=== PATIENT | male | born 1985 | race Caucasian/White ===

== ENCOUNTER 2016-03-01 04:16 | Emergency (ER) | payer SELFPAY ==
[2016-03-01] MEDS ORDERED: LORAZEPAM INJ 2 MG/1 ML VIAL IV ONE (04:44)
--- NOTE | 2016-03-01 04:47 | ER Document Report ---
[id number] DAYS: No <MECCA RICH - Last Filed: 03/02/16 03:08> - General Chief Complaint: Shortness Of Breath Stated Complaint: CHEST PAIN-CRUSHING Notes: Patient's a 30-year-old male presents with complaints of severe anxiety and panic attack. Patient has a history of bipolar and schizophrenia and panic attacks. Patient says he feels himself panicking and chest pain. He went walk around outside. He continues so panic therefore, he moves. He does admits using cocaine on . He denies any cocaine since then. 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 He's had no recent fevers or infections. No other complaints at this time. Patient is currently very anxious and panicky on exam. (MECCA RICH) - Related Data Allergies/Adverse Reactions: No Known Allergies Allergy (Verified 05/20/14 17:14) Past Medical History - Social History Smoking Status: Current Some Day Smoker Frequency of alcohol use: Occasional Drug Abuse: Cocaine, Methamphetamine Family History: Reviewed & Not Pertinent, Other - Father had congestive heart failure Patient has suicidal ideation: No Patient has homicidal ideation: No - Past Medical History Cardiac Medical History: Reports: Hx Hypertension, Hx Heart Murmur Pulmonary Medical History: Denies: Hx Tuberculosis Renal/ Medical History: Denies: Hx Peritoneal Dialysis Past Surgical History: Reports: Hx Cardiac Surgery, Hx Tonsillectomy - Immunizations Immunizations up to date: Yes Hx Diphtheria, Pertussis, Tetanus Vaccination: No <MECCA RICH - Last Filed: 03/02/16 03:08> Review of Systems <LENA MAYER - Last Filed: 03/01/16 10:26> <MECCA RICH - Last Filed: 03/02/16 03:08> - Review of Systems Notes: My Normal Review Basic REVIEW OF SYSTEMS: CONSTITUTIONAL : Denies fever, chills, or sweats. Denies recent illness. EENT: Denies eye, ear, throat, or mouth pain or symptoms. Denies nasal or sinus congestion. CARDIOVASCULAR: Some chest pain. RESPIRATORY: Denies cough, cold, or chest congestion. Denies shortness of breath, difficulty breathing, or wheezing. GASTROINTESTINAL: Denies abdominal pain. Denies nausea, vomiting, or diarrhea. Denies constipation. Last BM: MUSCULOSKELETAL: Denies neck or back pain or joint pain or swelling. SKIN: Denies rash or skin lesions. NEUROLOGICAL: Denies altered mental status or loss of consciousness. Denies headache. Denies weakness or paralysis or loss of use of either side. Denies problems with gait or speech. Denies sensory or motor loss. PSYCHIATRIC: Severe anxiety ALL OTHER SYSTEMS REVIEWED AND NEGATIVE. (MECCA RICH) Physical Exam <LENA MAYER - Last Filed: 03/01/16 10:26> <MECCA RICH - Last Filed: 03/02/16 03:08> - Vital signs Vitals: Resp BP Pulse Ox 34 H 122/40 L 95 03/01/16 06:09 03/01/16 06:09 03/01/16 06:09 (LENA MAYER) - Notes Notes: General Appearance: Well nourished, alert, patient is extremely anxious on exam. He is moving around in the bed and is having a hard time staying still. Vitals: reviewed, See vital signs table. Head: no swelling or tenderness to the head Eyes: PERRL, EOMI, Conjuctiva clear Mouth: No decreasd moisture Neck: Supple, no neck tenderness, No thyromegaly Lungs: No wheezing, No rales, No rhonci, No accessory muscle use, good air exchange bilaterally. Heart: Normal rate, Regular rythm, No murmur, no rub Abdomen: Normal BS, soft, No rigidity, No abdominal tenderness, No guarding, no rebound, no abdominal masses, no organomegaly Extremities: strength 5/5 in all extremities, good pulses in all extremities, no swelling or tenderness in the extremities, no edema. Skin: warm, dry, appropriate color, no rash Neuro: speech clear, oriented x 3, normal affect, responds appropriately to questions. (MECCA RICH) Course - Laboratory Result Diagrams: 03/01/16 04:45 03/01/16 04:45 <LENA MAYER - Last Filed: 03/01/16 10:26> - Laboratory Result Diagrams: 03/01/16 04:45 03/01/16 04:45 <MECCA RICH - Last Filed: 03/02/16 03:08> - Vital Signs Vital signs: Temp Pulse Resp BP Pulse Ox 98.0 F 80 16 140/58 H 98 03/01/16 10:45 03/01/16 10:45 03/01/16 10:45 03/01/16 10:45 03/01/16 10:45 (LENA MAYER) - Laboratory Laboratory results interpreted by me: 03/01/16 03/01/16 03/01/16 04:45 04:45 08:05 Hgb 11.7 L Hct 35.0 L MCV 79 L MCH 26.4 L RDW 14.4 H Lymphocytes % 11.7 L Creatinine 1.34 H ALT 17 L Urine Protein 100 H Urine Ketones TRACE H Urine Urobilinogen 4.0 H Salicylates < 1.0 L Acetaminophen < 10 L (LENA MAYER) - EKG Interpretation by Me Additional EKG results interpreted by me: 03/01/16 04:47 EKG is reviewed and interpreted by me. EKG shows sinus tachycardia with rate of [address] segment elevation or depression. No ischemic T wave inversions. UT interval, QRS duration, QTC intervals are within normal range. ( MECCA RICH) - Transfer of Care Notes: 03/01/16 06:47 Patient's anxiety and panic tachycardia was having as much proved after the tube Ativan. He is now resting comfortably. I did go and wake him up and talk to him. Patient says he is feeling improved. He never demonstrated any hallucinations. He denies any suicidal thoughts. I do not feel that he meets criteria for involuntary commitment. I did talk to the patient at length and he does request speak to psychiatry since he has been off medications and was having panic attack earlier. I do think that street drugs by does play a role in his symptoms he presented with today. He is medical stable to see psychiatry. The patient does decide to leave her did not feel we can hold against his will as he does not currently meet criteria for IVC. Dictation of this chart was performed using voice recognition software; therefore, there may be some unintended grammatical errors. (MECCA RICH) Discharge <LENA MAYER - Last Filed: 03/01/16 10:26> <MECCA RICH - Last Filed: 03/02/16 03:08> - Discharge Clinical Impression: Anxiety, Panic attack, Cocaine abuse Condition: Good Disposition: HOME, SELF-CARE Instructions: Anxiety ([facility]) Additional Instructions: Please avoid all street drugs. Please follow up with your doctor. Please take your medications as prescribed. Please return to the ER if you have fevers, depression, suicidal thoughts, hallucinations, or feel unwell.
[2016-03-01 05:03] LABS: ABSOLUTE BASOPHILS # (AUTO) 0.1 10^3/uL (0.0-0.2); ABSOLUTE LYMPHOCYTES (AUTO) 1.2 10^3/uL (0.5-4.7); ABSOLUTE NEUT (AUTO) 7.6 10^3/uL (1.7-8.2); BASOPHILS % (AUTO) 1.4 % (0-2); EOSINOPHILS % (AUTO) 0.2 % (0-6); HEMOGLOBIN 11.7 g/dL (13.5-17.0); HGB HCT DIFFERENCE 0.1; LYMPHOCYTES % (AUTO) 11.7 % (13-45); MEAN CORPUSCULAR HEMOGLOBIN 26.4 pg (27.0-33.4); MEAN CORPUSCULAR HGB CONC 33.4 g/dL (32.0-36.0); MEAN CORPUSCULAR VOLUME 79 fl (80-97); MONOCYTES % (AUTO) 9.8 % (3-13); RED BLOOD COUNT 4.44 10^6/uL (4.35-5.55); RED CELL DISTRIBUTION WIDTH 14.4 % (11.5-14.0); SEGMENTED NEUTROPHILS % (AUTO) 76.9 % (42-78); WHITE BLOOD COUNT 9.9 10^3/uL (4.0-10.5)
[2016-03-01 05:36] LABS: ALBUMIN 3.6 g/dL (3.5-5.0); ALKALINE PHOSPHATASE 94 U/L (38-126); ANION GAP 12 (5-19); ASPARTATE AMINO TRANSFERASE 38 U/L (17-59); BILIRUBIN,TOTAL 1.1 mg/dL (0.2-1.3); BLOOD UREA NITROGEN 19 mg/dL (7-20); CARBON DIOXIDE 25 mmol/L (22-30); CHLORIDE 101 mmol/L (98-107); CREATININE RESULT 1.34 mg/dL (0.52-1.25); GLUCOSE 105 mg/dL (75-110); POTASSIUM 3.7 mmol/L (3.6-5.0); SODIUM 137.7 mmol/L (137-145); TOTAL PROTEIN 7.1 g/dL (6.3-8.2)
[2016-03-01 05:38] LABS: ALCOHOL < 10 mg/dL (NONE DETECTED)
[2016-03-01 05:46] LABS: ALANINE AMINOTRANSFERASE 17 U/L (21-72)
[2016-03-01 09:32] LABS: APPEARANCE,URINE CLEAR; BILIRUBIN,URINE NEGATIVE (NEGATIVE); GLUCOSE, URINE NEGATIVE (NEGATIVE); KETONES,URINE TRACE mg/dL (NEGATIVE); LEUKOCYTE ESTERASE,URINE NEGATIVE (NEGATIVE); NITRITE,URINE NEGATIVE (NEGATIVE); PROTEIN,URINE 100 mg/dL (NEGATIVE); URINE SPECIFIC GRAVITY 1.023
[2016-03-01 09:50] LABS: URINE BARBITURATES SCREEN NEGATIVE; URINE METHADONE SCREEN NEGATIVE; URINE PHENCYCLIDINE SCREEN NEGATIVE
--- NOTE | 2016-03-01 10:39 | PSYCHOLOGICAL NOTE ---
Psych Note - Psych Note Psych Note: Patient is a 30 year old male who presented voluntarily seeking assistance for c /o anxiety/panic attacks. Upon arrival, patient reported a history of Schizophrenia, with no current psychotropic medications. Patient did endorse drug abuse, and toxicology was positive for Amphetamines, Cocaine, and THC. Patient this morning states he didn't need to speak with anyone. Patient states he has lost his health insurance and would like the name of a provider who is lower cost/free of charge. Provided patient with list of providers, and illuminated the ones which can access state funding should he meet that criteria. Patient reports he lives in a home with other roommates and this is a safe environment. Patient provided psychoeducation regarding drug use and its effects on his mental illnesses. Patient denies suicidal/homicidal ideaitons, intent, plan, or means. Patient is A&O. Mood is euthymic with normal affect. Patient denies suicidal.homicidal ideations, intent, plan, or means. Patient denies A/V h; delusions not noted. Thought processes were organized. Conversational speech was WNL for rate, tone, and prosody. Intellectual abilities were estimated within average range. Attention and focus were fair. Insight, judgment, and impulse control were poor. 298.9 (F29) Unspecified Schizophrenia or Other Psychotic Disorder Polysubstance Disorder Patient is psychiatrically cleared for discharge. Patient was held overnight voluntarily for consultation; however, this morning stated he no longer wished to engage in consultation. Patient did request resources, which were provided. Patient denied any other safety concerns. Patient denied suicidal/homicidal ideations, intent, plan, or means. I consulted with Dr. Boyd in regards to the care and management of this patient. ED MD is in agreement with disposition and recommendations.
[2016-03-01 11:07] VITALS: BP 140/58
--- NOTE | 2016-03-01 11:13 | ER Document Report ---
Doctor's Note Notes: 03/01/16 11:11 Medical rounds: Patient verbalizes no somatic complaints. There has been no further chest pain. Vital signs have normalized. Laboratory values are satisfactory. Psychosocial evaluation has been performed and he is deemed stable for discharge. He is given a list of resources for follow-up and is encouraged to do so. He is medically stable at this time.
--- NOTE | 2016-03-04 14:55 | EKG REPORT ---
SEVERITY:- ABNORMAL ECG - SINUS TACHYCARDIA ST DEPRESSION, CONSIDER ISCHEMIA, ANT-LAT LDS BORDERLINE PROLONGED QT INTERVAL : Confirmed by: Rose Arreguin MD 04-Mar-2016 14:54:02
== END 2016-03-01 10:48 | disposition home or self-care (01) ==
LOC: ER 04:16
DX: F41.0 Panic disorder [episodic paroxysmal anxiety] (principal); F41.9 Anxiety disorder, unspecified; F14.10 Cocaine abuse, uncomplicated; R07.9 Chest pain, unspecified; Z95.4 Presence of other heart-valve replacement; R00.0 Tachycardia, unspecified
CPT/HCPCS: 36415; 80053; 80307; 81001; 85025; 93005; 93010; 99285

== ENCOUNTER 2016-03-04 04:23 | Emergency (ER) | payer SELFPAY ==
[2016-03-04] MEDS ORDERED: LORAZEPAM INJ 2 MG/1 ML VIAL IV ONE (04:48)
[2016-03-04] MEDS ORDERED: NITROGLYCERIN 2% OINTMENT 1 GM PACKET TP ONE (04:49)
--- NOTE | 2016-03-04 04:51 | ER Document Report ---
Doctor's Note Notes: 03/04/16 04:49 03/04/16 05:57
[2016-03-04 05:21] LABS: ABSOLUTE LYMPHOCYTES (AUTO) 1.6 10^3/uL (0.5-4.7); ABSOLUTE MONOCYTES (AUTO) 1.1 10^3/uL (0.1-1.4); BASOPHILS % (AUTO) 0.3 % (0-2); EOSINOPHILS % (AUTO) 0.2 % (0-6); HEMATOCRIT 34.6 % (37.9-51.0); HEMOGLOBIN 11.4 g/dL (13.5-17.0); HGB HCT DIFFERENCE -0.4; LYMPHOCYTES % (AUTO) 14.8 % (13-45); MEAN CORPUSCULAR HEMOGLOBIN 25.9 pg (27.0-33.4); MEAN CORPUSCULAR HGB CONC 32.8 g/dL (32.0-36.0); MEAN CORPUSCULAR VOLUME 79 fl (80-97); MONOCYTES % (AUTO) 10.3 % (3-13); RED BLOOD COUNT 4.39 10^6/uL (4.35-5.55); RED CELL DISTRIBUTION WIDTH 14.6 % (11.5-14.0); SEGMENTED NEUTROPHILS % (AUTO) 74.4 % (42-78); WHITE BLOOD COUNT 10.7 10^3/uL (4.0-10.5)
[2016-03-04 05:33] LABS: ALANINE AMINOTRANSFERASE 31 U/L (21-72); ALBUMIN 3.8 g/dL (3.5-5.0); ALKALINE PHOSPHATASE 82 U/L (38-126); ANION GAP 16 (5-19); ASPARTATE AMINO TRANSFERASE 29 U/L (17-59); BILIRUBIN,TOTAL 1.1 mg/dL (0.2-1.3); BLOOD UREA NITROGEN 18 mg/dL (7-20); CALCIUM 9.1 mg/dL (8.4-10.2); CARBON DIOXIDE 21 mmol/L (22-30); CHLORIDE 102 mmol/L (98-107); CREATINE KINASE 181 U/L (55-170); CREATININE RESULT 1.06 mg/dL (0.52-1.25); GLUCOSE 106 mg/dL (75-110); POTASSIUM 3.6 mmol/L (3.6-5.0); SODIUM 138.7 mmol/L (137-145); TOTAL PROTEIN 6.6 g/dL (6.3-8.2)
[2016-03-04 05:45] LABS: CREATINE KINASE MB 5.33 ng/mL (<4.55)
[2016-03-04 05:47] LABS: TROPONIN I 0.156 ng/mL
--- NOTE | 2016-03-04 05:58 | ER Document Report ---
ED General - General TRAVEL OUTSIDE OF THE [place] IN LAST 30 DAYS: No <MECCA RICH - Last Filed: 03/04/16 07:49> <ESTELA BUSTILLO - Last Filed: 03/04/16 12:59> - General Chief Complaint: Chest Pain Stated Complaint: CHEST PAIN Notes: I performed a quick triage evaluation of the patient. Patient is a 30-year-old male who presents with chest pain shortness of breath after he did methamphetamine. Patient is a long history of methamphetamine and cocaine use. He does have a history of a replaced heart valve. He has cadaver valve. 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 Patient denies any recent fevers or infections. Symptoms not started after he took the methamphetamine. Patient said he did try to take 1 Xanax to calm down his symptoms but did not help. Patient is tachycardic. EKG does show some T-wave inversion and mild ST segment depression. Patient states on a electronic device monitor. (MECCA RICH) - Related Data Allergies/Adverse Reactions: No Known Allergies Allergy (Verified 05/20/14 17:14) Past Medical History - Social History Smoking Status: Unknown if Ever Smoked Frequency of alcohol use: Occasional Drug Abuse: Cocaine, Marijuana, Methamphetamine Family History: Reviewed & Not Pertinent, Other - Father had congestive heart failure Patient has suicidal ideation: No Patient has homicidal ideation: No - Past Medical History Cardiac Medical History: Reports: Hx Hypertension, Hx Heart Murmur Pulmonary Medical History: Denies: Hx Tuberculosis Renal/ Medical History: Denies: Hx Peritoneal Dialysis Psychiatric Medical History: Reports: Hx Bipolar Disorder, Hx Schizophrenia Past Surgical History: Reports: Hx Cardiac Surgery, Hx Tonsillectomy - Immunizations Immunizations up to date: Yes Hx Diphtheria, Pertussis, Tetanus Vaccination: No <MECCA RICH - Last Filed: 03/04/16 07:49> Review of Systems <MECCA RICH - Last Filed: 03/04/16 07:49> <ESTELA BUSTILLO - Last Filed: 03/04/16 12:59> - Review of Systems Notes: My Normal Review Basic REVIEW OF SYSTEMS: CONSTITUTIONAL : Denies fever, chills, or sweats. Denies recent illness. EENT: Denies eye, ear, throat, or mouth pain or symptoms. Denies nasal or sinus congestion. CARDIOVASCULAR: Chest pain RESPIRATORY: Shortness of breath GASTROINTESTINAL: Denies abdominal pain. Denies nausea, vomiting, or diarrhea. Denies constipation. Last BM: MUSCULOSKELETAL: Denies neck or back pain or joint pain or swelling. SKIN: Denies rash or skin lesions. NEUROLOGICAL: Denies altered mental status or loss of consciousness. Denies headache. Denies weakness or paralysis or loss of use of either side. Denies problems with gait or speech. Denies sensory or motor loss. ALL OTHER SYSTEMS REVIEWED AND NEGATIVE. (MECCA RICH) Physical Exam <MECCA RICH - Last Filed: 03/04/16 07:49> <ESTELA BUSTILLO - Last Filed: 03/04/16 12:59> - Vital signs Vitals: Pulse Resp BP Pulse Ox 108 H 28 H 141/106 H 100 03/04/16 04:34 03/04/16 04:34 03/04/16 04:34 03/04/16 04:34 (MECCA RICH) (ESTELA BUSTILLO) - Notes Notes: General Appearance: Well nourished, alert, cooperative, no acute distress, no obvious discomfort. Vitals: reviewed, See vital signs table. Head: no swelling or tenderness to the head Eyes: PERRL, EOMI, Conjuctiva clear Mouth: No decreasd moisture Neck: Supple, no neck tenderness, No thyromegaly Lungs: No wheezing, No rales, No rhonci, No accessory muscle use, good air exchange bilaterally. Heart: Rapid rate, Regular rythm, No murmur, no rub Abdomen: Normal BS, soft, No rigidity, No abdominal tenderness, No guarding, no rebound, no abdominal masses, no organomegaly Extremities: strength 5/5 in all extremities, good pulses in all extremities, no swelling or tenderness in the extremities, no edema. Skin: warm, dry, appropriate color, no rash Neuro: speech clear, oriented x 3, normal affect, responds appropriately to questions. (MECCA RICH) Course - Laboratory Result Diagrams: 03/04/16 04:55 03/04/16 04:55 <MECCA RICH - Last Filed: 03/04/16 07:49> - Laboratory Result Diagrams: 03/04/16 04:55 03/04/16 04:55 <ESTELA BUSTILLO - Last Filed: 03/04/16 12:59> - Re-evaluation Re-evalutation: 03/04/16 06:37 Patient is currently well sedated from the Ativan. He is no longer tachycardic. He denies any pain at this time. At the tetanus CT angiogram to rule out dissection being that he does have a history of the aortic valve replacement does have elevated cardiac enzymes. I'm awaiting the results for that. (MECCA RICH) 03/04/16 10:46 Patient's cardiac enzymes have elevated, I did contact the vidant transfer who seemed quite nonchalant regarding the patient's care Requests sandblast or shotblast equipment tender be contacted 03/04/16 12:58 [facility] cardiology paged again. Patient accepted by dr Suggs awaiting bed. (ESTELA BUSTILLO) - Vital Signs Vital signs: Temp Pulse Resp BP Pulse Ox 97.5 F 108 H 25 H 93/73 L 94 03/04/16 04:36 03/04/16 04:34 03/04/16 12:01 03/04/16 12:01 03/04/16 12:01 (MECCA RICH) (ESTELA BUSTILLO) - Laboratory Laboratory results interpreted by me: 03/04/16 03/04/16 03/04/16 04:55 04:55 04:55 WBC 10.7 H Hgb 11.4 L Hct 34.6 L MCV 79 L MCH 25.9 L RDW 14.6 H Carbon Dioxide 21 L Creatine Kinase 181 H CK-MB (CK-2) 5.33 H (MECCA RICH) (ESTELA BUSTILLO) - EKG Interpretation by Me Additional EKG results interpreted by me: 03/04/16 06:03 EKG is reviewed and interpreted by me. EKG shows sinus tachycardia with rate of 103 bpm. He does have some ST segment depression and T-wave inversions in leads V2 through V5. No ST segment elevation. Old EKG for comparison is from 05/20/2014. UT level, QRS duration, QTC intervals are within normal range. EKG #2 is reviewed and interpreted by me. EKG shows normal sinus rhythm with rate of [address] segment elevation or depression. No ischemic T wave inversions. UT level, QRS duration, QTC intervals are within normal range. 03/04/16 06:36 (MECCA RICH) - Transfer of Care Notes: 03/04/16 07:[address] Suggs, cardiology at [facility], he says is unlikely that they would do a heart catheterization on this patient. Is unlikely as an actual occlusion. He requested a repeat the troponin. The troponin continues to increase then requests recalled him back. If it does not continue to increase and he feels that the patient be safely admitted here for observation. I did check the patient to Dr. Bustillo who will follow up on the repeat troponin. (MECCA RICH) Discharge <MECCA RICH - Last Filed: 03/04/16 07:49> <ESTELA BUSTILLO - Last Filed: 03/04/16 12:59> - Discharge Clinical Impression: Cocaine abuse, Cardiac enzymes elevated, Methamphetamine abuse Chest pain Qualifiers: Chest pain type: unspecified Qualified Code(s): R07.9 - Chest pain, unspecified Condition: Stable Disposition: [facility]
[2016-03-04] MEDS ORDERED: NORMAL SALINE 1000 ML 1,000 ML IV ONE (06:01)
[2016-03-04 14:25] VITALS: BP 116/50
--- NOTE | 2016-03-04 14:55 | EKG REPORT ---
SEVERITY:- ABNORMAL ECG - SINUS RHYTHM LVH : Confirmed by: Rose Arreguin MD 04-Mar-2016 14:53:59
== END 2016-03-04 14:40 | disposition short-term general hospital (02) ==
LOC: ER 04:23
DX: R07.9 Chest pain, unspecified (principal); F15.10 Other stimulant abuse, uncomplicated; F14.10 Cocaine abuse, uncomplicated; R74.8 Abnormal levels of other serum enzymes; R00.0 Tachycardia, unspecified; R06.02 Shortness of breath; I10 Essential (primary) hypertension; Z95.4 Presence of other heart-valve replacement; Z82.49 Family history of ischemic heart disease and other diseases of the circulatory system
CPT/HCPCS: 93005; 99281; 36415; 82553; 82550; 85025; 80053; 84484; 71010; 71275; 93010; J2060; J7030

== ENCOUNTER 2016-03-08 01:18 | Emergency (ER) | payer SELFPAY ==
[2016-03-08 04:05] LABS: ABSOLUTE BASOPHILS # (AUTO) 0.1 10^3/uL (0.0-0.2); ABSOLUTE MONOCYTES (AUTO) 0.7 10^3/uL (0.1-1.4); ABSOLUTE NEUT (AUTO) 8.2 10^3/uL (1.7-8.2); BASOPHILS % (AUTO) 0.7 % (0-2); EOSINOPHILS % (AUTO) 0.4 % (0-6); HEMATOCRIT 31.1 % (37.9-51.0); HEMOGLOBIN 10.3 g/dL (13.5-17.0); HGB HCT DIFFERENCE -0.2; MEAN CORPUSCULAR HGB CONC 33.1 g/dL (32.0-36.0); MEAN CORPUSCULAR VOLUME 79 fl (80-97); MONOCYTES % (AUTO) 7.2 % (3-13); RED BLOOD COUNT 3.95 10^6/uL (4.35-5.55); RED CELL DISTRIBUTION WIDTH 14.7 % (11.5-14.0); SEGMENTED NEUTROPHILS % (AUTO) 81.7 % (42-78); WHITE BLOOD COUNT 10.1 10^3/uL (4.0-10.5)
[2016-03-08] MEDS ORDERED: LORAZEPAM INJ 2 MG/1 ML VIAL IV ONE ×2 (04:13→15:06)
[2016-03-08] MEDS ORDERED: NORMAL SALINE 1000 ML 1,000 ML IV PRN (04:13)
--- NOTE | 2016-03-08 04:17 | ER Document Report ---
ED Cardiac - General Chief Complaint: Chest Pain Stated Complaint: CHEST PAIN Time seen by provider: 04:14 Mode of Arrival: Ambulatory Information source: Patient TRAVEL OUTSIDE OF THE [place] IN LAST 30 DAYS: No - HPI Patient complains to provider of: Chest pain, Shortness of breath Was the onset of pain: Sudden When did pain begin: 10 days ago Chest pain location: Substernal Quality of pain: Constant, Heaviness Severity now: Moderate Severity at worst: Moderate Pain level currently: 4 Chest pain precipitating factors: At Rest Positive cardiac history: Yes Associated symptoms: Dizziness, Lightheaded, Palpitations, Shortness of breath Exacerbated by: Denies Relieved by: Nothing Similar symptoms previously: Yes Recently seen / treated by doctor: Yes Notes: Patient is a 30-year-old male with a history of aortic valve replacement approximately 3 years ago, who presents to the emergency room complaining of chest pain, lower extremity swelling, dizziness, feeling disoriented, symptoms began approximately 10 days ago and he came to the emergency room to be seen at that time, it was recommended that he be transferred to tertiary care center for further evaluation and treatment but patients does he was too scared and therefore left AGAINST MEDICAL ADVICE, he has been having constant pain since, he does report that he has "slipped up", 2 and used cocaine and methamphetamines and opiate medications that were not prescribed to him, the first time was on the and the second time was on the , but he denies using anything since, no trauma, he does report a mild cough that is occasionally productive of dark grayish colored phlegm sometimes specked with blood, he reports some shortness of breath, no fever, no vomiting, does have occasional nausea - Related Data Allergies/Adverse Reactions: No Known Allergies Allergy (Verified 03/08/16 01:26) Past Medical History - General Information source: Patient - Social History Smoking Status: Current Every Day Smoker Drug Abuse: Cocaine, Methamphetamine, Prescription drugs Family History: Reviewed & Not Pertinent, Other - Father had congestive heart failure Patient has suicidal ideation: No Patient has homicidal ideation: No - Past Medical History Cardiac Medical History: Reports: Hx Hypertension, Hx Heart Murmur Pulmonary Medical History: Denies: Hx Tuberculosis Renal/ Medical History: Denies: Hx Peritoneal Dialysis Psychiatric Medical History: Reports: Hx Bipolar Disorder, Hx Schizophrenia Past Surgical History: Reports: Hx Cardiac Surgery, Hx Tonsillectomy - Immunizations Immunizations up to date: Yes Hx Diphtheria, Pertussis, Tetanus Vaccination: No Review of Systems - Review of Systems Constitutional: No symptoms reported EENT: No symptoms reported Cardiovascular: See HPI Respiratory: See HPI Gastrointestinal: No symptoms reported Genitourinary: No symptoms reported Male Genitourinary: No symptoms reported Musculoskeletal: No symptoms reported Skin: No symptoms reported Hematologic/Lymphatic: No symptoms reported Neurological/Psychological: No symptoms reported -: Yes All other systems reviewed and negative Physical Exam - Vital signs Vitals: Temp Pulse Resp BP Pulse Ox 98.4 F 113 H 18 122/50 L 99 03/08/16 01:32 03/08/16 01:32 03/08/16 01:32 03/08/16 01:32 03/08/16 01:32 Interpretation: Tachycardic - General General appearance: Appears well, Alert - HEENT Head: Normocephalic, Atraumatic Eyes: Normal Pupils: PERRL - Respiratory Respiratory status: No respiratory distress Chest status: Tender - Tender to palpate over left anterior chest wall Breath sounds: Normal Chest palpation: Normal - Cardiovascular Rhythm: Regular, Tachycardia Heart sounds: Normal auscultation Murmur: No - Abdominal Inspection: Normal Distension: No distension Bowel sounds: Normal Tenderness: Nontender Organomegaly: No organomegaly - Back Back: Normal, Nontender - Extremities General upper extremity: Normal inspection, Nontender, Normal color, Normal ROM , Normal temperature General lower extremity: Normal inspection, Nontender, Normal color, Normal ROM , Normal temperature, Normal weight bearing. No: Karie's sign - Neurological Neuro grossly intact: Yes Cognition: Normal Orientation: AAOx4 Сергей Coma Scale Eye Opening: Spontaneous [place] Coma Scale Verbal: Oriented [place] Coma Scale Motor: Obeys Commands [place] Coma Scale Total: 15 Speech: Normal Motor strength normal: LUE, RUE, LLE, RLE Sensory: Normal - Psychological Associated symptoms: Anxious, Tearful - Skin Skin Temperature: Warm Skin Moisture: Dry Skin Color: Normal Course - Re-evaluation Re-evalutation: 03/08/16 04:46 Call was placed to [facility], spoke with [facility] [employer] , will call back with cardiology 03/08/16 04:51 Callback from [facility], patient is accepted by Dr. Dallas, however there are no beds available at the present time, he will likely be transferred sometime around noon 03/08/16 06:48 Patient continues to rest comfortably, stable vital signs except for mild tachycardia, [facility], patient was discussed with Dr. Gonzales who will continue to monitor patient in the emergency room and ensure that patient is stable for transfer - Vital Signs Vital signs: Temp Pulse Resp BP Pulse Ox 98.4 F 113 H 28 H 100/37 L 96 03/08/16 01:32 03/08/16 01:32 03/08/16 06:01 03/08/16 06:01 03/08/16 06:01 - Laboratory Result Diagrams: 03/08/16 03:50 03/08/16 03:50 Laboratory results interpreted by me: 03/08/16 03/08/16 03:50 03:50 RBC 3.95 L Hgb 10.3 L Hct 31.1 L MCV 79 L MCH 26.0 L RDW 14.7 H Plt Count 146 L Seg Neutrophils % 81.7 H Lymphocytes % 10.0 L Sodium 135.2 L Calcium 8.3 L AST 16 L Creatine Kinase 26 L Total Protein 5.9 L Albumin 2.8 L - Diagnostic Test Radiology reviewed: Image reviewed, Reports reviewed - EKG Interpretation by Me EKG shows normal: Sinus rhythm Rate: Tachycardia When compared to previous EKG there are: No significant change Discharge - Discharge Clinical Impression: Cardiac enzymes elevated Chest pain Qualifiers: Chest pain type: unspecified Qualified Code(s): R07.9 - Chest pain, unspecified Condition: Fair Disposition: [facility]
[2016-03-08 04:18] LABS: ALANINE AMINOTRANSFERASE 26 U/L (21-72); ALBUMIN 2.8 g/dL (3.5-5.0); ALKALINE PHOSPHATASE 64 U/L (38-126); ANION GAP 9 (5-19); ASPARTATE AMINO TRANSFERASE 16 U/L (17-59); BILIRUBIN,TOTAL 0.8 mg/dL (0.2-1.3); BLOOD UREA NITROGEN 14 mg/dL (7-20); CALCIUM 8.3 mg/dL (8.4-10.2); CARBON DIOXIDE 28 mmol/L (22-30); CHLORIDE 98 mmol/L (98-107); CREATINE KINASE 26 U/L (55-170); CREATININE RESULT 1.11 mg/dL (0.52-1.25); GLUCOSE 98 mg/dL (75-110); POTASSIUM 3.7 mmol/L (3.6-5.0); SODIUM 135.2 mmol/L (137-145); TOTAL PROTEIN 5.9 g/dL (6.3-8.2)
[2016-03-08 04:30] LABS: CREATINE KINASE MB 1.5 ng/mL (<4.55)
[2016-03-08 04:33] LABS: TROPONIN I 0.998 ng/mL
[2016-03-08] MEDS ORDERED: ASPIRIN 81 MG TABLET, CHEWABLE PO ONE (04:47)
[2016-03-08] MEDS: NORMAL SALINE 1000 ML 1,000 ML IV PRN ×2 (06:15→08:05)
--- NOTE | 2016-03-08 09:36 | EKG REPORT ---
SEVERITY:- ABNORMAL ECG - SINUS TACHYCARDIA NONSPECIFIC REPOL ABNORMALITY, DIFFUSE LEADS : Confirmed by: Rose Arreguin MD 08-Mar-2016 09:35:26
[2016-03-08] MEDS ORDERED: DEXTROSE 5%-LACTATED RINGERS 1,000 ML IV ONE ×2 (10:27→12:26)
--- NOTE | 2016-03-08 10:29 | ER Document Report ---
Doctor's Note Notes: 03/08/16 10:28 The nurse reports the girlfriend states he wakes up stating he is in pain, but nurse reports she always falls back asleep. She further reported that he has not urinated that she knows of since he's been here. He has received 2 L of IV NS. We'll give him a third liter of fluid, giving him D5 LR this time. 03/08/16 15:59 Patient care is turned over to Dr. Bustillo at this time He knows this patient well from recent previous ER visits. He was brought up-to-date on the patient's positive troponins and chest pain and anxiety. He is pending transfer to [facility].
[2016-03-08 12:00] LABS: APPEARANCE,URINE CLEAR; BILIRUBIN,URINE NEGATIVE (NEGATIVE); GLUCOSE, URINE NEGATIVE (NEGATIVE); KETONES,URINE NEGATIVE (NEGATIVE); LEUKOCYTE ESTERASE,URINE NEGATIVE (NEGATIVE); NITRITE,URINE NEGATIVE (NEGATIVE); PROTEIN,URINE NEGATIVE (NEGATIVE); URINE SPECIFIC GRAVITY 1.013
[2016-03-08 12:16] LABS: URINE BARBITURATES SCREEN NEGATIVE; URINE METHADONE SCREEN NEGATIVE; URINE OPIATES LOW UNCONFIRMED POSITIVE; URINE PHENCYCLIDINE SCREEN NEGATIVE
--- NOTE | 2016-03-08 20:03 | ER Document Report ---
Doctor's Note Notes: 03/08/16 20:00 Pt noted to be hypoxic, flight crew requested, pt palced on nonrebreather
[2016-03-08 22:43] VITALS: BP 119/45
== END 2016-03-08 20:10 | disposition short-term general hospital (02) ==
LOC: ER 01:18
DX: R74.8 Abnormal levels of other serum enzymes (principal); R07.9 Chest pain, unspecified; R09.02 Hypoxemia; R06.02 Shortness of breath; R42 Dizziness and giddiness; R00.2 Palpitations; R00.0 Tachycardia, unspecified; F17.200 Nicotine dependence, unspecified, uncomplicated; I10 Essential (primary) hypertension; Z95.2 Presence of prosthetic heart valve
CPT/HCPCS: 93005; 96376; 99285; 96361; 96375; 96365; 96366; 36415; 82553; 82550; 85025; 80053; 81001; 84484; 80307; 71020; 93010; J2060; J7030

== ENCOUNTER 2016-03-22 16:17 | Inpatient (IN) | payer SELFPAY ==
[2016-03-22] MEDS ORDERED: ACETAMINOPHEN 325 MG TABLET PO PRN (16:53)
[2016-03-22] MEDS ORDERED: GENTAMICIN SULFATE 0 MG in DEXTROSE 5%-WATER 100 ML IV NR (17:15)
--- NOTE | 2016-03-22 17:22 | PDOC H&P ---
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 Patient is to continue IV Rocephin and IV gentamicin until 04/24/2016. He is to have follow- up echocardiogram at that point. It is noted that patient was in our facility in 2013 to complete course of IV antibiotics immediately following his aortic valve replacement. During that admission he was found to have drug paraphernalia in his room and thought to be using his PICC line for IV drug abuse while in the hospital. He states that the paraphernalia belonged to his friend. Medications listed below have not been reconciled at the time of this dictation. According to records from [facility] patient is on: Bumex 1 mg by mouth twice daily Hydralazine 10 mg by mouth every 8 hours Potassium chloride 20 mEq by mouth daily Rocephin 2 g IV every 24 hours Gentamicin 60 mg IV every 12 hours Thiamine 100 mg by mouth daily Folic acid 1 mg by mouth daily Multivitamin 1 by mouth daily Past Medical History Cardiac Medical History: Reports: Hypertension, Heart Murmur Pulmonary Medical History: Denies: Tuberculosis Psychiatric Medical History: Reports: Bipolar Disorder, Substance Abuse - IV drug abuse Past Surgical History Past Surgical History: Reports: Tonsillectomy Social History Information Source: Patient Smoking Status: Current Every Day Smoker Frequency of Alcohol Use: Heavy Hx Recreational Drug Use: Yes Drugs: Cocaine, Heroin, Marijuana Hx Prescription Drug Abuse: No - Advance Directive Resuscitation Status: Full Code Family History Family History: Other - Father had congestive heart failure Parental Family History Reviewed: Yes Children Family History Reviewed: Yes Sibling(s) Family History Reviewed.: Yes Medication/Allergy Home Medications: Aspirin [Aspirin 325 mg Tablet] 325 mg PO DAILY 01/27/13 Famotidine [Pepcid 20 mg Tablet] 20 mg PO BID 01/27/13 Folic Acid 1 mg PO DAILY 01/27/13 Furosemide [Lasix 20 mg Tablet] 20 mg PO DAILY 01/27/13 Oxycodone HCl [Oxycodone HCl 10 MG Tablet] 10 mg PO Q4HP PRN 01/27/13 Acetaminophen [Tylenol 325 mg Tablet] 650 mg PO Q4HP PRN #0 tablet 02/16/13 Docusate Sodium [Colace 100 mg Capsule] 100 mg PO BID #60 capsule 02/16/13 Ferrous Sulfate [Feosol 325 mg Tablet] 325 mg PO DAILY #30 tablet 02/16/13 Furosemide [Lasix 20 mg Tablet] 20 mg PO DAILY #30 tablet 02/16/13 Metoprolol Tartrate [Lopressor 25 mg Tablet] 12.5 mg PO Q12 #60 tablet 02/16/13 [place]-3 Fatty Acids/Fish Oil [Theragran-M 1,200 mg Softgel] 1 cap PO DAILY #30 capsule 02/16/13 Potassium Chloride 10 meq PO DAILY #30 tablet.sa 02/16/13 Docusate Sodium [Colace 100 mg Capsule] 100 mg PO DAILY #30 capsule 10/21/13 Tramadol HCl [Ultram 50 mg Tablet] 50 mg PO ASDIR PRN #10 tablet 10/21/13 Erythromycin Base [Erythromycin Oph 1 gm Oint Ud] 1 applic OD QID #1 tube Metoclopramide HCl [Reglan 10 mg Tablet] 1 - 2 tab PO ASDIR PRN #25 tablet 05/29 Metoprolol Tartrate 25 mg PO BID #60 tablet 05/30/15 Allergies/Adverse Reactions: No Known Allergies Allergy (Verified 03/08/16 01:26) Review of Systems Constitutional: ABSENT: chills, fever(s), headache(s), weight gain, weight loss Eyes: ABSENT: visual disturbances Ears: ABSENT: hearing changes Cardiovascular: ABSENT: chest pain, dyspnea on exertion, edema, orthropnea, palpitations Respiratory: ABSENT: cough, hemoptysis Gastrointestinal: ABSENT: abdominal pain, constipation, diarrhea, hematemesis, hematochezia, nausea, vomiting Genitourinary: ABSENT: dysuria, hematuria Musculoskeletal: ABSENT: joint swelling Integumentary: ABSENT: rash, wounds Neurological: ABSENT: abnormal gait, abnormal speech, confusion, dizziness, focal weakness, syncope Psychiatric: ABSENT: anxiety, depression, homidical ideation, suicidal ideation Endocrine: ABSENT: cold intolerance, heat intolerance, polydipsia, polyuria Hematologic/Lymphatic: ABSENT: easy bleeding, easy bruising Physical Exam Vital Signs: Temp Pulse Resp BP Pulse Ox 98.5 F 104 H 18 112/44 L 97 03/22/16 16:41 03/22/16 16:41 03/22/16 16:41 03/22/16 16:41 03/22/16 16:41 Intake & Output 03/21/16 03/22/16 03/23/16 06:59 06:59 06:59 Weight 81.8 kg PHYSICAL EXAM: GENERAL: Appears well, no acute distress HEENT: Normocephalic, no scleral icterus, conjunctiva clear, EOEM intact, PERRLA , moist mucous membranes NECK: trachea midline, no thyromegally RESPIRATORY: Clear to auscultation, no wheezes/rhonchi CARDIAC: Regular rate and rhythm, harsh holosystolic murmur ABDOMEN: Soft, no distension, no tenderness, no guarding, normal bowel sounds, negative Abdalla sign RECTAL: deferred : deferred EXTREMITIES: No edema, cyanosis, clubbing MUSCULOSKELETAL: No joint swelling or deformity VASCULAR: normal peripheral pulses NEUROLOGIC: Alert, oriented to person/place/time, normal speech, cranial nerves grossly intact, 5/5 strength in all extremities, tactile sensation intact in all extremities SKIN: Multiple tattoos, facial piercing PSYCHIATRIC: Normal mood, normal affect Assessment & Plan - Diagnosis (1) Endocarditis Qualifiers: Endocarditis type: infective Infective endocarditis organism: bacterial Chronicity: acute Qualified Code(s): I33.0 - Acute and subacute infective endocarditis Is this a current diagnosis for this admission?: YesPlan: Patient has acute endocarditis with Streptococcus viridans of the aortic valve. He is to continue IV Rocephin and IV gentamicin until 04/24/2016. He will need follow-up echocardiogram after that. He has PICC line in place. (2) IV drug abuse Is this a current diagnosis for this admission?: Yes (3) Systolic CHF, chronic Is this a current diagnosis for this admission?: YesPlan: Patient is chronic, compensated at this time. Echocardiogram done at [facility] showed EF 45-50% vegetation of the aortic valve with moderate to severe aortic regurgitation. Continue Bumex. Discontinue hydralazine. Start Toprol-XL 12.5 mg twice a day. Consider addition of NICOLE inhibitor as well if blood pressure will tolerate. (4) Aortic insufficiency Is this a current diagnosis for this admission?: YesPlan: Secondary to valvular vegetation. Repeat echocardiogram after treatment of endocarditis. (5) History of aortic valve replacement with bioprosthetic valve Is this a current diagnosis for this admission?: Yes - Time Time Spent: Greater than 70 Minutes
[2016-03-22] MEDS ORDERED: INFLUENZA ADLT QUAD (36MOS+) 2016-17 VAC 0.5 ML SYR IM PRN (18:08)
[2016-03-22] MEDS ORDERED: GENTAMICIN SULFATE INJ 80 MG/2 ML VIAL IV PRN (19:26)
[2016-03-22] MEDS ORDERED: CEFTRIAXONE 2 GM/D5W RTU 2 GM/50 ML RTUPB IV ONE (21:07)
[2016-03-22] MEDS ORDERED: GENTAMICIN SULFATE INJ 80 MG/2 ML VIAL ONE (21:09)
[2016-03-22] MEDS ORDERED: GENTAMICIN SULFATE/PF INJ 20 MG/2 ML VIAL ONE (21:09)
[2016-03-22] MEDS: CEFTRIAXONE 2 GM/D5W RTU 2 GM/50 ML RTUPB IV SCH (21:47)
[2016-03-22] MEDS: METOPROLOL SUCCINATE 25 MG TAB.SR.24H PO SCH (21:48)
[2016-03-22] MEDS ORDERED: HYDRALAZINE HCL 10 MG TABLET PO SCH (22:00)
[2016-03-22] MEDS: GENTAMICIN SULFATE 180 MG in DEXTROSE 5%-WATER 100 ML IV SCH (23:05)
[2016-03-23] MEDS: GENTAMICIN SULFATE 180 MG in DEXTROSE 5%-WATER 100 ML IV SCH (06:00)
[2016-03-23 06:40] LABS: ABSOLUTE EOSINOPHILS # (AUTO) 0.1 10^3/uL (0.0-0.6); ABSOLUTE LYMPHOCYTES (AUTO) 1.3 10^3/uL (0.5-4.7); ABSOLUTE MONOCYTES (AUTO) 0.6 10^3/uL (0.1-1.4); ABSOLUTE NEUT (AUTO) 6.7 10^3/uL (1.7-8.2); BASOPHILS % (AUTO) 0.4 % (0-2); EOSINOPHILS % (AUTO) 0.9 % (0-6); HEMOGLOBIN 10.2 g/dL (13.5-17.0); HGB HCT DIFFERENCE -0.4; LYMPHOCYTES % (AUTO) 14.5 % (13-45); MEAN CORPUSCULAR HEMOGLOBIN 26.5 pg (27.0-33.4); MEAN CORPUSCULAR HGB CONC 32.9 g/dL (32.0-36.0); MEAN CORPUSCULAR VOLUME 81 fl (80-97); MONOCYTES % (AUTO) 7.2 % (3-13); RED BLOOD COUNT 3.85 10^6/uL (4.35-5.55); RED CELL DISTRIBUTION WIDTH 18.3 % (11.5-14.0); WHITE BLOOD COUNT 8.8 10^3/uL (4.0-10.5)
[2016-03-23 07:03] LABS: ALANINE AMINOTRANSFERASE 34 U/L (21-72); ALBUMIN 2.9 g/dL (3.5-5.0); ALKALINE PHOSPHATASE 61 U/L (38-126); ANION GAP 10 (5-19); ASPARTATE AMINO TRANSFERASE 18 U/L (17-59); BILIRUBIN,TOTAL 0.4 mg/dL (0.2-1.3); BLOOD UREA NITROGEN 21 mg/dL (7-20); CALCIUM 8.9 mg/dL (8.4-10.2); CARBON DIOXIDE 25 mmol/L (22-30); CHLORIDE 103 mmol/L (98-107); CREATININE RESULT 0.78 mg/dL (0.52-1.25); GLUCOSE 88 mg/dL (75-110); POTASSIUM 4.5 mmol/L (3.6-5.0); SODIUM 137.5 mmol/L (137-145)
[2016-03-23] MEDS: ENOXAPARIN SODIUM INJ 40 MG/0.4 ML DISP.SYRIN SUBCUT SCH (07:48)
[2016-03-23] MEDS: METOPROLOL SUCCINATE 25 MG TAB.SR.24H PO SCH ×2 (10:32→21:22)
[2016-03-23] MEDS: BUMETANIDE 1 MG TABLET PO SCH (10:35)
[2016-03-23] MEDS: POTASSIUM CHLORIDE 10 MEQ TABLET.SA PO SCH (10:37)
--- NOTE | 2016-03-23 14:40 | PDOC PROGRESS REPORT ---
Subjective Progress Note for:: 03/23/16 Subjective:: Patient continues to request pain medication, however I'm not really clear what his particular pain is. I have declined his request for narcotic pain medication. I ordered acetaminophen for patient instead for pain, however he states he is allergic to acetaminophen. He has been in our facility on multiple prior occasions and never claimed and acetaminophen allergy. Previous documents indicate no known drug allergies. Physical Exam Vital Signs: Temp Pulse Resp BP Pulse Ox 97.4 F 106 H 20 110/38 L 100 03/23/16 11:19 03/23/16 11:19 03/23/16 11:19 03/23/16 11:19 03/23/16 11:19 Intake & Output 03/22/16 03/23/16 03/24/16 06:59 06:59 06:59 Intake Total 785 Output Total 2 Balance 783 Weight 81.1 kg GENERAL: No acute distress HEENT: Conjunctiva clear, nonicteric, moist mucous membranes, no JVD, midline trachea RESPIRATORY: Clear to auscultation bilaterally, no wheezes, no rhonchi CARDIAC: Regular rate and rhythm, holosystolic murmur noted ABDOMEN: Soft, nondistended, nontender, positive bowel sounds, no rebound, no guarding EXTREMETIES: No edema, cyanosis, clubbing NEUROLOGIC: Alert, oriented to person/place/time, CN's grossly intact, no focal deficits SKIN: No rash, wounds PSYCH: Normal mood, normal affect Results Laboratory Results: 03/23/16 05:55 03/23/16 05:55 03/23/16 03/23/16 05:55 05:55 WBC 8.8 RBC 3.85 L Hgb 10.2 L Hct 31.0 L MCV 81 MCH 26.5 L MCHC 32.9 RDW 18.3 H Plt Count 195 Seg Neutrophils % 77.0 Lymphocytes % 14.5 Monocytes % 7.2 Eosinophils % 0.9 Basophils % 0.4 Absolute Neutrophils 6.7 Absolute Lymphocytes 1.3 Absolute Monocytes 0.6 Absolute Eosinophils 0.1 Absolute Basophils 0.0 Sodium 137.5 Potassium 4.5 Chloride 103 Carbon Dioxide 25 Anion Gap 10 BUN 21 H Creatinine 0.78 Est GFR ( Amer) > 60 Est GFR (Non-Af Amer) > 60 Glucose 88 Calcium 8.9 Magnesium 2.0 Total Bilirubin 0.4 AST 18 ALT 34 Alkaline Phosphatase 61 Total Protein 6.0 L Albumin 2.9 L Assessment & Plan - Diagnosis (1) Endocarditis Qualifiers: Endocarditis type: infective Infective endocarditis organism: bacterial Chronicity: acute Qualified Code(s): I33.0 - Acute and subacute infective endocarditis Is this a current diagnosis for this admission?: YesPlan: Patient has acute endocarditis with Streptococcus viridans of the aortic valve. He is to continue IV Rocephin and IV gentamicin until 04/24/2016. He will need follow-up echocardiogram after that. He has PICC line in place. It is noted that patient was in our hospital in 2013 for endocarditis status post aortic valve replacement at the end of 2012. He was found with drug paraphernalia in his room during that hospitalization and thought to be using his PICC line for IV drug abuse. I have advised him that we will not administer narcotic medications during this admission as we may consider randomly drug testing him and we do not want this to confound results. (2) IV drug abuse Is this a current diagnosis for this admission?: Yes (3) Systolic CHF, chronic Is this a current diagnosis for this admission?: YesPlan: Patient is chronic, compensated at this time. Echocardiogram done at [facility] showed EF 45-50% vegetation of the aortic valve with moderate to severe aortic regurgitation. Continue Bumex, Toprol-XL 12.5 mg twice a day. Blood pressure is too low to tolerate NICOLE inhibitor at this time. (4) Aortic insufficiency Is this a current diagnosis for this admission?: YesPlan: Secondary to valvular vegetation. Repeat echocardiogram after treatment of endocarditis. (5) History of aortic valve replacement with bioprosthetic valve Is this a current diagnosis for this admission?: YesPlan: This was performed at the end of 2012. Patient has continued to use IV drugs despite having aortic valve replacement. 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 - Time Time Spent with patient: 25-34 minutes
[2016-03-23] MEDS: CEFTRIAXONE 2 GM/D5W RTU 2 GM/50 ML RTUPB IV SCH (18:06)
[2016-03-23] MEDS: GENTAMICIN SULFATE 60 MG in DEXTROSE 5%-WATER 100 ML IV SCH (18:56)
[2016-03-24] MEDS: GENTAMICIN SULFATE 60 MG in DEXTROSE 5%-WATER 100 ML IV SCH ×2 (05:17→18:10)
[2016-03-24] MEDS: ENOXAPARIN SODIUM INJ 40 MG/0.4 ML DISP.SYRIN SUBCUT SCH (08:30)
[2016-03-24] MEDS: METOPROLOL SUCCINATE 25 MG TAB.SR.24H PO SCH ×2 (09:42→21:14)
[2016-03-24] MEDS: POTASSIUM CHLORIDE 10 MEQ TABLET.SA PO SCH (09:42)
--- NOTE | 2016-03-24 10:57 | PDOC PROGRESS REPORT ---
Subjective Progress Note for:: 03/24/16 Subjective:: Denies any complaints. Physical Exam Vital Signs: Temp Pulse Resp BP Pulse Ox 98.8 F 111 H 20 105/34 L 98 03/24/16 07:17 03/24/16 07:17 03/24/16 07:17 03/24/16 07:17 03/24/16 07:17 Intake & Output 03/23/16 03/24/16 03/25/16 06:59 06:59 06:59 Intake Total 785 1820 Balance 785 1820 Weight 81.1 kg 82 kg General appearance: PRESENT: no acute distress Eye exam: PRESENT: conjunctiva pink. ABSENT: scleral icterus Mouth exam: PRESENT: moist, tongue midline Neck exam: ABSENT: JVD Respiratory exam: PRESENT: clear to auscultation sera. ABSENT: rales, rhonchi, wheezes Cardiovascular exam: PRESENT: systolic murmur - 4/6, tachycardia GI/Abdominal exam: PRESENT: normal bowel sounds, soft. ABSENT: distended, guarding, mass, organolmegaly, rebound, tenderness Extremities exam: PRESENT: full ROM. ABSENT: calf tenderness, clubbing, pedal edema Neurological exam: PRESENT: alert, awake, oriented to person, oriented to place , oriented to time, oriented to situation, other Psychiatric exam: PRESENT: appropriate affect, other Skin exam: PRESENT: dry, intact, warm. ABSENT: cyanosis, rash Results Laboratory Results: 03/23/16 05:55 03/23/16 05:55 Assessment & Plan - Diagnosis (1) Endocarditis Qualifiers: Endocarditis type: infective Infective endocarditis organism: bacterial Chronicity: acute Qualified Code(s): I33.0 - Acute and subacute infective endocarditis Is this a current diagnosis for this admission?: YesPlan: Patient is to remain hospitalized until he completes 6 week course of IV antibiotics. He has a history of IV drug abuse and is not trusted with a PICC line outside of a controlled setting. (2) Aortic insufficiency Is this a current diagnosis for this admission?: YesPlan: Secondary to endocarditis. (3) History of aortic valve replacement with bioprosthetic valve Is this a current diagnosis for this admission?: YesPlan: Patient is currently getting IV antibiotics for endocarditis. (4) IV drug abuse Is this a current diagnosis for this admission?: YesPlan: The patient is not getting any pain medications. There was concern earlier during this hospitalization that he may have some drug paraphernalia present. (5) Systolic CHF, chronic Is this a current diagnosis for this admission?: YesPlan: Patient currently appears euvolemic. - Time Time Spent with patient: 25-34 minutes - Inpatient Certification Medical Necessity: Need for IV Antibiotics
[2016-03-24] MEDS: BUMETANIDE 1 MG TABLET PO SCH (12:25)
[2016-03-24] MEDS: CEFTRIAXONE 2 GM/D5W RTU 2 GM/50 ML RTUPB IV SCH (17:16)
[2016-03-25] MEDS: GENTAMICIN SULFATE 60 MG in DEXTROSE 5%-WATER 100 ML IV SCH ×2 (06:14→18:35)
[2016-03-25 06:52] LABS: CREATININE RESULT 0.86 mg/dL (0.52-1.25)
[2016-03-25 06:57] LABS: GENTAMICIN-TROUGH 0.6 ug/mL (<2.0)
[2016-03-25] MEDS: ENOXAPARIN SODIUM INJ 40 MG/0.4 ML DISP.SYRIN SUBCUT SCH (08:31)
[2016-03-25 08:58] LABS: GENTAMICIN-PEAK 3.4 ug/mL (5.0-10.0)
[2016-03-25] MEDS: POTASSIUM CHLORIDE 10 MEQ TABLET.SA PO SCH (11:07)
[2016-03-25] MEDS: METOPROLOL SUCCINATE 25 MG TAB.SR.24H PO SCH ×2 (11:08→21:17)
[2016-03-25] MEDS: BUMETANIDE 1 MG TABLET PO SCH (11:09)
--- NOTE | 2016-03-25 14:03 | PDOC PROGRESS REPORT ---
Subjective Progress Note for:: 03/25/16 Subjective:: Denies any complaints. Physical Exam Vital Signs: Temp Pulse Resp BP Pulse Ox 97.8 F 101 H 20 106/39 L 94 03/25/16 10:59 03/25/16 10:59 03/25/16 10:59 03/25/16 10:59 03/25/16 10:59 Intake & Output 03/24/16 03/25/16 03/26/16 06:59 06:59 06:59 Intake Total 1820 2707 900 Balance 1820 2707 900 Weight 82 kg 82 kg General appearance: PRESENT: no acute distress Eye exam: PRESENT: conjunctiva pink. ABSENT: scleral icterus Mouth exam: PRESENT: moist, tongue midline Neck exam: ABSENT: JVD Respiratory exam: PRESENT: clear to auscultation sera. ABSENT: rales, rhonchi, wheezes Cardiovascular exam: PRESENT: systolic murmur - 3/6 systolic murmur., tachycardia. ABSENT: diastolic murmur, rubs GI/Abdominal exam: PRESENT: normal bowel sounds, soft. ABSENT: distended, guarding, mass, organolmegaly, rebound, tenderness Extremities exam: PRESENT: full ROM. ABSENT: calf tenderness, clubbing, pedal edema Psychiatric exam: PRESENT: appropriate affect Results Laboratory Results: 03/23/16 05:55 03/25/16 06:10 03/25/16 06:10 Creatinine 0.86 Est GFR ( Amer) > 60 Est GFR (Non-Af Amer) > 60 Impressions: Chest X-Ray 03/24/16 00:00 IMPRESSION: Bilateral pneumonia. Assessment & Plan - Diagnosis (1) Endocarditis Qualifiers: Endocarditis type: infective Infective endocarditis organism: bacterial Chronicity: acute Qualified Code(s): I33.0 - Acute and subacute infective endocarditis Is this a current diagnosis for this admission?: YesPlan: Patient is to remain hospitalized until he completes 6 week course of IV antibiotics. He has a history of IV drug abuse and is not trusted with a PICC line outside of a controlled setting. (2) Aortic insufficiency Is this a current diagnosis for this admission?: YesPlan: Secondary to endocarditis. (3) History of aortic valve replacement with bioprosthetic valve Is this a current diagnosis for this admission?: YesPlan: Patient is currently getting IV antibiotics for endocarditis. (4) IV drug abuse Is this a current diagnosis for this admission?: YesPlan: The patient is not getting any pain medications. There was concern earlier during this hospitalization that he may have some drug paraphernalia present. (5) Systolic CHF, chronic Is this a current diagnosis for this admission?: YesPlan: Patient currently appears euvolemic. (6) Pneumonia Is this a current diagnosis for this admission?: YesPlan: Patient has pneumonia on chest x-ray although clinically he does not have any obvious around. He should have adequate coverage with the Rocephin he is getting for his endocarditis. - Time Time Spent with patient: 15-24 minutes - Inpatient Certification Medical Necessity: Need for IV Antibiotics
[2016-03-25] MEDS: CEFTRIAXONE 2 GM/D5W RTU 2 GM/50 ML RTUPB IV SCH (17:26)
[2016-03-25] MEDS ORDERED: ALBUTEROL SULFATE 0.083% NEB 2.5 MG/3 ML AMPUL NEB PRN (18:44)
[2016-03-26] MEDS: GENTAMICIN SULFATE 60 MG in DEXTROSE 5%-WATER 100 ML IV SCH (05:38)
[2016-03-26 06:00] LABS: ABSOLUTE BASOPHILS # (AUTO) 0.1 10^3/uL (0.0-0.2); ABSOLUTE EOSINOPHILS # (AUTO) 0.1 10^3/uL (0.0-0.6); ABSOLUTE LYMPHOCYTES (AUTO) 1.4 10^3/uL (0.5-4.7); ABSOLUTE MONOCYTES (AUTO) 0.8 10^3/uL (0.1-1.4); ABSOLUTE NEUT (AUTO) 7.7 10^3/uL (1.7-8.2); BASOPHILS % (AUTO) 0.6 % (0-2); EOSINOPHILS % (AUTO) 1.1 % (0-6); HEMATOCRIT 28.7 % (37.9-51.0); HEMOGLOBIN 9.2 g/dL (13.5-17.0); HGB HCT DIFFERENCE -1.1; LYMPHOCYTES % (AUTO) 13.5 % (13-45); MEAN CORPUSCULAR HEMOGLOBIN 25.9 pg (27.0-33.4); MEAN CORPUSCULAR HGB CONC 31.9 g/dL (32.0-36.0); MEAN CORPUSCULAR VOLUME 81 fl (80-97); MONOCYTES % (AUTO) 7.8 % (3-13); RED BLOOD COUNT 3.55 10^6/uL (4.35-5.55); RED CELL DISTRIBUTION WIDTH 18.7 % (11.5-14.0)
[2016-03-26 06:38] LABS: ANION GAP 8 (5-19); BLOOD UREA NITROGEN 22 mg/dL (7-20); CALCIUM 8.2 mg/dL (8.4-10.2); CARBON DIOXIDE 23 mmol/L (22-30); CHLORIDE 105 mmol/L (98-107); CREATININE RESULT 0.83 mg/dL (0.52-1.25); GLUCOSE 93 mg/dL (75-110); SODIUM 136.1 mmol/L (137-145)
[2016-03-26] MEDS: ENOXAPARIN SODIUM INJ 40 MG/0.4 ML DISP.SYRIN SUBCUT SCH (09:14)
[2016-03-26] MEDS: BUMETANIDE 1 MG TABLET PO SCH (09:15)
[2016-03-26] MEDS: METOPROLOL SUCCINATE 25 MG TAB.SR.24H PO SCH ×2 (09:16→22:13)
[2016-03-26] MEDS: POTASSIUM CHLORIDE 10 MEQ TABLET.SA PO SCH (09:16)
--- NOTE | 2016-03-26 10:52 | PDOC PROGRESS REPORT ---
Subjective Progress Note for:: 03/26/16 Subjective:: Denies any complaints. Physical Exam Vital Signs: Temp Pulse Resp BP Pulse Ox 97.5 F 105 H 15 107/45 L 99 03/26/16 08:34 03/26/16 08:34 03/26/16 08:34 03/26/16 08:34 03/26/16 08:34 Intake & Output 03/25/16 03/26/16 03/27/16 06:59 06:59 06:59 Intake Total 2707 2442 Balance 2707 2442 Weight 82 kg 82 kg General appearance: PRESENT: no acute distress Eye exam: PRESENT: conjunctiva pink. ABSENT: scleral icterus Mouth exam: PRESENT: moist, tongue midline Neck exam: ABSENT: JVD Respiratory exam: PRESENT: clear to auscultation sera. ABSENT: rales, rhonchi, wheezes Cardiovascular exam: PRESENT: systolic murmur - 3/6 systolic murmur., tachycardia. ABSENT: diastolic murmur, rubs Neurological exam: PRESENT: alert, awake, oriented to person, oriented to place , oriented to time, oriented to situation, CN II-XII grossly intact. ABSENT: motor sensory deficit Psychiatric exam: PRESENT: appropriate affect Skin exam: PRESENT: dry, intact, warm. ABSENT: cyanosis, rash Results Laboratory Results: 03/26/16 05:45 03/26/16 05:45 03/26/16 03/26/16 05:45 05:45 WBC 10.0 RBC 3.55 L Hgb 9.2 L Hct 28.7 L MCV 81 MCH 25.9 L MCHC 31.9 L RDW 18.7 H Plt Count 178 Seg Neutrophils % 77.0 Lymphocytes % 13.5 Monocytes % 7.8 Eosinophils % 1.1 Basophils % 0.6 Absolute Neutrophils 7.7 Absolute Lymphocytes 1.4 Absolute Monocytes 0.8 Absolute Eosinophils 0.1 Absolute Basophils 0.1 Sodium 136.1 L Potassium 4.0 Chloride 105 Carbon Dioxide 23 Anion Gap 8 BUN 22 H Creatinine 0.83 Est GFR ( Amer) > 60 Est GFR (Non-Af Amer) > 60 Glucose 93 Calcium 8.2 L Impressions: Chest X-Ray 03/24/16 00:00 IMPRESSION: Bilateral pneumonia. Assessment & Plan - Diagnosis (1) Endocarditis Qualifiers: Endocarditis type: infective Infective endocarditis organism: bacterial Chronicity: acute Qualified Code(s): I33.0 - Acute and subacute infective endocarditis Is this a current diagnosis for this admission?: YesPlan: Patient is to remain hospitalized until he completes 6 week course of IV antibiotics. He has a history of IV drug abuse and is not trusted with a PICC line outside of a controlled setting. (2) Aortic insufficiency Is this a current diagnosis for this admission?: YesPlan: Secondary to endocarditis. (3) History of aortic valve replacement with bioprosthetic valve Is this a current diagnosis for this admission?: YesPlan: Patient is currently getting IV antibiotics for endocarditis. (4) IV drug abuse Is this a current diagnosis for this admission?: YesPlan: The patient is not getting any pain medications. There was concern earlier during this hospitalization that he may have some drug paraphernalia present. (5) Systolic CHF, chronic Is this a current diagnosis for this admission?: YesPlan: Patient currently appears euvolemic. (6) Pneumonia Is this a current diagnosis for this admission?: YesPlan: Patient has pneumonia on chest x-ray although clinically he does not have any obvious abnormalities. He should have adequate coverage with the Rocephin he is getting for his endocarditis. - Time Time Spent with patient: 15-24 minutes - Inpatient Certification Medical Necessity: Need for IV Antibiotics
[2016-03-26] MEDS: CEFTRIAXONE 2 GM/D5W RTU 2 GM/50 ML RTUPB IV SCH (17:37)
[2016-03-26] MEDS: GENTAMICIN SULFATE 140 MG in DEXTROSE 5%-WATER 100 ML IV SCH (18:48)
[2016-03-26] MEDS: ONDANSETRON HCL INJ/PF 4 MG/2 ML SDV IV PRN (22:13)
[2016-03-27] MEDS ORDERED: TRAZODONE HCL 50 MG TABLET PO ONE ×2 (06:53→22:46)
[2016-03-27] MEDS: ENOXAPARIN SODIUM INJ 40 MG/0.4 ML DISP.SYRIN SUBCUT SCH (09:22)
[2016-03-27] MEDS: POTASSIUM CHLORIDE 10 MEQ TABLET.SA PO SCH (09:23)
[2016-03-27] MEDS: METOPROLOL SUCCINATE 25 MG TAB.SR.24H PO SCH ×2 (09:23→23:33)
[2016-03-27] MEDS: BUMETANIDE 1 MG TABLET PO SCH (09:23)
--- NOTE | 2016-03-27 10:08 | PDOC PROGRESS REPORT ---
Subjective Progress Note for:: 03/27/16 Subjective:: Complaints of left upper quadrant abdominal pain along with diarrhea. Physical Exam Vital Signs: Temp Pulse Resp BP Pulse Ox 98.2 F 111 H 18 110/41 L 96 03/27/16 08:21 03/27/16 08:21 03/27/16 08:21 03/27/16 08:21 03/27/16 08:21 Intake & Output 03/26/16 03/27/16 03/28/16 06:59 06:59 06:59 Intake Total 2442 2300 Balance 2442 2300 Weight 82 kg 85.2 kg General appearance: PRESENT: no acute distress Eye exam: PRESENT: conjunctiva pink. ABSENT: scleral icterus Mouth exam: PRESENT: moist, tongue midline Neck exam: ABSENT: JVD Respiratory exam: PRESENT: clear to auscultation sera. ABSENT: rales, rhonchi, wheezes Cardiovascular exam: PRESENT: systolic murmur - 3/6 systolic murmur, tachycardia. ABSENT: diastolic murmur, rubs GI/Abdominal exam: PRESENT: normal bowel sounds, soft, tenderness - Mild left upper quadrant tenderness but no guarding or rebound.. ABSENT: distended, guarding, mass, organolmegaly, rebound Extremities exam: ABSENT: calf tenderness, clubbing, pedal edema Neurological exam: PRESENT: alert, awake, oriented to person, oriented to place , oriented to time, oriented to situation, CN II-XII grossly intact. ABSENT: motor sensory deficit Psychiatric exam: PRESENT: appropriate affect Results Laboratory Results: 03/26/16 05:45 03/26/16 05:45 03/25/16 22:40 Sputum Gram Stain - Final 03/25/16 22:40 Sputum Sputum Culture - Final Impressions: Chest X-Ray 03/24/16 00:00 IMPRESSION: Bilateral pneumonia. Assessment & Plan - Diagnosis (1) Endocarditis Qualifiers: Endocarditis type: infective Infective endocarditis organism: bacterial Chronicity: acute Qualified Code(s): I33.0 - Acute and subacute infective endocarditis Is this a current diagnosis for this admission?: YesPlan: Patient is to remain hospitalized until he completes 6 week course of IV antibiotics. He has a history of IV drug abuse and is not trusted with a PICC line outside of a controlled setting. (2) Aortic insufficiency Is this a current diagnosis for this admission?: YesPlan: Secondary to endocarditis. (3) History of aortic valve replacement with bioprosthetic valve Is this a current diagnosis for this admission?: YesPlan: Patient is currently getting IV antibiotics for endocarditis. (4) IV drug abuse Is this a current diagnosis for this admission?: YesPlan: The patient is not getting any pain medications. There was concern earlier during this hospitalization that he may have some drug paraphernalia present. (5) Systolic CHF, chronic Is this a current diagnosis for this admission?: YesPlan: Patient currently appears euvolemic. (6) Pneumonia Is this a current diagnosis for this admission?: YesPlan: Patient has pneumonia on chest x-ray although clinically he does not have any obvious abnormalities. He should have adequate coverage with the Rocephin he is getting for his endocarditis. (7) Abdominal pain Is this a current diagnosis for this admission?: YesPlan: Patient has left lower quadrant abdominal pain along with diarrhea. Will check a lipase to make certain he does not have pancreatitis. Also check C. difficile given that he has been receiving antibiotics. - Time Time Spent with patient: 25-34 minutes - Inpatient Certification Medical Necessity: Need for IV Antibiotics
[2016-03-27 12:28] LABS: URINE BARBITURATES SCREEN NEGATIVE; URINE METHADONE SCREEN NEGATIVE; URINE PHENCYCLIDINE SCREEN NEGATIVE
[2016-03-27 12:34] LABS: URINE OPIATES LOW UNCONFIRMED POSITIVE
[2016-03-27 13:19] LABS: ALBUMIN 3.1 g/dL (3.5-5.0); BILIRUBIN,TOTAL 1.2 mg/dL (0.2-1.3); LIPASE 234.2 U/L (23-300)
[2016-03-27] MEDS: CEFTRIAXONE 2 GM/D5W RTU 2 GM/50 ML RTUPB IV SCH (17:16)
[2016-03-27] MEDS: GENTAMICIN SULFATE 140 MG in DEXTROSE 5%-WATER 100 ML IV SCH (17:52)
[2016-03-27] MEDS: KETOROLAC TROMETHAMINE INJ/PF 30 MG/1 ML SDV IV PRN (23:35)
[2016-03-28 05:17] LABS: CREATINE KINASE MB 2.05 ng/mL (<4.55)
[2016-03-28 05:19] LABS: TROPONIN I 0.601 ng/mL
--- NOTE | 2016-03-28 10:34 | EKG REPORT ---
SEVERITY:- ABNORMAL ECG - SINUS RHYTHM PROBABLE LEFT ATRIAL ABNORMALITY LOW VOLTAGE IN FRONTAL LEADS ABNORMAL Q SUGGESTS ANTERIOR INFARCT REPOL ABNRM SUGGESTS ISCHEMIA, DIFFUSE LEADS BORDERLINE PROLONGED QT INTERVAL : Confirmed by: Xander Allen 28-Mar-2016 10:33:42
[2016-03-28] MEDS: POTASSIUM CHLORIDE 10 MEQ TABLET.SA PO SCH (11:03)
[2016-03-28] MEDS: METOPROLOL SUCCINATE 25 MG TAB.SR.24H PO SCH (11:04)
[2016-03-28] MEDS: BUMETANIDE 1 MG TABLET PO SCH (11:18)
[2016-03-28] MEDS: ENOXAPARIN SODIUM INJ 40 MG/0.4 ML DISP.SYRIN SUBCUT SCH (11:18)
[2016-03-28 11:28] LABS: CREATINE KINASE MB 2.57 ng/mL (<4.55)
[2016-03-28 11:33] LABS: TROPONIN I 0.416 ng/mL
[2016-03-28] MEDS: KETOROLAC TROMETHAMINE INJ/PF 30 MG/1 ML SDV IV PRN (13:18)
[2016-03-28] MEDS: ONDANSETRON HCL INJ/PF 4 MG/2 ML SDV IV PRN (13:19)
--- NOTE | 2016-03-28 15:38 | PDOC PROGRESS REPORT ---
Subjective Progress Note for:: 03/28/16 Subjective:: Patient complains of pain in his upper abdomen. He had an abdominal ultrasound done today which does show him to have a small amount of gallbladder sludge. Physical Exam Vital Signs: Temp Pulse Resp BP Pulse Ox 97.3 F 82 19 92/34 L 100 03/28/16 04:48 03/28/16 14:00 03/28/16 07:53 03/28/16 11:08 03/28/16 11:08 Intake & Output 03/27/16 03/28/16 03/29/16 06:59 06:59 06:59 Intake Total 2300 934 200 Output Total 200 Balance 2300 734 200 Weight 85.2 kg 85.1 kg General appearance: PRESENT: no acute distress Eye exam: PRESENT: conjunctiva pink. ABSENT: scleral icterus Neck exam: ABSENT: JVD Respiratory exam: PRESENT: clear to auscultation sera. ABSENT: rales, rhonchi, wheezes Cardiovascular exam: PRESENT: systolic murmur, tachycardia GI/Abdominal exam: PRESENT: normal bowel sounds, soft, tenderness - Moderate epigastric and right upper quadrant tenderness but no guarding or rebound.. ABSENT: guarding, rigid Extremities exam: ABSENT: calf tenderness, clubbing, pedal edema Neurological exam: PRESENT: alert, awake, oriented to person, oriented to place , oriented to time, oriented to situation Skin exam: PRESENT: dry, intact, warm. ABSENT: cyanosis, rash Results Laboratory Results: 03/26/16 05:45 03/26/16 05:45 03/28/16 03/28/16 03/28/16 04:30 04:30 10:39 Creatine Kinase 67 58 CK-MB (CK-2) 2.05 Troponin I 0.601 03/28/16 10:39 Creatine Kinase CK-MB (CK-2) 2.57 Troponin I 0.416 Impressions: KUB X-Ray 03/27/16 00:00 IMPRESSION: NO RADIOGRAPHIC EVIDENCE FOR ACUTE ABDOMINAL DISEASE. Abdomen Ultrasound 03/28/16 00:00 IMPRESSION: Trace bilateral pleural effusions Trace pericholecystic fluid without gallbladder wall thickening or sonographic Abdalla's sign. Few tiny stones/minimal sludge in the gallbladder fundus Chest X-Ray 03/28/16 00:00 IMPRESSION: Trace bilateral pleural effusions are now present. Alveolar perihilar infiltrates seen 03/24/2016 have resolved. Minimal bibasilar atelectasis PICC line tip superior vena cava Assessment & Plan - Diagnosis (1) Endocarditis Qualifiers: Endocarditis type: infective Infective endocarditis organism: bacterial Chronicity: acute Qualified Code(s): I33.0 - Acute and subacute infective endocarditis Is this a current diagnosis for this admission?: YesPlan: Patient is to remain hospitalized until he completes 6 week course of IV antibiotics for strep viridans endocarditis. He has a history of IV drug abuse and is not trusted with a PICC line outside of a controlled setting. (2) Aortic insufficiency Is this a current diagnosis for this admission?: YesPlan: Secondary to endocarditis. She had an episode of hypotension last night an echocardiogram has been ordered to evaluate. (3) History of aortic valve replacement with bioprosthetic valve Is this a current diagnosis for this admission?: YesPlan: Patient is currently getting IV antibiotics for endocarditis. (4) IV drug abuse Is this a current diagnosis for this admission?: YesPlan: The patient is not getting any pain medications. There was concern earlier during this hospitalization that he may have some drug paraphernalia present. He did test positive for opioids yesterday however he has not had any here while hospitalized. He is adamant that he is not taking anything other than what he's been given here by the nursing staff. (5) Systolic CHF, chronic Is this a current diagnosis for this admission?: YesPlan: Patient has had some hypotension. Patient has echocardiogram ordered for today. (6) Pneumonia Is this a current diagnosis for this admission?: YesPlan: Patient has pneumonia on chest x-ray although clinically he does not have any obvious abnormalities. Repeat chest x-ray has shown improvement in the infiltrates. He should have adequate coverage with the Rocephin he is getting for his endocarditis. (7) Abdominal pain Is this a current diagnosis for this admission?: YesPlan: The patient's gallbladder ultrasound shows a small amount of sludge and stones. Dr. Castro of general surgery has evaluated the patient. He is concerned given the overall complexity of this patient that he should be perhaps sent elsewhere for further evaluation. Gastroenterology is not available this weekend at our facility. We'll await the results of the echocardiogram and discuss it with [facility] as he was initially seen there. - Time Time Spent with patient: 25-34 minutes - Inpatient Certification Medical Necessity: Need for IV Antibiotics - Plan Summary Plan Summary: Will await the results of echocardiogram and then discuss the case with the medical service at [facility] as to whether or not he should be transferred to their facility given our lack of gastroenterology services here at our facility now.
[2016-03-28 15:40] VITALS: BP 94/21
[2016-03-28 16:28] LABS: CREATINE KINASE MB 3.34 ng/mL (<4.55); TROPONIN I 0.409 ng/mL
[2016-03-28 16:55] LABS: HEMATOCRIT 38.4 % (37.9-51.0); HGB HCT DIFFERENCE -0.9; MEAN CORPUSCULAR HEMOGLOBIN 25.8 pg (27.0-33.4); MEAN CORPUSCULAR HGB CONC 32.5 g/dL (32.0-36.0); MEAN CORPUSCULAR VOLUME 79 fl (80-97); RED BLOOD COUNT 4.85 10^6/uL (4.35-5.55); RED CELL DISTRIBUTION WIDTH 18.1 % (11.5-14.0)
[2016-03-28 16:56] LABS: ALBUMIN 3.3 g/dL (3.5-5.0); ALKALINE PHOSPHATASE 90 U/L (38-126); ANION GAP 18 (5-19); BLOOD UREA NITROGEN 71 mg/dL (7-20); CALCIUM 8.5 mg/dL (8.4-10.2); CARBON DIOXIDE 16 mmol/L (22-30); CHLORIDE 93 mmol/L (98-107); CREATININE RESULT 3.89 mg/dL (0.52-1.25); GLUCOSE 121 mg/dL (75-110); TOTAL PROTEIN 5.6 g/dL (6.3-8.2)
[2016-03-28 17:14] LABS: HEMOGLOBIN 12.5 g/dL (13.5-17.0); WHITE BLOOD COUNT 20.7 10^3/uL (4.0-10.5)
[2016-03-28] MEDS ORDERED: OXYCODONE HCL IR 5 MG TABLET PO PRN (17:18)
[2016-03-28 17:19] LABS: BASOPHILS % (MANUAL) 0 % (0-2); EOSINOPHILS % (MANUAL) 0 % (0-6); LYMPHOCYTES % (MANUAL) 10 % (13-45); TOTAL CELLS COUNTED 100
[2016-03-28 17:20] LABS: TOXIC GRANULATION SLIGHT
[2016-03-28 17:21] LABS: ALANINE AMINOTRANSFERASE 4705 U/L (21-72); ASPARTATE AMINO TRANSFERASE 2729 U/L (17-59)
[2016-03-28 17:21] LABS: ANISOCYTOSIS 1+; HYPOCHROMASIA SLIGHT; MICROCYTOSIS SLIGHT; POLYCHROMASIA SLIGHT
[2016-03-28 17:23] LABS: POTASSIUM 6.2 mmol/L (3.6-5.0)
[2016-03-28] MEDS ORDERED: NORMAL SALINE 1000 ML 1,000 ML IV PRN (17:37)
[2016-03-28] MEDS: CEFTRIAXONE 2 GM/D5W RTU 2 GM/50 ML RTUPB IV SCH (17:49)
--- NOTE | 2016-03-28 17:58 | XCELERA REPORT ---
[address] [address] Transthoracic Echocardiogram Report Name: VINICIO BLEDSOE Age: 30 yrs Gender: Male : 1985 Patient Status: Inpatient Patient Location: 5\S\529\S\A Study Date: 03/28/2016 02:40 PM Height: 72 in Weight: 187 lb BSA: 2.1 m2 Procedure: A two-dimensional transthoracic echocardiogram with color flow and Doppler was performed. The study was technically adequate with some images being suboptimal in quality. Reason For Study: ENDOCARDITIS / AR / CHF History: ENDOCARDITIS / AR / CHF. Ordering Physician: JEROD SHIN Performed By: Larry Bear Interpretation Summary The left ventricle is severely dilated. There is normal left ventricular wall thickness. LV EF is 25% Left ventricular systolic function is severely reduced. There is no thrombus. The right ventricular systolic function is moderate to severely reduced. The left atrium is moderately dilated. The interatrial septum is intact with no evidence for an atrial septal defect. There is no evidence of mitral valve prolapse. There is no mitral valve stenosis. There is a moderate to severe amount of mitral regurgitation There is a small vegetation or mass on the aortic valve. There is a peak gradient of 20 mm of Hg. There is no LVOT obstruction. There is a severe amount of aortic regurgitation P1/2 T = 130ms There is a bioprosthetic aortic valve. The bioprosthetic valve appears to be calcified. There is no tricuspid stenosis. There is a moderate amount of tricuspid regurgitation There is moderate pulmonary hypertension by echo RVSP is 49 to 54 mm of Hg , with RA mean f10 to15. There is no pericardial effusion. Recommend antibiotiscs prior to GI,,Dental surgeries /procedures. There is premature closure of MV leaflets. MMode/2D Measurements \T\ Calculations RVDd: 2.0 cm LVIDd: 7.5 cm FS: 19.9 % Ao root diam: 3.0 cm IVSd: 0.88 cm LVIDs: 6.0 cm EDV(Teich): 296.8 ml LVPWd: 0.91 cmESV(Teich): 179.5 mlAo root area: 7.0 cm2 EF(Teich): 39.5 % LA dimension: 5.2 cm LVOT diam: 2.2 cm LVOT area: 3.8 cm2 Doppler Measurements \T\ Calculations MV E max dulce: MV P1/2t max dulce: Ao V2 max: AI max dulce: 137.6 cm/sec 144.2 cm/sec 223.8 cm/sec 354.7 cm/sec MV A max dulce: MV P1/2t: 33.5 msec Ao max PG: AI max P.7 cm/sec MVA(P1/2t): 6.6 cm2 20.0 mmHg 51.0 mmHg MV E/A: 2.6 MV dec slope: Ao V2 mean: AI dec slope: 1261 cm/sec2 159.5 cm/sec 829.9 cm/sec2 MV dec time: Ao mean PG: AI P1/2t: 0.11 sec 11.5 mmHg 125.2 msec Ao V2 VTI: 50.5 cm HEDY(I,D): 1.2 cm2 HEDY(V,D): 1.2 cm2 LV V1 max PG: SV(LVOT): 60.3 ml PA V2 max: PI end-d dulce: 2.0 mmHg 38.9 cm/sec 96.4 cm/sec LV V1 mean PG: PA max P.1 mmHg 0.61 mmHg LV V1 max: 70.8 cm/sec LV V1 mean: 48.6 cm/sec LV V1 VTI: 15.7 cm TR max dulce: RAP systole: 270.1 cm/sec 10.0 mmHg TR max P.2 mmHg RVSP(TR): 39.2 mmHg Left Ventricle The left ventricle is severely dilated. There is normal left ventricular wall thickness. LV EF is 25%. Left ventricular systolic function is severely reduced. There is severe global hypokinesis of the left ventricle. There is no thrombus. There is no ventricular septal defect visualized. Right Ventricle The right ventricle is mildly dilated. There is mild right ventricular hypertrophy. The right ventricular systolic function is moderate to severely reduced. Atria The right atrium is mildly dilated. The left atrium is moderately dilated. The interatrial septum is intact with no evidence for an atrial septal defect. Mitral Valve There is no evidence of mitral valve prolapse. There is no vegetation seen on the mitral valve. There is no mitral valve stenosis. There is premature closure of MV leaflets. There is a moderate to severe amount of mitral regurgitation. Aortic Valve There is a small vegetation or mass on the aortic valve. There is mild aortic stenosis. There is a peak gradient of 20 mm of Hg. There is no LVOT obstruction. There is a severe amount of aortic regurgitation. P1/2 T = 130ms. There is a bioprosthetic aortic valve. The bioprosthetic valve appears to be calcified. Tricuspid Valve There is no tricuspid stenosis. There is a moderate amount of tricuspid regurgitation. There is moderate pulmonary hypertension by echo. RVSP is 49 to 54 mm of Hg , with RA mean f10 to15. Pulmonic Valve There is no pulmonic valvular stenosis. There is a mild amount of pulmonic regurgitation. Great Vessels The aortic root is not well visualized. Effusions There is no pericardial effusion. Recommend antibiotiscs prior to GI,,Dental surgeries /procedures. : JEROD SHIN > Rose Arreguin
[2016-03-28] MEDS ORDERED: SODIUM POLYSTYRENE SULFONATE 15 GM/60 ML PO ONE (18:00)
--- NOTE | 2016-03-28 18:33 | PDOC TRANSFER SUMMARY ---
General Admission Date/PCP: 03/22/16 16:53 Admission Date: 03/22/16 Transfer Date: 03/28/16 Accepting Facility: [facility] Accepting Physician: Dr. Velez Resuscitation Status: Full Code - Transfer Diagnosis (1) Endocarditis Is this a current diagnosis for this admission?: Yes (2) Aortic insufficiency Is this a current diagnosis for this admission?: Yes (3) History of aortic valve replacement with bioprosthetic valve Is this a current diagnosis for this admission?: Yes (4) IV drug abuse Is this a current diagnosis for this admission?: Yes (5) Systolic CHF, chronic Is this a current diagnosis for this admission?: Yes (6) Pneumonia Is this a current diagnosis for this admission?: Yes (7) Abdominal pain Is this a current diagnosis for this admission?: Yes (8) Acute renal failure Is this a current diagnosis for this admission?: YesDiagnosis Summary: Patient's creatinine has increased from 0.8-3.8 in 2 days. The patient's Bumex has been stopped as well as the gentamicin. Patient is IV fluids. (9) Hyperkalemia Is this a current diagnosis for this admission?: YesDiagnosis Summary: Secondary to acute renal failure. Will give Kayexalate. (10) Cholangitis Is this a current diagnosis for this admission?: YesDiagnosis Summary: Patient has abnormal transaminases but has normal alkaline phosphatase. Has been evaluated by general surgery and is not clear clinically whether he truly has acute cholangitis are not. Blood cultures have been obtained today and he is continued on Rocephin but gentamicin has been stopped because of the acute renal failure. - Transfer Medications Home Medications: Folic Acid 1 mg PO DAILY 01/27/13 Oxycodone HCl [Oxycodone HCl 10 MG Tablet] 10 mg PO Q4HP PRN 01/27/13 Gabapentin 100 mg PO Q8H 03/22/16 Transfer Medications: Current Medications Acetaminophen (Tylenol 325 Mg Tablet) 650 mg PO Q4HP PRN PRN Reason: FOR PAIN OR TEMP Stop: 04/21/16 16:52 Albuterol (Ventolin 0.083% Neb 2.5 Mg/3 Ml Ampul) 2.5 mg NEB RTQ6HP PRN PRN Reason: FOR WHEEZING Stop: 04/24/16 18:43 Enoxaparin Sodium (Lovenox Inj 40 Mg/0.4 Ml Disp.Syrin) 40 mg SUBCUT QAM [facility] Stop: 04/22/16 07:59 Last Admin: 03/28/16 11:18 Dose: Not Given Ceftriaxone Sodium/Dextrose (Rocephin Rtu 2 Gm/D5w 50 Ml Premix Bag) 2 gm in 50 mls @ 100 mls/hr IV QPM [facility] Stop: 03/29/16 17:59 Last Admin: 03/28/16 17:49 Dose: 50 ml Sodium Chloride (Nacl 0.9% 1000 Ml Iv Soln) 1,000 mls @ 125 mls/hr IV CONTINUOUS PRN PRN Reason: THIS MED IS NOT "PRN" Stop: 04/27/16 17:36 Influenza Virus Vaccine Quadrival (Fluzone Adlt Quad [id number] Vac 0.5 Ml Syr) 0.5 ml IM .AT DISCHARGE PRN PRN Reason: THIS MED IS NOT "PRN" Stop: 04/21/16 18:07 Ketorolac Tromethamine (Toradol Inj/Pf 30 Mg/1 Ml Sdv) 15 mg IV Q6HP PRN Stop: 04/01/16 22:45 Last Admin: 03/28/16 13:18 Dose: 15 mg Metoprolol Succinate (Toprol Xl 25 Mg Tab.Sr) 12.5 mg PO Q12 [facility] Stop: 04/21/16 21:59 Last Admin: 03/28/16 11:04 Dose: 12.5 mg Ondansetron HCl (Zofran Inj/Pf 4 Mg/2 Ml Sdv) 4 mg IV Q8HP PRN PRN Reason: FOR NAUSEA/VOMITING Stop: 04/21/16 16:57 Last Admin: 03/28/16 13:19 Dose: 4 mg Oxycodone HCl (Oxy-Ir 5 Mg Tablet) 5 mg PO Q6HP PRN PRN Reason: FOR PAIN Stop: 04/04/16 17:17 Last Admin: 03/28/16 18:18 Dose: 5 mg Sodium Chloride (Saline Flush 2.5 Ml Monoject Prefil Syrin) 2.5 ml IV Q8 [facility] Stop: 04/21/16 21:59 Last Admin: 03/28/16 13:21 Dose: 2.5 ml Sodium Polystyrene Sulfonate (Kayexalate 15 Gm/60 Ml Susp 60 Ml) 30 gm PO Q12 [facility] Stop: 03/29/16 21:59 - Allergies Allergies/Adverse Reactions: acetaminophen [From Tylenol] Allergy (Intermediate, Verified 03/23/16 12:58) Hives - Diet/Activity Discharge Diet: Regular Hospital Course Hospital Course: 30-year-old gentleman with IV drug abuse and endocarditis. He presented to our facility on March 08 and then was transferred to [facility] with acute bacterial endocarditis. The patient while at [facility] grew out strep viridans. He was then transferred back to [facility] on March 22 because the patient requested to be closer to home. He was being treated with IV Rocephin and IV gentamicin for a total of 6 weeks at the hospital because he could not be trusted at home with a PICC line given his history of IV drug abuse. The patient 2 days ago complained of some abdominal pain and the lipase was obtained and was normal however he had some elevation in his transaminases. The patient continued to have pain and an ultrasound was ordered today and he was found to have some pericolic fluid. He had no gallbladder wall thickening however. Patient was evaluated by general surgery who was uncertain as to whether this was truly cholangitis or liver enzymes were elevated from his history of drug abuse. Blood work was repeated and he was found to have an acute elevation in his potassium and his creatinine. The patient's creatinine 2 days ago was 0.8 and today is 3.8. His potassium is over 6 and he is currently getting Kayexalate. The patient has been on both gentamicin as well as Bumex since he has been here. His Bumex has been held the last 2 days and his gentamicin was stopped today. Because of his blood pressure being slightly lower today a repeat echocardiogram was done and his ejection fraction at [facility] was 45% and it is down to 25%. Patient does have severe aortic regurgitation but did have that prior to coming here from [facility]. The case was discussed with the hospitalist Dr. Velez at [facility] who graciously agrees to accept the patient in transfer for further evaluation. Physical Exam Vital Signs: Temp Pulse Resp BP Pulse Ox 97.3 F 83 19 94/21 L 100 03/28/16 04:48 03/28/16 15:25 03/28/16 15:25 03/28/16 15:25 03/28/16 15:25 Intake & Output 03/27/16 03/28/16 03/29/16 06:59 06:59 06:59 Intake Total 2300 934 200 Output Total 200 Balance 2300 734 200 Weight 85.2 kg 85.1 kg General appearance: PRESENT: no acute distress Eye exam: PRESENT: conjunctiva pink. ABSENT: scleral icterus Mouth exam: PRESENT: moist, tongue midline Neck exam: ABSENT: JVD Respiratory exam: PRESENT: clear to auscultation sera. ABSENT: rales, rhonchi, wheezes Cardiovascular exam: PRESENT: systolic murmur - 3/6 systolic murmur, tachycardia GI/Abdominal exam: PRESENT: normal bowel sounds, soft, tenderness - Epigastric tenderness but no guarding or rebound.. ABSENT: distended, guarding, mass, organolmegaly, rebound Extremities exam: ABSENT: calf tenderness, clubbing, pedal edema Neurological exam: PRESENT: alert, awake, oriented to person, oriented to place , oriented to time, oriented to situation Psychiatric exam: PRESENT: appropriate affect Results Laboratory Results: 03/28/16 16:36 03/28/16 15:43 03/28/16 03/28/16 03/28/16 15:43 15:43 16:36 WBC Cancelled 20.7 H D RBC Cancelled 4.85 Hgb Cancelled 12.5 L D Hct Cancelled 38.4 MCV Cancelled 79 L MCH Cancelled 25.8 L MCHC Cancelled 32.5 RDW Cancelled 18.1 H Plt Count Cancelled 228 Seg Neutrophils % Cancelled Not Reportable Lymphocytes % Cancelled Not Reportable Monocytes % Cancelled Not Reportable Eosinophils % Cancelled Not Reportable Basophils % Cancelled Not Reportable Absolute Neutrophils Cancelled Not Reportable Absolute Lymphocytes Cancelled Not Reportable Absolute Monocytes Cancelled Not Reportable Absolute Eosinophils Cancelled Not Reportable Absolute Basophils Cancelled Not Reportable Sodium 127.0 L Potassium 6.2 H* Chloride 93 L Carbon Dioxide 16 L Anion Gap 18 BUN 71 H Creatinine 3.89 H Est GFR ( Amer) 22 L Est GFR (Non-Af Amer) 18 L Glucose 121 H Calcium 8.5 Total Bilirubin 1.0 AST 2729 H ALT 4705 H Alkaline Phosphatase 90 Total Protein 5.6 L Albumin 3.3 L 03/28/16 03/28/16 03/28/16 04:30 04:30 10:39 Creatine Kinase 67 58 CK-MB (CK-2) 2.05 Troponin I 0.601 03/28/16 03/28/16 03/28/16 10:39 15:43 15:43 Creatine Kinase 53 L CK-MB (CK-2) 2.57 3.34 Troponin I 0.416 0.409 Impressions: KUB X-Ray 03/27/16 00:00 IMPRESSION: NO RADIOGRAPHIC EVIDENCE FOR ACUTE ABDOMINAL DISEASE. Abdomen Ultrasound 03/28/16 00:00 IMPRESSION: Trace bilateral pleural effusions Trace pericholecystic fluid without gallbladder wall thickening or sonographic Abdalla's sign. Few tiny stones/minimal sludge in the gallbladder fundus Chest X-Ray 03/28/16 00:00 IMPRESSION: Trace bilateral pleural effusions are now present. Alveolar perihilar infiltrates seen 03/24/2016 have resolved. Minimal bibasilar atelectasis PICC line tip superior vena cava Plan Discharge Plan: We'll transfer to [facility] Dr. Velez of the hospitalist service accepting Time Spent: Greater than 30 Minutes
[2016-03-28] MEDS ORDERED: SODIUM POLYSTYRENE SULFONATE 15 GM/60 ML PO SCH (22:00)
--- NOTE | 2016-03-29 11:53 | PDOC CONSULTATION ---
Consultation Consult Date: 03/28/16 Consult reason:: Abnormal right upper quadrant ultrasound, abdominal pain, elevated LFTs. History of Present Illness Admission Date/PCP: 03/22/16 16:53 History of Present Illness: Late entry. Consult was done earlier in the day on 03/28/2016. 30-year-old white male with history of IV drug abuse and tattoos. Had aortic valve endocarditis in 2012 and had his aortic valve replaced at [facility]. He was admitted divided [facility] again last month for endocarditis. PICC line was placed. The felt he was not fit for redo aortic valve replacement. Attempt was long-term IV antibiotics via his PICC line is the current treatment course. He was transferred to [facility] for continued IV antibiotics, as it was felt he should not go home with a PICC line due to his history of IV drug abuse. His girlfriend and the patient stated he has not used in the last 4 or 5 years. He denies any history of hepatitis. He complains of general worsening of his condition over the last 3 days. He reports abdominal pain, nausea, vomiting. The pain is in the right upper quadrant, it is constant, it is severe. It is made worse with eating. He also reports Coca-Cola colored urine. He has not had a stool for the last 3 days, but denies acholic stools prior to that. Review of systems: He also reports subjective fevers, hot flashes, fatigue, burning sensation on his tongue, cough, sore throat, sinus drainage, syncope, double vision, dizziness, lightheadedness, headache, chest pain, shortness breath, jaundice, leg swelling and low back pain. Low back pain is chronic but worse recently due to lack of pain medication. He denies diarrhea, constipation or itching. Right upper quadrant ultrasound was performed and shows gallstones/sludge. It shows pericholecystic fluid versus ascites. No gallbladder wall thickening. AST, ALT and total bilirubin are increased. Past Medical History Cardiac Medical History: Reports: Hypertension, Heart Murmur, Other - History of endocarditis leading to aortic valve replacement, and now again with endocarditis of his replacement valve. Pulmonary Medical History: Denies: Tuberculosis GI Medical History: Denies: Hepatitis Psychiatric Medical History: Reports: Bipolar Disorder, Substance Abuse - IV drug abuse Past Surgical History Past Surgical History: Reports: Valve Replacement - Aortic valve replacement in 2012 at [facility] Social History Information Source: Patient Lives with: Spouse/Significant other Smoking Status: Current Every Day Smoker Cigarettes Packs Per Day: 0.5 Number of Years Smokin Frequency of Alcohol Use: Rare Hx Recreational Drug Use: Yes Drugs: Cocaine, Heroin, Marijuana Hx Prescription Drug Abuse: No - Advance Directive Resuscitation Status: Full Code Family History Family History: Other - Father: congestive heart failure, when the patient was 16. He's been estranged from his family since then. Parental Family History Reviewed: Yes Children Family History Reviewed: NA Sibling(s) Family History Reviewed.: Yes Medication/Allergy Home Medications: Folic Acid 1 mg PO DAILY 01/27/13 Oxycodone HCl [Oxycodone HCl 10 MG Tablet] 10 mg PO Q4HP PRN 01/27/13 Ferrous Sulfate [Feosol 325 mg Tablet] 325 mg PO DAILY #30 tablet 02/16/13 Furosemide [Lasix 20 mg Tablet] 20 mg PO DAILY #30 tablet 02/16/13 Metoprolol Tartrate [Lopressor 25 mg Tablet] 12.5 mg PO Q12 #60 tablet 02/16/13 [place]-3 Fatty Acids/Fish Oil [Theragran-M 1,200 mg Softgel] 1 cap PO DAILY #30 capsule 02/16/13 Potassium Chloride 10 meq PO DAILY #30 tablet.sa 02/16/13 Gabapentin 100 mg PO Q8H 03/22/16 Allergies/Adverse Reactions: acetaminophen [From Tylenol] Allergy (Intermediate, Verified 03/23/16 12:58) Hives Review of Systems All systems: reviewed and no additional remarkable complaints except as stated Physical Exam Vital Signs: Temp Pulse Resp BP Pulse Ox 97.3 F 83 19 94/21 L 100 03/28/16 18:37 03/28/16 18:37 03/28/16 18:37 03/28/16 18:37 03/28/16 18:37 Intake & Output 03/28/16 03/29/16 03/30/16 06:59 06:59 06:59 Intake Total 934 300 Output Total 200 Balance 734 300 Weight 85.1 kg 85.1 kg General appearance: PRESENT: mild distress Head exam: PRESENT: atraumatic Eye exam: PRESENT: EOMI, scleral icterus Mouth exam: PRESENT: moist, tongue midline Neck exam: PRESENT: tenderness. ABSENT: JVD, lymphadenopathy, thyromegaly Respiratory exam: PRESENT: clear to auscultation sera Cardiovascular exam: PRESENT: systolic murmur GI/Abdominal exam: PRESENT: soft, tenderness - Diffuse moderate abdominal pain. He has right upper quadrant abdominal pain, but not a true Abdalla sign., other - Bilateral lower back tenderness. Severe on the lower left.. ABSENT: distended, guarding, rebound Extremities exam: PRESENT: pedal edema Neurological exam: PRESENT: oriented to situation, other - Fatigued, Skin exam: PRESENT: jaundice Results Laboratory Results: 03/28/16 16:36 03/28/16 15:43 03/28/16 03/28/16 03/28/16 15:43 15:43 16:36 WBC Cancelled 20.7 H D RBC Cancelled 4.85 Hgb Cancelled 12.5 L D Hct Cancelled 38.4 MCV Cancelled 79 L MCH Cancelled 25.8 L MCHC Cancelled 32.5 RDW Cancelled 18.1 H Plt Count Cancelled 228 Seg Neutrophils % Cancelled Not Reportable Lymphocytes % Cancelled Not Reportable Monocytes % Cancelled Not Reportable Eosinophils % Cancelled Not Reportable Basophils % Cancelled Not Reportable Absolute Neutrophils Cancelled Not Reportable Absolute Lymphocytes Cancelled Not Reportable Absolute Monocytes Cancelled Not Reportable Absolute Eosinophils Cancelled Not Reportable Absolute Basophils Cancelled Not Reportable Sodium 127.0 L Potassium 6.2 H* Chloride 93 L Carbon Dioxide 16 L Anion Gap 18 BUN 71 H Creatinine 3.89 H Est GFR ( Amer) 22 L Est GFR (Non-Af Amer) 18 L Glucose 121 H Calcium 8.5 Total Bilirubin 1.0 AST 2729 H ALT 4705 H Alkaline Phosphatase 90 Total Protein 5.6 L Albumin 3.3 L 03/28/16 03/28/16 03/28/16 04:30 04:30 10:39 Creatine Kinase 67 58 CK-MB (CK-2) 2.05 Troponin I 0.601 03/28/16 03/28/16 03/28/16 10:39 15:43 15:43 Creatine Kinase 53 L CK-MB (CK-2) 2.57 3.34 Troponin I 0.416 0.409 Impressions: KUB X-Ray 03/27/16 00:00 IMPRESSION: NO RADIOGRAPHIC EVIDENCE FOR ACUTE ABDOMINAL DISEASE. Abdomen Ultrasound 03/28/16 00:00 IMPRESSION: Trace bilateral pleural effusions Trace pericholecystic fluid without gallbladder wall thickening or sonographic Abdalla's sign. Few tiny stones/minimal sludge in the gallbladder fundus Status: Image reviewed by me Assessment & Plan - Diagnosis (1) Elevated LFTs Is this a current diagnosis for this admission?: YesPlan: Late entry. Consult was done earlier in the day on 03/28/2016. His abdominal pain is not straightforward. LFTs are elevated. Bilirubin is up to 1 from 0.4 earlier this week. He denies any history of hepatitis, but certainly has risk factors including history of IV drug use and tattoos, although neither recently. Hepatitis panel was ordered and is pending. Could be related to right heart failure with consequent portal hypertension, although LFT should not be as elevated as they are. Gallstones are present, but the gallbladder wall does not look especially thickened. The pericholecystic fluid is probably related to ascites fluid more than true gallbladder inflammation. He is ill-appearing and choledocholithiasis should be considered. Gastroenterology consult was not available here. He is ill-appearing, and this appears to be progressive over the last 2-3 days. I recommend transfer back to [facility] due to his decline over the last 2-3 days, his complex medical issues and lack of gastroenterology at our institution. I spoke with the hospitalist and made my recommendation. He is pursuing transfer. (2) Abnormal gallbladder ultrasound Is this a current diagnosis for this admission?: Yes (3) Abdominal pain Is this a current diagnosis for this admission?: Yes (4) History of aortic valve replacement with bioprosthetic valve Is this a current diagnosis for this admission?: Yes
== END 2016-03-28 19:44 | disposition short-term general hospital (02) | DRG 288 ==
LOC: UNDOADMIN 16:17 → 5 16:17
PROC: 3E0F73Z Introduction of Anti-inflammatory into Respiratory Tract, Via Natural or Artificial Opening (ICD-10-PCS; 2016-03-25)
PROC: 02HV33Z Insertion of Infusion Device into Superior Vena Cava, Percutaneous Approach (ICD-10-PCS; principal; 2016-03-28)
DX: I33.0 Acute and subacute infective endocarditis (principal); J18.9 Pneumonia, unspecified organism; I50.22 Chronic systolic (congestive) heart failure; N17.9 Acute kidney failure, unspecified; K83.0 Cholangitis; E87.5 Hyperkalemia; G89.29 Other chronic pain; M54.5 Low back pain; R01.1 Cardiac murmur, unspecified; F31.9 Bipolar disorder, unspecified; I10 Essential (primary) hypertension; I35.1 Nonrheumatic aortic (valve) insufficiency; F17.210 Nicotine dependence, cigarettes, uncomplicated; Z88.6 Allergy status to analgesic agent; Z95.828 Presence of other vascular implants and grafts; Z79.899 Other long term (current) drug therapy; Z79.82 Long term (current) use of aspirin
CPT/HCPCS: 36415; 71020; 74000; 76700; 80048; 80053; 80074; 80076; 80170; 80307; 82550; 82553; 82565; 83690; 83735; 84484; 85025; 87070; 87205; 93005; 93010; 93306; J0696; J1580; J1650; J1885; J2405; J3490

== ENCOUNTER 2016-09-25 22:34 | Emergency (ER) | payer MEDICAID ==
--- NOTE | 2016-09-25 22:49 | ER Document Report ---
ED General - General Stated Complaint: CHEST PAIN Time Seen by Provider: 09/25/16 22:40 Notes: Patient is a 31-year-old male who presents with complaint of having some chest pain syncopal episode. [facility]. 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 Patient has long history of IV amphetamine use. He says he has been in [facility] since September 11 and has not had any drugs since then. All his surgery and cardiology treatment is done at [facility]. He said the last time he saw them was in July of this year and he was clear at that time. He does not have any history of coronary stents. He says his coronaries have always been cleaned. He has no other complaints at this time. Patient says he is reading a book and he started to have some chest pain. He said he stood up and then passed out. A month's gave him aspirin and nitro which relieved his chest pain. He has no other complaints at this time. Chest pain was substernal nonradiating. TRAVEL OUTSIDE OF THE [place] IN LAST 30 DAYS: No - Related Data Allergies/Adverse Reactions: acetaminophen [From Tylenol] Allergy (Intermediate, Verified 03/23/16 12:58) Hives Past Medical History - Social History Smoking Status: Current Some Day Smoker Frequency of alcohol use: None Drug Abuse: Methamphetamine, Other - Has not used since September 11 Family History: Reviewed & Not Pertinent, Other - Father: congestive heart failure, when the patient was 16. He's been estranged from his family since then. - Past Medical History Cardiac Medical History: Reports: Hx Hypertension, Hx Heart Murmur Pulmonary Medical History: Denies: Hx Tuberculosis Renal/ Medical History: Denies: Hx Peritoneal Dialysis GI Medical History: Denies: Hx Hepatitis Psychiatric Medical History: Reports: Hx Bipolar Disorder, Hx Schizophrenia Infectious Medical History: Denies: Hx Hepatitis Past Surgical History: Reports: Hx Cardiac Surgery, Hx Tonsillectomy, Hx Valve Replacement - Aortic valve replacement in 2013 at [facility] - Immunizations Immunizations up to date: Yes Hx Diphtheria, Pertussis, Tetanus Vaccination: No Review of Systems - Review of Systems Notes: My Normal Review Basic REVIEW OF SYSTEMS: CONSTITUTIONAL : Denies fever, chills, or sweats. Denies recent illness. EENT: Denies eye, ear, throat, or mouth pain or symptoms. Denies nasal or sinus congestion. CARDIOVASCULAR: Chest pain RESPIRATORY: Denies cough, cold, or chest congestion. Denies shortness of breath, difficulty breathing, or wheezing. GASTROINTESTINAL: Denies abdominal pain. Denies nausea, vomiting, or diarrhea. Denies constipation. Last BM: MUSCULOSKELETAL: Denies neck or back pain or joint pain or swelling. SKIN: Denies rash or skin lesions. NEUROLOGICAL: Syncope. Denies headache. Denies weakness or paralysis or loss of use of either side. Denies problems with gait or speech. Denies sensory or motor loss. ALL OTHER SYSTEMS REVIEWED AND NEGATIVE. Physical Exam - Vital signs Vitals: Resp BP Pulse Ox 20 105/81 97 09/25/16 22:50 09/25/16 22:50 09/25/16 22:50 - Notes Notes: General Appearance: Well nourished, alert, cooperative, no acute distress, no obvious discomfort. Well-appearing. Vitals: reviewed, See vital signs table. Head: no swelling or tenderness to the head Eyes: PERRL, EOMI, Conjuctiva clear Mouth: No decreasd moisture Lungs: No wheezing, No rales, No rhonci, No accessory muscle use, good air exchange bilaterally. Heart: Normal rate, Regular rythm, No murmur, no rub Abdomen: Normal BS, soft, No rigidity, No abdominal tenderness, No guarding, no rebound, no abdominal masses, no organomegaly Extremities: strength 5/5 in all extremities, good pulses in all extremities, no swelling or tenderness in the extremities, no edema. Skin: warm, dry, appropriate color, no rash Neuro: speech clear, oriented x 3, normal affect, responds appropriately to questions. Cranial nerves II through XII are intact. Distal sensation intact. Patient moves all extremities without difficulty. Course - Re-evaluation Re-evalutation: 09/26/16 03:03 Patient's troponin delta troponin have come back negative. I suspect that he most likely had a episode of ventricular arrhythmia and was either paced out or possibly defibrillated by his AICD based on his history of low ejection fraction and the prodrome of chest pain followed by syncope. He currently is a symptomatic looks well. His troponin and delta troponin are negative. His chest x-ray is negative. Clinically looks very well. I did discuss the case with Dr. Chowdhury, equities analyst covering for providing cardiology, who agrees that the patient can be discharged back to [facility] at this time and she does not request any further workup. Patient will be discharged back to [facility] but is encouraged to return to ER if he has recurrent syncopal episodes, recurrent chest pain, or feels unwell. Dictation of this chart was performed using voice recognition software; therefore, there may be some unintended grammatical errors. - Vital Signs Vital signs: Temp Pulse Resp BP Pulse Ox 98.0 F 17 106/76 99 09/26/16 03:30 09/26/16 03:30 09/26/16 03:30 09/26/16 03:30 - Laboratory Result Diagrams: 09/25/16 23:20 09/25/16 23:20 Laboratory results interpreted by me: 09/25/16 09/25/16 09/25/16 23:20 23:20 23:20 RBC 5.64 H MCV 77 L MCH 25.5 L RDW 17.8 H Plt Count 105 L Creatine Kinase < 20 L NT-Pro-B Natriuret Pep 513 H - EKG Interpretation by Me Additional EKG results interpreted by me: 09/25/16 22:47 EKG is reviewed and interpreted by me. EKG shows normal sinus rhythm with a rate of [address] segment elevation or depression. Mild T-wave inversions in the lateral precordial leads. CO interval, QRS duration, QTc intervals are within normal range. These EKG changes are unchanged in comparison to his EKG from March 28, 2016. 09/25/16 22:49 09/25/16 22:51 Discharge - Discharge Clinical Impression: Chest pain Qualifiers: Chest pain type: unspecified Qualified Code(s): R07.9 - Chest pain, unspecified Syncope Qualifiers: Syncope type: unspecified Qualified Code(s): R55 - Syncope and collapse Condition: Good Disposition: HOME, SELF-CARE Additional Instructions: Your workup today shows no evidence of damage to your heart. I did speak with the equities analyst at [facility] who does not request any further workup at this time. You will be discharged. Please return to the ER immediately if you have recurrent chest pain, recurrent episode of passing out, difficulty breathing, or feel unwell.
--- NOTE | 2016-09-25 23:08 | RADIOLOGY REPORT (SQ) ---
EXAM DESCRIPTION: CHEST SINGLE VIEW COMPLETED DATE/TIME: 09/25/2016 10:57 pm REASON FOR STUDY: chest pain, syncope COMPARISON: 03/28/2016 EXAM PARAMETERS: NUMBER OF VIEWS: One view. TECHNIQUE: Single frontal radiographic view of the chest acquired. RADIATION DOSE: NA LIMITATIONS: None. FINDINGS: LUNGS AND PLEURA: No acute opacities, masses or pneumothorax. No pleural effusion. MEDIASTINUM AND HILAR STRUCTURES: Stable. HEART AND VASCULAR STRUCTURES: Heart normal in size. Normal vasculature. BONES: No acute findings. HARDWARE: Cardiac defibrillator. Prior sternotomy. OTHER: No other significant finding. IMPRESSION: NO ACUTE RADIOGRAPHIC FINDING IN THE CHEST. TECHNICAL DOCUMENTATION: JOB ID: [id number]
[2016-09-25 23:46] LABS: ABSOLUTE BASOPHILS # (AUTO) 0.1 10^3/uL (0.0-0.2); ABSOLUTE LYMPHOCYTES (AUTO) 1.5 10^3/uL (0.5-4.7); ABSOLUTE MONOCYTES (AUTO) 0.5 10^3/uL (0.1-1.4); ABSOLUTE NEUT (AUTO) 4.1 10^3/uL (1.7-8.2); BASOPHILS % (AUTO) 1.1 % (0-2); EOSINOPHILS % (AUTO) 0.8 % (0-6); HEMATOCRIT 43.3 % (37.9-51.0); HEMOGLOBIN 14.4 g/dL (13.5-17.0); HGB HCT DIFFERENCE -0.1; LYMPHOCYTES % (AUTO) 23.6 % (13-45); MEAN CORPUSCULAR HEMOGLOBIN 25.5 pg (27.0-33.4); MEAN CORPUSCULAR HGB CONC 33.1 g/dL (32.0-36.0); MEAN CORPUSCULAR VOLUME 77 fl (80-97); MONOCYTES % (AUTO) 8.4 % (3-13); RED BLOOD COUNT 5.64 10^6/uL (4.35-5.55); RED CELL DISTRIBUTION WIDTH 17.8 % (11.5-14.0); SEGMENTED NEUTROPHILS % (AUTO) 66.1 % (42-78); WHITE BLOOD COUNT 6.2 10^3/uL (4.0-10.5)
[2016-09-25 23:54] LABS: ALANINE AMINOTRANSFERASE 36 U/L (21-72); ALBUMIN 4.5 g/dL (3.5-5.0); ALKALINE PHOSPHATASE 52 U/L (38-126); ANION GAP 12 (5-19); ASPARTATE AMINO TRANSFERASE 23 U/L (17-59); BILIRUBIN,DIRECT 0.3 mg/dL (0.0-0.4); BILIRUBIN,TOTAL 0.7 mg/dL (0.2-1.3); BLOOD UREA NITROGEN 14 mg/dL (7-20); CALCIUM 9.9 mg/dL (8.4-10.2); CARBON DIOXIDE 27 mmol/L (22-30); CHLORIDE 103 mmol/L (98-107); CREATININE RESULT 0.79 mg/dL (0.52-1.25); GLUCOSE 103 mg/dL (75-110); POTASSIUM 4.1 mmol/L (3.6-5.0); SODIUM 142.2 mmol/L (137-145)
[2016-09-25 23:55] LABS: CREATINE KINASE < 20 U/L (55-170)
[2016-09-26 00:06] LABS: CREATINE KINASE MB 0.42 ng/mL (<4.55)
[2016-09-26 00:08] LABS: TROPONIN I < 0.012 ng/mL
[2016-09-26 03:35] VITALS: BP 106/76
== END 2016-09-26 03:41 | disposition home or self-care (01) ==
LOC: ER 22:34
DX: R07.9 Chest pain, unspecified (principal); R55 Syncope and collapse; F17.200 Nicotine dependence, unspecified, uncomplicated
CPT/HCPCS: 36415; 71010; 80053; 82550; 82553; 83880; 84484; 85025; 99285

== ENCOUNTER 2016-11-28 02:28 | Emergency (ER) | payer MEDICAID ==
[2016-11-28] MEDS ORDERED: VANCOMYCIN HCL INJ 1000 MG VIAL IV ONE (02:52)
--- NOTE | 2016-11-28 02:55 | ER Document Report ---
ED General - General Stated Complaint: CHEST PAIN Time Seen by Provider: 11/28/16 02:39 Notes: Patient is a 31-year-old male well-known to our ER who presents with complaint of chest pain. He initially says that he is cocaine 3 days ago and has been having pain ever since then. He did inject. Later on he was show me the sites of injection and said that 20 this injection sites were from today. He admits that he has a headache which started after the nitro was given. He also says that he does feel somewhat confused. He has a history of aortic valve replacement. As a cadaver heart valve. This replacement was performed at [facility]. He has a heart valve replacement because he had an abscess infection of these previous heart valve due to IV drug abuse. Patient also has a AICD defibrillator. He denies being shocked by defibrillator in the last few days. He has no history of coronary disease. He has had a heart catheterization performed within the last 2 years which was negative. He is unsure if he has had fevers. He does have some red bumps over his extremities. He is unsure how long they have been there. TRAVEL OUTSIDE OF THE [place] IN LAST 30 DAYS: No - Related Data Allergies/Adverse Reactions: acetaminophen [From Tylenol] Allergy (Intermediate, Verified 03/23/16 12:58) Hives Past Medical History - Social History Smoking Status: Current Every Day Smoker Frequency of alcohol use: None Drug Abuse: Cocaine Family History: Reviewed & Not Pertinent, Other - Father: congestive heart failure, when the patient was 16. He's been estranged from his family since then. - Past Medical History Cardiac Medical History: Reports: Hx Hypertension, Hx Heart Murmur Pulmonary Medical History: Denies: Hx Tuberculosis Endocrine Medical History: Reports: Hx Diabetes Mellitus Type 2 Renal/ Medical History: Denies: Hx Peritoneal Dialysis GI Medical History: Denies: Hx Hepatitis Psychiatric Medical History: Reports: Hx Bipolar Disorder, Hx Schizophrenia Infectious Medical History: Denies: Hx Hepatitis Past Surgical History: Reports: Hx Cardiac Surgery, Hx Tonsillectomy, Hx Valve Replacement - Aortic valve replacement in 2013 at [facility] - Immunizations Immunizations up to date: Yes Hx Diphtheria, Pertussis, Tetanus Vaccination: No Review of Systems - Review of Systems Notes: My Normal Review Basic REVIEW OF SYSTEMS: CONSTITUTIONAL : Denies fever, chills, or sweats. Denies recent illness. EENT: Denies eye, ear, throat, or mouth pain or symptoms. Denies nasal or sinus congestion. CARDIOVASCULAR: Has chest pain RESPIRATORY: Denies cough, cold, or chest congestion. Denies shortness of breath, difficulty breathing, or wheezing. GASTROINTESTINAL: Denies abdominal pain. Denies nausea, vomiting, or diarrhea. Denies constipation. Last BM: l bleeding, abnormal or irregular periods. LMP: MUSCULOSKELETAL: Denies neck or back pain or joint pain or swelling. SKIN: Small red macules lower extremities. HEMATOLOGIC : Denies easy bruising or bleeding. NEUROLOGICAL: Complains of feeling confused. Some headache. Denies weakness or paralysis or loss of use of either side. Denies problems with gait or speech. Denies sensory or motor loss. ALL OTHER SYSTEMS REVIEWED AND NEGATIVE. Physical Exam - Vital signs Vitals: Resp BP Pulse Ox 25 H 105/72 100 11/28/16 02:34 11/28/16 02:34 11/28/16 02:34 - Notes Notes: General Appearance: Well nourished, alert, cooperative, no acute distress, no obvious discomfort. Vitals: reviewed, See vital signs table. Head: no swelling or tenderness to the head Eyes: PERRL, EOMI, Conjuctiva clear Mouth: No decreasd moisture Neck: Supple, no neck tenderness Lungs: No wheezing, No rales, No rhonci, No accessory muscle use, good air exchange bilaterally. Heart: Tachycardic rate, Regular rythm, systolic murmur consistent with his previous heart valve replacement. Abdomen: Normal BS, soft, No rigidity, No abdominal tenderness, No guarding, no rebound, no abdominal masses, no organomegaly Extremities: strength 5/5 in all extremities, good pulses in all extremities, no swelling or tenderness in the extremities, no edema. Skin: warm, dry, appropriate color, small red macules over extremities that are easily blanchable. Nontender to palpation. 2 pinedo on left forearm consistent with recent cuff injection of drugs. Neuro: speech clear, oriented x 2, normal affect, responds appropriately to questions. Cranial nerves II through XII are intact. Distal sensation intact. Patient moves all extremities without difficulty. Course - Re-evaluation Re-evalutation: 11/28/16 05:09 Patient's chest pain is resolved and his mental status is improving. He now remembers and says that he did have a previous stroke when he had his heart surgery in [place] last year. Informed the patient I would like to speak with his inspector water pollution control applied and being that he has this rash with the chest pain is continued IV drug abuse which makes me concerned. He is agreeable to allow me to speak with [facility] about his current condition. 11/28/16 05:23 I have spoken with inspector water pollution control, Dr. Valencia, and explained the patient's presentation. He does agree that the patient has a concerning history however being that the patient has no fever no leukocytosis at this time he suggests that I call the hospitalist in [place] and see if they will admit with a consult. He does not feel that the patient needs to come directly to the cardiology service at this time. The transfer center says they will page the hospitalist for me. 11/28/16 06:[address] with [address]. Wheeler, [facility], who agrees to accept the patient for transfer. We continue to keep the close eye on the patient. I will order scheduled vancomycin and Rocephin. My concern is that the patient could have endocarditis based on the fact that he has a rash with the chest pain and continued IV drug abuse. Had a similar presentation in March and had a normal leukocytosis and fever at that time however a day later his white count went up to 20,000. Due to his history of having vague presentations of his endocarditis in the past I feel that it is appropriate to transfer him. Patient is agreeable to plan. We are waiting bed assignment in transfer at this time. Patient will be closely monitored until transferred. Dictation of this chart was performed using voice recognition software; therefore, there may be some unintended grammatical errors. - Vital Signs Vital signs: Temp Pulse Resp BP Pulse Ox 97.7 F 109 H 16 100/70 99 11/28/16 04:57 11/28/16 02:48 11/28/16 06:01 11/28/16 06:01 11/28/16 06:01 - Laboratory Result Diagrams: 11/28/16 02:50 11/28/16 02:50 Laboratory results interpreted by me: 11/28/16 11/28/16 11/28/16 02:50 02:50 05:45 Hgb 12.3 L Hct 34.8 L MCV 77 L RDW 15.3 H Lymphocytes % 12.9 L ESR 18 H Potassium 3.5 L Direct Bilirubin 0.6 H - EKG Interpretation by Me Additional EKG results interpreted by me: 11/28/16 02:55 EKG is reviewed and interpreted by me. EKG shows sinus tachycardia with rate of [address] segment a lot of vision. Patient does have some ST segment depression in lateral precordial leads which is chronic in comparison to his previous EKG from March 28, 2016. IN interval, QRS duration, QTc intervals are within normal range.
[2016-11-28 03:18] LABS: ABSOLUTE BASOPHILS # (AUTO) 0.1 10^3/uL (0.0-0.2); ABSOLUTE LYMPHOCYTES (AUTO) 1.3 10^3/uL (0.5-4.7); ABSOLUTE MONOCYTES (AUTO) 1.3 10^3/uL (0.1-1.4); ABSOLUTE NEUT (AUTO) 7.5 10^3/uL (1.7-8.2); BASOPHILS % (AUTO) 0.7 % (0-2); EOSINOPHILS % (AUTO) 0.1 % (0-6); HEMATOCRIT 34.8 % (37.9-51.0); HEMOGLOBIN 12.3 g/dL (13.5-17.0); HGB HCT DIFFERENCE 2.1; LYMPHOCYTES % (AUTO) 12.9 % (13-45); MEAN CORPUSCULAR HEMOGLOBIN 27.4 pg (27.0-33.4); MEAN CORPUSCULAR HGB CONC 35.4 g/dL (32.0-36.0); MEAN CORPUSCULAR VOLUME 77 fl (80-97); MONOCYTES % (AUTO) 12.7 % (3-13); RED BLOOD COUNT 4.49 10^6/uL (4.35-5.55); RED CELL DISTRIBUTION WIDTH 15.3 % (11.5-14.0); SEGMENTED NEUTROPHILS % (AUTO) 73.6 % (42-78); WHITE BLOOD COUNT 10.3 10^3/uL (4.0-10.5)
[2016-11-28 03:24] LABS: ALANINE AMINOTRANSFERASE 23 U/L (21-72); ALBUMIN 3.9 g/dL (3.5-5.0); ALKALINE PHOSPHATASE 75 U/L (38-126); ANION GAP 14 (5-19); ASPARTATE AMINO TRANSFERASE 18 U/L (17-59); BILIRUBIN,DIRECT 0.6 mg/dL (0.0-0.4); BILIRUBIN,TOTAL 1.3 mg/dL (0.2-1.3); BLOOD UREA NITROGEN 15 mg/dL (7-20); CALCIUM 9.1 mg/dL (8.4-10.2); CARBON DIOXIDE 24 mmol/L (22-30); CHLORIDE 102 mmol/L (98-107); CREATINE KINASE 63 U/L (55-170); CREATININE RESULT 0.79 mg/dL (0.52-1.25); GLUCOSE 94 mg/dL (75-110); POTASSIUM 3.5 mmol/L (3.6-5.0); SODIUM 140.4 mmol/L (137-145); TOTAL PROTEIN 6.5 g/dL (6.3-8.2)
[2016-11-28 03:35] LABS: CREATINE KINASE MB 0.67 ng/mL (<4.55)
[2016-11-28 03:39] LABS: TROPONIN I < 0.012 ng/mL
[2016-11-28] MEDS ORDERED: CEFTRIAXONE INJ 1000 MG VIAL IV ONE (05:00)
--- NOTE | 2016-11-28 05:03 | RADIOLOGY REPORT (SQ) ---
EXAM DESCRIPTION: CT HEAD WITHOUT COMPLETED DATE/TIME: 11/28/2016 4:35 am REASON FOR STUDY: headache, confusion, cocaine use COMPARISON: None. TECHNIQUE: Axial images acquired through the brain without intravenous contrast. Images reviewed wi th bone, brain and subdural windows. Images stored on PACS. All CT scanners at this facility use dose modulation, iterative reconstruction, and/or weight based d osing when appropriate to reduce radiation dose to as low as reasonably achievable (ALARA). [facility]: Dose Right [facility]: CareDose [facility]: Dose Right [facility]: Teradose 4D [facility]: [employer] RADIATION DOSE: Up-to-date CT equipment and radiation dose reduction techniques were employed. CTDIv ol: 64.6 mGy. DLP: 1397 mGy-cm. mGy. LIMITATIONS: None. FINDINGS: VENTRICLES: There is a cleft at the right occipital lobe extending from the right lateral ventricle to the subarachnoid space, suggestive of closed lip schizencephaly. No hydrocephalus. CEREBRUM: Hypodensity within the left periventricular white matter. Otherwise, the kelsey-white matter differentiation is preserved in the remainder of the brain. No hemorrhage. No midline shift. CEREBELLUM: No hemorrhage. No alteration of density. No evidence for acute infarction. EXTRAAXIAL SPACES: No fluid collections. ORBITS AND GLOBE: Symmetrical contour of the globes. CALVARIUM: No depressed skull fracture. PARANASAL SINUSES: No air-fluid level. SOFT TISSUES: No hematoma. Metallic piercing at the soft tissues lateral to the left orbit. IMPRESSION: No acute intracranial hemorrhage. Hypodensity within the left periventricular white mat ter, may represent an infarct of indeterminate age. No prior studies are available for comparison. Evaluation with MRI as clinically warranted. 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 EVIDENCE OF ACUTE STROKE: Question infarct of indeterminate age in the left periventricular white mat ter. COMMENT: Pertinent positive or negative findings of the imaging study reported as a CRITICAL EXAM aleena RICH DO at04:51 on 11/28/2016. Category of Critical Exam: Question infarct of indeterminate age in the left periventricular white ma tter. Quality ID # [id number]: Final reports with documentation of one or more dose reduction techniques (e.g., Au tomated exposure control, adjustment of the mA and/or kV according to patient size, use of iterative reconstruction technique) TECHNICAL DOCUMENTATION: JOB ID: [id number] 2010 [facility] [employer]- All Rights Reserved
--- NOTE | 2016-11-28 05:30 | RADIOLOGY REPORT (SQ) ---
EXAM DESCRIPTION: CHEST SINGLE VIEW COMPLETED DATE/TIME: 11/28/2016 4:39 am REASON FOR STUDY: chest pain COMPARISON: Chest x-ray 09/25/2016. EXAM PARAMETERS: NUMBER OF VIEWS: One view. TECHNIQUE: Single frontal radiographic view of the chest acquired. RADIATION DOSE: NA LIMITATIONS: None. FINDINGS: LUNGS AND PLEURA: No consolidation, pneumothorax or pleural effusion. MEDIASTINUM AND HILAR STRUCTURES: No masses. Contour normal. HEART AND VASCULAR STRUCTURES: Heart normal in size. Normal vasculature. BONES: No acute findings. HARDWARE: Defibrillator with the battery pack at the left lower hemithorax. Sternotomy wires are pre sent. IMPRESSION: No acute radiographic finding in the chest. TECHNICAL DOCUMENTATION: JOB ID: [id number]
[2016-11-28 09:39] VITALS: BP 110/68
--- NOTE | 2016-11-28 10:03 | ER Document Report ---
Doctor's Note Notes: 11/28/16 10:02 I was notified by nurse the patient wishes to leave AGAINST MEDICAL ADVICE, I did speak with him in length regarding possibility of endocarditis which she has already had multiple times in the past. Patient states he has ago not wish to stay. Does not wish to be transferred. After performing a Medical Screening Examination, I spoke with the patient at length in regards to leaving the hospital against medical advice. I do not believe the patient should leave but the patient is alert oriented x4, understands the risks and benefits of staying and leaving including disability and . Pt understands that he can return at any time for further care and is more than welcome to do so. Pt verbalizes this understanding.
--- NOTE | 2016-11-28 10:32 | EKG REPORT ---
SEVERITY:- ABNORMAL ECG - SINUS TACHYCARDIA CONSIDER LEFT VENTRICULAR HYPERTROPHY BORDERLINE PROLONGED QT INTERVAL : Confirmed by: Rose Arreguin MD 28-Nov-2016 10:31:43
== END 2016-11-28 10:00 | disposition left against medical advice (07) ==
LOC: ER 02:28
DX: R07.9 Chest pain, unspecified (principal); Z95.1 Presence of aortocoronary bypass graft; F17.200 Nicotine dependence, unspecified, uncomplicated
CPT/HCPCS: 93005; 99285; 96365; 96366; 96367; 36415; 87040; 82553; 82550; 85025; 85652; 87077; 80053; 84484; 87186; 83605; 71010; 70450; 93010; J0696; J3370

== ENCOUNTER 2016-12-13 23:19 | Inpatient (IN) | payer MEDICAID ==
[2016-12-13] MEDS ORDERED: CEFTRIAXONE INJ 1000 MG VIAL IV ONE (23:39)
[2016-12-13] MEDS ORDERED: VANCOMYCIN HCL INJ 1000 MG VIAL IV ONE (23:39)
--- NOTE | 2016-12-13 23:43 | ER Document Report ---
ED General - General Chief Complaint: Shortness Of Breath Stated Complaint: SHORTNESS OF BREATH NAUSEA DIARRHEA Time Seen by Provider: 12/13/16 23:26 Notes: Patient is a 31-year-old male presents with complaint of fever and feeling unwell. He says he has had slight diarrhea. Some nausea. No runny nose. No congestion. No cough. No abdominal pain. No dysuria. Patient has a history of and a cadaver valve. He has his valve because he is not IV drug abuser and infected his previous heart valve. He is also infected and his cadaver valve in the past as well. I saw him approximately 2 weeks ago. At that time he had low-grade fever at home. He came in feeling unwell. He had a rash at that time. Will concern for recurrence of endocarditis. We did arrange for transfer to [facility]; however, patient left AMA. His blood cultures did come back positive. We did try to contact him but he never returned. When asked patient why he did return he says that he was feeling better and therefore did not come back. He started having fevers again tonight and feels unwell and therefore is come back. He says he has not used any further IV drug abuse since I last saw him 2 weeks ago. TRAVEL OUTSIDE OF THE [place] IN LAST 30 DAYS: No - Related Data Allergies/Adverse Reactions: acetaminophen [From Tylenol] Allergy (Intermediate, Verified 03/23/16 12:58) Hives Past Medical History - Social History Smoking Status: Current Some Day Smoker Frequency of alcohol use: None Drug Abuse: Other - IV drug abuse, typically amphetamine medications Family History: Reviewed & Not Pertinent, Other - Father: congestive heart failure, when the patient was 16. He's been estranged from his family since then. - Past Medical History Cardiac Medical History: Reports: Hx Hypertension, Hx Heart Murmur Pulmonary Medical History: Denies: Hx Tuberculosis Endocrine Medical History: Reports: Hx Diabetes Mellitus Type 2 Renal/ Medical History: Denies: Hx Peritoneal Dialysis GI Medical History: Denies: Hx Hepatitis Psychiatric Medical History: Reports: Hx Bipolar Disorder, Hx Schizophrenia Infectious Medical History: Denies: Hx Hepatitis Past Surgical History: Reports: Hx Cardiac Surgery, Hx Tonsillectomy, Hx Valve Replacement - Aortic valve replacement in 2013 at [facility] - Immunizations Immunizations up to date: Yes Hx Diphtheria, Pertussis, Tetanus Vaccination: No Review of Systems - Review of Systems Notes: My Normal Review Basic REVIEW OF SYSTEMS: CONSTITUTIONAL : Denies fever, chills, or sweats. Denies recent illness. EENT: Denies eye, ear, throat, or mouth pain or symptoms. Denies nasal or sinus congestion. CARDIOVASCULAR: Denies chest pain. RESPIRATORY: Denies cough, cold, or chest congestion. Denies shortness of breath, difficulty breathing, or wheezing. GASTROINTESTINAL: Denies abdominal pain. Denies nausea, vomiting, or diarrhea. GENITOURINARY: Denies difficulty urinating, painful urination, burning, frequency, or blood in urine. MUSCULOSKELETAL: Denies neck or back pain or joint pain or swelling. SKIN: Denies rash or skin lesions. NEUROLOGICAL: Denies altered mental status or loss of consciousness. Denies headache. Denies weakness or paralysis or loss of use of either side. Denies problems with gait or speech. Denies sensory or motor loss. ALL OTHER SYSTEMS REVIEWED AND NEGATIVE. Physical Exam - Vital signs Vitals: Temp 99.7 F 12/13/16 23:33 - Notes Notes: General Appearance: Well nourished, alert, cooperative, no acute distress, no obvious discomfort. Vitals: reviewed, See vital signs table. Head: no swelling or tenderness to the head Eyes: PERRL, EOMI, Conjuctiva clear Mouth: No decreasd moisture Throat: No tonsillar inflammation, Ears: Normal-appearing tympanic membranes bilaterally. Neck: Supple, no neck tenderness, No thyromegaly Lungs: No wheezing, No rales, No rhonci, No accessory muscle use, good air exchange bilaterally. Heart: Normal rate, Regular rythm, systolic murmur. Abdomen: Normal BS, soft, No rigidity, No abdominal tenderness, No guarding, no rebound, no abdominal masses, no organomegaly Extremities: strength 5/5 in all extremities, good pulses in all extremities, no swelling or tenderness in the extremities, no edema. Skin: warm, dry, appropriate color, faint papular rash over lower extremities. Neuro: speech clear, oriented x 3, normal affect, responds appropriately to questions. Course - Re-evaluation Re-evalutation: 12/14/16 01:49 Patient is feeling a little bit improved now that his fever started resolved. He has no leukocytosis at this time he does have previous positive blood cultures from 2 weeks ago. I not have another source for his fever at this time. The concern is his history of recurrent endocarditis. I did speak with Dr. Banda, hospitalist, who agrees to admit the patient. - Vital Signs Vital signs: Temp Pulse Resp BP Pulse Ox 99.7 F 20 107/53 L 98 12/13/16 23:33 12/14/16 00:01 12/14/16 01:00 12/14/16 01:01 - Laboratory Result Diagrams: 12/13/16 23:55 12/13/16 23:55 Laboratory results interpreted by me: 12/13/16 12/13/16 12/13/16 23:55 23:55 23:55 RBC 3.72 L Hgb 9.8 L Hct 28.8 L MCV 77 L MCH 26.4 L RDW 14.6 H Plt Count 100 L Seg Neutrophils % 81.6 H Lymphocytes % 6.4 L PT 16.9 H VBG pH Sodium 135.4 L Potassium 3.3 L Glucose 116 H POC Glucose Calcium 7.1 L Total Protein 4.9 L Albumin 2.6 L Urine Blood 12/13/16 12/13/16 12/14/16 23:55 23:55 01:15 RBC Hgb Hct MCV MCH RDW Plt Count Seg Neutrophils % Lymphocytes % PT VBG pH 7.46 H Sodium Potassium Glucose POC Glucose 121 H Calcium Total Protein Albumin Urine Blood MODERATE H - EKG Interpretation by Me Additional EKG results interpreted by me: 12/13/16 23:45 EKG is reviewed and interpreted by me. EKG shows normal sinus rhythm with a rate of [address] segment elevation. Patient does have slight ST segment depression in leads V5 and V6 which are unchanged in comparison to his old EKG from November 28, 2016. ND interval, QRS duration, QTc intervals are within normal range. Discharge - Discharge Clinical Impression: IV drug abuse Fever Qualifiers: Fever type: unspecified Qualified Code(s): R50.9 - Fever, unspecified Condition: Stable Disposition: ADMITTED OBSERVATION Admitting Provider: Hospitalist Unit Admitted: Medical Floor
--- NOTE | 2016-12-13 23:58 | EKG REPORT ---
SEVERITY:- ABNORMAL ECG - SINUS RHYTHM PROBABLE LVH WITH SECONDARY REPOL ABNRM : Confirmed by: Xander Allen 13-Dec-2016 23:57:39
[2016-12-14 00:24] LABS: ABSOLUTE LYMPHOCYTES (AUTO) 0.5 10^3/uL (0.5-4.7); ABSOLUTE MONOCYTES (AUTO) 0.9 10^3/uL (0.1-1.4); ABSOLUTE NEUT (AUTO) 6.3 10^3/uL (1.7-8.2); BASOPHILS % (AUTO) 0.3 % (0-2); HEMATOCRIT 28.8 % (37.9-51.0); HEMOGLOBIN 9.8 g/dL (13.5-17.0); HGB HCT DIFFERENCE 0.6; LYMPHOCYTES % (AUTO) 6.4 % (13-45); MEAN CORPUSCULAR HEMOGLOBIN 26.4 pg (27.0-33.4); MEAN CORPUSCULAR HGB CONC 34.1 g/dL (32.0-36.0); MEAN CORPUSCULAR VOLUME 77 fl (80-97); MONOCYTES % (AUTO) 11.7 % (3-13); RED BLOOD COUNT 3.72 10^6/uL (4.35-5.55); RED CELL DISTRIBUTION WIDTH 14.6 % (11.5-14.0); SEGMENTED NEUTROPHILS % (AUTO) 81.6 % (42-78); WHITE BLOOD COUNT 7.7 10^3/uL (4.0-10.5)
[2016-12-14 00:30] LABS: PROTHROMBIN TIME 16.9 SEC (11.4-15.4)
[2016-12-14 00:38] LABS: ALANINE AMINOTRANSFERASE 32 U/L (21-72); ALBUMIN 2.6 g/dL (3.5-5.0); ALKALINE PHOSPHATASE 58 U/L (38-126); ANION GAP 8 (5-19); ASPARTATE AMINO TRANSFERASE 18 U/L (17-59); BILIRUBIN,DIRECT 0.4 mg/dL (0.0-0.4); BILIRUBIN,TOTAL 0.7 mg/dL (0.2-1.3); BLOOD UREA NITROGEN 19 mg/dL (7-20); CALCIUM 7.1 mg/dL (8.4-10.2); CARBON DIOXIDE 24 mmol/L (22-30); CHLORIDE 103 mmol/L (98-107); CREATININE RESULT 0.89 mg/dL (0.52-1.25); GLUCOSE 116 mg/dL (75-110); POTASSIUM 3.3 mmol/L (3.6-5.0); SODIUM 135.4 mmol/L (137-145); TOTAL PROTEIN 4.9 g/dL (6.3-8.2)
[2016-12-14 00:41] LABS: VENOUS BLOOD BASE EXCESS 2.1 mmol/L; VENOUS BLOOD HCO3 25.9 mmol/L (20-32); VENOUS BLOOD PCO2 36.9 mmHg (35-63); VENOUS BLOOD PH 7.46 (7.30-7.42)
--- NOTE | 2016-12-14 01:03 | RADIOLOGY REPORT (SQ) ---
EXAM DESCRIPTION: CHEST SINGLE VIEW COMPLETED DATE/TIME: 12/14/2016 12:55 am REASON FOR STUDY: fever COMPARISON: 11/28/2016 EXAM PARAMETERS: NUMBER OF VIEWS: One view. TECHNIQUE: Single frontal radiographic view of the chest acquired. RADIATION DOSE: NA LIMITATIONS: None. FINDINGS: LUNGS AND PLEURA: No opacities, masses or pneumothorax. No pleural effusion. MEDIASTINUM AND HILAR STRUCTURES: No masses. Contour normal. HEART AND VASCULAR STRUCTURES: Heart stable in size. Normal vasculature. BONES: No acute findings. HARDWARE: Stable. OTHER: No other significant finding. IMPRESSION: NO ACUTE RADIOGRAPHIC FINDING IN THE CHEST. NO SIGNIFICANT CHANGE FROM PRIOR STUDY. TECHNICAL DOCUMENTATION: JOB ID: [id number] [employer]- All Rights Reserved
[2016-12-14 01:28] LABS: APPEARANCE,URINE CLEAR; BILIRUBIN,URINE NEGATIVE (NEGATIVE); GLUCOSE, URINE NEGATIVE (NEGATIVE); KETONES,URINE NEGATIVE (NEGATIVE); LEUKOCYTE ESTERASE,URINE NEGATIVE (NEGATIVE); NITRITE,URINE NEGATIVE (NEGATIVE); PROTEIN,URINE NEGATIVE (NEGATIVE); URINE SPECIFIC GRAVITY 1.004; UROBILINOGEN,URINE NEGATIVE mg/dL (<2.0)
[2016-12-14] MEDS ORDERED: POTASSIUM CHLORIDE 10 MEQ TABLET.SA PO ONE (02:34)
[2016-12-14] MEDS ORDERED: NORMAL SALINE 1000 ML 1,000 ML IV PRN (02:35)
[2016-12-14] MEDS ORDERED: VANCOMYCIN HCL 0 MG in DEXTROSE 5%-WATER 250 ML IV NR (02:45)
[2016-12-14] MEDS ORDERED: ONDANSETRON HCL INJ/PF 4 MG/2 ML SDV IV PRN ×2 (02:56→14:30)
[2016-12-14] MEDS ORDERED: MAG HYDROX/AL HYDROX/SIMETH SUSP 30 ML UDCUP PO PRN ×2 (02:56→14:30)
--- NOTE | 2016-12-14 02:56 | PDOC H&P ---
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 Patient was in the emergency department approximately 2 weeks ago with complaints of chest pain. At that time, blood cultures were obtained and patient was found to have Streptococcus mitis. He reported he was feeling fine since that time but today developed a fever. He did admit to some nausea without vomiting. He denies any antecedent illness, cough, congestion, sore throat, myalgias, arthralgias, dysuria, rash, penile discharge, or sick contact. Concern is currently had for recurrence of endocarditis. Patient admits to injecting cocaine and amphetamines approximately 2 weeks ago. Past Medical History Cardiac Medical History: Reports: Congestive Heart Failure, Hypertension, Heart Murmur, Other - endocarditis Pulmonary Medical History: Denies: Tuberculosis GI Medical History: Denies: Hepatitis Psychiatric Medical History: Reports: Bipolar Disorder, Substance Abuse Hematology: Reports: Anemia Past Surgical History Past Surgical History: Reports: Internal Defibrillator, Tonsillectomy, Valve Replacement - Aortic valve replacement in 2013 at [facility] Social History Smoking Status: Former Smoker Frequency of Alcohol Use: Rare Hx Recreational Drug Use: Yes Drugs: Cocaine, Heroin, Marijuana, Methadone, Other - amphetamines Hx Prescription Drug Abuse: Yes - Advance Directive Resuscitation Status: Full Code Surrogate healthcare decision maker:: Ex-girlfriend, Shante Family History Family History: CAD, Other - Father: congestive heart failure, when the patient was 16. He's been estranged from his family since then. Parental Family History Reviewed: Yes Children Family History Reviewed: NA Sibling(s) Family History Reviewed.: Yes Medication/Allergy Home Medications: Folic Acid 1 mg PO DAILY 01/27/13 Oxycodone HCl [Oxycodone HCl 10 MG Tablet] 10 mg PO Q4HP PRN 01/27/13 Ferrous Sulfate [Feosol 325 mg Tablet] 325 mg PO DAILY #30 tablet 02/16/13 Furosemide [Lasix 20 mg Tablet] 20 mg PO DAILY #30 tablet 02/16/13 Metoprolol Tartrate [Lopressor 25 mg Tablet] 12.5 mg PO Q12 #60 tablet 02/16/13 White-3 Fatty Acids/Fish Oil [Theragran-M 1,200 mg Softgel] 1 cap PO DAILY #30 capsule 02/16/13 Potassium Chloride 10 meq PO DAILY #30 tablet.sa 02/16/13 Gabapentin 100 mg PO Q8H 03/22/16 Allergies/Adverse Reactions: acetaminophen [From Tylenol] Allergy (Intermediate, Verified 03/23/16 12:58) Hives Review of Systems Constitutional: PRESENT: chills, fever(s), weight loss. ABSENT: headache(s), weight gain Eyes: ABSENT: visual disturbances Ears: ABSENT: hearing changes Cardiovascular: PRESENT: chest pain. ABSENT: dyspnea on exertion, edema, orthropnea, palpitations Respiratory: ABSENT: cough, hemoptysis Gastrointestinal: ABSENT: abdominal pain, constipation, diarrhea, hematemesis, hematochezia, nausea, vomiting Genitourinary: ABSENT: dysuria, hematuria Musculoskeletal: ABSENT: joint swelling Integumentary: ABSENT: rash, wounds Neurological: ABSENT: abnormal gait, abnormal speech, confusion, dizziness, focal weakness, syncope Psychiatric: ABSENT: anxiety, depression, homidical ideation, suicidal ideation Endocrine: ABSENT: cold intolerance, heat intolerance, polydipsia, polyuria Hematologic/Lymphatic: ABSENT: easy bleeding, easy bruising Physical Exam Vital Signs: Temp Pulse Resp BP Pulse Ox 99.7 F 20 107/53 L 98 12/13/16 23:33 12/14/16 00:01 12/14/16 01:00 12/14/16 01:01 General appearance: PRESENT: no acute distress, disheveled, thin, well- developed. ABSENT: well-nourished Head exam: PRESENT: atraumatic, normocephalic Eye exam: PRESENT: conjunctiva pink, EOMI, PERRLA. ABSENT: conjunctival injection, scleral icterus Ear exam: PRESENT: normal external ear exam Mouth exam: PRESENT: dry mucosa, neck supple, tongue midline Neck exam: ABSENT: JVD, lymphadenopathy, thyromegaly, tracheal deviation Respiratory exam: PRESENT: clear to auscultation sera, symmetrical, unlabored. ABSENT: accessory muscle use, crackles, rales, rhonchi, wheezes Cardiovascular exam: PRESENT: clicks, RRR, +S1, +S2, systolic murmur. ABSENT: diastolic murmur, gallop, rubs Pulses: PRESENT: normal dorsalis pedis pul Vascular exam: PRESENT: normal capillary refill GI/Abdominal exam: PRESENT: hypoactive bowel sounds, normal bowel sounds, soft. ABSENT: distended, guarding, mass, Abdalla's sign, organolmegaly, rebound, tenderness Rectal exam: PRESENT: deferred Extremities exam: PRESENT: full ROM. ABSENT: calf tenderness, clubbing, pedal edema Neurological exam: PRESENT: alert, awake, oriented to person, oriented to place , oriented to time, oriented to situation, CN II-XII grossly intact. ABSENT: motor sensory deficit Psychiatric exam: PRESENT: appropriate affect, normal mood. ABSENT: homicidal ideation, suicidal ideation Skin exam: PRESENT: dry, intact, warm. ABSENT: cyanosis, rash Results Laboratory Results: 12/13/16 12/13/16 12/14/16 23:55 23:55 00:11 WBC 7.7 MCV 77 L Plt Count 100 L Seg Neutrophils % 81.6 H Sodium 135.4 L Potassium 3.3 L Creatinine 0.89 Total Protein 4.9 L Albumin 2.6 L Urine Blood Urine RBC (Auto) Influenza A (Rapid) NEGATIVE Influenza B (Rapid) NEGATIVE 12/14/16 01:15 WBC MCV Plt Count Seg Neutrophils % Sodium Potassium Creatinine Total Protein Albumin Urine Blood MODERATE H Urine RBC (Auto) 0 Influenza A (Rapid) Influenza B (Rapid) Impressions: Chest X-Ray 12/13/16 23:37 IMPRESSION: NO ACUTE RADIOGRAPHIC FINDING IN THE CHEST. NO SIGNIFICANT CHANGE FROM PRIOR STUDY. Status: Imported from PACS Assessment & Plan - Diagnosis (1) Endocarditis Qualifiers: Endocarditis type: infective Infective endocarditis organism: bacterial Chronicity: unspecified Qualified Code(s): I33.0 - Acute and subacute infective endocarditis Is this a current diagnosis for this admission?: Yes Plan: Concern for recurrence of endocarditis given his history of injecting drugs and current positive cultures with Streptococcus mitis. He has no active oral infection. He does have no other Barfield criteria. He does have a noticeable murmur and click, but this is likely related to his prior valve surgery. Will obtain a TTE. Empirically start patient on vancomycin and Rocephin given the culture results. (2) Fever Qualifiers: Fever type: unspecified Qualified Code(s): R50.9 - Fever, unspecified Is this a current diagnosis for this admission?: Yes Plan: Concern for recurrence of endocarditis given his history of injecting drugs and current positive cultures with Streptococcus mitis. He has no active oral infection. He does have no other Barfield criteria. He does have a noticeable murmur and click, but this is likely related to his prior valve surgery. We will obtain a TTE. And empirically start patient on vancomycin and Rocephin given the culture results. Currently pending results for urine culture. (3) IV drug abuse Is this a current diagnosis for this admission?: Yes (4) Hyponatremia Is this a current diagnosis for this admission?: Yes Plan: Likely secondary to intravascular volume depletion. Replete and recheck (5) Hypokalemia Is this a current diagnosis for this admission?: Yes Plan: Check magnesium. Replete and recheck (6) Polysubstance (including opioids) dependence with physiol dependence Is this a current diagnosis for this admission?: Yes Plan: We will check urine drug screen. Patient is supposed to be on a beta-leticia, but chronically abuses cocaine. (7) Systolic CHF, chronic Is this a current diagnosis for this admission?: Yes Plan: Currently euvolemic. Patient's last EF done here in March of this year revealed an EF of 25%. He has an AICD. We will be judicious with fluid administration. Consider initiating patient on an mirtha when his blood pressure will tolerate it. Would avoid beta blockers in this patient due to his chronic use of cocaine (8) Abnormal urinalysis Is this a current diagnosis for this admission?: Yes Plan: Patient has moderate blood but no red cells in his urine. He does appear to be dehydrated and I will check a CK with concern for rhabdomyolysis. (9) History of aortic valve replacement with bioprosthetic valve Is this a current diagnosis for this admission?: Yes - Time Time Spent: 30 to 50 Minutes Medications reviewed and adjusted accordingly: Yes - Inpatient Certification Based on my medical assessment, after consideration of the patient's comorbidities, presenting symptoms, or acuity I expect that the services needed warrant INPATIENT care.: Yes I certify that my determination is in accordance with my understanding of Medicare's requirements for reasonable and necessary INPATIENT services [42 CFR 412.3e].: Yes Medical Necessity: Need For IV Fluids, Need for IV Antibiotics Post Hospital Care: D/C Vacuum Caster Documentation
[2016-12-14] MEDS ORDERED: TRAZODONE HCL 50 MG TABLET PO PRN (02:59)
[2016-12-14] MEDS ORDERED: IBUPROFEN 600 MG TABLET PO PRN ×2 (02:59→14:30)
[2016-12-14] MEDS: NORMAL SALINE 1000 ML 1,000 ML IV PRN ×2 (03:09→11:20)
[2016-12-14 03:19] LABS: URINE BARBITURATES SCREEN NEGATIVE; URINE METHADONE SCREEN NEGATIVE; URINE OPIATES LOW NEGATIVE; URINE PHENCYCLIDINE SCREEN NEGATIVE
[2016-12-14] MEDS ORDERED: INFLUENZA ADLT QUAD (36MOS+) 2017-18 VAC 0.5 ML SYR IM PRN ×2 (04:07→14:30)
[2016-12-14] MEDS ORDERED: VANCOMYCIN HCL 1,000 MG in DEXTROSE 5%-WATER 250 ML IV SCH (08:00)
[2016-12-14 08:08] LABS: MAGNESIUM 1.7 mg/dL (1.6-2.3)
[2016-12-14 08:13] LABS: CREATINE KINASE < 20 U/L (55-170)
[2016-12-14 08:49] LABS: ADD HIVPANEL? NO; HIV (1 AND 2) ANTIBODY NEGATIVE (NEGATIVE)
[2016-12-14] MEDS ORDERED: OMEGA PO SCH (10:00)
[2016-12-14] MEDS ORDERED: [UNRECOGNIZED DRUG - OTHER] PO SCH (10:00)
[2016-12-14] MEDS ORDERED: CEFTRIAXONE 2 GM/D5W RTU 2 GM/50 ML RTUPB IV SCH (10:00)
[2016-12-14] MEDS ORDERED: FATTY ACIDS PO SCH (10:00)
[2016-12-14] MEDS ORDERED: FISH OIL PO SCH (10:00)
[2016-12-14] MEDS: FERROUS SULFATE 325 MG TABLET PO SCH (10:26)
[2016-12-14] MEDS: OMEGA-3 ACID ETHYL ESTERS 1 GM CAPSULE PO SCH (10:27)
[2016-12-14] MEDS: CEFTRIAXONE 2 GM/D5W RTU 2 GM/50 ML RTUPB IV SCH (10:27)
[2016-12-14] MEDS: FOLIC ACID 1 MG TABLET PO SCH (10:27)
[2016-12-14] MEDS: VANCOMYCIN HCL 1,250 MG in DEXTROSE 5%-WATER 250 ML IV SCH ×2 (11:15→17:28)
--- NOTE | 2016-12-14 14:23 | Progress Note ---
Provider Note Provider Note: Patient admitted due to concern of endocarditis. At present time admits suffering from depression. Appears stable. Will add wellbutrin and follow up response. To continue current antibiotic regimen.
--- NOTE | 2016-12-14 18:14 | XCELERA REPORT ---
[address] [address] Transthoracic Echocardiogram Report Name: VINICIO BLEDSOE Age: 31 yrs Gender: Male : 1985 Patient Status: Inpatient Patient Location: [address] [place] [address] Study Date: 12/14/2016 03:19 PM Height: 72 in Weight: 176 lb BSA: 2.0 m2 Procedure: A two-dimensional transthoracic echocardiogram with color flow and Doppler was performed. The study was technically limited with all images being suboptimal in quality. Reason For Study: endocarditis History: endocarditis. Ordering Physician: CAROLYN REYES Performed By: Esme Jackson Interpretation Summary No grosss vegetation seen, strongly recommend CHRISTA.Recommend antibiotics for SBE prophylaxis prior to dental ,,and GI procedures /syegeries. The left ventricle is severely dilated. There is global thinning of the left ventricular olson. LV EF is 30% There is severe global hypokinesis of the left ventricle. The right ventricle is grossly normal size. The left atrium is moderately dilated. There is no evidence of mitral valve prolapse. There is no mitral valve stenosis. There is a moderate to severe amount of mitral regurgitation There is a bioprosthetic aortic valve. There is no aortic valvular vegetation. There is moderate aortic stenosis There is a peak gradient of 43 mm of Hg and Mean gradient of 30 mm of Hg. There is no LVOT obstruction. No aortic regurgitation is present. There is no tricuspid stenosis. There is a mild to moderate amount of tricuspid regurgitation There is mild pulmonary hypertension by echo RVSP is 38 mm of Hg. There is no pulmonic valvular stenosis. There is a mild amount of pulmonic regurgitation There is no pericardial effusion. No grosss vegetation seen, strongly recommend CHRISTA.Recommend antibiotics for SBE prophylaxis prior to dental ,,and GI procedures /syegeries. MMode/2D Measurements & Calculations RVDd: 2.9 cm LVIDd: 7.0 cmFS: 20.5 % Ao root diam: 3.3 cm IVSd: 1.1 cm LVIDs: 5.6 cmEDV(Teich): 257.7 ml LVPWd: 1.1 cmESV(Teich): 152.7 ml Ao root area: 8.4 cm2 EF(Teich): 40.7 % LA dimension: 5.0 cm LVOT diam: 2.3 cm LVOT area: 4.3 cm2 Doppler Measurements & Calculations MV E max dulce: MV P1/2t max dulce: Ao V2 max: LV V1 max P.9 cm/sec 122.9 cm/sec 326.5 cm/sec 5.1 mmHg MV A max dulce: MV P1/2t: 75.6 msec Ao max PG: LV V1 mean P.4 cm/sec MVA(P1/2t): 2.9 cm2 43.9 mmHg 3.5 mmHg MV E/A: 1.4 MV dec slope: Ao V2 mean: LV V1 max: 476.2 cm/sec2 269.5 cm/sec 111.3 cm/sec MV dec time: Ao mean PG: LV V1 mean: 0.23 sec 32.9 mmHg 85.5 cm/sec Ao V2 VTI: 91.3 cm LV V1 VTI: HEDY(I,D): 1.4 cm2 30.1 cm HEDY(V,D): 1.5 cm2 SV(LVOT): 130.3 mlPA V2 max: PI end-d dulce: TR max dulce: 80.9 cm/sec 127.6 cm/sec 263.3 cm/sec PA max P.6 mmHg TR max P.7 mmHg Left Ventricle The left ventricle is severely dilated. There is global thinning of the left ventricular olson. LV EF is 30%. Left ventricular systolic function is severely reduced. There is severe global hypokinesis of the left ventricle. There is no thrombus. Right Ventricle The right ventricle is grossly normal size. Atria The right atrium is normal in size. The left atrium is moderately dilated. Mitral Valve There is no evidence of mitral valve prolapse. Dyskinesis of the papillary muscle and systolic displacement of the mitral valve leaflets suggest papillary muscle dysfunction and mitral regurgitation. There is no mitral valve stenosis. There is a moderate to severe amount of mitral regurgitation. Aortic Valve There is no aortic valvular vegetation. There is moderate aortic stenosis. There is a peak gradient of 43 mm of Hg and Mean gradient of 30 mm of Hg. There is no LVOT obstruction. No aortic regurgitation is present. There is a bioprosthetic aortic valve. Tricuspid Valve There is no tricuspid stenosis. There is a mild to moderate amount of tricuspid regurgitation. There is mild pulmonary hypertension by echo. RVSP is 38 mm of Hg. Pulmonic Valve There is no pulmonic valvular stenosis. There is a mild amount of pulmonic regurgitation. Great Vessels The aortic root is not well visualized. Effusions There is no pericardial effusion. : CAROLYN REYES > Rose Arreguin
[2016-12-14] MEDS: BUPROPION HCL 100 MG TABLET PO SCH (23:11)
[2016-12-15] MEDS: VANCOMYCIN HCL 1,250 MG in DEXTROSE 5%-WATER 250 ML IV SCH ×2 (00:58→11:14)
[2016-12-15] MEDS: NORMAL SALINE 1000 ML 1,000 ML IV PRN ×2 (01:04→13:14)
[2016-12-15 05:26] LABS: ABSOLUTE MONOCYTES (AUTO) 0.9 10^3/uL (0.1-1.4); ABSOLUTE NEUT (AUTO) 5.6 10^3/uL (1.7-8.2); BASOPHILS % (AUTO) 0.4 % (0-2); EOSINOPHILS % (AUTO) 0.4 % (0-6); HEMATOCRIT 31.9 % (37.9-51.0); HEMOGLOBIN 11.2 g/dL (13.5-17.0); HGB HCT DIFFERENCE 1.7; MEAN CORPUSCULAR HEMOGLOBIN 27.1 pg (27.0-33.4); MEAN CORPUSCULAR VOLUME 77 fl (80-97); MONOCYTES % (AUTO) 11.3 % (3-13); RED BLOOD COUNT 4.13 10^6/uL (4.35-5.55); RED CELL DISTRIBUTION WIDTH 14.7 % (11.5-14.0); SEGMENTED NEUTROPHILS % (AUTO) 74.9 % (42-78); WHITE BLOOD COUNT 7.5 10^3/uL (4.0-10.5)
[2016-12-15 05:50] LABS: ANION GAP 9 (5-19); BLOOD UREA NITROGEN 11 mg/dL (7-20); CALCIUM 8.1 mg/dL (8.4-10.2); CARBON DIOXIDE 23 mmol/L (22-30); CHLORIDE 106 mmol/L (98-107); CREATININE RESULT 0.62 mg/dL (0.52-1.25); GLUCOSE 92 mg/dL (75-110); SODIUM 137.8 mmol/L (137-145)
[2016-12-15] MEDS: BUPROPION HCL 100 MG TABLET PO SCH ×3 (06:25→21:59)
[2016-12-15] MEDS: FERROUS SULFATE 325 MG TABLET PO SCH (09:21)
[2016-12-15] MEDS: OMEGA-3 ACID ETHYL ESTERS 1 GM CAPSULE PO SCH (09:21)
[2016-12-15] MEDS: FOLIC ACID 1 MG TABLET PO SCH (09:21)
[2016-12-15] MEDS: CEFTRIAXONE 2 GM/D5W RTU 2 GM/50 ML RTUPB IV SCH (09:22)
[2016-12-15 10:41] LABS: CREATININE RESULT 0.61 mg/dL (0.52-1.25)
[2016-12-15] MEDS ORDERED: VANCOMYCIN HCL 1,500 MG in DEXTROSE 5%-WATER 250 ML IV SCH ×2 (14:00→18:00)
--- NOTE | 2016-12-15 14:25 | PDOC PROGRESS REPORT ---
Subjective Progress Note for:: 12/15/16 Subjective:: No complaints. Physical Exam Vital Signs: Temp Pulse Resp BP Pulse Ox 98.6 F 96 18 112/55 L 98 12/14/16 15:00 12/15/16 02:00 12/14/16 15:00 12/14/16 15:00 12/14/16 15:00 Intake & Output 12/14/16 12/15/16 12/16/16 06:59 06:59 06:59 Intake Total 5176 Balance 5176 Weight 80 kg 82.5 kg General appearance: PRESENT: no acute distress, cooperative, thin Head exam: PRESENT: atraumatic, normocephalic Eye exam: PRESENT: EOMI, PERRLA Mouth exam: PRESENT: moist, neck supple Teeth exam: PRESENT: poor dentation Neck exam: PRESENT: full ROM. ABSENT: JVD, lymphadenopathy, tenderness Respiratory exam: PRESENT: clear to auscultation sera Cardiovascular exam: PRESENT: RRR. ABSENT: diastolic murmur, systolic murmur Vascular exam: PRESENT: normal capillary refill GI/Abdominal exam: PRESENT: normal bowel sounds, soft. ABSENT: tenderness Neurological exam: PRESENT: alert, oriented to person, oriented to place, oriented to time Results Laboratory Results: 12/15/16 04:26 12/15/16 04:26 12/15/16 12/15/16 04:26 04:26 WBC 7.5 RBC 4.13 L Hgb 11.2 L Hct 31.9 L MCV 77 L MCH 27.1 MCHC 35.0 RDW 14.7 H Plt Count 108 L Seg Neutrophils % 74.9 Lymphocytes % 13.0 Monocytes % 11.3 Eosinophils % 0.4 Basophils % 0.4 Absolute Neutrophils 5.6 Absolute Lymphocytes 1.0 Absolute Monocytes 0.9 Absolute Eosinophils 0.0 Absolute Basophils 0.0 Sodium 137.8 Potassium 4.0 Chloride 106 Carbon Dioxide 23 Anion Gap 9 BUN 11 Creatinine 0.62 Est GFR ( Amer) > 60 Est GFR (Non-Af Amer) > 60 Glucose 92 Calcium 8.1 L Impressions: Chest X-Ray 12/13/16 23:37 IMPRESSION: NO ACUTE RADIOGRAPHIC FINDING IN THE CHEST. NO SIGNIFICANT CHANGE FROM PRIOR STUDY. Assessment & Plan - Diagnosis (1) Streptococcal septicemia Is this a current diagnosis for this admission?: Yes Plan: Continue present treatment. ECHO noted. (2) Hypokalemia Is this a current diagnosis for this admission?: Yes Plan: Trend (3) Depression Qualifiers: Depression Type: unspecified Qualified Code(s): F32.9 - Major depressive disorder, single episode, unspecified Is this a current diagnosis for this admission?: Yes Plan: Started on wellbutrin and tolerating medication so far. - Time Time Spent with patient: 15-24 minutes Medications reviewed and adjusted accordingly: Yes Anticipated discharge: Other - LTAC - Inpatient Certification Based on my medical assessment, after consideration of the patient's comorbidities, presenting symptoms, or acuity I expect that the services needed warrant INPATIENT care.: Yes I certify that my determination is in accordance with my understanding of Medicare's requirements for reasonable and necessary INPATIENT services [42 CFR 412.3e].: Yes Medical Necessity: Need For IV Fluids, Need for IV Antibiotics
--- NOTE | 2016-12-15 16:09 | PDOC PROGRESS REPORT ---
Subjective Progress Note for:: 12/15/16 Subjective:: No complaints. Physical Exam Vital Signs: Temp Pulse Resp BP Pulse Ox 98.6 F 78 18 112/55 L 98 12/14/16 15:00 12/15/16 14:00 12/14/16 15:00 12/14/16 15:00 12/14/16 15:00 Intake & Output 12/14/16 12/15/16 12/16/16 06:59 06:59 06:59 Intake Total 5176 820 Balance 5176 820 Weight 80 kg 82.5 kg General appearance: PRESENT: no acute distress, cooperative, thin Head exam: PRESENT: atraumatic, normocephalic Eye exam: PRESENT: EOMI, PERRLA Ear exam: PRESENT: normal external ear exam Mouth exam: PRESENT: moist, neck supple Teeth exam: PRESENT: poor dentation Neck exam: PRESENT: full ROM. ABSENT: JVD, tenderness Respiratory exam: PRESENT: clear to auscultation sera Cardiovascular exam: PRESENT: RRR, systolic murmur. ABSENT: diastolic murmur Vascular exam: PRESENT: normal capillary refill GI/Abdominal exam: PRESENT: normal bowel sounds, soft. ABSENT: guarding, tenderness Extremities exam: PRESENT: full ROM. ABSENT: joint swelling, pedal edema Musculoskeletal exam: PRESENT: full ROM Neurological exam: PRESENT: alert, oriented to person, oriented to place, oriented to time Psychiatric exam: PRESENT: depressed Results Laboratory Results: 12/15/16 04:26 12/15/16 10:07 12/15/16 12/15/16 12/15/16 04:26 04:26 10:07 WBC 7.5 RBC 4.13 L Hgb 11.2 L Hct 31.9 L MCV 77 L MCH 27.1 MCHC 35.0 RDW 14.7 H Plt Count 108 L Seg Neutrophils % 74.9 Lymphocytes % 13.0 Monocytes % 11.3 Eosinophils % 0.4 Basophils % 0.4 Absolute Neutrophils 5.6 Absolute Lymphocytes 1.0 Absolute Monocytes 0.9 Absolute Eosinophils 0.0 Absolute Basophils 0.0 Sodium 137.8 Potassium 4.0 Chloride 106 Carbon Dioxide 23 Anion Gap 9 BUN 11 Creatinine 0.62 0.61 Est GFR ( Amer) > 60 > 60 Est GFR (Non-Af Amer) > 60 > 60 Glucose 92 Calcium 8.1 L Impressions: Chest X-Ray 12/13/16 23:37 IMPRESSION: NO ACUTE RADIOGRAPHIC FINDING IN THE CHEST. NO SIGNIFICANT CHANGE FROM PRIOR STUDY. Assessment & Plan - Diagnosis (1) Streptococcal septicemia Is this a current diagnosis for this admission?: Yes Plan: Continue present treatment. ECHO noted. (2) Hypokalemia Is this a current diagnosis for this admission?: Yes Plan: Replaced. (3) Depression Qualifiers: Depression Type: unspecified Qualified Code(s): F32.9 - Major depressive disorder, single episode, unspecified Is this a current diagnosis for this admission?: Yes Plan: Continue current tx - Time Time Spent with patient: 15-24 minutes Medications reviewed and adjusted accordingly: Yes Anticipated discharge: Home Within: Other - will require 14 day Iv antibiotic tx - Inpatient Certification Based on my medical assessment, after consideration of the patient's comorbidities, presenting symptoms, or acuity I expect that the services needed warrant INPATIENT care.: Yes I certify that my determination is in accordance with my understanding of Medicare's requirements for reasonable and necessary INPATIENT services [42 CFR 412.3e].: Yes Medical Necessity: Need for IV Antibiotics
[2016-12-15] MEDS: VANCOMYCIN HCL 1,500 MG in DEXTROSE 5%-WATER 250 ML IV SCH (18:45)
[2016-12-16] MEDS: VANCOMYCIN HCL 1,500 MG in DEXTROSE 5%-WATER 250 ML IV SCH ×2 (01:06→11:12)
[2016-12-16 05:31] LABS: ABSOLUTE EOSINOPHILS # (AUTO) 0.1 10^3/uL (0.0-0.6); ABSOLUTE LYMPHOCYTES (AUTO) 1.1 10^3/uL (0.5-4.7); ABSOLUTE MONOCYTES (AUTO) 0.7 10^3/uL (0.1-1.4); ABSOLUTE NEUT (AUTO) 4.6 10^3/uL (1.7-8.2); BASOPHILS % (AUTO) 0.4 % (0-2); EOSINOPHILS % (AUTO) 1.2 % (0-6); HEMATOCRIT 32.8 % (37.9-51.0); HGB HCT DIFFERENCE 0.2; LYMPHOCYTES % (AUTO) 17.4 % (13-45); MEAN CORPUSCULAR HGB CONC 33.4 g/dL (32.0-36.0); MEAN CORPUSCULAR VOLUME 78 fl (80-97); MONOCYTES % (AUTO) 10.4 % (3-13); RED BLOOD COUNT 4.21 10^6/uL (4.35-5.55); RED CELL DISTRIBUTION WIDTH 14.9 % (11.5-14.0); SEGMENTED NEUTROPHILS % (AUTO) 70.6 % (42-78); WHITE BLOOD COUNT 6.5 10^3/uL (4.0-10.5)
[2016-12-16] MEDS: BUPROPION HCL 100 MG TABLET PO SCH ×3 (05:39→22:10)
[2016-12-16 05:49] LABS: ANION GAP 10 (5-19); BLOOD UREA NITROGEN 9 mg/dL (7-20); CALCIUM 8.5 mg/dL (8.4-10.2); CARBON DIOXIDE 26 mmol/L (22-30); CHLORIDE 105 mmol/L (98-107); CREATININE RESULT 0.65 mg/dL (0.52-1.25); GLUCOSE 90 mg/dL (75-110); POTASSIUM 4.1 mmol/L (3.6-5.0); SODIUM 141.4 mmol/L (137-145)
[2016-12-16] MEDS: OMEGA-3 ACID ETHYL ESTERS 1 GM CAPSULE PO SCH (10:09)
[2016-12-16] MEDS: FERROUS SULFATE 325 MG TABLET PO SCH (10:10)
[2016-12-16] MEDS: FOLIC ACID 1 MG TABLET PO SCH (10:10)
[2016-12-16] MEDS: CEFTRIAXONE 2 GM/D5W RTU 2 GM/50 ML RTUPB IV SCH (10:10)
--- NOTE | 2016-12-16 13:09 | PDOC PROGRESS REPORT ---
Subjective Progress Note for:: 12/16/16 Subjective:: No complaints. Physical Exam Vital Signs: Temp Pulse Resp BP Pulse Ox 98.8 F 90 16 82/45 L 97 12/16/16 04:07 12/16/16 04:07 12/16/16 04:07 12/16/16 04:07 12/16/16 04:07 Intake & Output 12/15/16 12/16/16 12/17/16 06:59 06:59 06:59 Intake Total 5176 4347 Balance 5176 4347 Weight 82.5 kg 81.2 kg General appearance: PRESENT: no acute distress, cooperative, thin Head exam: PRESENT: atraumatic, normocephalic Eye exam: PRESENT: EOMI, PERRLA Ear exam: PRESENT: normal external ear exam Mouth exam: PRESENT: moist, neck supple Teeth exam: PRESENT: poor dentation Neck exam: PRESENT: full ROM. ABSENT: JVD, tenderness Respiratory exam: PRESENT: clear to auscultation sera Cardiovascular exam: PRESENT: RRR, systolic murmur. ABSENT: diastolic murmur Vascular exam: PRESENT: normal capillary refill GI/Abdominal exam: PRESENT: normal bowel sounds, soft. ABSENT: tenderness Neurological exam: PRESENT: alert, oriented to person, oriented to place, oriented to time Results Laboratory Results: 12/16/16 05:00 12/16/16 05:00 12/15/16 12/16/16 12/16/16 10:07 05:00 05:00 WBC 6.5 RBC 4.21 L Hgb 11.0 L Hct 32.8 L MCV 78 L MCH 26.0 L MCHC 33.4 RDW 14.9 H Plt Count 148 L Seg Neutrophils % 70.6 Lymphocytes % 17.4 Monocytes % 10.4 Eosinophils % 1.2 Basophils % 0.4 Absolute Neutrophils 4.6 Absolute Lymphocytes 1.1 Absolute Monocytes 0.7 Absolute Eosinophils 0.1 Absolute Basophils 0.0 Sodium 141.4 Potassium 4.1 Chloride 105 Carbon Dioxide 26 Anion Gap 10 BUN 9 Creatinine 0.61 0.65 Est GFR ( Amer) > 60 > 60 Est GFR (Non-Af Amer) > 60 > 60 Glucose 90 Calcium 8.5 Impressions: Chest X-Ray 12/13/16 23:37 IMPRESSION: NO ACUTE RADIOGRAPHIC FINDING IN THE CHEST. NO SIGNIFICANT CHANGE FROM PRIOR STUDY. Assessment & Plan - Diagnosis (1) Streptococcal septicemia Is this a current diagnosis for this admission?: Yes Plan: Discontinue vancomycin and keep on rocephin IV for total of 14 days. ECHO noted. No PICC since he has good iv access. Repeat blood culture. Likely source due poor dentation. (2) Hypokalemia Is this a current diagnosis for this admission?: Yes Plan: Replaced. (3) Depression Qualifiers: Depression Type: unspecified Qualified Code(s): F32.9 - Major depressive disorder, single episode, unspecified Is this a current diagnosis for this admission?: Yes Plan: Continue current tx - Time Time Spent with patient: Less than 15 minutes Medications reviewed and adjusted accordingly: Yes Anticipated discharge: Home - Inpatient Certification Based on my medical assessment, after consideration of the patient's comorbidities, presenting symptoms, or acuity I expect that the services needed warrant INPATIENT care.: Yes I certify that my determination is in accordance with my understanding of Medicare's requirements for reasonable and necessary INPATIENT services [42 CFR 412.3e].: Yes Medical Necessity: Need for IV Antibiotics
[2016-12-16] MEDS: NORMAL SALINE 1000 ML 1,000 ML IV PRN (18:16)
[2016-12-16 18:54] LABS: CREATININE RESULT 0.62 mg/dL (0.52-1.25)
[2016-12-17 05:18] LABS: ABSOLUTE EOSINOPHILS # (AUTO) 0.1 10^3/uL (0.0-0.6); ABSOLUTE LYMPHOCYTES (AUTO) 1.1 10^3/uL (0.5-4.7); ABSOLUTE MONOCYTES (AUTO) 0.5 10^3/uL (0.1-1.4); ABSOLUTE NEUT (AUTO) 4.5 10^3/uL (1.7-8.2); BASOPHILS % (AUTO) 0.8 % (0-2); EOSINOPHILS % (AUTO) 1.7 % (0-6); HEMATOCRIT 32.1 % (37.9-51.0); HEMOGLOBIN 10.7 g/dL (13.5-17.0); LYMPHOCYTES % (AUTO) 17.1 % (13-45); MEAN CORPUSCULAR HEMOGLOBIN 25.9 pg (27.0-33.4); MEAN CORPUSCULAR HGB CONC 33.3 g/dL (32.0-36.0); MEAN CORPUSCULAR VOLUME 78 fl (80-97); MONOCYTES % (AUTO) 8.7 % (3-13); RED BLOOD COUNT 4.13 10^6/uL (4.35-5.55); RED CELL DISTRIBUTION WIDTH 14.9 % (11.5-14.0); SEGMENTED NEUTROPHILS % (AUTO) 71.7 % (42-78); WHITE BLOOD COUNT 6.2 10^3/uL (4.0-10.5)
[2016-12-17 05:40] LABS: ANION GAP 11 (5-19); BLOOD UREA NITROGEN 10 mg/dL (7-20); CALCIUM 8.6 mg/dL (8.4-10.2); CARBON DIOXIDE 27 mmol/L (22-30); CHLORIDE 106 mmol/L (98-107); CREATININE RESULT 0.69 mg/dL (0.52-1.25); GLUCOSE 93 mg/dL (75-110); POTASSIUM 4.2 mmol/L (3.6-5.0); SODIUM 143.6 mmol/L (137-145)
[2016-12-17] MEDS: BUPROPION HCL 100 MG TABLET PO SCH ×3 (06:12→21:59)
--- NOTE | 2016-12-17 09:01 | PDOC PROGRESS REPORT ---
Subjective Progress Note for:: 12/17/16 Subjective:: No complaints. ROS All systems evaluated and negative All significant laboratories and diagnostics have been reviewed Physical Exam Vital Signs: Temp Pulse Resp BP Pulse Ox 97.9 F 84 17 91/52 L 100 12/17/16 00:12 12/17/16 00:12 12/17/16 00:12 12/17/16 00:12 12/17/16 00:12 Intake & Output 12/16/16 12/17/16 12/18/16 06:59 06:59 06:59 Intake Total 4347 3650 Balance 4347 3650 Weight 81.2 kg 81.2 kg General appearance: PRESENT: no acute distress, thin Head exam: PRESENT: atraumatic, normocephalic Eye exam: PRESENT: EOMI, PERRLA Ear exam: PRESENT: normal external ear exam Mouth exam: PRESENT: moist, neck supple Neck exam: PRESENT: full ROM. ABSENT: JVD, meningismus, tenderness Cardiovascular exam: PRESENT: diastolic murmur, RRR, systolic murmur Vascular exam: PRESENT: normal capillary refill GI/Abdominal exam: PRESENT: normal bowel sounds, soft. ABSENT: tenderness Musculoskeletal exam: PRESENT: full ROM Neurological exam: PRESENT: alert, oriented to person, oriented to place, oriented to time Psychiatric exam: PRESENT: appropriate affect, normal mood Results Laboratory Results: 12/17/16 04:00 12/17/16 04:00 12/16/16 12/17/16 12/17/16 18:15 04:00 04:00 WBC 6.2 RBC 4.13 L Hgb 10.7 L Hct 32.1 L MCV 78 L MCH 25.9 L MCHC 33.3 RDW 14.9 H Plt Count 150 Seg Neutrophils % 71.7 Lymphocytes % 17.1 Monocytes % 8.7 Eosinophils % 1.7 Basophils % 0.8 Absolute Neutrophils 4.5 Absolute Lymphocytes 1.1 Absolute Monocytes 0.5 Absolute Eosinophils 0.1 Absolute Basophils 0.0 Sodium 143.6 Potassium 4.2 Chloride 106 Carbon Dioxide 27 Anion Gap 11 BUN 10 Creatinine 0.62 0.69 Est GFR ( Amer) > 60 > 60 Est GFR (Non-Af Amer) > 60 > 60 Glucose 93 Calcium 8.6 Impressions: Chest X-Ray 12/13/16 23:37 IMPRESSION: NO ACUTE RADIOGRAPHIC FINDING IN THE CHEST. NO SIGNIFICANT CHANGE FROM PRIOR STUDY. Assessment & Plan - Diagnosis (1) Streptococcal septicemia Is this a current diagnosis for this admission?: Yes Plan: Blood culture still positive. Will increase Rocephin to 2 g IV every 12 hours. To request PICC line placement since will require extended antibiotic therapy for 6 weeks. Will consult discharge planning to look into LTAC. (2) Hypokalemia Is this a current diagnosis for this admission?: Yes Plan: Replaced. (3) Depression Qualifiers: Depression Type: unspecified Qualified Code(s): F32.9 - Major depressive disorder, single episode, unspecified Is this a current diagnosis for this admission?: Yes Plan: Continue current tx.. Patient reports more energy . - Time Time Spent with patient: Less than 15 minutes Medications reviewed and adjusted accordingly: Yes Anticipated discharge: Other - Inpatient Certification Based on my medical assessment, after consideration of the patient's comorbidities, presenting symptoms, or acuity I expect that the services needed warrant INPATIENT care.: Yes I certify that my determination is in accordance with my understanding of Medicare's requirements for reasonable and necessary INPATIENT services [42 CFR 412.3e].: Yes Medical Necessity: Need for IV Antibiotics
[2016-12-17] MEDS: NORMAL SALINE 1000 ML 1,000 ML IV PRN (10:22)
[2016-12-17] MEDS: CEFTRIAXONE 2 GM/D5W RTU 2 GM/50 ML RTUPB IV SCH ×2 (10:22→21:59)
[2016-12-17] MEDS: FERROUS SULFATE 325 MG TABLET PO SCH (10:24)
[2016-12-17] MEDS: FOLIC ACID 1 MG TABLET PO SCH (10:24)
[2016-12-17] MEDS: OMEGA-3 ACID ETHYL ESTERS 1 GM CAPSULE PO SCH (10:24)
--- NOTE | 2016-12-17 11:01 | RADIOLOGY REPORT (SQ) ---
EXAM DESCRIPTION: PICC INSERTION; FLUORO/CV PLACEMENT; U/S GUIDE FOR VASCULAR ACCESS COMPLETED DATE/TIME: 12/17/2016 10:12 am; 12/17/2016 10:13 am REASON FOR STUDY: iv antbiotic; IV ANTIBIOTICS; IV ABX COMPARISON: AP chest 12/14/2016 FLUOROSCOPY TIME: 3 minutes 32 seconds 4 series of digital chest images, 1 ultrasound image saved to PACS. TECHNIQUE: Fluoroscopic and ultrasound guided PICC placement. LIMITATIONS: None. PROCEDURE: After written consent and assessment were obtained, the patient was brought into the fluo roscopy room and place supine on the table. Ultrasound was used on the patient's right arm for PICC access. The right arm was prepped and draped in a sterile fashion along with the ultrasound probe. Th e entry site was anesthetized with 4 mL of 1% lidocaine. A 21 gauge 7 cm needle was advanced through the skin and into the basilic vein under live ultrasound guidance. An ultrasound image was saved to PACS confirming access site. A .018 guide wire was then inserted through the needle and into the veronica ous system. The needle was the removed and an 11 blade scalpel was used to make a 1cm skin incision. A 5 fr peel-away sheath was advanced over the wire and into the venous system. During the procedure, a tight stenosis along the proximal basilic vein was encountered. Gentle hand injection of 20 mL of Isovue 300 was injected, which confirms a greater than 75% stenosis at the mehta sition between the basilic vein and axillary vein on the right. We were able to cross this stenosis with a Glidewire and Kumpe catheter A measurement was then made using the existing wire and live fluoroscopic guidance. The wire was then removed and the trimmed. The PICC was advanced through the peel-away sheath and int o the venous system. The peel-away sheath was removed and the catheter was adhered to the patients ar m with a stat lock. The catheter was then aspirated and flushed and a sterile bandage was placed over the access site. A fluoroscopic spot image was saved to PACS confirming the catheter tip within the superior vena cava. IMPRESSION: SUCCESSFUL PLACEMENT OF A 5 FR DUAL LUMEN 35 CM PICC IN THE RIGHT BASILIC VEIN. THERE IS A FOCAL STENOSIS AT THE TRANSITION BETWEEN THE RIGHT BASILIC VEIN AND AXILLARY VEIN. PATIFROILAN Peter HAS HAD 3 PRIOR PICC CATHETERS IN THIS ARM. FOR FUTURE CATHETER PLACEMENT, CONSIDER THE LEFT ARM O R USING THE RIGHT CEPHALIC VEIN. COMMENT: Patient medication list reviewed: Yes- Quality ID# [id number]:Eligible professional attests to doc umenting in the medical record they obtained, updated, or reviewed the patient's current medications. . Quality ID 145: Final reports for procedures using fluoroscopy that document radiation exposure donald asiya, or exposure time and number of fluorographic images (if radiation exposure indices are not avail able) Quality ID #76: The patient was prepped and draped using maximum sterile barrier technique including cap, mask, sterile gown, sterile gloves, a large sterile sheet, hand hygiene, and 2% Chlorhexidine fo r cutaneous antisepsis. When ultrasound is used, sterile ultrasound techniques are followed requiring sterile gel and sterile probes. TECHNICAL DOCUMENTATION: JOB ID: [id number] [employer]- All Rights Reserved
[2016-12-17] MEDS: NORMAL SALINE 10 ML SDV (SCHEDULED) IV SCH (21:59)
[2016-12-17] MEDS ORDERED: DIPHENHYDRAMINE HCL 50 MG CAPSULE PO ONE (23:45)
[2016-12-18] MEDS: BUPROPION HCL 100 MG TABLET PO SCH ×3 (06:36→21:51)
[2016-12-18] MEDS: FOLIC ACID 1 MG TABLET PO SCH (09:17)
[2016-12-18] MEDS: FERROUS SULFATE 325 MG TABLET PO SCH (09:18)
[2016-12-18] MEDS: NORMAL SALINE 1000 ML 1,000 ML IV PRN (09:18)
[2016-12-18] MEDS: CEFTRIAXONE 2 GM/D5W RTU 2 GM/50 ML RTUPB IV SCH ×2 (09:18→21:51)
[2016-12-18] MEDS: NORMAL SALINE 10 ML SDV (SCHEDULED) IV SCH ×2 (09:26→21:51)
[2016-12-18] MEDS: OMEGA-3 ACID ETHYL ESTERS 1 GM CAPSULE PO SCH (09:26)
--- NOTE | 2016-12-18 15:43 | PDOC PROGRESS REPORT ---
Subjective Progress Note for:: 12/18/16 Subjective:: Nurse reported that patient had been going outside the room for an extended amount of time and unable to tell his whereabouts. Nurse was instructed as to let the patient know that he may be considered as eloping or AMA if unable to localize him within a reasonable amount of time. Upon my arrival to his room, patient has been already notified and was extremely upset. He was wanting to leave AGAINST MEDICAL ADVICE. He was concerned why he was not sent to [facility]. Patient was made aware that we needed to avoid possibility of contamination the PICC line. He had been made aware that we can provide the services that he is currently needing that is IV antibiotic therapy. Patient expressed that he did not know what ""the shit" were doing in this hospital and he did not know if he was getting anything through the IV. He was told by this author that it was his choice as he is a grownup and know what is best for him. ROS All systems evaluated and negative All significant laboratories and diagnostics have been reviewed Physical Exam Vital Signs: Temp Pulse Resp BP Pulse Ox 97.9 F 112 H 17 115/79 96 12/18/16 00:00 12/18/16 00:00 12/18/16 00:00 12/18/16 00:00 12/18/16 00:00 Intake & Output 12/17/16 12/18/16 12/19/16 06:59 06:59 06:59 Intake Total 3650 4280 Balance 3650 4280 Weight 81.2 kg General appearance: PRESENT: no acute distress Head exam: PRESENT: atraumatic, normocephalic Eye exam: PRESENT: EOMI, PERRLA Ear exam: PRESENT: normal external ear exam Neurological exam: PRESENT: alert, oriented to person, oriented to place, oriented to time Psychiatric exam: PRESENT: agitated Results Laboratory Results: 12/17/16 04:00 12/17/16 04:00 Impressions: Chest X-Ray 12/13/16 23:37 IMPRESSION: NO ACUTE RADIOGRAPHIC FINDING IN THE CHEST. NO SIGNIFICANT CHANGE FROM PRIOR STUDY. Guidance Fluoroscopy 12/17/16 00:00 IMPRESSION: SUCCESSFUL PLACEMENT OF A 5 FR DUAL LUMEN 35 CM PICC IN THE RIGHT BASILIC VEIN. THERE IS A FOCAL STENOSIS AT THE TRANSITION BETWEEN THE RIGHT BASILIC VEIN AND AXILLARY VEIN. PATIENT HAS HAD 3 PRIOR PICC CATHETERS IN THIS ARM. FOR FUTURE CATHETER PLACEMENT, CONSIDER THE LEFT ARM OR USING THE RIGHT CEPHALIC VEIN. Interventional Vascular Procedure 12/17/16 00:00 IMPRESSION: SUCCESSFUL PLACEMENT OF A 5 FR DUAL LUMEN 35 CM PICC IN THE RIGHT BASILIC VEIN. THERE IS A FOCAL STENOSIS AT THE TRANSITION BETWEEN THE RIGHT BASILIC VEIN AND AXILLARY VEIN. PATIENT HAS HAD 3 PRIOR PICC CATHETERS IN THIS ARM. FOR FUTURE CATHETER PLACEMENT, CONSIDER THE LEFT ARM OR USING THE RIGHT CEPHALIC VEIN. PICC Line Insertion 12/17/16 00:00 IMPRESSION: SUCCESSFUL PLACEMENT OF A 5 FR DUAL LUMEN 35 CM PICC IN THE RIGHT BASILIC VEIN. THERE IS A FOCAL STENOSIS AT THE TRANSITION BETWEEN THE RIGHT BASILIC VEIN AND AXILLARY VEIN. PATIENT HAS HAD 3 PRIOR PICC CATHETERS IN THIS ARM. FOR FUTURE CATHETER PLACEMENT, CONSIDER THE LEFT ARM OR USING THE RIGHT CEPHALIC VEIN. Assessment & Plan - Diagnosis (1) Streptococcal septicemia Is this a current diagnosis for this admission?: Yes Plan: .Patient reconsidered staying. We will continue with Rocephin 2 g IV every 12 hours. Since he is looking better recommend to repeat blood cultures within 2 days. Patient does not qualify to LTAC since Medicaid (2) Hypokalemia Is this a current diagnosis for this admission?: Yes Plan: Replaced. (3) Depression Qualifiers: Depression Type: unspecified Qualified Code(s): F32.9 - Major depressive disorder, single episode, unspecified Is this a current diagnosis for this admission?: Yes Plan: Continue current tx.. Patient acting with more energy and less depressed - Time Time Spent with patient: 25-34 minutes Medications reviewed and adjusted accordingly: Yes Anticipated discharge: Home - Inpatient Certification Based on my medical assessment, after consideration of the patient's comorbidities, presenting symptoms, or acuity I expect that the services needed warrant INPATIENT care.: Yes I certify that my determination is in accordance with my understanding of Medicare's requirements for reasonable and necessary INPATIENT services [42 CFR 412.3e].: Yes Medical Necessity: Need for IV Antibiotics
[2016-12-19] MEDS: BUPROPION HCL 100 MG TABLET PO SCH ×3 (08:04→22:20)
[2016-12-19] MEDS: OMEGA-3 ACID ETHYL ESTERS 1 GM CAPSULE PO SCH (08:04)
[2016-12-19] MEDS: CEFTRIAXONE 2 GM/D5W RTU 2 GM/50 ML RTUPB IV SCH ×2 (09:56→22:21)
[2016-12-19] MEDS: FERROUS SULFATE 325 MG TABLET PO SCH (09:56)
[2016-12-19] MEDS: FOLIC ACID 1 MG TABLET PO SCH (09:56)
[2016-12-19] MEDS: NORMAL SALINE 10 ML SDV (SCHEDULED) IV SCH ×2 (09:57→22:23)
--- NOTE | 2016-12-19 13:39 | PDOC PROGRESS REPORT ---
Subjective Progress Note for:: 12/19/16 Subjective:: The patient is a 31-year-old male. The patient has a history of IV drug abuse with cocaine. The patient told me that he was at [facility] from 2016 through July 17, [address] Hale performed bowel surgery. He told me that he grew strep mitis and vitamins. He has severe dental caries but has not had his teeth resected since that hospitalization. He has used injection drugs twice since he was discharged from [facility] but denies any use in 4 months. Physical Exam Vital Signs: Temp Pulse Resp BP Pulse Ox 97.9 F 90 16 100/63 99 12/19/16 08:03 12/19/16 08:03 12/19/16 08:03 12/19/16 08:03 12/19/16 08:03 Intake & Output 12/18/16 12/19/16 12/20/16 06:59 06:59 06:59 Intake Total 4280 3659 Balance 4280 3659 Weight 74.6 kg Additional comments: Patient is a pleasant, thin male. He does not appear to be in any distress. He is appropriate and conversant. His facial appearance is normal with the exception of very poor dentition. His back molars in the top need to be resected. Otherwise, the oropharynx is benign. His lungs are clear to auscultation bilaterally. His cardiac exam demonstrates a regular rate and rhythm. He has a crisp S1 and S2. He has a 2+ systolic ejection murmur. This is heard loudest at the left upper sternal border. The patient's abdomen is soft and flat. Bowel sounds are present in the lower quadrants. He does not have any guarding or rebound noted and there are no hernias or masses present. The lower extremities are warm to touch. No pitting edema is present. Patient does have small vail colored petechiae present on both lower extremities. Results Laboratory Results: 12/17/16 04:00 12/17/16 04:00 Impressions: Chest X-Ray 12/13/16 23:37 IMPRESSION: NO ACUTE RADIOGRAPHIC FINDING IN THE CHEST. NO SIGNIFICANT CHANGE FROM PRIOR STUDY. Guidance Fluoroscopy 12/17/16 00:00 IMPRESSION: SUCCESSFUL PLACEMENT OF A 5 FR DUAL LUMEN 35 CM PICC IN THE RIGHT BASILIC VEIN. THERE IS A FOCAL STENOSIS AT THE TRANSITION BETWEEN THE RIGHT BASILIC VEIN AND AXILLARY VEIN. PATIENT HAS HAD 3 PRIOR PICC CATHETERS IN THIS ARM. FOR FUTURE CATHETER PLACEMENT, CONSIDER THE LEFT ARM OR USING THE RIGHT CEPHALIC VEIN. Interventional Vascular Procedure 12/17/16 00:00 IMPRESSION: SUCCESSFUL PLACEMENT OF A 5 FR DUAL LUMEN 35 CM PICC IN THE RIGHT BASILIC VEIN. THERE IS A FOCAL STENOSIS AT THE TRANSITION BETWEEN THE RIGHT BASILIC VEIN AND AXILLARY VEIN. PATIENT HAS HAD 3 PRIOR PICC CATHETERS IN THIS ARM. FOR FUTURE CATHETER PLACEMENT, CONSIDER THE LEFT ARM OR USING THE RIGHT CEPHALIC VEIN. PICC Line Insertion 12/17/16 00:00 IMPRESSION: SUCCESSFUL PLACEMENT OF A 5 FR DUAL LUMEN 35 CM PICC IN THE RIGHT BASILIC VEIN. THERE IS A FOCAL STENOSIS AT THE TRANSITION BETWEEN THE RIGHT BASILIC VEIN AND AXILLARY VEIN. PATIENT HAS HAD 3 PRIOR PICC CATHETERS IN THIS ARM. FOR FUTURE CATHETER PLACEMENT, CONSIDER THE LEFT ARM OR USING THE RIGHT CEPHALIC VEIN. Assessment & Plan - Diagnosis (1) Depression Qualifiers: Depression Type: unspecified Qualified Code(s): F32.9 - Major depressive disorder, single episode, unspecified Is this a current diagnosis for this admission?: Yes Plan: Continue bupropion (2) Hypokalemia Is this a current diagnosis for this admission?: Yes Plan: Corrected (3) IV drug abuse Is this a current diagnosis for this admission?: Yes Plan: Patient is not currently in a drug rehab program. He was counseled to ensure abstinence. (4) Polysubstance (including opioids) dependence with physiol dependence Is this a current diagnosis for this admission?: Yes Plan: At this time the patient does not appear to have any behavior consistent with withdrawal. (5) Streptococcal septicemia Is this a current diagnosis for this admission?: Yes Plan: Continue IV Rocephin. Patient will need a CHRISTA. I am trying to arrange for this to be done at [facility]. - Time Time Spent with patient: 25-34 minutes - Inpatient Certification Medical Necessity: Need for IV Antibiotics
--- NOTE | 2016-12-19 13:43 | Progress Note ---
Provider Note Provider Note: Transthoracic echocardiogram was performed 12-13. This shows cardiomyopathy with LV ejection fraction 30% and moderate to severe mitral regurgitation.
[2016-12-20 04:42] LABS: ABSOLUTE EOSINOPHILS # (AUTO) 0.2 10^3/uL (0.0-0.6); ABSOLUTE LYMPHOCYTES (AUTO) 1.1 10^3/uL (0.5-4.7); ABSOLUTE MONOCYTES (AUTO) 0.6 10^3/uL (0.1-1.4); ABSOLUTE NEUT (AUTO) 4.2 10^3/uL (1.7-8.2); BASOPHILS % (AUTO) 0.7 % (0-2); EOSINOPHILS % (AUTO) 2.7 % (0-6); HEMATOCRIT 33.2 % (37.9-51.0); HEMOGLOBIN 11.1 g/dL (13.5-17.0); HGB HCT DIFFERENCE 0.1; LYMPHOCYTES % (AUTO) 18.5 % (13-45); MEAN CORPUSCULAR HEMOGLOBIN 26.1 pg (27.0-33.4); MEAN CORPUSCULAR HGB CONC 33.4 g/dL (32.0-36.0); MEAN CORPUSCULAR VOLUME 78 fl (80-97); MONOCYTES % (AUTO) 9.5 % (3-13); RED BLOOD COUNT 4.25 10^6/uL (4.35-5.55); RED CELL DISTRIBUTION WIDTH 14.8 % (11.5-14.0); SEGMENTED NEUTROPHILS % (AUTO) 68.6 % (42-78); WHITE BLOOD COUNT 6.2 10^3/uL (4.0-10.5)
[2016-12-20] MEDS: BUPROPION HCL 100 MG TABLET PO SCH ×3 (05:16→21:37)
[2016-12-20 05:22] LABS: ANION GAP 12 (5-19); BLOOD UREA NITROGEN 12 mg/dL (7-20); CALCIUM 8.7 mg/dL (8.4-10.2); CARBON DIOXIDE 31 mmol/L (22-30); CHLORIDE 101 mmol/L (98-107); CREATININE RESULT 0.72 mg/dL (0.52-1.25); GLUCOSE 92 mg/dL (75-110); POTASSIUM 4.2 mmol/L (3.6-5.0); SODIUM 143.5 mmol/L (137-145)
[2016-12-20] MEDS: OMEGA-3 ACID ETHYL ESTERS 1 GM CAPSULE PO SCH (07:40)
[2016-12-20] MEDS: CEFTRIAXONE 2 GM/D5W RTU 2 GM/50 ML RTUPB IV SCH ×2 (09:39→21:37)
[2016-12-20] MEDS: NORMAL SALINE 10 ML SDV (SCHEDULED) IV SCH ×2 (09:40→21:37)
[2016-12-20] MEDS: FERROUS SULFATE 325 MG TABLET PO SCH (09:40)
[2016-12-20] MEDS: FOLIC ACID 1 MG TABLET PO SCH (09:40)
--- NOTE | 2016-12-20 10:50 | PDOC PROGRESS REPORT ---
Subjective Progress Note for:: 12/20/16 Subjective:: The patient is a 31-year-old male. The patient has a history of IV drug abuse with cocaine. The patient told me that he was at [facility] from 2016 through July 17, [address] Torrez performed valve surgery. He told me that he grew strep mitis. He has severe dental caries but has not had his teeth resected since that hospitalization. He has used injection drugs twice since he was discharged from [facility] but denies any use in 4 months. Due to my concern for endocarditis I spoke to the truck and transport mechanic at [facility] yesterday. The patient will be sent to [facility] for a transesophageal echocardiogram. Our goal is to have the patient transferred up there tomorrow morning. The patient will remain at [facility] if there are any abnormalities that would require surgery. However, if no significant or new findings are reported the [facility] The accepting doctor is Dr. González Mabry. The patient denies any complaints today. Physical Exam Vital Signs: Temp Pulse Resp BP Pulse Ox 97.8 F 92 14 95/68 L 100 12/20/16 07:55 12/20/16 07:55 12/20/16 07:55 12/20/16 07:55 12/20/16 07:55 Intake & Output 12/19/16 12/20/16 12/21/16 06:59 06:59 06:59 Intake Total 3659 2760 Balance 3659 2760 Weight 74.6 kg 72 kg Additional comments: The patient was lying in bed. He is not in any distress. He does not appear to be septic or toxic. His cognition and mentation are appropriate. His facial appearance is normal. Yesterday, I did examine his teeth and he has 2 molars on the upper jaw that are severely infected. The patient's lungs are clear to auscultation bilaterally. His cardiac exam demonstrates a regular rate and rhythm. The patient today is noted to have an S3 gallop. He has a 2/ 6 systolic ejection murmur which is heard loudest at the left upper sternal border. The patient's abdomen is benign. The lower extremities are warm to touch. He again has small vail red spots on the lower extremities. He does not have any embolic phenomenon of the toes or fingers. Results Laboratory Results: 12/20/16 04:20 12/20/16 04:20 12/20/16 12/20/16 04:20 04:20 WBC 6.2 RBC 4.25 L Hgb 11.1 L Hct 33.2 L MCV 78 L MCH 26.1 L MCHC 33.4 RDW 14.8 H Plt Count 213 Seg Neutrophils % 68.6 Lymphocytes % 18.5 Monocytes % 9.5 Eosinophils % 2.7 Basophils % 0.7 Absolute Neutrophils 4.2 Absolute Lymphocytes 1.1 Absolute Monocytes 0.6 Absolute Eosinophils 0.2 Absolute Basophils 0.0 Sodium 143.5 Potassium 4.2 Chloride 101 Carbon Dioxide 31 H Anion Gap 12 BUN 12 Creatinine 0.72 Est GFR ( Amer) > 60 Est GFR (Non-Af Amer) > 60 Glucose 92 Calcium 8.7 Magnesium 2.0 Impressions: Chest X-Ray 12/13/16 23:37 IMPRESSION: NO ACUTE RADIOGRAPHIC FINDING IN THE CHEST. NO SIGNIFICANT CHANGE FROM PRIOR STUDY. Guidance Fluoroscopy 12/17/16 00:00 IMPRESSION: SUCCESSFUL PLACEMENT OF A 5 FR DUAL LUMEN 35 CM PICC IN THE RIGHT BASILIC VEIN. THERE IS A FOCAL STENOSIS AT THE TRANSITION BETWEEN THE RIGHT BASILIC VEIN AND AXILLARY VEIN. PATIENT HAS HAD 3 PRIOR PICC CATHETERS IN THIS ARM. FOR FUTURE CATHETER PLACEMENT, CONSIDER THE LEFT ARM OR USING THE RIGHT CEPHALIC VEIN. Interventional Vascular Procedure 12/17/16 00:00 IMPRESSION: SUCCESSFUL PLACEMENT OF A 5 FR DUAL LUMEN 35 CM PICC IN THE RIGHT BASILIC VEIN. THERE IS A FOCAL STENOSIS AT THE TRANSITION BETWEEN THE RIGHT BASILIC VEIN AND AXILLARY VEIN. PATIENT HAS HAD 3 PRIOR PICC CATHETERS IN THIS ARM. FOR FUTURE CATHETER PLACEMENT, CONSIDER THE LEFT ARM OR USING THE RIGHT CEPHALIC VEIN. PICC Line Insertion 12/17/16 00:00 IMPRESSION: SUCCESSFUL PLACEMENT OF A 5 FR DUAL LUMEN 35 CM PICC IN THE RIGHT BASILIC VEIN. THERE IS A FOCAL STENOSIS AT THE TRANSITION BETWEEN THE RIGHT BASILIC VEIN AND AXILLARY VEIN. PATIENT HAS HAD 3 PRIOR PICC CATHETERS IN THIS ARM. FOR FUTURE CATHETER PLACEMENT, CONSIDER THE LEFT ARM OR USING THE RIGHT CEPHALIC VEIN. Assessment & Plan - Diagnosis (1) Depression Qualifiers: Depression Type: unspecified Qualified Code(s): F32.9 - Major depressive disorder, single episode, unspecified Is this a current diagnosis for this admission?: Yes Plan: Continue bupropion (2) Hypokalemia Is this a current diagnosis for this admission?: Yes Plan: Corrected (3) IV drug abuse Is this a current diagnosis for this admission?: Yes Plan: Patient is not currently in a drug rehab program. He was counseled to ensure abstinence. (4) Polysubstance (including opioids) dependence with physiol dependence Is this a current diagnosis for this admission?: Yes Plan: At this time the patient does not appear to have any behavior consistent with withdrawal. (5) Streptococcal septicemia Is this a current diagnosis for this admission?: Yes Plan: Continue IV Rocephin. Patient will need a CHRISTA. See the above discussion. (6) Cardiomyopathy Is this a current diagnosis for this admission?: Yes Plan: According to the patient's echocardiogram his ejection fraction is 30%. We need to monitor closely for the development of congestive heart failure. (7) Mitral regurgitation Is this a current diagnosis for this admission?: Yes Plan: According to the patient's echocardiogram he also has moderate to severe mitral regurgitation. - Time Time Spent with patient: 25-34 minutes - Inpatient Certification Medical Necessity: Need Close Monitoring Due to Risk of Patient Decompensation, Need for IV Antibiotics, Risk of Complication if Not Cared For in Hospital
[2016-12-21] MEDS: BUPROPION HCL 100 MG TABLET PO SCH ×3 (05:15→21:32)
[2016-12-21] MEDS ORDERED: DEXTROSE 40% GEL 15 GM TUBE PO PRN ×4 (08:03→10:30)
[2016-12-21] MEDS ORDERED: DEXTROSE 50%-WATER 25 GM/50 ML DISP.SYRIN IV PRN ×4 (08:03→10:30)
[2016-12-21] MEDS ORDERED: GLUCAGON,HUMAN RECOMB 1 MG INJ SUBCUT PRN ×2 (08:03→10:30)
--- NOTE | 2016-12-21 08:18 | PDOC TRANSFER SUMMARY ---
General Admission Date/PCP: 12/14/16 02:56 Accepting Facility: [facility] Resuscitation Status: Full Code - Transfer Diagnosis (1) Depression Is this a current diagnosis for this admission?: Yes (2) Hypokalemia Is this a current diagnosis for this admission?: Yes (3) IV drug abuse Is this a current diagnosis for this admission?: Yes (4) Polysubstance (including opioids) dependence with physiol dependence Is this a current diagnosis for this admission?: Yes (5) Streptococcal septicemia Is this a current diagnosis for this admission?: Yes (6) Cardiomyopathy Is this a current diagnosis for this admission?: Yes (7) Mitral regurgitation Is this a current diagnosis for this admission?: Yes - Transfer Medications Home Medications: Metoprolol Tartrate [Lopressor 25 mg Tablet] 12.5 mg PO Q12 12/14/16 Transfer Medications: Current Medications Al Hydrox/Mg Hydrox/Simethicone (Maalox Plus Susp 30 Udcup) 15 ml PO Q6HP PRN PRN Reason: chest pain Stop: 01/13/17 02:55 Bupropion HCl (Wellbutrin 100 Mg Tablet) 100 mg PO Q8 ZAINAB Stop: 01/13/17 21:59 Last Admin: 12/21/16 05:15 Dose: 100 mg Dextrose (Dextrose Inj 50% Syringe (25 Gm/50 Ml)) 12.5 gm IV PRN PRN; Protocol PRN Reason: FOR BG 50-69 IN ALERT PATIENT Stop: 01/20/17 08:02 Dextrose (Dextrose Inj 50% Syringe (25 Gm/50 Ml)) 25 gm IV PRN PRN; Protocol PRN Reason: See Label Comments Stop: 01/20/17 08:02 Ferrous Sulfate (Feosol 325 Mg Tablet) 325 mg PO DAILY ZAINAB Stop: 01/13/17 09:59 Last Admin: 12/20/16 09:40 Dose: 325 mg Folic Acid (Folvite 1 Mg Tablet) 1 mg PO DAILY ZAINAB Stop: 01/13/17 09:59 Last Admin: 12/20/16 09:40 Dose: 1 mg Glucagon (Glucagen Inj 1 Mg Vial) 1 mg SUBCUT PRN PRN; Protocol PRN Reason: Evaluate for BG < 70 Stop: 01/20/17 08:02 Glucose (Glutose 40% Gel 15 Gm Tube) 15 gm PO PRN PRN; Protocol PRN Reason: For BG 50-69 in Alert Patient Stop: 01/20/17 08:02 Glucose (Glutose 40% Gel 15 Gm Tube) 30 gm PO PRN PRN; Protocol PRN Reason: FOR BG < 50 IN ALERT PATIENT Stop: 01/20/17 08:02 Heparin Sodium (Porcine) (Heparin Flush 10 Unit/Ml 5 Ml Disp.Syrg) 30 unit IV Q12 ZAINAB Stop: 01/16/17 21:59 Last Admin: 12/20/16 21:37 Dose: 30 unit Heparin Sodium (Porcine) (Heparin Flush 10 Unit/Ml 5 Ml Disp.Syrg) 30 unit IV .AFTER EACH USE PRN Stop: 01/16/17 10:55 Sodium Chloride (Nacl 0.9% 1000 Ml Iv Soln) 1,000 mls @ 100 mls/hr IV CONTINUOUS PRN PRN Reason: THIS MED IS NOT "PRN" Stop: 01/13/17 02:34 Last Admin: 12/18/16 09:18 Dose: 1,000 ml Ceftriaxone Sodium/Dextrose (Rocephin Rtu 2 Gm/D5w 50 Ml Premix Bag) 2 gm in 50 mls @ 100 mls/hr IV Q12 ZAINAB Stop: 12/24/16 09:59 Last Admin: 12/20/16 21:37 Dose: 50 ml Ibuprofen (Motrin 600 Mg Tablet) 600 mg PO Q8HP PRN PRN Reason: PAIN Stop: 01/13/17 02:58 Last Admin: 12/15/16 06:26 Dose: 600 mg Influenza Virus Vaccine Quadrival (Fluzone Adlt Quad [id number] Vac 0.5 Ml Syr) 0.5 ml IM .DISCHARGE PRN PRN Reason: THIS MED IS NOT "PRN" Stop: 01/13/17 04:06 Dvonn-5-Xywz Ethyl Esters (Lovaza 1 Gm Capsule) 1 gm PO [id number] ZAINAB Stop: 01/13/17 07:59 Last Admin: 12/20/16 07:40 Dose: 1 gm Ondansetron HCl (Zofran Inj/Pf 4 Mg/2 Ml Sdv) 4 mg IV Q6HP PRN PRN Reason: FOR NAUSEA/VOMITING Stop: 01/13/17 02:55 Sodium Chloride (Nacl 0.9% Inj/Pf 10 Ml Sdv) 10 ml IV Q12 ZAINAB Stop: 01/16/17 21:59 Last Admin: 12/20/16 21:37 Dose: 10 ml Sodium Chloride (Nacl 0.9% Inj/Pf 10 Ml Sdv) 10 ml IV .AFTER EACH USE PRN Stop: 01/16/17 10:55 Trazodone HCl (Desyrel 50 Mg Tablet) 100 mg PO HSP PRN Stop: 01/13/17 02:58 - Allergies Allergies/Adverse Reactions: No Known Allergies Allergy (Unverified 12/14/16 04:54) - Diet/Activity Discharge Diet: Other (Comments) - NPO for procedure Hospital Course Hospital Course: The patient is a 31-year-old male. The patient has a history of IV drug abuse with cocaine. The patient told me that he was at [facility] from 2016 through July 17, [address] Torrez performed valve surgery. He told me that he grew Streptococcus mitis. He has severe dental caries but has not had his teeth resected since that hospitalization. He has used injection drugs twice since he was discharged from [facility] but denies any use in 4 months. Due to my concern for endocarditis I spoke to the transport assistant at [facility]. The patient will be sent to [facility] for a transesophageal echocardiogram. The patient will remain at [facility] if there are any abnormalities that would require surgery. However, if no significant or new findings are reported the patient will be transferred back to [facility] to continue antibiotic therapy. The accepting doctor is Dr. González Mabry. The patient denies any complaints today. Microbiology data during this hospitalization: 12/13/16 2 of 2 blood cultures are positive for Streptococcus Mitis. 12/14/16 urine culture is negative. 2 of 2 blood culture bottles remain negative. The organism is intermediately resistant to azithromycin and resistant to erythromycin but otherwise sensitive to penicillins and cephalosporins. The patient is currently receiving ceftriaxone. Physical Exam Vital Signs: Temp Pulse Resp BP Pulse Ox 97.7 F 76 16 100/59 L 99 12/21/16 00:00 12/21/16 00:00 12/21/16 00:00 12/21/16 00:00 12/21/16 00:00 Intake & Output 12/20/16 12/21/16 12/22/16 06:59 06:59 06:59 Intake Total 2370 1224 Balance 2760 2527 Weight 72 kg 71.4 kg General appearance: PRESENT: no acute distress, cooperative Head exam: PRESENT: atraumatic, normocephalic Eye exam: ABSENT: conjunctival injection, conjunctiva pink, conjunctiva pale, EOMI, nystagmus, periorbital swelling, PERRLA, scleral icterus, other Ear exam: PRESENT: normal external ear exam Mouth exam: PRESENT: moist, neck supple Teeth exam: PRESENT: dental caries Throat exam: ABSENT: post pharyngeal erythema, tonsillar erythema, tonsillar exudate, tonsillogmegaly, other Neck exam: PRESENT: full ROM Respiratory exam: PRESENT: clear to auscultation sera. ABSENT: rales, rhonchi, wheezes Cardiovascular exam: PRESENT: gallop, RRR, systolic murmur GI/Abdominal exam: PRESENT: normal bowel sounds, soft. ABSENT: distended, guarding, mass, organolmegaly, rebound, tenderness Rectal exam: PRESENT: deferred Extremities exam: PRESENT: full ROM Musculoskeletal exam: PRESENT: ambulatory Neurological exam: PRESENT: alert, awake, oriented to person, oriented to place , oriented to time, oriented to situation, CN II-XII grossly intact. ABSENT: motor sensory deficit Psychiatric exam: PRESENT: appropriate affect, normal mood. ABSENT: homicidal ideation, suicidal ideation Additional comments: Small, vail red petechiae remain on skin exam. Results Laboratory Results: 12/20/16 04:20 12/20/16 04:20 Impressions: Chest X-Ray 12/13/16 23:37 IMPRESSION: NO ACUTE RADIOGRAPHIC FINDING IN THE CHEST. NO SIGNIFICANT CHANGE FROM PRIOR STUDY. Guidance Fluoroscopy 12/17/16 00:00 IMPRESSION: SUCCESSFUL PLACEMENT OF A 5 FR DUAL LUMEN 35 CM PICC IN THE RIGHT BASILIC VEIN. THERE IS A FOCAL STENOSIS AT THE TRANSITION BETWEEN THE RIGHT BASILIC VEIN AND AXILLARY VEIN. PATIENT HAS HAD 3 PRIOR PICC CATHETERS IN THIS ARM. FOR FUTURE CATHETER PLACEMENT, CONSIDER THE LEFT ARM OR USING THE RIGHT CEPHALIC VEIN. Interventional Vascular Procedure 12/17/16 00:00 IMPRESSION: SUCCESSFUL PLACEMENT OF A 5 FR DUAL LUMEN 35 CM PICC IN THE RIGHT BASILIC VEIN. THERE IS A FOCAL STENOSIS AT THE TRANSITION BETWEEN THE RIGHT BASILIC VEIN AND AXILLARY VEIN. PATIENT HAS HAD 3 PRIOR PICC CATHETERS IN THIS ARM. FOR FUTURE CATHETER PLACEMENT, CONSIDER THE LEFT ARM OR USING THE RIGHT CEPHALIC VEIN. PICC Line Insertion 12/17/16 00:00 IMPRESSION: SUCCESSFUL PLACEMENT OF A 5 FR DUAL LUMEN 35 CM PICC IN THE RIGHT BASILIC VEIN. THERE IS A FOCAL STENOSIS AT THE TRANSITION BETWEEN THE RIGHT BASILIC VEIN AND AXILLARY VEIN. PATIENT HAS HAD 3 PRIOR PICC CATHETERS IN THIS ARM. FOR FUTURE CATHETER PLACEMENT, CONSIDER THE LEFT ARM OR USING THE RIGHT CEPHALIC VEIN. Plan Discharge Plan: The patient will be transferred to [facility] for a transesophageal echocardiogram. Pending these results we anticipate taking the patient back to [facility] for ongoing antibiotic therapy. If surgery is required the patient will remain at [facility]. Time Spent: Less than 30 Minutes
--- NOTE | 2016-12-21 10:07 | Progress Note ---
Provider Note Provider Note: The patient ate breakfast this morning. Therefore, the patient's transfer to [facility] has been rescheduled for tomorrow. [facility] by 9:00. The plan will be for him to have a transesophageal echocardiogram and then return to [facility] unless surgical intervention is required.
[2016-12-21] MEDS: FERROUS SULFATE 325 MG TABLET PO SCH (10:26)
[2016-12-21] MEDS: OMEGA-3 ACID ETHYL ESTERS 1 GM CAPSULE PO SCH (10:26)
[2016-12-21] MEDS: NORMAL SALINE 10 ML SDV (SCHEDULED) IV SCH ×2 (10:27→21:34)
[2016-12-21] MEDS: CEFTRIAXONE 2 GM/D5W RTU 2 GM/50 ML RTUPB IV SCH ×2 (10:27→21:33)
[2016-12-21] MEDS: FOLIC ACID 1 MG TABLET PO SCH (10:27)
[2016-12-22] MEDS: BUPROPION HCL 100 MG TABLET PO SCH ×3 (05:03→22:22)
[2016-12-22 05:59] LABS: ANION GAP 9 (5-19); BLOOD UREA NITROGEN 13 mg/dL (7-20); CALCIUM 8.8 mg/dL (8.4-10.2); CARBON DIOXIDE 31 mmol/L (22-30); CHLORIDE 104 mmol/L (98-107); CREATININE RESULT 0.83 mg/dL (0.52-1.25); GLUCOSE 83 mg/dL (75-110); MAGNESIUM 1.9 mg/dL (1.6-2.3); POTASSIUM 4.5 mmol/L (3.6-5.0); SODIUM 144.2 mmol/L (137-145)
--- NOTE | 2016-12-22 14:38 | Progress Note ---
Provider Note Provider Note: Patient transferred to [facility] for CHRISTA given Strep Mitis Bacteremia on . Was not evaluated today. If returns (for negative CHRISTA), will see patient.
[2016-12-22] MEDS: OMEGA-3 ACID ETHYL ESTERS 1 GM CAPSULE PO SCH (16:42)
[2016-12-22] MEDS: FOLIC ACID 1 MG TABLET PO SCH (16:42)
[2016-12-22] MEDS: NORMAL SALINE 10 ML SDV (SCHEDULED) IV SCH ×2 (16:42→22:23)
[2016-12-22] MEDS: FERROUS SULFATE 325 MG TABLET PO SCH (16:42)
[2016-12-22] MEDS: CEFTRIAXONE 2 GM/D5W RTU 2 GM/50 ML RTUPB IV SCH (17:48)
--- NOTE | 2016-12-22 17:57 | PDOC PROGRESS REPORT ---
Subjective Progress Note for:: 12/22/16 Subjective:: Patient sent to [facility] for CHRISTA. Noted to have mitral valve vegetations per report. No surgical intervention. Was sent back to [facility] and plan is to treat with extended period of IV antibiotics. Patient seen and examined at bedside. States that overall he is feeling well and has no specific complaints. Denies fevers, chills, CP, SOB, abdominal pain, NV. States that he is very hungry and wants to eat. Physical Exam Vital Signs: Temp Pulse Resp BP Pulse Ox 97.9 F 96 18 102/62 98 12/22/16 15:35 12/22/16 15:35 12/22/16 15:35 12/22/16 15:35 12/22/16 15:35 Intake & Output 12/21/16 12/22/16 12/23/16 06:59 06:59 06:59 Intake Total 2977 2840 Output Total 400 360 Balance 2577 2480 Weight 71.4 kg 71.6 kg General appearance: PRESENT: no acute distress, well-developed, well-nourished Head exam: PRESENT: atraumatic, normocephalic Eye exam: PRESENT: conjunctiva pink, EOMI, PERRLA. ABSENT: scleral icterus Ear exam: PRESENT: normal external ear exam Mouth exam: PRESENT: moist, tongue midline Neck exam: ABSENT: carotid bruit, JVD, lymphadenopathy, thyromegaly Respiratory exam: PRESENT: clear to auscultation sera. ABSENT: rales, rhonchi, wheezes Cardiovascular exam: PRESENT: RRR, systolic murmur - +3/6 MARQUISE. ABSENT: diastolic murmur, rubs Pulses: PRESENT: normal dorsalis pedis pul Vascular exam: PRESENT: normal capillary refill GI/Abdominal exam: PRESENT: normal bowel sounds, soft. ABSENT: distended, guarding, mass, organolmegaly, rebound, tenderness Rectal exam: PRESENT: deferred Extremities exam: PRESENT: full ROM. ABSENT: calf tenderness, clubbing, pedal edema Neurological exam: PRESENT: alert, awake, oriented to person, oriented to place , oriented to time, oriented to situation, CN II-XII grossly intact. ABSENT: motor sensory deficit Psychiatric exam: PRESENT: appropriate affect, normal mood. ABSENT: homicidal ideation, suicidal ideation Skin exam: PRESENT: dry, intact, warm. ABSENT: cyanosis, rash Results Laboratory Results: 12/20/16 04:20 12/22/16 05:05 12/22/16 05:05 Sodium 144.2 Potassium 4.5 Chloride 104 Carbon Dioxide 31 H Anion Gap 9 BUN 13 Creatinine 0.83 Est GFR ( Amer) > 60 Est GFR (Non-Af Amer) > 60 Glucose 83 Calcium 8.8 Magnesium 1.9 12/16/16 14:48 Blood Blood Culture - Final NO GROWTH IN 5 DAYS 12/16/16 14:41 Blood Blood Culture - Final NO GROWTH IN 5 DAYS Impressions: Chest X-Ray 12/13/16 23:37 IMPRESSION: NO ACUTE RADIOGRAPHIC FINDING IN THE CHEST. NO SIGNIFICANT CHANGE FROM PRIOR STUDY. Guidance Fluoroscopy 12/17/16 00:00 IMPRESSION: SUCCESSFUL PLACEMENT OF A 5 FR DUAL LUMEN 35 CM PICC IN THE RIGHT BASILIC VEIN. THERE IS A FOCAL STENOSIS AT THE TRANSITION BETWEEN THE RIGHT BASILIC VEIN AND AXILLARY VEIN. PATIENT HAS HAD 3 PRIOR PICC CATHETERS IN THIS ARM. FOR FUTURE CATHETER PLACEMENT, CONSIDER THE LEFT ARM OR USING THE RIGHT CEPHALIC VEIN. Interventional Vascular Procedure 12/17/16 00:00 IMPRESSION: SUCCESSFUL PLACEMENT OF A 5 FR DUAL LUMEN 35 CM PICC IN THE RIGHT BASILIC VEIN. THERE IS A FOCAL STENOSIS AT THE TRANSITION BETWEEN THE RIGHT BASILIC VEIN AND AXILLARY VEIN. PATIENT HAS HAD 3 PRIOR PICC CATHETERS IN THIS ARM. FOR FUTURE CATHETER PLACEMENT, CONSIDER THE LEFT ARM OR USING THE RIGHT CEPHALIC VEIN. PICC Line Insertion 12/17/16 00:00 IMPRESSION: SUCCESSFUL PLACEMENT OF A 5 FR DUAL LUMEN 35 CM PICC IN THE RIGHT BASILIC VEIN. THERE IS A FOCAL STENOSIS AT THE TRANSITION BETWEEN THE RIGHT BASILIC VEIN AND AXILLARY VEIN. PATIENT HAS HAD 3 PRIOR PICC CATHETERS IN THIS ARM. FOR FUTURE CATHETER PLACEMENT, CONSIDER THE LEFT ARM OR USING THE RIGHT CEPHALIC VEIN. Assessment & Plan - Diagnosis (1) IV drug abuse Is this a current diagnosis for this admission?: Yes Plan: Long standing history of IVDU. Long discussion with patient regarding results of TTE at [facility]. Unfortunately there is evidence of small mitral valve vegetation and aortic leaflet thickening. Per my discussion with cardiology at [facility], it would be very unlikely if patient were to be offered a 3rd aortic valve replacement. We talked about the different cause for his drug use including family members and friends who also use IV drugs, barriers to rehab including lack of insurance, and chronic pain issues. Plan - Will need at least 6 weeks of IV antibiotics. This will likely have to take place inpatient - Can be referred/transferred to CT surgery (ECU) for evaluation for 3rd valve replacement however not likely patient will receive another valve - Social work consult for assistance with rehab options (2) Streptococcal septicemia Is this a current diagnosis for this admission?: Yes Plan: Admission cultures positive for Strep Mitis. Subsequent cultures with no growth at 2 days and 5 days. Patient remains afebrile and HDS. Will likely need 6 weeks of IV antibiotics. (3) Endocarditis Qualifiers: Endocarditis type: infective Infective endocarditis organism: bacterial Chronicity: unspecified Qualified Code(s): I33.0 - Acute and subacute infective endocarditis Is this a current diagnosis for this admission?: Yes (4) History of aortic valve replacement with bioprosthetic valve Is this a current diagnosis for this admission?: No (5) Systolic CHF, chronic Is this a current diagnosis for this admission?: Yes Plan: TTE this admission with EF 30%. Will monitor for signs and symptoms of acute HF. Patient currently NOT on beta-leticia or NICOLE-i. - Time Time Spent with patient: 25-34 minutes Critical Time spent with patient: 25-34 minutes - Plan Summary Plan Summary: Will need long-term inpatient IV antibiotics
[2016-12-23] MEDS: BUPROPION HCL 100 MG TABLET PO SCH ×3 (06:13→22:24)
[2016-12-23] MEDS: CEFTRIAXONE 2 GM/D5W RTU 2 GM/50 ML RTUPB IV SCH ×2 (06:13→18:05)
[2016-12-23 09:07] LABS: ANION GAP 12 (5-19); BLOOD UREA NITROGEN 14 mg/dL (7-20); CALCIUM 8.9 mg/dL (8.4-10.2); CARBON DIOXIDE 30 mmol/L (22-30); CHLORIDE 101 mmol/L (98-107); CREATININE RESULT 0.81 mg/dL (0.52-1.25); GLUCOSE 88 mg/dL (75-110); POTASSIUM 4.3 mmol/L (3.6-5.0); SODIUM 142.9 mmol/L (137-145)
[2016-12-23] MEDS: OMEGA-3 ACID ETHYL ESTERS 1 GM CAPSULE PO SCH (10:17)
[2016-12-23] MEDS: FERROUS SULFATE 325 MG TABLET PO SCH (10:17)
[2016-12-23] MEDS: FOLIC ACID 1 MG TABLET PO SCH (10:17)
[2016-12-23] MEDS: NORMAL SALINE 10 ML SDV (SCHEDULED) IV SCH ×2 (10:17→22:25)
--- NOTE | 2016-12-23 14:40 | PDOC PROGRESS REPORT ---
Subjective Progress Note for:: 12/23/16 Subjective:: No new issues Physical Exam Vital Signs: Temp Pulse Resp BP Pulse Ox 98.3 F 80 18 109/74 99 12/23/16 07:51 12/23/16 07:51 12/23/16 07:51 12/23/16 07:51 12/23/16 07:51 Intake & Output 12/22/16 12/23/16 12/24/16 06:59 06:59 06:59 Intake Total 2840 1260 Output Total 360 Balance 2480 1260 Weight 71.6 kg 71.4 kg General appearance: PRESENT: no acute distress, well-developed, well-nourished Head exam: PRESENT: atraumatic, normocephalic Eye exam: PRESENT: conjunctiva pink, EOMI, PERRLA. ABSENT: scleral icterus Ear exam: PRESENT: normal external ear exam Mouth exam: PRESENT: moist, tongue midline Neck exam: ABSENT: carotid bruit, JVD, lymphadenopathy, thyromegaly Respiratory exam: PRESENT: clear to auscultation sera. ABSENT: rales, rhonchi, wheezes Cardiovascular exam: PRESENT: RRR. ABSENT: diastolic murmur, rubs, systolic murmur Pulses: PRESENT: normal dorsalis pedis pul Vascular exam: PRESENT: normal capillary refill GI/Abdominal exam: PRESENT: normal bowel sounds, soft. ABSENT: distended, guarding, mass, organolmegaly, rebound, tenderness Rectal exam: PRESENT: deferred Extremities exam: PRESENT: full ROM. ABSENT: calf tenderness, clubbing, pedal edema Neurological exam: PRESENT: alert, awake, oriented to person, oriented to place , oriented to time, oriented to situation, CN II-XII grossly intact. ABSENT: motor sensory deficit Psychiatric exam: PRESENT: appropriate affect, normal mood. ABSENT: homicidal ideation, suicidal ideation Skin exam: PRESENT: dry, intact, warm. ABSENT: cyanosis, rash Results Laboratory Results: 12/20/16 04:20 12/23/16 06:20 12/23/16 06:20 Sodium 142.9 Potassium 4.3 Chloride 101 Carbon Dioxide 30 Anion Gap 12 BUN 14 Creatinine 0.81 Est GFR ( Amer) > 60 Est GFR (Non-Af Amer) > 60 Glucose 88 Calcium 8.9 Impressions: Chest X-Ray 12/13/16 23:37 IMPRESSION: NO ACUTE RADIOGRAPHIC FINDING IN THE CHEST. NO SIGNIFICANT CHANGE FROM PRIOR STUDY. Guidance Fluoroscopy 12/17/16 00:00 IMPRESSION: SUCCESSFUL PLACEMENT OF A 5 FR DUAL LUMEN 35 CM PICC IN THE RIGHT BASILIC VEIN. THERE IS A FOCAL STENOSIS AT THE TRANSITION BETWEEN THE RIGHT BASILIC VEIN AND AXILLARY VEIN. PATIENT HAS HAD 3 PRIOR PICC CATHETERS IN THIS ARM. FOR FUTURE CATHETER PLACEMENT, CONSIDER THE LEFT ARM OR USING THE RIGHT CEPHALIC VEIN. Interventional Vascular Procedure 12/17/16 00:00 IMPRESSION: SUCCESSFUL PLACEMENT OF A 5 FR DUAL LUMEN 35 CM PICC IN THE RIGHT BASILIC VEIN. THERE IS A FOCAL STENOSIS AT THE TRANSITION BETWEEN THE RIGHT BASILIC VEIN AND AXILLARY VEIN. PATIENT HAS HAD 3 PRIOR PICC CATHETERS IN THIS ARM. FOR FUTURE CATHETER PLACEMENT, CONSIDER THE LEFT ARM OR USING THE RIGHT CEPHALIC VEIN. PICC Line Insertion 12/17/16 00:00 IMPRESSION: SUCCESSFUL PLACEMENT OF A 5 FR DUAL LUMEN 35 CM PICC IN THE RIGHT BASILIC VEIN. THERE IS A FOCAL STENOSIS AT THE TRANSITION BETWEEN THE RIGHT BASILIC VEIN AND AXILLARY VEIN. PATIENT HAS HAD 3 PRIOR PICC CATHETERS IN THIS ARM. FOR FUTURE CATHETER PLACEMENT, CONSIDER THE LEFT ARM OR USING THE RIGHT CEPHALIC VEIN. 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 (2) IV drug abuse Is this a current diagnosis for this admission?: Yes Plan: Pt will need to try to obtain output treatment. (3) History of aortic valve replacement with bioprosthetic valve Is this a current diagnosis for this admission?: No Plan: supportive care (4) Systolic CHF, chronic Is this a current diagnosis for this admission?: Yes Plan: Pt medically stable. - Time Time Spent with patient: 15-24 minutes
[2016-12-24] MEDS: BUPROPION HCL 100 MG TABLET PO SCH ×3 (06:06→22:37)
[2016-12-24] MEDS: CEFTRIAXONE 2 GM/D5W RTU 2 GM/50 ML RTUPB IV SCH ×2 (06:06→17:14)
[2016-12-24] MEDS: OMEGA-3 ACID ETHYL ESTERS 1 GM CAPSULE PO SCH (08:12)
[2016-12-24] MEDS: FOLIC ACID 1 MG TABLET PO SCH (09:35)
[2016-12-24] MEDS: NORMAL SALINE 10 ML SDV (SCHEDULED) IV SCH ×2 (09:36→22:37)
[2016-12-24] MEDS: FERROUS SULFATE 325 MG TABLET PO SCH (09:36)
[2016-12-24] MEDS: NORMAL SALINE 10 ML SDV (AFTER EACH USE) IV PRN (09:36)
--- NOTE | 2016-12-24 12:31 | PDOC PROGRESS REPORT ---
Subjective Progress Note for:: 12/24/16 Subjective:: No new issues. Physical Exam Vital Signs: Temp Pulse Resp BP Pulse Ox 98.2 F 93 16 99/53 L 97 12/24/16 08:10 12/24/16 08:10 12/24/16 08:10 12/24/16 08:10 12/24/16 08:10 Intake & Output 12/23/16 12/24/16 12/25/16 06:59 06:59 06:59 Intake Total 1260 2570 Balance 1260 2570 Weight 71.4 kg 71.6 kg General appearance: PRESENT: no acute distress, well-developed, well-nourished Head exam: PRESENT: atraumatic, normocephalic Eye exam: PRESENT: conjunctiva pink, EOMI, PERRLA. ABSENT: scleral icterus Ear exam: PRESENT: normal external ear exam Mouth exam: PRESENT: moist, tongue midline Neck exam: ABSENT: carotid bruit, JVD, lymphadenopathy, thyromegaly Respiratory exam: PRESENT: clear to auscultation sera. ABSENT: rales, rhonchi, wheezes Cardiovascular exam: PRESENT: RRR, systolic murmur. ABSENT: diastolic murmur, rubs Pulses: PRESENT: normal dorsalis pedis pul Vascular exam: PRESENT: normal capillary refill GI/Abdominal exam: PRESENT: normal bowel sounds, soft. ABSENT: distended, guarding, mass, organolmegaly, rebound, tenderness Rectal exam: PRESENT: deferred Extremities exam: PRESENT: full ROM. ABSENT: calf tenderness, clubbing, pedal edema Neurological exam: PRESENT: alert, awake, oriented to person, oriented to place , oriented to time, oriented to situation, CN II-XII grossly intact. ABSENT: motor sensory deficit Psychiatric exam: PRESENT: appropriate affect, normal mood. ABSENT: homicidal ideation, suicidal ideation Skin exam: PRESENT: dry, intact, warm. ABSENT: cyanosis, rash Results Laboratory Results: 12/20/16 04:20 12/23/16 06:20 Impressions: Chest X-Ray 12/13/16 23:37 IMPRESSION: NO ACUTE RADIOGRAPHIC FINDING IN THE CHEST. NO SIGNIFICANT CHANGE FROM PRIOR STUDY. Guidance Fluoroscopy 12/17/16 00:00 IMPRESSION: SUCCESSFUL PLACEMENT OF A 5 FR DUAL LUMEN 35 CM PICC IN THE RIGHT BASILIC VEIN. THERE IS A FOCAL STENOSIS AT THE TRANSITION BETWEEN THE RIGHT BASILIC VEIN AND AXILLARY VEIN. PATIENT HAS HAD 3 PRIOR PICC CATHETERS IN THIS ARM. FOR FUTURE CATHETER PLACEMENT, CONSIDER THE LEFT ARM OR USING THE RIGHT CEPHALIC VEIN. Interventional Vascular Procedure 12/17/16 00:00 IMPRESSION: SUCCESSFUL PLACEMENT OF A 5 FR DUAL LUMEN 35 CM PICC IN THE RIGHT BASILIC VEIN. THERE IS A FOCAL STENOSIS AT THE TRANSITION BETWEEN THE RIGHT BASILIC VEIN AND AXILLARY VEIN. PATIENT HAS HAD 3 PRIOR PICC CATHETERS IN THIS ARM. FOR FUTURE CATHETER PLACEMENT, CONSIDER THE LEFT ARM OR USING THE RIGHT CEPHALIC VEIN. PICC Line Insertion 12/17/16 00:00 IMPRESSION: SUCCESSFUL PLACEMENT OF A 5 FR DUAL LUMEN 35 CM PICC IN THE RIGHT BASILIC VEIN. THERE IS A FOCAL STENOSIS AT THE TRANSITION BETWEEN THE RIGHT BASILIC VEIN AND AXILLARY VEIN. PATIENT HAS HAD 3 PRIOR PICC CATHETERS IN THIS ARM. FOR FUTURE CATHETER PLACEMENT, CONSIDER THE LEFT ARM OR USING THE RIGHT CEPHALIC VEIN. 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 (2) IV drug abuse Is this a current diagnosis for this admission?: Yes Plan: Pt will need to try to obtain output treatment. (3) History of aortic valve replacement with bioprosthetic valve Is this a current diagnosis for this admission?: No Plan: supportive care (4) Systolic CHF, chronic Is this a current diagnosis for this admission?: Yes Plan: Pt medically stable. - Time Time Spent with patient: Less than 15 minutes
[2016-12-25] MEDS: BUPROPION HCL 100 MG TABLET PO SCH ×3 (06:11→22:14)
[2016-12-25] MEDS: CEFTRIAXONE 2 GM/D5W RTU 2 GM/50 ML RTUPB IV SCH ×2 (06:12→17:46)
[2016-12-25] MEDS: FOLIC ACID 1 MG TABLET PO SCH (09:05)
[2016-12-25] MEDS: OMEGA-3 ACID ETHYL ESTERS 1 GM CAPSULE PO SCH (09:05)
[2016-12-25] MEDS: FERROUS SULFATE 325 MG TABLET PO SCH (09:05)
[2016-12-25] MEDS: NORMAL SALINE 10 ML SDV (SCHEDULED) IV SCH ×2 (09:06→22:15)
--- NOTE | 2016-12-25 16:04 | PDOC PROGRESS REPORT ---
Subjective Progress Note for:: 12/25/16 Subjective:: Pt states that he is doing ok. Physical Exam Vital Signs: Temp Pulse Resp BP Pulse Ox 98.4 F 96 16 102/52 L 98 12/24/16 23:40 12/24/16 23:40 12/24/16 23:40 12/24/16 23:40 12/24/16 23:40 Intake & Output 12/24/16 12/25/16 12/26/16 06:59 06:59 06:59 Intake Total 2570 1692 Balance 2570 1692 Weight 71.6 kg 72.3 kg General appearance: PRESENT: no acute distress, well-developed, well-nourished Head exam: PRESENT: atraumatic, normocephalic Eye exam: PRESENT: conjunctiva pink, EOMI, PERRLA. ABSENT: scleral icterus Ear exam: PRESENT: normal external ear exam Mouth exam: PRESENT: moist, tongue midline Neck exam: ABSENT: carotid bruit, JVD, lymphadenopathy, thyromegaly Respiratory exam: PRESENT: clear to auscultation sera. ABSENT: rales, rhonchi, wheezes Cardiovascular exam: PRESENT: RRR, systolic murmur. ABSENT: diastolic murmur, rubs Pulses: PRESENT: normal dorsalis pedis pul Vascular exam: PRESENT: normal capillary refill GI/Abdominal exam: PRESENT: normal bowel sounds, soft. ABSENT: distended, guarding, mass, organolmegaly, rebound, tenderness Rectal exam: PRESENT: deferred Extremities exam: PRESENT: full ROM. ABSENT: calf tenderness, clubbing, pedal edema Neurological exam: PRESENT: alert, awake, oriented to person, oriented to place , oriented to time, oriented to situation, CN II-XII grossly intact. ABSENT: motor sensory deficit Psychiatric exam: PRESENT: appropriate affect, normal mood. ABSENT: homicidal ideation, suicidal ideation Skin exam: PRESENT: dry, intact, warm. ABSENT: cyanosis, rash Results Laboratory Results: 12/20/16 04:20 12/23/16 06:20 Impressions: Chest X-Ray 12/13/16 23:37 IMPRESSION: NO ACUTE RADIOGRAPHIC FINDING IN THE CHEST. NO SIGNIFICANT CHANGE FROM PRIOR STUDY. Guidance Fluoroscopy 12/17/16 00:00 IMPRESSION: SUCCESSFUL PLACEMENT OF A 5 FR DUAL LUMEN 35 CM PICC IN THE RIGHT BASILIC VEIN. THERE IS A FOCAL STENOSIS AT THE TRANSITION BETWEEN THE RIGHT BASILIC VEIN AND AXILLARY VEIN. PATIENT HAS HAD 3 PRIOR PICC CATHETERS IN THIS ARM. FOR FUTURE CATHETER PLACEMENT, CONSIDER THE LEFT ARM OR USING THE RIGHT CEPHALIC VEIN. Interventional Vascular Procedure 12/17/16 00:00 IMPRESSION: SUCCESSFUL PLACEMENT OF A 5 FR DUAL LUMEN 35 CM PICC IN THE RIGHT BASILIC VEIN. THERE IS A FOCAL STENOSIS AT THE TRANSITION BETWEEN THE RIGHT BASILIC VEIN AND AXILLARY VEIN. PATIENT HAS HAD 3 PRIOR PICC CATHETERS IN THIS ARM. FOR FUTURE CATHETER PLACEMENT, CONSIDER THE LEFT ARM OR USING THE RIGHT CEPHALIC VEIN. PICC Line Insertion 12/17/16 00:00 IMPRESSION: SUCCESSFUL PLACEMENT OF A 5 FR DUAL LUMEN 35 CM PICC IN THE RIGHT BASILIC VEIN. THERE IS A FOCAL STENOSIS AT THE TRANSITION BETWEEN THE RIGHT BASILIC VEIN AND AXILLARY VEIN. PATIENT HAS HAD 3 PRIOR PICC CATHETERS IN THIS ARM. FOR FUTURE CATHETER PLACEMENT, CONSIDER THE LEFT ARM OR USING THE RIGHT CEPHALIC VEIN. 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 (2) IV drug abuse Is this a current diagnosis for this admission?: Yes Plan: Pt will need to try to obtain output treatment. (3) History of aortic valve replacement with bioprosthetic valve Is this a current diagnosis for this admission?: No Plan: supportive care (4) Systolic CHF, chronic Is this a current diagnosis for this admission?: Yes Plan: Pt medically stable. - Time Time Spent with patient: Less than 15 minutes - No new changes.
[2016-12-26] MEDS: CEFTRIAXONE 2 GM/D5W RTU 2 GM/50 ML RTUPB IV SCH ×2 (05:14→17:15)
[2016-12-26] MEDS: BUPROPION HCL 100 MG TABLET PO SCH ×3 (05:14→21:17)
[2016-12-26] MEDS: OMEGA-3 ACID ETHYL ESTERS 1 GM CAPSULE PO SCH (10:07)
[2016-12-26] MEDS: FOLIC ACID 1 MG TABLET PO SCH (10:09)
[2016-12-26] MEDS: NORMAL SALINE 10 ML SDV (SCHEDULED) IV SCH ×2 (10:10→21:17)
[2016-12-26] MEDS: FERROUS SULFATE 325 MG TABLET PO SCH (10:10)
--- NOTE | 2016-12-26 15:47 | PDOC PROGRESS REPORT ---
Subjective Progress Note for:: 12/26/16 Subjective:: Pt doing well. Physical Exam Vital Signs: Temp Pulse Resp BP Pulse Ox 98.3 F 92 16 101/70 98 12/26/16 12:00 12/26/16 12:00 12/26/16 12:00 12/26/16 12:00 12/26/16 12:00 Intake & Output 12/25/16 12/26/16 12/27/16 06:59 06:59 06:59 Intake Total 1692 1682 1080 Output Total 300 Balance 1692 1382 1080 Weight 72.3 kg 72.3 kg General appearance: PRESENT: no acute distress, well-developed, well-nourished Head exam: PRESENT: atraumatic, normocephalic Eye exam: PRESENT: conjunctiva pink, EOMI, PERRLA. ABSENT: scleral icterus Ear exam: PRESENT: normal external ear exam Mouth exam: PRESENT: moist, tongue midline Neck exam: ABSENT: carotid bruit, JVD, lymphadenopathy, thyromegaly Respiratory exam: PRESENT: clear to auscultation sera. ABSENT: rales, rhonchi, wheezes Cardiovascular exam: PRESENT: RRR, systolic murmur Pulses: PRESENT: normal dorsalis pedis pul Vascular exam: PRESENT: normal capillary refill GI/Abdominal exam: PRESENT: normal bowel sounds, soft. ABSENT: distended, guarding, mass, organolmegaly, rebound, tenderness Rectal exam: PRESENT: deferred Extremities exam: PRESENT: full ROM. ABSENT: calf tenderness, clubbing, pedal edema Neurological exam: PRESENT: alert, awake, oriented to person, oriented to place , oriented to time, oriented to situation, CN II-XII grossly intact. ABSENT: motor sensory deficit Psychiatric exam: PRESENT: appropriate affect, normal mood. ABSENT: homicidal ideation, suicidal ideation Skin exam: PRESENT: dry, intact, warm. ABSENT: cyanosis, rash Results Laboratory Results: 12/20/16 04:20 12/23/16 06:20 Impressions: Chest X-Ray 12/13/16 23:37 IMPRESSION: NO ACUTE RADIOGRAPHIC FINDING IN THE CHEST. NO SIGNIFICANT CHANGE FROM PRIOR STUDY. Guidance Fluoroscopy 12/17/16 00:00 IMPRESSION: SUCCESSFUL PLACEMENT OF A 5 FR DUAL LUMEN 35 CM PICC IN THE RIGHT BASILIC VEIN. THERE IS A FOCAL STENOSIS AT THE TRANSITION BETWEEN THE RIGHT BASILIC VEIN AND AXILLARY VEIN. PATIENT HAS HAD 3 PRIOR PICC CATHETERS IN THIS ARM. FOR FUTURE CATHETER PLACEMENT, CONSIDER THE LEFT ARM OR USING THE RIGHT CEPHALIC VEIN. Interventional Vascular Procedure 12/17/16 00:00 IMPRESSION: SUCCESSFUL PLACEMENT OF A 5 FR DUAL LUMEN 35 CM PICC IN THE RIGHT BASILIC VEIN. THERE IS A FOCAL STENOSIS AT THE TRANSITION BETWEEN THE RIGHT BASILIC VEIN AND AXILLARY VEIN. PATIENT HAS HAD 3 PRIOR PICC CATHETERS IN THIS ARM. FOR FUTURE CATHETER PLACEMENT, CONSIDER THE LEFT ARM OR USING THE RIGHT CEPHALIC VEIN. PICC Line Insertion 12/17/16 00:00 IMPRESSION: SUCCESSFUL PLACEMENT OF A 5 FR DUAL LUMEN 35 CM PICC IN THE RIGHT BASILIC VEIN. THERE IS A FOCAL STENOSIS AT THE TRANSITION BETWEEN THE RIGHT BASILIC VEIN AND AXILLARY VEIN. PATIENT HAS HAD 3 PRIOR PICC CATHETERS IN THIS ARM. FOR FUTURE CATHETER PLACEMENT, CONSIDER THE LEFT ARM OR USING THE RIGHT CEPHALIC VEIN. 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 (2) IV drug abuse Is this a current diagnosis for this admission?: Yes Plan: Pt will need to try to obtain output treatment. (3) History of aortic valve replacement with bioprosthetic valve Is this a current diagnosis for this admission?: No Plan: supportive care (4) Systolic CHF, chronic Is this a current diagnosis for this admission?: Yes Plan: Pt medically stable. - Time Time Spent with patient: Less than 15 minutes
[2016-12-27] MEDS: CEFTRIAXONE 2 GM/D5W RTU 2 GM/50 ML RTUPB IV SCH ×2 (05:42→17:20)
[2016-12-27] MEDS: BUPROPION HCL 100 MG TABLET PO SCH ×3 (05:43→22:04)
[2016-12-27 06:51] LABS: ABSOLUTE EOSINOPHILS # (AUTO) 0.1 10^3/uL (0.0-0.6); ABSOLUTE LYMPHOCYTES (AUTO) 1.1 10^3/uL (0.5-4.7); ABSOLUTE MONOCYTES (AUTO) 0.6 10^3/uL (0.1-1.4); ABSOLUTE NEUT (AUTO) 7.5 10^3/uL (1.7-8.2); BASOPHILS % (AUTO) 0.4 % (0-2); EOSINOPHILS % (AUTO) 0.7 % (0-6); HEMATOCRIT 35.1 % (37.9-51.0); HEMOGLOBIN 11.7 g/dL (13.5-17.0); LYMPHOCYTES % (AUTO) 11.4 % (13-45); MEAN CORPUSCULAR HEMOGLOBIN 26.2 pg (27.0-33.4); MEAN CORPUSCULAR HGB CONC 33.3 g/dL (32.0-36.0); MEAN CORPUSCULAR VOLUME 79 fl (80-97); RED BLOOD COUNT 4.46 10^6/uL (4.35-5.55); RED CELL DISTRIBUTION WIDTH 15.7 % (11.5-14.0); SEGMENTED NEUTROPHILS % (AUTO) 81.5 % (42-78); WHITE BLOOD COUNT 9.2 10^3/uL (4.0-10.5)
[2016-12-27 07:19] LABS: ANION GAP 12 (5-19); BLOOD UREA NITROGEN 15 mg/dL (7-20); CALCIUM 9.3 mg/dL (8.4-10.2); CARBON DIOXIDE 30 mmol/L (22-30); CHLORIDE 101 mmol/L (98-107); CREATININE RESULT 0.81 mg/dL (0.52-1.25); GLUCOSE 85 mg/dL (75-110); SODIUM 143.4 mmol/L (137-145)
[2016-12-27] MEDS: OMEGA-3 ACID ETHYL ESTERS 1 GM CAPSULE PO SCH (08:00)
--- NOTE | 2016-12-27 10:16 | PDOC PROGRESS REPORT ---
Subjective Progress Note for:: 12/27/16 Subjective:: No new issues Physical Exam Vital Signs: Temp Pulse Resp BP Pulse Ox 97.9 F 96 15 106/70 97 12/27/16 08:14 12/27/16 08:14 12/27/16 08:14 12/27/16 08:14 12/27/16 08:14 Intake & Output 12/26/16 12/27/16 12/28/16 06:59 06:59 06:59 Intake Total 1682 1810 Output Total 300 Balance 1382 1810 Weight 72.3 kg 72.3 kg General appearance: PRESENT: no acute distress, well-developed, well-nourished Head exam: PRESENT: atraumatic, normocephalic Eye exam: PRESENT: other - Sleeping Ear exam: PRESENT: normal external ear exam Mouth exam: PRESENT: moist Neck exam: ABSENT: carotid bruit, JVD, lymphadenopathy, thyromegaly Respiratory exam: PRESENT: clear to auscultation sera. ABSENT: rales, rhonchi, wheezes Cardiovascular exam: PRESENT: RRR, systolic murmur Pulses: PRESENT: normal dorsalis pedis pul Vascular exam: PRESENT: normal capillary refill GI/Abdominal exam: PRESENT: normal bowel sounds, soft. ABSENT: distended, guarding, mass, organolmegaly, rebound, tenderness Rectal exam: PRESENT: deferred Extremities exam: PRESENT: full ROM. ABSENT: calf tenderness, clubbing, pedal edema Musculoskeletal exam: PRESENT: full ROM Neurological exam: PRESENT: other - Sleeping Psychiatric exam: PRESENT: other - sleeping Skin exam: PRESENT: dry, intact, warm. ABSENT: cyanosis, rash Results Laboratory Results: 12/27/16 05:48 12/27/16 05:48 12/27/16 12/27/16 05:48 05:48 WBC 9.2 RBC 4.46 Hgb 11.7 L Hct 35.1 L MCV 79 L MCH 26.2 L MCHC 33.3 RDW 15.7 H Plt Count 166 Seg Neutrophils % 81.5 H Lymphocytes % 11.4 L Monocytes % 6.0 Eosinophils % 0.7 Basophils % 0.4 Absolute Neutrophils 7.5 Absolute Lymphocytes 1.1 Absolute Monocytes 0.6 Absolute Eosinophils 0.1 Absolute Basophils 0.0 Sodium 143.4 Potassium 4.0 Chloride 101 Carbon Dioxide 30 Anion Gap 12 BUN 15 Creatinine 0.81 Est GFR ( Amer) > 60 Est GFR (Non-Af Amer) > 60 Glucose 85 Calcium 9.3 Impressions: Chest X-Ray 12/13/16 23:37 IMPRESSION: NO ACUTE RADIOGRAPHIC FINDING IN THE CHEST. NO SIGNIFICANT CHANGE FROM PRIOR STUDY. Guidance Fluoroscopy 12/17/16 00:00 IMPRESSION: SUCCESSFUL PLACEMENT OF A 5 FR DUAL LUMEN 35 CM PICC IN THE RIGHT BASILIC VEIN. THERE IS A FOCAL STENOSIS AT THE TRANSITION BETWEEN THE RIGHT BASILIC VEIN AND AXILLARY VEIN. PATIENT HAS HAD 3 PRIOR PICC CATHETERS IN THIS ARM. FOR FUTURE CATHETER PLACEMENT, CONSIDER THE LEFT ARM OR USING THE RIGHT CEPHALIC VEIN. Interventional Vascular Procedure 12/17/16 00:00 IMPRESSION: SUCCESSFUL PLACEMENT OF A 5 FR DUAL LUMEN 35 CM PICC IN THE RIGHT BASILIC VEIN. THERE IS A FOCAL STENOSIS AT THE TRANSITION BETWEEN THE RIGHT BASILIC VEIN AND AXILLARY VEIN. PATIENT HAS HAD 3 PRIOR PICC CATHETERS IN THIS ARM. FOR FUTURE CATHETER PLACEMENT, CONSIDER THE LEFT ARM OR USING THE RIGHT CEPHALIC VEIN. PICC Line Insertion 12/17/16 00:00 IMPRESSION: SUCCESSFUL PLACEMENT OF A 5 FR DUAL LUMEN 35 CM PICC IN THE RIGHT BASILIC VEIN. THERE IS A FOCAL STENOSIS AT THE TRANSITION BETWEEN THE RIGHT BASILIC VEIN AND AXILLARY VEIN. PATIENT HAS HAD 3 PRIOR PICC CATHETERS IN THIS ARM. FOR FUTURE CATHETER PLACEMENT, CONSIDER THE LEFT ARM OR USING THE RIGHT CEPHALIC VEIN. 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 (2) IV drug abuse Is this a current diagnosis for this admission?: Yes Plan: Pt will need to try to obtain output treatment. (3) History of aortic valve replacement with bioprosthetic valve Is this a current diagnosis for this admission?: No Plan: supportive care (4) Systolic CHF, chronic Is this a current diagnosis for this admission?: Yes Plan: Pt medically stable. - Time Time Spent with patient: Less than 15 minutes Anticipated discharge: Home
[2016-12-27] MEDS: NORMAL SALINE 10 ML SDV (SCHEDULED) IV SCH ×2 (10:22→22:04)
[2016-12-27] MEDS: FERROUS SULFATE 325 MG TABLET PO SCH (10:22)
[2016-12-27] MEDS: FOLIC ACID 1 MG TABLET PO SCH (10:22)
[2016-12-28] MEDS: BUPROPION HCL 100 MG TABLET PO SCH ×3 (05:53→21:22)
[2016-12-28] MEDS: CEFTRIAXONE 2 GM/D5W RTU 2 GM/50 ML RTUPB IV SCH ×2 (05:53→17:08)
[2016-12-28] MEDS: OMEGA-3 ACID ETHYL ESTERS 1 GM CAPSULE PO SCH (08:00)
[2016-12-28] MEDS: FOLIC ACID 1 MG TABLET PO SCH (09:58)
[2016-12-28] MEDS: NORMAL SALINE 10 ML SDV (SCHEDULED) IV SCH ×2 (09:58→21:23)
[2016-12-28] MEDS: FERROUS SULFATE 325 MG TABLET PO SCH (09:58)
--- NOTE | 2016-12-28 14:18 | PDOC PROGRESS REPORT ---
Subjective Progress Note for:: 12/28/16 Subjective:: No new issues Physical Exam Vital Signs: Temp Pulse Resp BP Pulse Ox 98.3 F 84 16 98/61 L 95 12/28/16 11:31 12/28/16 11:31 12/28/16 11:31 12/28/16 11:31 12/28/16 11:31 Intake & Output 12/27/16 12/28/16 12/29/16 06:59 06:59 06:59 Intake Total 1810 2402 Balance 1810 2402 Weight 72.3 kg 70.9 kg General appearance: PRESENT: no acute distress, well-developed, well-nourished Head exam: PRESENT: atraumatic, normocephalic Eye exam: PRESENT: conjunctiva pink, EOMI, PERRLA. ABSENT: scleral icterus Ear exam: PRESENT: normal external ear exam Mouth exam: PRESENT: moist, tongue midline Neck exam: ABSENT: carotid bruit, JVD, lymphadenopathy, thyromegaly Respiratory exam: PRESENT: clear to auscultation sera. ABSENT: rales, rhonchi, wheezes Cardiovascular exam: PRESENT: RRR, systolic murmur. ABSENT: diastolic murmur, rubs Pulses: PRESENT: normal dorsalis pedis pul Vascular exam: PRESENT: normal capillary refill GI/Abdominal exam: PRESENT: normal bowel sounds, soft. ABSENT: distended, guarding, mass, organolmegaly, rebound, tenderness Rectal exam: PRESENT: deferred Extremities exam: PRESENT: full ROM. ABSENT: calf tenderness, clubbing, pedal edema Neurological exam: PRESENT: alert, awake, oriented to person, oriented to place , oriented to time, oriented to situation, CN II-XII grossly intact. ABSENT: motor sensory deficit Psychiatric exam: PRESENT: appropriate affect, normal mood. ABSENT: homicidal ideation, suicidal ideation Skin exam: PRESENT: dry, intact, warm. ABSENT: cyanosis, rash Results Laboratory Results: 12/27/16 05:48 12/27/16 05:48 Impressions: Chest X-Ray 12/13/16 23:37 IMPRESSION: NO ACUTE RADIOGRAPHIC FINDING IN THE CHEST. NO SIGNIFICANT CHANGE FROM PRIOR STUDY. Guidance Fluoroscopy 12/17/16 00:00 IMPRESSION: SUCCESSFUL PLACEMENT OF A 5 FR DUAL LUMEN 35 CM PICC IN THE RIGHT BASILIC VEIN. THERE IS A FOCAL STENOSIS AT THE TRANSITION BETWEEN THE RIGHT BASILIC VEIN AND AXILLARY VEIN. PATIENT HAS HAD 3 PRIOR PICC CATHETERS IN THIS ARM. FOR FUTURE CATHETER PLACEMENT, CONSIDER THE LEFT ARM OR USING THE RIGHT CEPHALIC VEIN. Interventional Vascular Procedure 12/17/16 00:00 IMPRESSION: SUCCESSFUL PLACEMENT OF A 5 FR DUAL LUMEN 35 CM PICC IN THE RIGHT BASILIC VEIN. THERE IS A FOCAL STENOSIS AT THE TRANSITION BETWEEN THE RIGHT BASILIC VEIN AND AXILLARY VEIN. PATIENT HAS HAD 3 PRIOR PICC CATHETERS IN THIS ARM. FOR FUTURE CATHETER PLACEMENT, CONSIDER THE LEFT ARM OR USING THE RIGHT CEPHALIC VEIN. PICC Line Insertion 12/17/16 00:00 IMPRESSION: SUCCESSFUL PLACEMENT OF A 5 FR DUAL LUMEN 35 CM PICC IN THE RIGHT BASILIC VEIN. THERE IS A FOCAL STENOSIS AT THE TRANSITION BETWEEN THE RIGHT BASILIC VEIN AND AXILLARY VEIN. PATIENT HAS HAD 3 PRIOR PICC CATHETERS IN THIS ARM. FOR FUTURE CATHETER PLACEMENT, CONSIDER THE LEFT ARM OR USING THE RIGHT CEPHALIC VEIN. 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 (2) IV drug abuse Is this a current diagnosis for this admission?: Yes Plan: Pt will need to try to obtain output treatment. (3) History of aortic valve replacement with bioprosthetic valve Is this a current diagnosis for this admission?: No Plan: supportive care (4) Systolic CHF, chronic Is this a current diagnosis for this admission?: Yes Plan: Pt medically stable. - Time Time Spent with patient: 15-24 minutes
[2016-12-29] MEDS: BUPROPION HCL 100 MG TABLET PO SCH ×3 (05:43→21:19)
[2016-12-29] MEDS: CEFTRIAXONE 2 GM/D5W RTU 2 GM/50 ML RTUPB IV SCH (05:43)
[2016-12-29] MEDS: OMEGA-3 ACID ETHYL ESTERS 1 GM CAPSULE PO SCH (09:26)
[2016-12-29] MEDS: FERROUS SULFATE 325 MG TABLET PO SCH (09:27)
[2016-12-29] MEDS: FOLIC ACID 1 MG TABLET PO SCH (09:27)
[2016-12-29] MEDS: NORMAL SALINE 10 ML SDV (SCHEDULED) IV SCH ×2 (09:29→21:19)
[2016-12-30] MEDS: BUPROPION HCL 100 MG TABLET PO SCH ×3 (05:23→21:26)
[2016-12-30] MEDS: OMEGA-3 ACID ETHYL ESTERS 1 GM CAPSULE PO SCH (09:42)
[2016-12-30] MEDS: FOLIC ACID 1 MG TABLET PO SCH (09:46)
[2016-12-30] MEDS: FERROUS SULFATE 325 MG TABLET PO SCH (09:46)
[2016-12-30] MEDS: CEFTRIAXONE 2 GM/D5W RTU 2 GM/50 ML RTUPB IV SCH (09:46)
[2016-12-30] MEDS: NORMAL SALINE 10 ML SDV (SCHEDULED) IV SCH ×2 (09:46→21:26)
[2016-12-30] MEDS: ZOLPIDEM TARTRATE 5 MG TABLET PO PRN (21:26)
[2016-12-31 01:30] LABS: URINE BARBITURATES SCREEN NEGATIVE; URINE METHADONE SCREEN NEGATIVE; URINE PHENCYCLIDINE SCREEN NEGATIVE
[2016-12-31 01:33] LABS: URINE OPIATES LOW UNCONFIRMED POSITIVE
[2016-12-31] MEDS: BUPROPION HCL 100 MG TABLET PO SCH ×3 (05:27→21:13)
[2016-12-31] MEDS: KETOCONAZOLE 2% SHAMPOO 120 ML BOTTLE TP SCH (10:07)
[2016-12-31] MEDS: CEFTRIAXONE 2 GM/D5W RTU 2 GM/50 ML RTUPB IV SCH (10:07)
[2016-12-31] MEDS: OMEGA-3 ACID ETHYL ESTERS 1 GM CAPSULE PO SCH (10:08)
[2016-12-31] MEDS: FOLIC ACID 1 MG TABLET PO SCH (10:08)
[2016-12-31] MEDS: FERROUS SULFATE 325 MG TABLET PO SCH (10:08)
[2016-12-31] MEDS: NORMAL SALINE 10 ML SDV (SCHEDULED) IV SCH ×2 (10:09→21:13)
--- NOTE | 2016-12-31 10:43 | PDOC PROGRESS REPORT ---
Subjective Progress Note for:: 12/29/16 Subjective:: Patient is a 31-year-old male who presents with what is now known to be infective carditis with Streptococcus mitis. He states he is doing well and has no complaints. Physical Exam Vital Signs: Temp Pulse Resp BP Pulse Ox 98.4 F 88 16 105/63 99 12/29/16 15:47 12/29/16 15:47 12/29/16 15:47 12/29/16 15:47 12/29/16 15:47 Intake & Output 12/28/16 12/29/16 12/30/16 06:59 06:59 06:59 Intake Total 2402 2446 700 Balance 2402 2446 700 Weight 70.9 kg 71.9 kg General appearance: PRESENT: no acute distress, thin Head exam: PRESENT: normocephalic Eye exam: PRESENT: EOMI. ABSENT: scleral icterus Ear exam: PRESENT: normal external ear exam Mouth exam: PRESENT: moist Neck exam: ABSENT: carotid bruit, JVD, lymphadenopathy, thyromegaly Respiratory exam: PRESENT: clear to auscultation sera. ABSENT: rales, rhonchi, wheezes Cardiovascular exam: PRESENT: RRR, systolic murmur, other - Midsternal scar which is healed. ABSENT: diastolic murmur, rubs Pulses: PRESENT: normal dorsalis pedis pul Vascular exam: PRESENT: normal capillary refill GI/Abdominal exam: PRESENT: normal bowel sounds, soft. ABSENT: distended, guarding, mass, organolmegaly, rebound, tenderness Rectal exam: PRESENT: deferred Extremities exam: PRESENT: full ROM. ABSENT: calf tenderness, clubbing, pedal edema Neurological exam: PRESENT: alert, awake, oriented to person, oriented to place , oriented to time, oriented to situation, CN II-XII grossly intact. ABSENT: motor sensory deficit Psychiatric exam: PRESENT: appropriate affect, normal mood. ABSENT: homicidal ideation, suicidal ideation Skin exam: PRESENT: dry, intact, warm. ABSENT: cyanosis, rash Results Laboratory Results: 12/27/16 05:48 12/27/16 05:48 Impressions: Chest X-Ray 12/13/16 23:37 IMPRESSION: NO ACUTE RADIOGRAPHIC FINDING IN THE CHEST. NO SIGNIFICANT CHANGE FROM PRIOR STUDY. Guidance Fluoroscopy 12/17/16 00:00 IMPRESSION: SUCCESSFUL PLACEMENT OF A 5 FR DUAL LUMEN 35 CM PICC IN THE RIGHT BASILIC VEIN. THERE IS A FOCAL STENOSIS AT THE TRANSITION BETWEEN THE RIGHT BASILIC VEIN AND AXILLARY VEIN. PATIENT HAS HAD 3 PRIOR PICC CATHETERS IN THIS ARM. FOR FUTURE CATHETER PLACEMENT, CONSIDER THE LEFT ARM OR USING THE RIGHT CEPHALIC VEIN. Interventional Vascular Procedure 12/17/16 00:00 IMPRESSION: SUCCESSFUL PLACEMENT OF A 5 FR DUAL LUMEN 35 CM PICC IN THE RIGHT BASILIC VEIN. THERE IS A FOCAL STENOSIS AT THE TRANSITION BETWEEN THE RIGHT BASILIC VEIN AND AXILLARY VEIN. PATIENT HAS HAD 3 PRIOR PICC CATHETERS IN THIS ARM. FOR FUTURE CATHETER PLACEMENT, CONSIDER THE LEFT ARM OR USING THE RIGHT CEPHALIC VEIN. PICC Line Insertion 12/17/16 00:00 IMPRESSION: SUCCESSFUL PLACEMENT OF A 5 FR DUAL LUMEN 35 CM PICC IN THE RIGHT BASILIC VEIN. THERE IS A FOCAL STENOSIS AT THE TRANSITION BETWEEN THE RIGHT BASILIC VEIN AND AXILLARY VEIN. PATIENT HAS HAD 3 PRIOR PICC CATHETERS IN THIS ARM. FOR FUTURE CATHETER PLACEMENT, CONSIDER THE LEFT ARM OR USING THE RIGHT CEPHALIC VEIN. Assessment & Plan - Diagnosis (1) Endocarditis Qualifiers: Endocarditis type: infective Infective endocarditis organism: bacterial Chronicity: unspecified Qualified Code(s): I33.0 - Acute and subacute infective endocarditis Is this a current diagnosis for this admission?: Yes Plan: Patient has infective endocarditis with Streptococcus mitis. This is most likely the result of IV drug abuse. Patient is currently on ceftriaxone. Patient blood cultures were negative as of 12/16/2016. Patient requires 6 weeks of antibiotics therefore his stop date would be 2016. (2) History of aortic valve replacement with bioprosthetic valve Is this a current diagnosis for this admission?: No Plan: Continue with supportive care. Counseled patient on the importance of not using IV drug abuse as he could potentially harm his prosthetic valve. (3) Systolic CHF, chronic Is this a current diagnosis for this admission?: Yes Plan: Patient appears to be euvolemic at this time. Blood pressures are low normal therefore he may not be tolerant of beta blockers ACEI or ARBS at this time. Will monitor for signs of volume overload. (4) IV drug abuse Is this a current diagnosis for this admission?: Yes Plan: Suggested that patient receive outpatient treatment. - Time Time Spent with patient: Less than 15 minutes Anticipated discharge: Home Within: Other - Inpatient Certification Medical Necessity: Need for IV Antibiotics
--- NOTE | 2016-12-31 10:51 | PDOC PROGRESS REPORT ---
Subjective Progress Note for:: 12/30/16 Subjective:: Patient is a 31-year-old male who presents with what is now known to be infective carditis with Streptococcus mitis. Patient has a visitor in her room at this time. Patient is concerned about the dryness around his nose and chin and frontal hairline. Patient is also concerned about the small rashes or petechiae popping up on his legs. Patient also states that he is not sleeping well and the trazodone is not helping. Physical Exam Vital Signs: Temp Pulse Resp BP Pulse Ox 98.5 F 101 H 18 98/53 L 100 12/30/16 16:00 12/30/16 16:00 12/30/16 16:00 12/30/16 16:00 12/30/16 16:00 Intake & Output 12/29/16 12/30/16 12/31/16 06:59 06:59 06:59 Intake Total 2446 1960 1593 Balance 2446 1960 1593 Weight 71.9 kg 71.9 kg General appearance: PRESENT: no acute distress, thin Head exam: PRESENT: normocephalic Eye exam: PRESENT: EOMI. ABSENT: scleral icterus Ear exam: PRESENT: normal external ear exam Mouth exam: PRESENT: moist Neck exam: ABSENT: carotid bruit, JVD, lymphadenopathy, thyromegaly Respiratory exam: PRESENT: clear to auscultation sera. ABSENT: rales, rhonchi, wheezes Cardiovascular exam: PRESENT: RRR, systolic murmur. ABSENT: diastolic murmur, rubs Pulses: PRESENT: normal dorsalis pedis pul Vascular exam: PRESENT: normal capillary refill GI/Abdominal exam: PRESENT: normal bowel sounds, soft. ABSENT: distended, guarding, mass, organolmegaly, rebound, tenderness Rectal exam: PRESENT: deferred Extremities exam: PRESENT: full ROM. ABSENT: calf tenderness, clubbing, pedal edema Neurological exam: PRESENT: alert, awake, oriented to person, oriented to place , oriented to time, oriented to situation, CN II-XII grossly intact. ABSENT: motor sensory deficit Psychiatric exam: PRESENT: appropriate affect, normal mood. ABSENT: homicidal ideation, suicidal ideation Skin exam: PRESENT: dry, intact, warm, other - Petechiae on the legs. Feeling of the skin on the chin nose and frontal hairline. ABSENT: cyanosis, rash Results Laboratory Results: 12/27/16 05:48 12/27/16 05:48 Impressions: Chest X-Ray 12/13/16 23:37 IMPRESSION: NO ACUTE RADIOGRAPHIC FINDING IN THE CHEST. NO SIGNIFICANT CHANGE FROM PRIOR STUDY. Guidance Fluoroscopy 12/17/16 00:00 IMPRESSION: SUCCESSFUL PLACEMENT OF A 5 FR DUAL LUMEN 35 CM PICC IN THE RIGHT BASILIC VEIN. THERE IS A FOCAL STENOSIS AT THE TRANSITION BETWEEN THE RIGHT BASILIC VEIN AND AXILLARY VEIN. PATIENT HAS HAD 3 PRIOR PICC CATHETERS IN THIS ARM. FOR FUTURE CATHETER PLACEMENT, CONSIDER THE LEFT ARM OR USING THE RIGHT CEPHALIC VEIN. Interventional Vascular Procedure 12/17/16 00:00 IMPRESSION: SUCCESSFUL PLACEMENT OF A 5 FR DUAL LUMEN 35 CM PICC IN THE RIGHT BASILIC VEIN. THERE IS A FOCAL STENOSIS AT THE TRANSITION BETWEEN THE RIGHT BASILIC VEIN AND AXILLARY VEIN. PATIENT HAS HAD 3 PRIOR PICC CATHETERS IN THIS ARM. FOR FUTURE CATHETER PLACEMENT, CONSIDER THE LEFT ARM OR USING THE RIGHT CEPHALIC VEIN. PICC Line Insertion 12/17/16 00:00 IMPRESSION: SUCCESSFUL PLACEMENT OF A 5 FR DUAL LUMEN 35 CM PICC IN THE RIGHT BASILIC VEIN. THERE IS A FOCAL STENOSIS AT THE TRANSITION BETWEEN THE RIGHT BASILIC VEIN AND AXILLARY VEIN. PATIENT HAS HAD 3 PRIOR PICC CATHETERS IN THIS ARM. FOR FUTURE CATHETER PLACEMENT, CONSIDER THE LEFT ARM OR USING THE RIGHT CEPHALIC VEIN. 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 Continue ceftiaxone. Patient blood cultures were negative as of 12/16/2016. Patient requires 6 weeks of antibiotics therefore his stop date would be 2016. (2) IV drug abuse Is this a current diagnosis for this admission?: Yes Plan: Suggested that patient receive outpatient treatment. (3) History of aortic valve replacement with bioprosthetic valve Is this a current diagnosis for this admission?: No Plan: Continue with supportive care. Counseled patient on the importance of not using IV drug abuse as he could potentially harm his prosthetic valve. (4) Systolic CHF, chronic Is this a current diagnosis for this admission?: Yes Plan: Currently stable. Continue to monitor for signs of volume overload. (5) Seborrheic dermatitis Plan: Patient prescribed ketoconazole-based shampoo to use on the affected areas of his scalp and face. Patient advised not to overuse the shampoo as this may dry the skin and course the flaking to be worse. (6) Depression Qualifiers: Depression Type: unspecified Qualified Code(s): F32.9 - Major depressive disorder, single episode, unspecified Is this a current diagnosis for this admission?: Yes Plan: Patient was started on Wellbutrin on this admission. - Time Time Spent with patient: Less than 15 minutes Anticipated discharge: Home Within: Other - Inpatient Certification Medical Necessity: Need for IV Antibiotics
--- NOTE | 2016-12-31 11:03 | PDOC PROGRESS REPORT ---
Subjective Progress Note for:: 12/31/16 Subjective:: Patient is a 31-year-old male who presents with what is now known to be infective carditis with Streptococcus mitis. Fortunately it was reported that overnight patient was receiving drugs in the room. Patient UDS was positive for opiates. Patient is not being given any opiates in the hospital. Patient states she is otherwise doing well. Physical Exam Vital Signs: Temp Pulse Resp BP Pulse Ox 98.6 F 94 18 92/43 L 100 12/31/16 08:00 12/31/16 08:00 12/31/16 08:00 12/31/16 08:00 12/31/16 08:00 Intake & Output 12/30/16 12/31/16 01/01/17 06:59 06:59 06:59 Intake Total 1960 2373 Balance 1960 2373 Weight 71.9 kg 71.9 kg General appearance: PRESENT: no acute distress, thin Head exam: PRESENT: normocephalic Eye exam: PRESENT: EOMI. ABSENT: scleral icterus Ear exam: PRESENT: normal external ear exam Mouth exam: PRESENT: moist Neck exam: ABSENT: carotid bruit, JVD, lymphadenopathy, thyromegaly Respiratory exam: PRESENT: clear to auscultation sera. ABSENT: rales, rhonchi, wheezes Cardiovascular exam: PRESENT: RRR, systolic murmur, other - mid sternal scar. ABSENT: diastolic murmur, rubs Pulses: PRESENT: normal dorsalis pedis pul Vascular exam: PRESENT: normal capillary refill GI/Abdominal exam: PRESENT: normal bowel sounds, soft. ABSENT: distended, guarding, mass, organolmegaly, rebound, tenderness Rectal exam: PRESENT: deferred Extremities exam: PRESENT: full ROM. ABSENT: calf tenderness, clubbing, pedal edema Neurological exam: PRESENT: alert, awake, oriented to person, oriented to place , oriented to time, oriented to situation, CN II-XII grossly intact. ABSENT: motor sensory deficit Psychiatric exam: PRESENT: appropriate affect, normal mood. ABSENT: homicidal ideation, suicidal ideation Skin exam: PRESENT: dry, intact, warm, other - scaling of the skin better. ABSENT: cyanosis, rash Results Laboratory Results: 12/27/16 05:48 12/27/16 05:48 Impressions: Chest X-Ray 11/05/17 23:37 IMPRESSION: NO ACUTE RADIOGRAPHIC FINDING IN THE CHEST. NO SIGNIFICANT CHANGE FROM PRIOR STUDY. Guidance Fluoroscopy 12/17/16 00:00 IMPRESSION: SUCCESSFUL PLACEMENT OF A 5 FR DUAL LUMEN 35 CM PICC IN THE RIGHT BASILIC VEIN. THERE IS A FOCAL STENOSIS AT THE TRANSITION BETWEEN THE RIGHT BASILIC VEIN AND AXILLARY VEIN. PATIENT HAS HAD 3 PRIOR PICC CATHETERS IN THIS ARM. FOR FUTURE CATHETER PLACEMENT, CONSIDER THE LEFT ARM OR USING THE RIGHT CEPHALIC VEIN. Interventional Vascular Procedure 12/17/16 00:00 IMPRESSION: SUCCESSFUL PLACEMENT OF A 5 FR DUAL LUMEN 35 CM PICC IN THE RIGHT BASILIC VEIN. THERE IS A FOCAL STENOSIS AT THE TRANSITION BETWEEN THE RIGHT BASILIC VEIN AND AXILLARY VEIN. PATIENT HAS HAD 3 PRIOR PICC CATHETERS IN THIS ARM. FOR FUTURE CATHETER PLACEMENT, CONSIDER THE LEFT ARM OR USING THE RIGHT CEPHALIC VEIN. PICC Line Insertion 12/17/16 00:00 IMPRESSION: SUCCESSFUL PLACEMENT OF A 5 FR DUAL LUMEN 35 CM PICC IN THE RIGHT BASILIC VEIN. THERE IS A FOCAL STENOSIS AT THE TRANSITION BETWEEN THE RIGHT BASILIC VEIN AND AXILLARY VEIN. PATIENT HAS HAD 3 PRIOR PICC CATHETERS IN THIS ARM. FOR FUTURE CATHETER PLACEMENT, CONSIDER THE LEFT ARM OR USING THE RIGHT CEPHALIC VEIN. 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 Continue ceftiaxone. Patient blood cultures were negative as of 12/16/2016. Patient requires 6 weeks of antibiotics therefore his stop date would be 2016. (2) IV drug abuse Is this a current diagnosis for this admission?: Yes Plan: Suggested that patient receive outpatient treatment. Unfortunately patient may be using in the hospital. Patient visited her band from the facility. She UDS on admission was negative however the one taken on 12/31 was positive for opiates. (3) History of aortic valve replacement with bioprosthetic valve Is this a current diagnosis for this admission?: No Plan: Continue with supportive care. Counseled patient on the importance of not using IV drug abuse as he could potentially harm his prosthetic valve. Patient will have no further surgeries. (4) Systolic CHF, chronic Is this a current diagnosis for this admission?: Yes Plan: Currently stable. Continue to monitor for signs of volume overload. (5) Seborrheic dermatitis Plan: Continue ketoconazole-based shampoo as needed for the affected areas of his scalp and face. Patient advised not to overuse the shampoo as this may dry the skin and course the flaking to be worse. (6) Depression Qualifiers: Depression Type: unspecified Qualified Code(s): F32.9 - Major depressive disorder, single episode, unspecified Is this a current diagnosis for this admission?: Yes Plan: Patient was started on Wellbutrin on this admission.
[2016-12-31] MEDS: ZOLPIDEM TARTRATE 5 MG TABLET PO PRN (21:13)
[2017-01-01] MEDS: BUPROPION HCL 100 MG TABLET PO SCH ×3 (05:31→21:15)
[2017-01-01] MEDS: OMEGA-3 ACID ETHYL ESTERS 1 GM CAPSULE PO SCH (08:53)
[2017-01-01] MEDS: FOLIC ACID 1 MG TABLET PO SCH (10:38)
[2017-01-01] MEDS: CEFTRIAXONE 2 GM/D5W RTU 2 GM/50 ML RTUPB IV SCH (10:38)
[2017-01-01] MEDS: FERROUS SULFATE 325 MG TABLET PO SCH (10:39)
[2017-01-01] MEDS: KETOCONAZOLE 2% SHAMPOO 120 ML BOTTLE TP SCH (10:40)
[2017-01-01] MEDS: NORMAL SALINE 10 ML SDV (SCHEDULED) IV SCH ×2 (10:40→21:15)
--- NOTE | 2017-01-01 14:54 | PDOC PROGRESS REPORT ---
Subjective Progress Note for:: 01/01/17 Subjective:: Patient is a 31-year-old male with history of IV drug abuse. Currently, he is admitted with infective endocarditis. Cultures are growing Streptococcus mitis. Unfortunately, the patient's transesophageal echocardiogram I divided did demonstrate another vegetation. CT surgery is reluctant to perform a third valve replacement surgery on this patient. In addition, this should not be done until the patient's teeth are treated. Physical Exam Vital Signs: Temp Pulse Resp BP Pulse Ox 98.0 F 82 16 98/60 L 97 01/01/17 11:08 01/01/17 11:08 01/01/17 11:08 01/01/17 11:08 01/01/17 11:08 Intake & Output 12/31/16 01/01/17 01/02/17 06:59 06:59 06:59 Intake Total 2373 2956 Balance 2373 2956 Weight 71.9 kg 71.9 kg Additional comments: The patient appeared well this morning. He has no complaints. His facial appearance is normal. His lungs are clear to auscultation bilaterally. His cardiac exam is regular. He does have a grade 2/6 systolic ejection murmur heard loudest at the left upper sternal border. His abdomen is benign. Lower extremities are without any edema. Results Laboratory Results: 12/27/16 05:48 12/27/16 05:48 Impressions: Chest X-Ray 12/13/16 23:37 IMPRESSION: NO ACUTE RADIOGRAPHIC FINDING IN THE CHEST. NO SIGNIFICANT CHANGE FROM PRIOR STUDY. Guidance Fluoroscopy 12/17/16 00:00 IMPRESSION: SUCCESSFUL PLACEMENT OF A 5 FR DUAL LUMEN 35 CM PICC IN THE RIGHT BASILIC VEIN. THERE IS A FOCAL STENOSIS AT THE TRANSITION BETWEEN THE RIGHT BASILIC VEIN AND AXILLARY VEIN. PATIENT HAS HAD 3 PRIOR PICC CATHETERS IN THIS ARM. FOR FUTURE CATHETER PLACEMENT, CONSIDER THE LEFT ARM OR USING THE RIGHT CEPHALIC VEIN. Interventional Vascular Procedure 12/17/16 00:00 IMPRESSION: SUCCESSFUL PLACEMENT OF A 5 FR DUAL LUMEN 35 CM PICC IN THE RIGHT BASILIC VEIN. THERE IS A FOCAL STENOSIS AT THE TRANSITION BETWEEN THE RIGHT BASILIC VEIN AND AXILLARY VEIN. PATIENT HAS HAD 3 PRIOR PICC CATHETERS IN THIS ARM. FOR FUTURE CATHETER PLACEMENT, CONSIDER THE LEFT ARM OR USING THE RIGHT CEPHALIC VEIN. PICC Line Insertion 12/17/16 00:00 IMPRESSION: SUCCESSFUL PLACEMENT OF A 5 FR DUAL LUMEN 35 CM PICC IN THE RIGHT BASILIC VEIN. THERE IS A FOCAL STENOSIS AT THE TRANSITION BETWEEN THE RIGHT BASILIC VEIN AND AXILLARY VEIN. PATIENT HAS HAD 3 PRIOR PICC CATHETERS IN THIS ARM. FOR FUTURE CATHETER PLACEMENT, CONSIDER THE LEFT ARM OR USING THE RIGHT CEPHALIC VEIN. Assessment & Plan - Diagnosis (1) Depression Qualifiers: Depression Type: unspecified Qualified Code(s): F32.9 - Major depressive disorder, single episode, unspecified Is this a current diagnosis for this admission?: Yes (2) Hypokalemia Is this a current diagnosis for this admission?: Yes (3) IV drug abuse Is this a current diagnosis for this admission?: Yes (4) Polysubstance (including opioids) dependence with physiol dependence Is this a current diagnosis for this admission?: Yes (5) Streptococcal septicemia Is this a current diagnosis for this admission?: Yes (6) Cardiomyopathy Is this a current diagnosis for this admission?: Yes (7) Mitral regurgitation Is this a current diagnosis for this admission?: Yes - Time Time Spent with patient: 15-24 minutes - Inpatient Certification Medical Necessity: Need for IV Antibiotics - Plan Summary Plan Summary: Patient will need 6 weeks of intravenous therapy for infective endocarditis with Streptococcus mitis. It is imperative that he have his infected dental caries removed as well. He started antibiotics on 12/14/2016. Unfortunately, there are reports that the patient is now noted to be opiate positive since being in the hospital. There is a concern that he may have been receiving drugs from his girlfriend. She is no longer allowed to visit with the patient. Patient has been counseled about the need to completely abstain from opioids and injection drugs. The patient also has cardiomyopathy. He appears to be stable at this time without any evidence of decompensated heart failure but we need to follow closely.
[2017-01-01] MEDS: ZOLPIDEM TARTRATE 5 MG TABLET PO PRN (21:15)
[2017-01-02] MEDS: BUPROPION HCL 100 MG TABLET PO SCH ×3 (05:08→22:00)
[2017-01-02] MEDS: OMEGA-3 ACID ETHYL ESTERS 1 GM CAPSULE PO SCH (08:09)
[2017-01-02] MEDS: FOLIC ACID 1 MG TABLET PO SCH (10:37)
[2017-01-02] MEDS: FERROUS SULFATE 325 MG TABLET PO SCH (10:37)
[2017-01-02] MEDS: CEFTRIAXONE 2 GM/D5W RTU 2 GM/50 ML RTUPB IV SCH (10:37)
[2017-01-02] MEDS: NORMAL SALINE 10 ML SDV (SCHEDULED) IV SCH ×2 (10:37→22:00)
[2017-01-02] MEDS: KETOCONAZOLE 2% SHAMPOO 120 ML BOTTLE TP SCH (10:38)
--- NOTE | 2017-01-02 11:11 | PDOC PROGRESS REPORT ---
Subjective Progress Note for:: 01/02/17 Subjective:: Patient is a 31-year-old male with history of IV drug abuse. Currently, he is admitted with infective endocarditis. Cultures are growing Streptococcus mitis. Unfortunately, the patient's transesophageal echocardiogram (done at [facility]) did demonstrate another vegetation. CT surgery is reluctant to perform a third valve replacement surgery on this patient. In addition, this should not be done until the patient's teeth are treated/resected. Physical Exam Vital Signs: Temp Pulse Resp BP Pulse Ox 97.4 F 72 16 98/63 L 100 01/02/17 08:00 01/02/17 08:00 01/02/17 08:00 01/02/17 08:00 01/02/17 08:00 Intake & Output 01/01/17 01/02/17 01/03/17 06:59 06:59 06:59 Intake Total 2956 3178 Balance 2956 3178 Weight 71.9 kg 74.3 kg Additional comments: The patient was resting comfortably this morning. He was sleeping. He woke up easily. He denies any complaints. We did discuss his use of substances. I encouraged him to seek polysubstance abuse counseling upon discharge and he agrees to do so. Again, we discussed his dental caries and he agrees to see a dentist after discharge as well. He has no other complaints today. His facial appearance is unremarkable. His lungs are clear to auscultation bilaterally. His cardiac exam is regular without murmurs, gallops or rubs. The abdomen is benign. The lower extremities are without edema. The patient had many vail red spots upon admission. These appear to be decreasing in number on both the upper and lower extremities. He does have 2 lesions that are still present on the right lower extremity. There are on the uribe anteriorly. Results Laboratory Results: 12/27/16 05:48 12/27/16 05:48 Impressions: Chest X-Ray 12/13/16 23:37 IMPRESSION: NO ACUTE RADIOGRAPHIC FINDING IN THE CHEST. NO SIGNIFICANT CHANGE FROM PRIOR STUDY. Guidance Fluoroscopy 12/17/16 00:00 IMPRESSION: SUCCESSFUL PLACEMENT OF A 5 FR DUAL LUMEN 35 CM PICC IN THE RIGHT BASILIC VEIN. THERE IS A FOCAL STENOSIS AT THE TRANSITION BETWEEN THE RIGHT BASILIC VEIN AND AXILLARY VEIN. PATIENT HAS HAD 3 PRIOR PICC CATHETERS IN THIS ARM. FOR FUTURE CATHETER PLACEMENT, CONSIDER THE LEFT ARM OR USING THE RIGHT CEPHALIC VEIN. Interventional Vascular Procedure 12/17/16 00:00 IMPRESSION: SUCCESSFUL PLACEMENT OF A 5 FR DUAL LUMEN 35 CM PICC IN THE RIGHT BASILIC VEIN. THERE IS A FOCAL STENOSIS AT THE TRANSITION BETWEEN THE RIGHT BASILIC VEIN AND AXILLARY VEIN. PATIENT HAS HAD 3 PRIOR PICC CATHETERS IN THIS ARM. FOR FUTURE CATHETER PLACEMENT, CONSIDER THE LEFT ARM OR USING THE RIGHT CEPHALIC VEIN. PICC Line Insertion 12/17/16 00:00 IMPRESSION: SUCCESSFUL PLACEMENT OF A 5 FR DUAL LUMEN 35 CM PICC IN THE RIGHT BASILIC VEIN. THERE IS A FOCAL STENOSIS AT THE TRANSITION BETWEEN THE RIGHT BASILIC VEIN AND AXILLARY VEIN. PATIENT HAS HAD 3 PRIOR PICC CATHETERS IN THIS ARM. FOR FUTURE CATHETER PLACEMENT, CONSIDER THE LEFT ARM OR USING THE RIGHT CEPHALIC VEIN. Assessment & Plan - Diagnosis (1) Depression Qualifiers: Depression Type: unspecified Qualified Code(s): F32.9 - Major depressive disorder, single episode, unspecified Is this a current diagnosis for this admission?: Yes Plan: Continue bupropion (2) Hypokalemia Is this a current diagnosis for this admission?: Yes Plan: Corrected (3) IV drug abuse Is this a current diagnosis for this admission?: Yes Plan: Patient is not currently in a drug rehab program. He was counseled to ensure abstinence. (4) Polysubstance (including opioids) dependence with physiol dependence Is this a current diagnosis for this admission?: Yes Plan: At this time the patient does not appear to have any behavior consistent with withdrawal. (5) Streptococcal septicemia Is this a current diagnosis for this admission?: Yes Plan: Continue IV Rocephin. (6) Cardiomyopathy Is this a current diagnosis for this admission?: Yes Plan: According to the patient's echocardiogram his ejection fraction is 30%. We need to monitor closely for the development of congestive heart failure. (7) Mitral regurgitation Is this a current diagnosis for this admission?: Yes Plan: According to the patient's echocardiogram he also has moderate to severe mitral regurgitation. Monitor for s/sx CHF. - Time Time Spent with patient: 15-24 minutes - Inpatient Certification Medical Necessity: Need for IV Antibiotics - Plan Summary Plan Summary: Patient will need 6 weeks of intravenous therapy for infective endocarditis with Streptococcus mitis. It is imperative that he have his infected dental caries removed as well. He started antibiotics on 12/14/2016. Unfortunately, there are reports that the patient is now noted to be opiate positive since being in the hospital. There is a concern that he may have been receiving drugs from his girlfriend. She is no longer allowed to visit with the patient. Patient has been counseled about the need to completely abstain from opioids and injection drugs. Today, the patient agrees to join a substance abuse program after discharge. The patient also has cardiomyopathy. He appears to be stable at this time without any evidence of decompensated heart failure but we need to follow closely.
[2017-01-02] MEDS: NORMAL SALINE 10 ML SDV (AFTER EACH USE) IV PRN (22:00)
[2017-01-02] MEDS: ZOLPIDEM TARTRATE 5 MG TABLET PO PRN (23:44)
[2017-01-03] MEDS: BUPROPION HCL 100 MG TABLET PO SCH ×3 (05:27→21:40)
[2017-01-03] MEDS: OMEGA-3 ACID ETHYL ESTERS 1 GM CAPSULE PO SCH (08:18)
[2017-01-03] MEDS: CEFTRIAXONE 2 GM/D5W RTU 2 GM/50 ML RTUPB IV SCH (10:12)
[2017-01-03] MEDS: FOLIC ACID 1 MG TABLET PO SCH (10:13)
[2017-01-03] MEDS: NORMAL SALINE 10 ML SDV (SCHEDULED) IV SCH ×2 (10:13→21:41)
[2017-01-03] MEDS: FERROUS SULFATE 325 MG TABLET PO SCH (10:13)
[2017-01-03] MEDS: KETOCONAZOLE 2% SHAMPOO 120 ML BOTTLE TP SCH (10:45)
--- NOTE | 2017-01-03 14:32 | PDOC PROGRESS REPORT ---
Subjective Progress Note for:: 01/03/17 Subjective:: Patient is a 31-year-old male with history of IV drug abuse. Currently, he is admitted with infective endocarditis. Cultures are growing Streptococcus mitis. Antibiotics were started on 12/14/2016. Unfortunately, the patient's transesophageal echocardiogram (done at [facility]) did demonstrate another vegetation. CT surgery is reluctant to perform a third valve replacement surgery on this patient. In addition, this should not be done until the patient 's teeth are treated/resected. Physical Exam Vital Signs: Temp Pulse Resp BP Pulse Ox 98.1 F 93 16 111/68 97 01/03/17 12:36 01/03/17 12:36 01/03/17 12:36 01/03/17 12:36 01/03/17 12:36 Intake & Output 01/02/17 01/03/17 01/04/17 06:59 06:59 06:59 Intake Total 3178 2901 Output Total 900 Balance 3178 2000 Weight 74.3 kg 73.5 kg Additional comments: The patient is a thin, white male lying flat in bed. He does not appear to be in any distress. He is nontoxic in appearance. His facial appearance is normal. He continues to have severe dental caries. His lungs are clear to auscultation bilaterally. His cardiac exam is regular. He does have a 2 out of 6 systolic ejection murmur at the left upper sternal border. Metallic heart sounds are heard at the right upper sternal border. The abdomen is soft and flat. Bowel sounds are present. There is no guarding or rebound and there are no hernias or masses present. The lower extremities are warm to touch. He does not have any pitting edema present. Results Laboratory Results: 12/27/16 05:48 12/27/16 05:48 Impressions: Chest X-Ray 12/13/16 23:37 IMPRESSION: NO ACUTE RADIOGRAPHIC FINDING IN THE CHEST. NO SIGNIFICANT CHANGE FROM PRIOR STUDY. Guidance Fluoroscopy 12/17/16 00:00 IMPRESSION: SUCCESSFUL PLACEMENT OF A 5 FR DUAL LUMEN 35 CM PICC IN THE RIGHT BASILIC VEIN. THERE IS A FOCAL STENOSIS AT THE TRANSITION BETWEEN THE RIGHT BASILIC VEIN AND AXILLARY VEIN. PATIENT HAS HAD 3 PRIOR PICC CATHETERS IN THIS ARM. FOR FUTURE CATHETER PLACEMENT, CONSIDER THE LEFT ARM OR USING THE RIGHT CEPHALIC VEIN. Interventional Vascular Procedure 12/17/16 00:00 IMPRESSION: SUCCESSFUL PLACEMENT OF A 5 FR DUAL LUMEN 35 CM PICC IN THE RIGHT BASILIC VEIN. THERE IS A FOCAL STENOSIS AT THE TRANSITION BETWEEN THE RIGHT BASILIC VEIN AND AXILLARY VEIN. PATIENT HAS HAD 3 PRIOR PICC CATHETERS IN THIS ARM. FOR FUTURE CATHETER PLACEMENT, CONSIDER THE LEFT ARM OR USING THE RIGHT CEPHALIC VEIN. PICC Line Insertion 12/17/16 00:00 IMPRESSION: SUCCESSFUL PLACEMENT OF A 5 FR DUAL LUMEN 35 CM PICC IN THE RIGHT BASILIC VEIN. THERE IS A FOCAL STENOSIS AT THE TRANSITION BETWEEN THE RIGHT BASILIC VEIN AND AXILLARY VEIN. PATIENT HAS HAD 3 PRIOR PICC CATHETERS IN THIS ARM. FOR FUTURE CATHETER PLACEMENT, CONSIDER THE LEFT ARM OR USING THE RIGHT CEPHALIC VEIN. Assessment & Plan - Diagnosis (1) Depression Qualifiers: Depression Type: unspecified Qualified Code(s): F32.9 - Major depressive disorder, single episode, unspecified Is this a current diagnosis for this admission?: Yes Plan: Continue bupropion (2) Hypokalemia Is this a current diagnosis for this admission?: Yes Plan: Corrected (3) IV drug abuse Is this a current diagnosis for this admission?: Yes Plan: Patient is not currently in a drug rehab program. He was counseled to ensure abstinence. (4) Polysubstance (including opioids) dependence with physiol dependence Is this a current diagnosis for this admission?: Yes Plan: At this time the patient does not appear to have any behavior consistent with withdrawal. (5) Streptococcal septicemia Is this a current diagnosis for this admission?: Yes Plan: Continue IV Rocephin. (6) Cardiomyopathy Is this a current diagnosis for this admission?: Yes Plan: According to the patient's echocardiogram his ejection fraction is 30%. We need to monitor closely for the development of congestive heart failure. (7) Mitral regurgitation Is this a current diagnosis for this admission?: Yes Plan: According to the patient's echocardiogram he also has moderate to severe mitral regurgitation. Monitor for s/sx CHF. - Time Time Spent with patient: 15-24 minutes - Inpatient Certification Medical Necessity: Need for IV Antibiotics, Risk of Complication if Not Cared For in Hospital - Plan Summary Plan Summary: Patient will need 6 weeks of intravenous therapy for infective endocarditis with Streptococcus mitis. It is imperative that he have his infected dental caries removed as well. He started antibiotics on 12/14/2016. Unfortunately, there are reports that the patient is now noted to be opiate positive since being in the hospital. There is a concern that he may have been receiving drugs from his girlfriend. She is no longer allowed to visit with the patient. Patient has been counseled about the need to completely abstain from opioids and injection drugs. The patient agrees to join a substance abuse program after discharge. The patient also has cardiomyopathy. He appears to be stable at this time without any evidence of decompensated heart failure but we need to follow closely.
[2017-01-03] MEDS: ZOLPIDEM TARTRATE 5 MG TABLET PO PRN (23:39)
[2017-01-04] MEDS: BUPROPION HCL 100 MG TABLET PO SCH ×3 (05:25→21:47)
[2017-01-04 07:20] LABS: ABSOLUTE EOSINOPHILS # (AUTO) 0.1 10^3/uL (0.0-0.6); ABSOLUTE LYMPHOCYTES (AUTO) 1.1 10^3/uL (0.5-4.7); ABSOLUTE MONOCYTES (AUTO) 0.6 10^3/uL (0.1-1.4); ABSOLUTE NEUT (AUTO) 4.3 10^3/uL (1.7-8.2); BASOPHILS % (AUTO) 0.3 % (0-2); EOSINOPHILS % (AUTO) 1.5 % (0-6); HEMATOCRIT 36.4 % (37.9-51.0); HEMOGLOBIN 12.1 g/dL (13.5-17.0); HGB HCT DIFFERENCE -0.1; LYMPHOCYTES % (AUTO) 18.3 % (13-45); MEAN CORPUSCULAR HEMOGLOBIN 26.4 pg (27.0-33.4); MEAN CORPUSCULAR HGB CONC 33.3 g/dL (32.0-36.0); MEAN CORPUSCULAR VOLUME 79 fl (80-97); MONOCYTES % (AUTO) 9.4 % (3-13); RED BLOOD COUNT 4.59 10^6/uL (4.35-5.55); RED CELL DISTRIBUTION WIDTH 16.4 % (11.5-14.0); SEGMENTED NEUTROPHILS % (AUTO) 70.5 % (42-78); WHITE BLOOD COUNT 6.2 10^3/uL (4.0-10.5)
[2017-01-04 07:39] LABS: ANION GAP 12 (5-19); BLOOD UREA NITROGEN 11 mg/dL (7-20); CALCIUM 8.9 mg/dL (8.4-10.2); CARBON DIOXIDE 30 mmol/L (22-30); CHLORIDE 102 mmol/L (98-107); CREATININE RESULT 0.76 mg/dL (0.52-1.25); GLUCOSE 78 mg/dL (75-110); MAGNESIUM 1.9 mg/dL (1.6-2.3); POTASSIUM 4.1 mmol/L (3.6-5.0); SODIUM 143.8 mmol/L (137-145)
[2017-01-04] MEDS: OMEGA-3 ACID ETHYL ESTERS 1 GM CAPSULE PO SCH (08:25)
[2017-01-04] MEDS: CEFTRIAXONE 2 GM/D5W RTU 2 GM/50 ML RTUPB IV SCH (11:11)
[2017-01-04] MEDS: FOLIC ACID 1 MG TABLET PO SCH (11:12)
[2017-01-04] MEDS: FERROUS SULFATE 325 MG TABLET PO SCH (11:12)
[2017-01-04] MEDS: NORMAL SALINE 10 ML SDV (SCHEDULED) IV SCH ×2 (11:12→21:48)
[2017-01-04] MEDS: KETOCONAZOLE 2% SHAMPOO 120 ML BOTTLE TP SCH (11:13)
[2017-01-04] MEDS ORDERED: SODIUM POLYSTYRENE SULFONATE 15 GM/60 ML PO ONE (15:12)
[2017-01-04] MEDS ORDERED: DEXTROSE 50%-WATER 25 GM/50 ML DISP.SYRIN IV ONE (15:13)
[2017-01-04] MEDS ORDERED: INSULIN REG, HUMAN 100 UNIT/ML 3 ML VIAL (PYX) IV ONE (15:14)
--- NOTE | 2017-01-04 15:20 | PDOC PROGRESS REPORT ---
Subjective Progress Note for:: 01/04/17 Subjective:: Patient is seen on rounds. He is resting in bed. He is denies shortness of breath or chest pain. Denies any palpitations. Denies any nausea, vomiting or abdominal pain. He denies any arthralgia, or myalgia. Remaining review of systems are negative. Reason For Visit: FEVER,IVDA Physical Exam Vital Signs: Temp Pulse Resp BP Pulse Ox 97.6 F 89 14 106/68 99 01/04/17 11:53 01/04/17 11:53 01/04/17 11:53 01/04/17 11:53 01/04/17 11:53 Intake & Output 01/03/17 01/04/17 01/05/17 06:59 06:59 06:59 Intake Total 2901 2361 Output Total 900 Balance 2000 2361 Weight 73.5 kg 73.5 kg General appearance: PRESENT: no acute distress, thin, well-developed, well- nourished Head exam: PRESENT: atraumatic, normocephalic Eye exam: PRESENT: conjunctiva pink, EOMI, PERRLA. ABSENT: scleral icterus Ear exam: PRESENT: normal external ear exam Mouth exam: PRESENT: moist, tongue midline Teeth exam: PRESENT: dental caries, poor dentation Neck exam: ABSENT: carotid bruit, JVD, lymphadenopathy, thyromegaly Respiratory exam: PRESENT: clear to auscultation sera. ABSENT: rales, rhonchi, wheezes Cardiovascular exam: PRESENT: RRR. ABSENT: diastolic murmur, rubs, systolic murmur Pulses: PRESENT: normal dorsalis pedis pul Vascular exam: PRESENT: normal capillary refill GI/Abdominal exam: PRESENT: normal bowel sounds, soft. ABSENT: distended, guarding, mass, organolmegaly, rebound, tenderness Rectal exam: PRESENT: deferred Extremities exam: PRESENT: full ROM. ABSENT: calf tenderness, clubbing, pedal edema Neurological exam: PRESENT: alert, awake, oriented to person, oriented to place , oriented to time, oriented to situation, CN II-XII grossly intact. ABSENT: motor sensory deficit Psychiatric exam: PRESENT: appropriate affect, normal mood. ABSENT: homicidal ideation, suicidal ideation Skin exam: PRESENT: dry, intact, warm. ABSENT: cyanosis, rash Results Laboratory Results: 01/04/17 06:25 01/04/17 06:25 01/04/17 01/04/17 06:25 06:25 WBC 6.2 RBC 4.59 Hgb 12.1 L Hct 36.4 L MCV 79 L MCH 26.4 L MCHC 33.3 RDW 16.4 H Plt Count 138 L Seg Neutrophils % 70.5 Lymphocytes % 18.3 Monocytes % 9.4 Eosinophils % 1.5 Basophils % 0.3 Absolute Neutrophils 4.3 Absolute Lymphocytes 1.1 Absolute Monocytes 0.6 Absolute Eosinophils 0.1 Absolute Basophils 0.0 Sodium 143.8 Potassium 4.1 Chloride 102 Carbon Dioxide 30 Anion Gap 12 BUN 11 Creatinine 0.76 Est GFR ( Amer) > 60 Est GFR (Non-Af Amer) > 60 Glucose 78 Calcium 8.9 Magnesium 1.9 Impressions: Chest X-Ray 12/13/16 23:37 IMPRESSION: NO ACUTE RADIOGRAPHIC FINDING IN THE CHEST. NO SIGNIFICANT CHANGE FROM PRIOR STUDY. Guidance Fluoroscopy 12/17/16 00:00 IMPRESSION: SUCCESSFUL PLACEMENT OF A 5 FR DUAL LUMEN 35 CM PICC IN THE RIGHT BASILIC VEIN. THERE IS A FOCAL STENOSIS AT THE TRANSITION BETWEEN THE RIGHT BASILIC VEIN AND AXILLARY VEIN. PATIENT HAS HAD 3 PRIOR PICC CATHETERS IN THIS ARM. FOR FUTURE CATHETER PLACEMENT, CONSIDER THE LEFT ARM OR USING THE RIGHT CEPHALIC VEIN. Interventional Vascular Procedure 12/17/16 00:00 IMPRESSION: SUCCESSFUL PLACEMENT OF A 5 FR DUAL LUMEN 35 CM PICC IN THE RIGHT BASILIC VEIN. THERE IS A FOCAL STENOSIS AT THE TRANSITION BETWEEN THE RIGHT BASILIC VEIN AND AXILLARY VEIN. PATIENT HAS HAD 3 PRIOR PICC CATHETERS IN THIS ARM. FOR FUTURE CATHETER PLACEMENT, CONSIDER THE LEFT ARM OR USING THE RIGHT CEPHALIC VEIN. PICC Line Insertion 12/17/16 00:00 IMPRESSION: SUCCESSFUL PLACEMENT OF A 5 FR DUAL LUMEN 35 CM PICC IN THE RIGHT BASILIC VEIN. THERE IS A FOCAL STENOSIS AT THE TRANSITION BETWEEN THE RIGHT BASILIC VEIN AND AXILLARY VEIN. PATIENT HAS HAD 3 PRIOR PICC CATHETERS IN THIS ARM. FOR FUTURE CATHETER PLACEMENT, CONSIDER THE LEFT ARM OR USING THE RIGHT CEPHALIC VEIN. Assessment & Plan - Diagnosis (1) Depression Qualifiers: Depression Type: unspecified Qualified Code(s): F32.9 - Major depressive disorder, single episode, unspecified Is this a current diagnosis for this admission?: Yes (2) Hyponatremia Is this a current diagnosis for this admission?: Yes Plan: Normalized (3) Mitral regurgitation Qualifiers: Cardiac valve disease etiology: nonrheumatic Qualified Code(s): I34.0 - Nonrheumatic mitral (valve) insufficiency Is this a current diagnosis for this admission?: Yes Plan: Secondary to infective endocarditis due to IV drug abuse (4) Polysubstance (including opioids) dependence with physiol dependence Is this a current diagnosis for this admission?: Yes (5) Streptococcal septicemia Is this a current diagnosis for this admission?: Yes (7) Endocarditis Qualifiers: Endocarditis type: infective Infective endocarditis organism: bacterial Chronicity: unspecified Qualified Code(s): I33.0 - Acute and subacute infective endocarditis Is this a current diagnosis for this admission?: Yes Plan: CHRISTA shows new vegetation on mitral valve on CHRISTA done at [facility] (8) Hyperkalemia Plan: Presently normal (9) Systolic CHF, chronic Is this a current diagnosis for this admission?: Yes Plan: Presently euvolemic - Time Time Spent with patient: 25-34 minutes Critical Time spent with patient: 15-24 minutes Medications reviewed and adjusted accordingly: Yes Anticipated discharge: Home with Homehealth Within: within 24 hours
[2017-01-04] MEDS: NORMAL SALINE 10 ML SDV (AFTER EACH USE) IV PRN (21:48)
[2017-01-05] MEDS: ZOLPIDEM TARTRATE 5 MG TABLET PO PRN (01:09)
[2017-01-05] MEDS: BUPROPION HCL 100 MG TABLET PO SCH ×3 (05:15→22:29)
[2017-01-05] MEDS: OMEGA-3 ACID ETHYL ESTERS 1 GM CAPSULE PO SCH (07:44)
--- NOTE | 2017-01-05 09:38 | PDOC PROGRESS REPORT ---
Subjective Progress Note for:: 01/05/17 Subjective:: Patient is a 31-year-old male who presents with what is now known to be infective carditis with Streptococcus mitis. Patient laying in bed with no complaints. Reason For Visit: FEVER,IVDA Physical Exam Vital Signs: Temp Pulse Resp BP Pulse Ox 97.9 F 97 16 103/67 99 01/05/17 08:10 01/05/17 08:10 01/05/17 08:10 01/05/17 08:10 01/05/17 08:10 Intake & Output 01/04/17 01/05/17 01/06/17 06:59 06:59 06:59 Intake Total 2361 1478 Balance 2361 1478 Weight 73.5 kg General appearance: PRESENT: no acute distress, thin Head exam: PRESENT: atraumatic, normocephalic Eye exam: PRESENT: EOMI. ABSENT: scleral icterus Ear exam: PRESENT: normal external ear exam Mouth exam: PRESENT: moist, tongue midline Neck exam: ABSENT: carotid bruit, JVD, lymphadenopathy, thyromegaly Respiratory exam: PRESENT: clear to auscultation sera. ABSENT: rales, rhonchi, wheezes Cardiovascular exam: PRESENT: systolic murmur, other - midsternal scar. ABSENT : diastolic murmur, rubs Pulses: PRESENT: normal dorsalis pedis pul Vascular exam: PRESENT: normal capillary refill GI/Abdominal exam: PRESENT: normal bowel sounds, soft. ABSENT: distended, guarding, mass, organolmegaly, rebound, tenderness Rectal exam: PRESENT: deferred Extremities exam: PRESENT: full ROM. ABSENT: calf tenderness, clubbing, pedal edema Neurological exam: PRESENT: alert, awake, oriented to person, oriented to place , oriented to time, oriented to situation, CN II-XII grossly intact. ABSENT: motor sensory deficit Psychiatric exam: PRESENT: appropriate affect, normal mood. ABSENT: homicidal ideation, suicidal ideation Skin exam: PRESENT: dry, intact, warm. ABSENT: cyanosis, rash Results Laboratory Results: 01/04/17 06:25 01/04/17 06:25 Impressions: Chest X-Ray 12/13/16 23:37 IMPRESSION: NO ACUTE RADIOGRAPHIC FINDING IN THE CHEST. NO SIGNIFICANT CHANGE FROM PRIOR STUDY. Guidance Fluoroscopy 12/17/16 00:00 IMPRESSION: SUCCESSFUL PLACEMENT OF A 5 FR DUAL LUMEN 35 CM PICC IN THE RIGHT BASILIC VEIN. THERE IS A FOCAL STENOSIS AT THE TRANSITION BETWEEN THE RIGHT BASILIC VEIN AND AXILLARY VEIN. PATIENT HAS HAD 3 PRIOR PICC CATHETERS IN THIS ARM. FOR FUTURE CATHETER PLACEMENT, CONSIDER THE LEFT ARM OR USING THE RIGHT CEPHALIC VEIN. Interventional Vascular Procedure 12/17/16 00:00 IMPRESSION: SUCCESSFUL PLACEMENT OF A 5 FR DUAL LUMEN 35 CM PICC IN THE RIGHT BASILIC VEIN. THERE IS A FOCAL STENOSIS AT THE TRANSITION BETWEEN THE RIGHT BASILIC VEIN AND AXILLARY VEIN. PATIENT HAS HAD 3 PRIOR PICC CATHETERS IN THIS ARM. FOR FUTURE CATHETER PLACEMENT, CONSIDER THE LEFT ARM OR USING THE RIGHT CEPHALIC VEIN. PICC Line Insertion 12/17/16 00:00 IMPRESSION: SUCCESSFUL PLACEMENT OF A 5 FR DUAL LUMEN 35 CM PICC IN THE RIGHT BASILIC VEIN. THERE IS A FOCAL STENOSIS AT THE TRANSITION BETWEEN THE RIGHT BASILIC VEIN AND AXILLARY VEIN. PATIENT HAS HAD 3 PRIOR PICC CATHETERS IN THIS ARM. FOR FUTURE CATHETER PLACEMENT, CONSIDER THE LEFT ARM OR USING THE RIGHT CEPHALIC VEIN. 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 Continue ceftiaxone. Patient blood cultures were negative as of 12/16/2016. Patient requires 6 weeks of antibiotics therefore his stop date would be January 27 2017. (2) IV drug abuse Is this a current diagnosis for this admission?: Yes Plan: Suggested that patient receive outpatient treatment. Unfortunately patient may be using in the hospital. Patient visited her band from the facility.UDS on admission was negative however the one taken on 12/31 was positive for opiates. (3) History of aortic valve replacement with bioprosthetic valve Is this a current diagnosis for this admission?: No Plan: Continue with supportive care. Counseled patient on the importance of not using IV drug abuse as he could potentially harm his prosthetic valve. Patient will have no further surgeries. (4) Systolic CHF, chronic Is this a current diagnosis for this admission?: Yes Plan: Currently stable. (5) Seborrheic dermatitis Plan: Continue ketoconazole-based shampoo as needed for the affected areas of his scalp and face. Improved rash on face still some flaking of the hair line. (6) Depression Qualifiers: Depression Type: unspecified Qualified Code(s): F32.9 - Major depressive disorder, single episode, unspecified Is this a current diagnosis for this admission?: Yes Plan: Patient was started on Wellbutrin on this admission. - Time Time Spent with patient: Less than 15 minutes Anticipated discharge: Home - Inpatient Certification Medical Necessity: Need for IV Antibiotics - Patient requiring 6 weeks of antibiotics and cannot be discharge with picc line due to IV drug abuse.
[2017-01-05] MEDS: KETOCONAZOLE 2% SHAMPOO 120 ML BOTTLE TP SCH (10:41)
[2017-01-05] MEDS: CEFTRIAXONE 2 GM/D5W RTU 2 GM/50 ML RTUPB IV SCH (10:41)
[2017-01-05] MEDS: FOLIC ACID 1 MG TABLET PO SCH (10:42)
[2017-01-05] MEDS: NORMAL SALINE 10 ML SDV (SCHEDULED) IV SCH ×2 (10:42→22:30)
[2017-01-05] MEDS: FERROUS SULFATE 325 MG TABLET PO SCH (10:42)
[2017-01-05] MEDS: NORMAL SALINE 10 ML SDV (AFTER EACH USE) IV PRN (22:30)
[2017-01-06] MEDS: BUPROPION HCL 100 MG TABLET PO SCH ×3 (05:20→21:38)
[2017-01-06] MEDS: OMEGA-3 ACID ETHYL ESTERS 1 GM CAPSULE PO SCH (08:32)
[2017-01-06] MEDS: FOLIC ACID 1 MG TABLET PO SCH (09:43)
[2017-01-06] MEDS: FERROUS SULFATE 325 MG TABLET PO SCH (09:43)
[2017-01-06] MEDS: NORMAL SALINE 10 ML SDV (SCHEDULED) IV SCH ×2 (09:44→21:39)
[2017-01-06] MEDS: KETOCONAZOLE 2% SHAMPOO 120 ML BOTTLE TP SCH (09:47)
[2017-01-06] MEDS: CEFTRIAXONE 2 GM/D5W RTU 2 GM/50 ML RTUPB IV SCH (13:32)
--- NOTE | 2017-01-06 18:34 | PDOC PROGRESS REPORT ---
Subjective Progress Note for:: 01/06/17 Subjective:: Patient is a 31-year-old male who presents with what is now known to be infective carditis with Streptococcus mitis. Patient without any complaints. Reason For Visit: FEVER,IVDA Physical Exam Vital Signs: Temp Pulse Resp BP Pulse Ox 98 F 93 18 104/66 98 01/06/17 13:27 01/06/17 13:27 01/06/17 13:27 01/06/17 13:27 01/06/17 13:27 Intake & Output 01/05/17 01/06/17 01/07/17 06:59 06:59 06:59 Intake Total 1478 2170 Balance 1478 2170 Weight 74.4 kg General appearance: PRESENT: no acute distress, thin, well-developed Head exam: PRESENT: normocephalic Eye exam: PRESENT: EOMI. ABSENT: scleral icterus Ear exam: PRESENT: normal external ear exam Mouth exam: PRESENT: moist Neck exam: ABSENT: carotid bruit, JVD, lymphadenopathy, thyromegaly Respiratory exam: PRESENT: clear to auscultation sera. ABSENT: rales, rhonchi, wheezes Cardiovascular exam: PRESENT: RRR, systolic murmur. ABSENT: diastolic murmur, rubs Pulses: PRESENT: normal dorsalis pedis pul Vascular exam: PRESENT: normal capillary refill GI/Abdominal exam: PRESENT: normal bowel sounds, soft. ABSENT: distended, guarding, mass, organolmegaly, rebound, tenderness Rectal exam: PRESENT: deferred Extremities exam: PRESENT: full ROM. ABSENT: calf tenderness, clubbing, pedal edema Neurological exam: PRESENT: alert, awake, oriented to person, oriented to place , oriented to time, oriented to situation, CN II-XII grossly intact. ABSENT: motor sensory deficit Psychiatric exam: PRESENT: appropriate affect, normal mood. ABSENT: homicidal ideation, suicidal ideation Skin exam: PRESENT: dry, intact, warm. ABSENT: cyanosis, rash Results Laboratory Results: 01/04/17 06:25 01/04/17 06:25 Impressions: Chest X-Ray 12/13/16 23:37 IMPRESSION: NO ACUTE RADIOGRAPHIC FINDING IN THE CHEST. NO SIGNIFICANT CHANGE FROM PRIOR STUDY. Guidance Fluoroscopy 12/17/16 00:00 IMPRESSION: SUCCESSFUL PLACEMENT OF A 5 FR DUAL LUMEN 35 CM PICC IN THE RIGHT BASILIC VEIN. THERE IS A FOCAL STENOSIS AT THE TRANSITION BETWEEN THE RIGHT BASILIC VEIN AND AXILLARY VEIN. PATIENT HAS HAD 3 PRIOR PICC CATHETERS IN THIS ARM. FOR FUTURE CATHETER PLACEMENT, CONSIDER THE LEFT ARM OR USING THE RIGHT CEPHALIC VEIN. Interventional Vascular Procedure 12/17/16 00:00 IMPRESSION: SUCCESSFUL PLACEMENT OF A 5 FR DUAL LUMEN 35 CM PICC IN THE RIGHT BASILIC VEIN. THERE IS A FOCAL STENOSIS AT THE TRANSITION BETWEEN THE RIGHT BASILIC VEIN AND AXILLARY VEIN. PATIENT HAS HAD 3 PRIOR PICC CATHETERS IN THIS ARM. FOR FUTURE CATHETER PLACEMENT, CONSIDER THE LEFT ARM OR USING THE RIGHT CEPHALIC VEIN. PICC Line Insertion 12/17/16 00:00 IMPRESSION: SUCCESSFUL PLACEMENT OF A 5 FR DUAL LUMEN 35 CM PICC IN THE RIGHT BASILIC VEIN. THERE IS A FOCAL STENOSIS AT THE TRANSITION BETWEEN THE RIGHT BASILIC VEIN AND AXILLARY VEIN. PATIENT HAS HAD 3 PRIOR PICC CATHETERS IN THIS ARM. FOR FUTURE CATHETER PLACEMENT, CONSIDER THE LEFT ARM OR USING THE RIGHT CEPHALIC VEIN. 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 Continue ceftiaxone. Patient blood cultures were negative as of 12/16/2016. 6 weeks of treatment will be completed January 27 2017. (2) IV drug abuse Is this a current diagnosis for this admission?: Yes Plan: Suggested that patient receive outpatient treatment. Unfortunately patient may be using in the hospital. UDS on admission was negative however the one taken on 12/31 was positive for opiates. Girlfriend band from visiting. (3) History of aortic valve replacement with bioprosthetic valve Is this a current diagnosis for this admission?: No Plan: Continue with supportive care. Counseled patient on the importance of not using IV drug abuse as he could potentially harm his prosthetic valve. Patient will have no further surgeries. (4) Systolic CHF, chronic Is this a current diagnosis for this admission?: Yes Plan: Currently stable. (5) Seborrheic dermatitis Plan: Continue ketoconazole-based shampoo as needed for the affected areas of his scalp and face. Resolved. (6) Depression Qualifiers: Depression Type: unspecified Qualified Code(s): F32.9 - Major depressive disorder, single episode, unspecified Is this a current diagnosis for this admission?: Yes Plan: Continue Wellbutrin. - Time Time Spent with patient: Less than 15 minutes Anticipated discharge: Home - Inpatient Certification Medical Necessity: Need for IV Antibiotics
[2017-01-07] MEDS: ZOLPIDEM TARTRATE 5 MG TABLET PO PRN (01:25)
[2017-01-07] MEDS: BUPROPION HCL 100 MG TABLET PO SCH ×3 (05:28→22:48)
[2017-01-07] MEDS: OMEGA-3 ACID ETHYL ESTERS 1 GM CAPSULE PO SCH (08:18)
[2017-01-07] MEDS: FOLIC ACID 1 MG TABLET PO SCH (10:48)
[2017-01-07] MEDS: NORMAL SALINE 10 ML SDV (SCHEDULED) IV SCH ×2 (10:49→22:49)
[2017-01-07] MEDS: FERROUS SULFATE 325 MG TABLET PO SCH (10:49)
[2017-01-07] MEDS: KETOCONAZOLE 2% SHAMPOO 120 ML BOTTLE TP SCH (10:52)
[2017-01-07] MEDS: CEFTRIAXONE 2 GM/D5W RTU 2 GM/50 ML RTUPB IV SCH (12:44)
--- NOTE | 2017-01-07 15:01 | PDOC PROGRESS REPORT ---
Subjective Progress Note for:: 01/07/17 Subjective:: Patient is a 31-year-old male who presents with what is now known to be infective carditis with Streptococcus mitis. Patient denies any complaints. Patient states he does walk around the hallway. Reason For Visit: FEVER,IVDA Physical Exam Vital Signs: Temp Pulse Resp BP Pulse Ox 97.7 F 96 20 110/70 99 01/07/17 11:54 01/07/17 11:54 01/07/17 11:54 01/07/17 11:54 01/07/17 11:54 Intake & Output 01/06/17 01/07/17 01/08/17 06:59 06:59 06:59 Intake Total 2170 2340 Balance 2170 2340 Weight 74.4 kg 74.4 kg General appearance: PRESENT: no acute distress, thin Head exam: PRESENT: normocephalic Eye exam: PRESENT: EOMI. ABSENT: scleral icterus Ear exam: PRESENT: normal external ear exam Mouth exam: PRESENT: moist Neck exam: ABSENT: carotid bruit, JVD, lymphadenopathy, thyromegaly Respiratory exam: PRESENT: clear to auscultation sera, other - mid sternal scar. ABSENT: rales, rhonchi, wheezes Cardiovascular exam: PRESENT: RRR, systolic murmur. ABSENT: diastolic murmur, rubs GI/Abdominal exam: PRESENT: normal bowel sounds, soft. ABSENT: distended, guarding, mass, organolmegaly, rebound, tenderness Rectal exam: PRESENT: deferred Extremities exam: PRESENT: full ROM. ABSENT: calf tenderness, clubbing, pedal edema Neurological exam: PRESENT: alert, awake, oriented to person, oriented to place , oriented to time, oriented to situation, CN II-XII grossly intact. ABSENT: motor sensory deficit Psychiatric exam: PRESENT: appropriate affect, normal mood. ABSENT: homicidal ideation, suicidal ideation Skin exam: PRESENT: dry, intact, warm. ABSENT: cyanosis, rash Results Laboratory Results: 01/04/17 06:25 01/04/17 06:25 Impressions: Chest X-Ray 12/13/16 23:37 IMPRESSION: NO ACUTE RADIOGRAPHIC FINDING IN THE CHEST. NO SIGNIFICANT CHANGE FROM PRIOR STUDY. Guidance Fluoroscopy 12/17/16 00:00 IMPRESSION: SUCCESSFUL PLACEMENT OF A 5 FR DUAL LUMEN 35 CM PICC IN THE RIGHT BASILIC VEIN. THERE IS A FOCAL STENOSIS AT THE TRANSITION BETWEEN THE RIGHT BASILIC VEIN AND AXILLARY VEIN. PATIENT HAS HAD 3 PRIOR PICC CATHETERS IN THIS ARM. FOR FUTURE CATHETER PLACEMENT, CONSIDER THE LEFT ARM OR USING THE RIGHT CEPHALIC VEIN. Interventional Vascular Procedure 12/17/16 00:00 IMPRESSION: SUCCESSFUL PLACEMENT OF A 5 FR DUAL LUMEN 35 CM PICC IN THE RIGHT BASILIC VEIN. THERE IS A FOCAL STENOSIS AT THE TRANSITION BETWEEN THE RIGHT BASILIC VEIN AND AXILLARY VEIN. PATIENT HAS HAD 3 PRIOR PICC CATHETERS IN THIS ARM. FOR FUTURE CATHETER PLACEMENT, CONSIDER THE LEFT ARM OR USING THE RIGHT CEPHALIC VEIN. PICC Line Insertion 12/17/16 00:00 IMPRESSION: SUCCESSFUL PLACEMENT OF A 5 FR DUAL LUMEN 35 CM PICC IN THE RIGHT BASILIC VEIN. THERE IS A FOCAL STENOSIS AT THE TRANSITION BETWEEN THE RIGHT BASILIC VEIN AND AXILLARY VEIN. PATIENT HAS HAD 3 PRIOR PICC CATHETERS IN THIS ARM. FOR FUTURE CATHETER PLACEMENT, CONSIDER THE LEFT ARM OR USING THE RIGHT CEPHALIC VEIN. 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 Continue ceftiaxone. Patient blood cultures were negative as of 12/16/2016. 6 weeks of treatment will be completed January 27 2017. (2) IV drug abuse Is this a current diagnosis for this admission?: Yes Plan: Suggested that patient receive outpatient treatment. Unfortunately patient may be using in the hospital. UDS on admission was negative however the one taken on 12/31 was positive for opiates. Girlfriend band from visiting. (3) History of aortic valve replacement with bioprosthetic valve Is this a current diagnosis for this admission?: No Plan: Continue with supportive care. Counseled patient on the importance of not using IV drug abuse as he could potentially harm his prosthetic valve. Patient will have no further surgeries. (4) Systolic CHF, chronic Is this a current diagnosis for this admission?: Yes Plan: Compensated. (5) Seborrheic dermatitis Plan: Continue ketoconazole-based shampoo as needed for the affected areas of his scalp and face. Resolved. (6) Depression Qualifiers: Depression Type: unspecified Qualified Code(s): F32.9 - Major depressive disorder, single episode, unspecified Is this a current diagnosis for this admission?: Yes Plan: Continue Wellbutrin. - Time Time Spent with patient: Less than 15 minutes Anticipated discharge: Home - Inpatient Certification Medical Necessity: Need for IV Antibiotics
[2017-01-08] MEDS: ZOLPIDEM TARTRATE 5 MG TABLET PO PRN (01:04)
[2017-01-08] MEDS: BUPROPION HCL 100 MG TABLET PO SCH ×3 (05:09→21:28)
[2017-01-08] MEDS: OMEGA-3 ACID ETHYL ESTERS 1 GM CAPSULE PO SCH (08:49)
[2017-01-08] MEDS: FOLIC ACID 1 MG TABLET PO SCH (11:05)
[2017-01-08] MEDS: FERROUS SULFATE 325 MG TABLET PO SCH (11:05)
[2017-01-08] MEDS: KETOCONAZOLE 2% SHAMPOO 120 ML BOTTLE TP SCH (11:06)
[2017-01-08] MEDS: NORMAL SALINE 10 ML SDV (SCHEDULED) IV SCH ×2 (11:06→21:28)
[2017-01-08] MEDS: CEFTRIAXONE 2 GM/D5W RTU 2 GM/50 ML RTUPB IV SCH (13:15)
--- NOTE | 2017-01-08 13:16 | PDOC PROGRESS REPORT ---
Subjective Progress Note for:: 01/08/17 Subjective:: Patient is a 31-year-old male who presents with what is now known to be infective carditis with Streptococcus mitis. Patient denies any complaints. Reason For Visit: FEVER,IVDA Physical Exam Vital Signs: Temp Pulse Resp BP Pulse Ox 98.2 F 94 16 101/61 99 01/08/17 07:34 01/08/17 07:34 01/08/17 07:34 01/08/17 07:34 01/08/17 07:34 Intake & Output 01/07/17 01/08/17 01/09/17 06:59 06:59 06:59 Intake Total 2340 2174 Balance 2340 2174 Weight 74.4 kg 74.4 kg General appearance: PRESENT: no acute distress, thin Head exam: PRESENT: normocephalic Eye exam: PRESENT: EOMI. ABSENT: scleral icterus Ear exam: PRESENT: normal external ear exam Mouth exam: PRESENT: moist Neck exam: ABSENT: carotid bruit, JVD, lymphadenopathy, thyromegaly Respiratory exam: PRESENT: clear to auscultation sera. ABSENT: rales, rhonchi, wheezes Cardiovascular exam: ABSENT: diastolic murmur, rubs, systolic murmur GI/Abdominal exam: PRESENT: normal bowel sounds, soft. ABSENT: distended, guarding, mass, organolmegaly, rebound, tenderness Rectal exam: PRESENT: deferred Extremities exam: PRESENT: full ROM. ABSENT: calf tenderness, clubbing, pedal edema Neurological exam: PRESENT: alert, awake, oriented to person, oriented to place , oriented to time, oriented to situation, CN II-XII grossly intact. ABSENT: motor sensory deficit Psychiatric exam: PRESENT: appropriate affect, normal mood. ABSENT: homicidal ideation, suicidal ideation Skin exam: PRESENT: dry, intact, warm. ABSENT: cyanosis, rash Results Laboratory Results: 01/04/17 06:25 01/04/17 06:25 Impressions: Chest X-Ray 12/13/16 23:37 IMPRESSION: NO ACUTE RADIOGRAPHIC FINDING IN THE CHEST. NO SIGNIFICANT CHANGE FROM PRIOR STUDY. Guidance Fluoroscopy 12/17/16 00:00 IMPRESSION: SUCCESSFUL PLACEMENT OF A 5 FR DUAL LUMEN 35 CM PICC IN THE RIGHT BASILIC VEIN. THERE IS A FOCAL STENOSIS AT THE TRANSITION BETWEEN THE RIGHT BASILIC VEIN AND AXILLARY VEIN. PATIENT HAS HAD 3 PRIOR PICC CATHETERS IN THIS ARM. FOR FUTURE CATHETER PLACEMENT, CONSIDER THE LEFT ARM OR USING THE RIGHT CEPHALIC VEIN. Interventional Vascular Procedure 12/17/16 00:00 IMPRESSION: SUCCESSFUL PLACEMENT OF A 5 FR DUAL LUMEN 35 CM PICC IN THE RIGHT BASILIC VEIN. THERE IS A FOCAL STENOSIS AT THE TRANSITION BETWEEN THE RIGHT BASILIC VEIN AND AXILLARY VEIN. PATIENT HAS HAD 3 PRIOR PICC CATHETERS IN THIS ARM. FOR FUTURE CATHETER PLACEMENT, CONSIDER THE LEFT ARM OR USING THE RIGHT CEPHALIC VEIN. PICC Line Insertion 12/17/16 00:00 IMPRESSION: SUCCESSFUL PLACEMENT OF A 5 FR DUAL LUMEN 35 CM PICC IN THE RIGHT BASILIC VEIN. THERE IS A FOCAL STENOSIS AT THE TRANSITION BETWEEN THE RIGHT BASILIC VEIN AND AXILLARY VEIN. PATIENT HAS HAD 3 PRIOR PICC CATHETERS IN THIS ARM. FOR FUTURE CATHETER PLACEMENT, CONSIDER THE LEFT ARM OR USING THE RIGHT CEPHALIC VEIN. 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 Continue ceftiaxone. Patient blood cultures were negative as of 12/16/2016. 6 weeks of treatment will be completed January 27 2017. (2) IV drug abuse Is this a current diagnosis for this admission?: Yes Plan: Suggested that patient receive outpatient treatment. Unfortunately patient may be using in the hospital. UDS on admission was negative however the one taken on 12/31 was positive for opiates. Girlfriend band from visiting. (3) History of aortic valve replacement with bioprosthetic valve Is this a current diagnosis for this admission?: No Plan: Continue with supportive care. Counseled patient on the importance of not using IV drug abuse as he could potentially harm his prosthetic valve. Patient will have no further surgeries. (4) Systolic CHF, chronic Is this a current diagnosis for this admission?: Yes Plan: Compensated. (5) Seborrheic dermatitis Plan: Continue ketoconazole-based shampoo as needed for the affected areas of his scalp and face. Resolved. (6) Depression Qualifiers: Depression Type: unspecified Qualified Code(s): F32.9 - Major depressive disorder, single episode, unspecified Is this a current diagnosis for this admission?: Yes Plan: Continue Wellbutrin. - Time Time Spent with patient: Less than 15 minutes Anticipated discharge: Home - Inpatient Certification Medical Necessity: Need for IV Antibiotics
[2017-01-09] MEDS: ZOLPIDEM TARTRATE 5 MG TABLET PO PRN (01:16)
[2017-01-09] MEDS: BUPROPION HCL 100 MG TABLET PO SCH ×3 (06:12→22:28)
[2017-01-09] MEDS: OMEGA-3 ACID ETHYL ESTERS 1 GM CAPSULE PO SCH (08:10)
--- NOTE | 2017-01-09 08:59 | PDOC PROGRESS REPORT ---
Subjective Progress Note for:: 01/09/17 Subjective:: Patient is a 31-year-old male who presents with what is now known to be infective carditis with Streptococcus mitis. Patient denies any complaints. Patient does not need anything at this time. Patient end date for antibiotics is 01/27. Reason For Visit: FEVER,IVDA Physical Exam Vital Signs: Temp Pulse Resp BP Pulse Ox 97.7 F 77 14 102/63 100 01/09/17 08:28 01/09/17 08:28 01/09/17 08:28 01/09/17 08:28 01/09/17 08:28 Intake & Output 01/08/17 01/09/17 01/10/17 06:59 06:59 06:59 Intake Total 2174 3129 Balance 2174 3129 Weight 74.4 kg 74.8 kg General appearance: PRESENT: no acute distress, thin Head exam: PRESENT: normocephalic Eye exam: ABSENT: scleral icterus Ear exam: PRESENT: normal external ear exam Mouth exam: PRESENT: moist Neck exam: ABSENT: carotid bruit, JVD, lymphadenopathy, thyromegaly Respiratory exam: PRESENT: clear to auscultation sera. ABSENT: rales, rhonchi, wheezes Cardiovascular exam: PRESENT: RRR, systolic murmur, other - mid sternal scar. ABSENT: diastolic murmur, rubs Pulses: PRESENT: normal dorsalis pedis pul Vascular exam: PRESENT: normal capillary refill GI/Abdominal exam: PRESENT: normal bowel sounds, soft. ABSENT: distended, guarding, mass, organolmegaly, rebound, tenderness Rectal exam: PRESENT: deferred Extremities exam: PRESENT: full ROM. ABSENT: calf tenderness, clubbing, pedal edema Neurological exam: PRESENT: alert, awake, oriented to person, oriented to place , oriented to time, oriented to situation, CN II-XII grossly intact. ABSENT: motor sensory deficit Psychiatric exam: PRESENT: appropriate affect, normal mood. ABSENT: homicidal ideation, suicidal ideation Skin exam: PRESENT: dry, intact, warm. ABSENT: cyanosis, rash Results Laboratory Results: 01/04/17 06:25 01/04/17 06:25 Impressions: Chest X-Ray 12/13/16 23:37 IMPRESSION: NO ACUTE RADIOGRAPHIC FINDING IN THE CHEST. NO SIGNIFICANT CHANGE FROM PRIOR STUDY. Guidance Fluoroscopy 12/17/16 00:00 IMPRESSION: SUCCESSFUL PLACEMENT OF A 5 FR DUAL LUMEN 35 CM PICC IN THE RIGHT BASILIC VEIN. THERE IS A FOCAL STENOSIS AT THE TRANSITION BETWEEN THE RIGHT BASILIC VEIN AND AXILLARY VEIN. PATIENT HAS HAD 3 PRIOR PICC CATHETERS IN THIS ARM. FOR FUTURE CATHETER PLACEMENT, CONSIDER THE LEFT ARM OR USING THE RIGHT CEPHALIC VEIN. Interventional Vascular Procedure 12/17/16 00:00 IMPRESSION: SUCCESSFUL PLACEMENT OF A 5 FR DUAL LUMEN 35 CM PICC IN THE RIGHT BASILIC VEIN. THERE IS A FOCAL STENOSIS AT THE TRANSITION BETWEEN THE RIGHT BASILIC VEIN AND AXILLARY VEIN. PATIENT HAS HAD 3 PRIOR PICC CATHETERS IN THIS ARM. FOR FUTURE CATHETER PLACEMENT, CONSIDER THE LEFT ARM OR USING THE RIGHT CEPHALIC VEIN. PICC Line Insertion 12/17/16 00:00 IMPRESSION: SUCCESSFUL PLACEMENT OF A 5 FR DUAL LUMEN 35 CM PICC IN THE RIGHT BASILIC VEIN. THERE IS A FOCAL STENOSIS AT THE TRANSITION BETWEEN THE RIGHT BASILIC VEIN AND AXILLARY VEIN. PATIENT HAS HAD 3 PRIOR PICC CATHETERS IN THIS ARM. FOR FUTURE CATHETER PLACEMENT, CONSIDER THE LEFT ARM OR USING THE RIGHT CEPHALIC VEIN. 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 Continue ceftiaxone. Patient blood cultures were negative f 12/16/2016. 6 weeks of treatment will be completed January 27 2017. (2) IV drug abuse Is this a current diagnosis for this admission?: Yes Plan: Suggested that patient receive outpatient treatment. Unfortunately patient may be using in the hospital. UDS on admission was negative however the one taken on 12/31 was positive for opiates. Girlfriend band from visiting. (3) History of aortic valve replacement with bioprosthetic valve Is this a current diagnosis for this admission?: No Plan: Continue with supportive care. Counseled patient on the importance of not using IV drug abuse as he could potentially harm his prosthetic valve. Patient will have no further surgeries. (4) Systolic CHF, chronic Is this a current diagnosis for this admission?: Yes Plan: Compensated. (5) Seborrheic dermatitis Plan: Continue ketoconazole-based shampoo as needed for the affected areas of his scalp and face. Resolved. (6) Depression Qualifiers: Depression Type: unspecified Qualified Code(s): F32.9 - Major depressive disorder, single episode, unspecified Is this a current diagnosis for this admission?: Yes Plan: Continue Wellbutrin. - Time Time Spent with patient: Less than 15 minutes Anticipated discharge: Home - Inpatient Certification Medical Necessity: Need for IV Antibiotics
[2017-01-09] MEDS: FOLIC ACID 1 MG TABLET PO SCH (09:37)
[2017-01-09] MEDS: FERROUS SULFATE 325 MG TABLET PO SCH (09:37)
[2017-01-09] MEDS: KETOCONAZOLE 2% SHAMPOO 120 ML BOTTLE TP SCH (09:38)
[2017-01-09] MEDS: NORMAL SALINE 10 ML SDV (SCHEDULED) IV SCH ×2 (09:38→22:28)
[2017-01-09] MEDS: NORMAL SALINE 10 ML SDV (AFTER EACH USE) IV PRN (09:38)
[2017-01-09] MEDS: CEFTRIAXONE 2 GM/D5W RTU 2 GM/50 ML RTUPB IV SCH (12:36)
[2017-01-10] MEDS: BUPROPION HCL 100 MG TABLET PO SCH ×3 (06:32→21:58)
[2017-01-10] MEDS: OMEGA-3 ACID ETHYL ESTERS 1 GM CAPSULE PO SCH (08:35)
[2017-01-10] MEDS: FOLIC ACID 1 MG TABLET PO SCH (09:41)
[2017-01-10] MEDS: FERROUS SULFATE 325 MG TABLET PO SCH (09:41)
[2017-01-10] MEDS: NORMAL SALINE 10 ML SDV (SCHEDULED) IV SCH ×2 (09:42→21:58)
[2017-01-10] MEDS: NORMAL SALINE 10 ML SDV (AFTER EACH USE) IV PRN (09:43)
[2017-01-10] MEDS: KETOCONAZOLE 2% SHAMPOO 120 ML BOTTLE TP SCH (09:46)
[2017-01-10] MEDS: CEFTRIAXONE 2 GM/D5W RTU 2 GM/50 ML RTUPB IV SCH (12:25)
--- NOTE | 2017-01-10 16:35 | PDOC PROGRESS REPORT ---
Subjective Progress Note for:: 01/10/17 Subjective:: No new issues. Reason For Visit: FEVER,IVDA Physical Exam Vital Signs: Temp Pulse Resp BP Pulse Ox 98.3 F 96 14 102/72 100 01/10/17 12:15 01/10/17 12:15 01/10/17 12:15 01/10/17 12:15 01/10/17 12:15 Intake & Output 01/09/17 01/10/17 01/11/17 06:59 06:59 06:59 Intake Total 3129 2271 1080 Balance 3129 2271 1080 Weight 74.8 kg 75.2 kg General appearance: PRESENT: no acute distress, well-developed, well-nourished Head exam: PRESENT: atraumatic, normocephalic Eye exam: PRESENT: conjunctiva pink, EOMI, PERRLA. ABSENT: scleral icterus Ear exam: PRESENT: normal external ear exam Mouth exam: PRESENT: moist, tongue midline Neck exam: ABSENT: carotid bruit, JVD, lymphadenopathy, thyromegaly Respiratory exam: PRESENT: clear to auscultation sera. ABSENT: rales, rhonchi, wheezes Cardiovascular exam: PRESENT: RRR. ABSENT: diastolic murmur, rubs, systolic murmur Pulses: PRESENT: normal dorsalis pedis pul Vascular exam: PRESENT: normal capillary refill GI/Abdominal exam: PRESENT: normal bowel sounds, soft. ABSENT: distended, guarding, mass, organolmegaly, rebound, tenderness Rectal exam: PRESENT: deferred Extremities exam: PRESENT: full ROM. ABSENT: calf tenderness, clubbing, pedal edema Neurological exam: PRESENT: alert, awake, oriented to person, oriented to place , oriented to time, oriented to situation, CN II-XII grossly intact. ABSENT: motor sensory deficit Psychiatric exam: PRESENT: appropriate affect, normal mood. ABSENT: homicidal ideation, suicidal ideation Skin exam: PRESENT: dry, intact, warm. ABSENT: cyanosis, rash Results Laboratory Results: 01/04/17 06:25 01/04/17 06:25 Impressions: Chest X-Ray 12/13/16 23:37 IMPRESSION: NO ACUTE RADIOGRAPHIC FINDING IN THE CHEST. NO SIGNIFICANT CHANGE FROM PRIOR STUDY. Guidance Fluoroscopy 12/17/16 00:00 IMPRESSION: SUCCESSFUL PLACEMENT OF A 5 FR DUAL LUMEN 35 CM PICC IN THE RIGHT BASILIC VEIN. THERE IS A FOCAL STENOSIS AT THE TRANSITION BETWEEN THE RIGHT BASILIC VEIN AND AXILLARY VEIN. PATIENT HAS HAD 3 PRIOR PICC CATHETERS IN THIS ARM. FOR FUTURE CATHETER PLACEMENT, CONSIDER THE LEFT ARM OR USING THE RIGHT CEPHALIC VEIN. Interventional Vascular Procedure 12/17/16 00:00 IMPRESSION: SUCCESSFUL PLACEMENT OF A 5 FR DUAL LUMEN 35 CM PICC IN THE RIGHT BASILIC VEIN. THERE IS A FOCAL STENOSIS AT THE TRANSITION BETWEEN THE RIGHT BASILIC VEIN AND AXILLARY VEIN. PATIENT HAS HAD 3 PRIOR PICC CATHETERS IN THIS ARM. FOR FUTURE CATHETER PLACEMENT, CONSIDER THE LEFT ARM OR USING THE RIGHT CEPHALIC VEIN. PICC Line Insertion 12/17/16 00:00 IMPRESSION: SUCCESSFUL PLACEMENT OF A 5 FR DUAL LUMEN 35 CM PICC IN THE RIGHT BASILIC VEIN. THERE IS A FOCAL STENOSIS AT THE TRANSITION BETWEEN THE RIGHT BASILIC VEIN AND AXILLARY VEIN. PATIENT HAS HAD 3 PRIOR PICC CATHETERS IN THIS ARM. FOR FUTURE CATHETER PLACEMENT, CONSIDER THE LEFT ARM OR USING THE RIGHT CEPHALIC VEIN. 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 (2) IV drug abuse Is this a current diagnosis for this admission?: Yes Plan: Pt will need to try to obtain output treatment. (3) History of aortic valve replacement with bioprosthetic valve Is this a current diagnosis for this admission?: No Plan: Supportive care (4) Systolic CHF, chronic Is this a current diagnosis for this admission?: Yes Plan: Pt medically stable. - Time Time Spent with patient: Less than 15 minutes
[2017-01-11] MEDS: ZOLPIDEM TARTRATE 5 MG TABLET PO PRN ×2 (01:59→22:07)
[2017-01-11] MEDS: BUPROPION HCL 100 MG TABLET PO SCH ×3 (05:29→22:07)
[2017-01-11] MEDS: OMEGA-3 ACID ETHYL ESTERS 1 GM CAPSULE PO SCH (08:17)
[2017-01-11] MEDS: NORMAL SALINE 10 ML SDV (SCHEDULED) IV SCH ×2 (11:14→22:07)
[2017-01-11] MEDS: KETOCONAZOLE 2% SHAMPOO 120 ML BOTTLE TP SCH (11:14)
[2017-01-11] MEDS: FERROUS SULFATE 325 MG TABLET PO SCH (11:14)
[2017-01-11] MEDS: FOLIC ACID 1 MG TABLET PO SCH (11:14)
[2017-01-11] MEDS: CEFTRIAXONE 2 GM/D5W RTU 2 GM/50 ML RTUPB IV SCH (13:37)
--- NOTE | 2017-01-11 14:27 | PDOC PROGRESS REPORT ---
Subjective Progress Note for:: 01/11/17 Subjective:: Pt states that he is doing ok. Pt states that his appetite is good. Reason For Visit: FEVER,IVDA Physical Exam Vital Signs: Temp Pulse Resp BP Pulse Ox 98.0 F 94 18 115/70 100 01/11/17 11:35 01/11/17 11:35 01/11/17 11:35 01/11/17 11:35 01/11/17 11:35 Intake & Output 01/10/17 01/11/17 01/12/17 06:59 06:59 06:59 Intake Total 2271 2724 Balance 2271 2724 Weight 75.2 kg 74.4 kg General appearance: PRESENT: no acute distress, well-developed, well-nourished Head exam: PRESENT: atraumatic, normocephalic Eye exam: PRESENT: conjunctiva pink, EOMI. ABSENT: scleral icterus Mouth exam: PRESENT: moist, tongue midline Neck exam: ABSENT: carotid bruit, JVD, lymphadenopathy, thyromegaly Respiratory exam: PRESENT: clear to auscultation sera. ABSENT: rales, rhonchi, wheezes Cardiovascular exam: PRESENT: RRR. ABSENT: diastolic murmur, rubs, systolic murmur Pulses: PRESENT: normal dorsalis pedis pul Vascular exam: PRESENT: normal capillary refill GI/Abdominal exam: PRESENT: normal bowel sounds, soft. ABSENT: distended, guarding, mass, organolmegaly, rebound, tenderness Rectal exam: PRESENT: deferred Extremities exam: PRESENT: full ROM. ABSENT: calf tenderness, clubbing, pedal edema Musculoskeletal exam: PRESENT: full ROM Neurological exam: PRESENT: alert, awake, oriented to person, oriented to place , oriented to time, oriented to situation, CN II-XII grossly intact. ABSENT: motor sensory deficit Psychiatric exam: PRESENT: appropriate affect, normal mood. ABSENT: homicidal ideation, suicidal ideation Skin exam: PRESENT: dry, intact, warm. ABSENT: cyanosis, rash Results Laboratory Results: 01/04/17 06:25 01/04/17 06:25 Impressions: Chest X-Ray 12/13/16 23:37 IMPRESSION: NO ACUTE RADIOGRAPHIC FINDING IN THE CHEST. NO SIGNIFICANT CHANGE FROM PRIOR STUDY. Guidance Fluoroscopy 12/17/16 00:00 IMPRESSION: SUCCESSFUL PLACEMENT OF A 5 FR DUAL LUMEN 35 CM PICC IN THE RIGHT BASILIC VEIN. THERE IS A FOCAL STENOSIS AT THE TRANSITION BETWEEN THE RIGHT BASILIC VEIN AND AXILLARY VEIN. PATIENT HAS HAD 3 PRIOR PICC CATHETERS IN THIS ARM. FOR FUTURE CATHETER PLACEMENT, CONSIDER THE LEFT ARM OR USING THE RIGHT CEPHALIC VEIN. Interventional Vascular Procedure 12/17/16 00:00 IMPRESSION: SUCCESSFUL PLACEMENT OF A 5 FR DUAL LUMEN 35 CM PICC IN THE RIGHT BASILIC VEIN. THERE IS A FOCAL STENOSIS AT THE TRANSITION BETWEEN THE RIGHT BASILIC VEIN AND AXILLARY VEIN. PATIENT HAS HAD 3 PRIOR PICC CATHETERS IN THIS ARM. FOR FUTURE CATHETER PLACEMENT, CONSIDER THE LEFT ARM OR USING THE RIGHT CEPHALIC VEIN. PICC Line Insertion 12/17/16 00:00 IMPRESSION: SUCCESSFUL PLACEMENT OF A 5 FR DUAL LUMEN 35 CM PICC IN THE RIGHT BASILIC VEIN. THERE IS A FOCAL STENOSIS AT THE TRANSITION BETWEEN THE RIGHT BASILIC VEIN AND AXILLARY VEIN. PATIENT HAS HAD 3 PRIOR PICC CATHETERS IN THIS ARM. FOR FUTURE CATHETER PLACEMENT, CONSIDER THE LEFT ARM OR USING THE RIGHT CEPHALIC VEIN. 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 Pt's stop date of antibiotics is 01/27/2017. (2) IV drug abuse Is this a current diagnosis for this admission?: Yes Plan: Pt will need to try to obtain output treatment. (3) History of aortic valve replacement with bioprosthetic valve Is this a current diagnosis for this admission?: No Plan: Supportive care (4) Systolic CHF, chronic Is this a current diagnosis for this admission?: Yes Plan: Pt medically stable. (5) Thrombocytopenia Is this a current diagnosis for this admission?: Yes Plan: Will check CBC in am. - Time Time Spent with patient: Less than 15 minutes
[2017-01-12] MEDS: BUPROPION HCL 100 MG TABLET PO SCH ×3 (06:14→22:32)
[2017-01-12] MEDS: NORMAL SALINE 10 ML SDV (AFTER EACH USE) IV PRN (06:14)
[2017-01-12 07:00] LABS: ABSOLUTE EOSINOPHILS # (AUTO) 0.2 10^3/uL (0.0-0.6); ABSOLUTE LYMPHOCYTES (AUTO) 1.4 10^3/uL (0.5-4.7); ABSOLUTE MONOCYTES (AUTO) 0.5 10^3/uL (0.1-1.4); ABSOLUTE NEUT (AUTO) 3.2 10^3/uL (1.7-8.2); BASOPHILS % (AUTO) 0.4 % (0-2); EOSINOPHILS % (AUTO) 3.4 % (0-6); HEMOGLOBIN 12.3 g/dL (13.5-17.0); HGB HCT DIFFERENCE -0.1; LYMPHOCYTES % (AUTO) 25.9 % (13-45); MEAN CORPUSCULAR HEMOGLOBIN 26.3 pg (27.0-33.4); MEAN CORPUSCULAR HGB CONC 33.2 g/dL (32.0-36.0); MEAN CORPUSCULAR VOLUME 79 fl (80-97); RED BLOOD COUNT 4.67 10^6/uL (4.35-5.55); RED CELL DISTRIBUTION WIDTH 16.4 % (11.5-14.0); SEGMENTED NEUTROPHILS % (AUTO) 60.3 % (42-78); WHITE BLOOD COUNT 5.3 10^3/uL (4.0-10.5)
[2017-01-12 07:16] LABS: ALANINE AMINOTRANSFERASE 126 U/L (21-72); ALBUMIN 3.7 g/dL (3.5-5.0); ALKALINE PHOSPHATASE 90 U/L (38-126); ANION GAP 12 (5-19); ASPARTATE AMINO TRANSFERASE 70 U/L (17-59); BILIRUBIN,DIRECT 0.3 mg/dL (0.0-0.4); BILIRUBIN,TOTAL 0.5 mg/dL (0.2-1.3); BLOOD UREA NITROGEN 14 mg/dL (7-20); CARBON DIOXIDE 29 mmol/L (22-30); CHLORIDE 103 mmol/L (98-107); CREATININE RESULT 0.86 mg/dL (0.52-1.25); GLUCOSE 79 mg/dL (75-110); POTASSIUM 4.1 mmol/L (3.6-5.0); SODIUM 143.7 mmol/L (137-145); TOTAL PROTEIN 6.1 g/dL (6.3-8.2)
[2017-01-12] MEDS: OMEGA-3 ACID ETHYL ESTERS 1 GM CAPSULE PO SCH (09:36)
[2017-01-12] MEDS: KETOCONAZOLE 2% SHAMPOO 120 ML BOTTLE TP SCH (09:36)
[2017-01-12] MEDS: FERROUS SULFATE 325 MG TABLET PO SCH (09:36)
[2017-01-12] MEDS: FOLIC ACID 1 MG TABLET PO SCH (09:36)
[2017-01-12] MEDS: NORMAL SALINE 10 ML SDV (SCHEDULED) IV SCH ×2 (09:37→22:32)
[2017-01-12] MEDS: CEFTRIAXONE 2 GM/D5W RTU 2 GM/50 ML RTUPB IV SCH (12:57)
--- NOTE | 2017-01-12 18:41 | PDOC PROGRESS REPORT ---
Subjective Progress Note for:: 01/12/17 Subjective:: The patient is resting in his bed. He has no complaints today and is feeling well. He denies fever chills. No chest pain, shortness of breath or heart palpitations. No nausea vomiting or diarrhea. No dysuria, frequency or hematuria Reason For Visit: FEVER,IVDA Physical Exam Vital Signs: Temp Pulse Resp BP Pulse Ox 98.6 F 89 12 103/65 99 01/12/17 16:28 01/12/17 16:28 01/12/17 16:28 01/12/17 16:28 01/12/17 16:28 Intake & Output 01/11/17 01/12/17 01/13/17 06:59 06:59 06:59 Intake Total 2724 1766 1200 Balance 2724 1766 1200 Weight 74.4 kg 74.4 kg General appearance: PRESENT: no acute distress Head exam: PRESENT: atraumatic, normocephalic Mouth exam: PRESENT: moist, tongue midline Respiratory exam: PRESENT: clear to auscultation sera. ABSENT: rales, rhonchi, wheezes Cardiovascular exam: PRESENT: RRR, systolic murmur GI/Abdominal exam: PRESENT: normal bowel sounds, soft. ABSENT: distended, guarding, mass, organolmegaly, rebound, tenderness Extremities exam: PRESENT: full ROM. ABSENT: calf tenderness, clubbing, pedal edema Neurological exam: PRESENT: alert, awake, oriented to person, oriented to place , oriented to time, oriented to situation, CN II-XII grossly intact. ABSENT: motor sensory deficit Psychiatric exam: PRESENT: appropriate affect, normal mood. ABSENT: homicidal ideation, suicidal ideation Skin exam: PRESENT: dry, intact, warm. ABSENT: cyanosis, rash Results Laboratory Results: 01/12/17 06:10 01/12/17 06:10 01/12/17 01/12/17 06:10 06:10 WBC 5.3 RBC 4.67 Hgb 12.3 L Hct 37.0 L MCV 79 L MCH 26.3 L MCHC 33.2 RDW 16.4 H Plt Count 139 L Seg Neutrophils % 60.3 Lymphocytes % 25.9 Monocytes % 10.0 Eosinophils % 3.4 Basophils % 0.4 Absolute Neutrophils 3.2 Absolute Lymphocytes 1.4 Absolute Monocytes 0.5 Absolute Eosinophils 0.2 Absolute Basophils 0.0 Sodium 143.7 Potassium 4.1 Chloride 103 Carbon Dioxide 29 Anion Gap 12 BUN 14 Creatinine 0.86 Est GFR ( Amer) > 60 Est GFR (Non-Af Amer) > 60 Glucose 79 Calcium 9.0 Total Bilirubin 0.5 AST 70 H ALT 126 H Alkaline Phosphatase 90 Total Protein 6.1 L Albumin 3.7 Impressions: Chest X-Ray 12/13/16 23:37 IMPRESSION: NO ACUTE RADIOGRAPHIC FINDING IN THE CHEST. NO SIGNIFICANT CHANGE FROM PRIOR STUDY. Guidance Fluoroscopy 12/17/16 00:00 IMPRESSION: SUCCESSFUL PLACEMENT OF A 5 FR DUAL LUMEN 35 CM PICC IN THE RIGHT BASILIC VEIN. THERE IS A FOCAL STENOSIS AT THE TRANSITION BETWEEN THE RIGHT BASILIC VEIN AND AXILLARY VEIN. PATIENT HAS HAD 3 PRIOR PICC CATHETERS IN THIS ARM. FOR FUTURE CATHETER PLACEMENT, CONSIDER THE LEFT ARM OR USING THE RIGHT CEPHALIC VEIN. Interventional Vascular Procedure 12/17/16 00:00 IMPRESSION: SUCCESSFUL PLACEMENT OF A 5 FR DUAL LUMEN 35 CM PICC IN THE RIGHT BASILIC VEIN. THERE IS A FOCAL STENOSIS AT THE TRANSITION BETWEEN THE RIGHT BASILIC VEIN AND AXILLARY VEIN. PATIENT HAS HAD 3 PRIOR PICC CATHETERS IN THIS ARM. FOR FUTURE CATHETER PLACEMENT, CONSIDER THE LEFT ARM OR USING THE RIGHT CEPHALIC VEIN. PICC Line Insertion 12/17/16 00:00 IMPRESSION: SUCCESSFUL PLACEMENT OF A 5 FR DUAL LUMEN 35 CM PICC IN THE RIGHT BASILIC VEIN. THERE IS A FOCAL STENOSIS AT THE TRANSITION BETWEEN THE RIGHT BASILIC VEIN AND AXILLARY VEIN. PATIENT HAS HAD 3 PRIOR PICC CATHETERS IN THIS ARM. FOR FUTURE CATHETER PLACEMENT, CONSIDER THE LEFT ARM OR USING THE RIGHT CEPHALIC VEIN. Assessment & Plan - Diagnosis (1) Endocarditis Qualifiers: Endocarditis type: infective Infective endocarditis organism: bacterial Chronicity: unspecified Qualified Code(s): I33.0 - Acute and subacute infective endocarditis Is this a current diagnosis for this admission?: Yes Plan: He will continue 2 g of Rocephin through January 27, 2017. (2) IV drug abuse Is this a current diagnosis for this admission?: Yes Plan: I have discussed with the patient not using going forward. He is aware that he cannot have another heart valve and that he will likely if he gets this again. (3) History of aortic valve replacement Plan: The patient received a porcine valve. He is not a candidate for further valve replacement. He has evidence of mitral and aortic valve dysfunction. (4) Chronic systolic (congestive) heart failure Plan: Currently euvolemic (5) Thrombocytopenia Is this a current diagnosis for this admission?: Yes Plan: We will check CBC again. (6) Elevated liver function tests Plan: Of undetermined significance. Further workup can be performed as an outpatient. - Time Time Spent with patient: 25-34 minutes - Inpatient Certification Medical Necessity: Need for IV Antibiotics - Inpatient hospitalization remains necessary. The patient will remain in the hospital for the duration of his IV antibiotics. Since he is an IV drug user it is not felt safe to send him home with a PICC line.
[2017-01-13] MEDS: ZOLPIDEM TARTRATE 5 MG TABLET PO PRN (00:19)
[2017-01-13] MEDS: BUPROPION HCL 100 MG TABLET PO SCH ×3 (05:47→21:47)
[2017-01-13] MEDS: NORMAL SALINE 10 ML SDV (SCHEDULED) IV SCH ×2 (14:15→21:47)
[2017-01-13] MEDS: KETOCONAZOLE 2% SHAMPOO 120 ML BOTTLE TP SCH (14:18)
[2017-01-13] MEDS ORDERED: INFLUENZA ADLT QUAD (36MOS+) 2017-18 VAC 0.5 ML SYR IM PRN (17:48)
--- NOTE | 2017-01-13 17:48 | PDOC PROGRESS REPORT ---
Subjective Progress Note for:: 01/13/17 Subjective:: The patient is resting in his bed and has no complaints today. He states that he is feeling well and only has 14 more days of IV antibiotics. Reason For Visit: FEVER,IVDA Physical Exam Vital Signs: Temp Pulse Resp BP Pulse Ox 98.1 F 84 18 106/66 99 01/13/17 16:24 01/13/17 16:24 01/13/17 16:24 01/13/17 16:24 01/13/17 16:24 Intake & Output 01/12/17 01/13/17 01/14/17 06:59 06:59 06:59 Intake Total 1766 2993 708 Balance 1766 2993 708 Weight 74.4 kg 75.5 kg General appearance: PRESENT: no acute distress, well-developed, well-nourished Head exam: PRESENT: atraumatic, normocephalic Respiratory exam: PRESENT: clear to auscultation sera. ABSENT: rales, rhonchi, wheezes Cardiovascular exam: PRESENT: RRR, systolic murmur. ABSENT: rubs GI/Abdominal exam: PRESENT: normal bowel sounds, soft. ABSENT: distended, guarding, mass, organolmegaly, rebound, tenderness Rectal exam: PRESENT: deferred Extremities exam: PRESENT: full ROM. ABSENT: calf tenderness, clubbing, pedal edema Neurological exam: PRESENT: alert, awake, oriented to person, oriented to place , oriented to time, oriented to situation, CN II-XII grossly intact. ABSENT: motor sensory deficit Psychiatric exam: PRESENT: appropriate affect, normal mood. ABSENT: homicidal ideation, suicidal ideation Skin exam: PRESENT: dry, intact, warm. ABSENT: cyanosis, rash Results Laboratory Results: 01/12/17 06:10 01/12/17 06:10 Impressions: Chest X-Ray 12/13/16 23:37 IMPRESSION: NO ACUTE RADIOGRAPHIC FINDING IN THE CHEST. NO SIGNIFICANT CHANGE FROM PRIOR STUDY. Guidance Fluoroscopy 12/17/16 00:00 IMPRESSION: SUCCESSFUL PLACEMENT OF A 5 FR DUAL LUMEN 35 CM PICC IN THE RIGHT BASILIC VEIN. THERE IS A FOCAL STENOSIS AT THE TRANSITION BETWEEN THE RIGHT BASILIC VEIN AND AXILLARY VEIN. PATIENT HAS HAD 3 PRIOR PICC CATHETERS IN THIS ARM. FOR FUTURE CATHETER PLACEMENT, CONSIDER THE LEFT ARM OR USING THE RIGHT CEPHALIC VEIN. Interventional Vascular Procedure 12/17/16 00:00 IMPRESSION: SUCCESSFUL PLACEMENT OF A 5 FR DUAL LUMEN 35 CM PICC IN THE RIGHT BASILIC VEIN. THERE IS A FOCAL STENOSIS AT THE TRANSITION BETWEEN THE RIGHT BASILIC VEIN AND AXILLARY VEIN. PATIENT HAS HAD 3 PRIOR PICC CATHETERS IN THIS ARM. FOR FUTURE CATHETER PLACEMENT, CONSIDER THE LEFT ARM OR USING THE RIGHT CEPHALIC VEIN. PICC Line Insertion 12/17/16 00:00 IMPRESSION: SUCCESSFUL PLACEMENT OF A 5 FR DUAL LUMEN 35 CM PICC IN THE RIGHT BASILIC VEIN. THERE IS A FOCAL STENOSIS AT THE TRANSITION BETWEEN THE RIGHT BASILIC VEIN AND AXILLARY VEIN. PATIENT HAS HAD 3 PRIOR PICC CATHETERS IN THIS ARM. FOR FUTURE CATHETER PLACEMENT, CONSIDER THE LEFT ARM OR USING THE RIGHT CEPHALIC VEIN. Assessment & Plan - Diagnosis (1) Endocarditis Qualifiers: Endocarditis type: infective Infective endocarditis organism: bacterial Chronicity: unspecified Qualified Code(s): I33.0 - Acute and subacute infective endocarditis Is this a current diagnosis for this admission?: Yes Plan: He will continue 2 g of Rocephin through January 27, 2017. (2) IV drug abuse Is this a current diagnosis for this admission?: Yes Plan: I have discussed with the patient not using going forward. He is aware that he cannot have another heart valve and that he will likely if he gets this again. (3) History of aortic valve replacement Plan: The patient received a porcine valve. He is not a candidate for further valve replacement. He has evidence of mitral and aortic valve dysfunction. (4) Chronic systolic (congestive) heart failure Plan: Currently euvolemic (5) Thrombocytopenia Is this a current diagnosis for this admission?: Yes Plan: We will check CBC again. (6) Elevated liver function tests Plan: Of undetermined significance. Further workup can be performed as an outpatient. - Time Time Spent with patient: 25-34 minutes - Inpatient Certification Based on my medical assessment, after consideration of the patient's comorbidities, presenting symptoms, or acuity I expect that the services needed warrant INPATIENT care.: Yes I certify that my determination is in accordance with my understanding of Medicare's requirements for reasonable and necessary INPATIENT services [42 CFR 412.3e].: Yes Medical Necessity: Need for IV Antibiotics, Other - Inpatient hospitalization remains necessary for the patient to complete his long-term parenteral antibiotics. He is not safe to go home with a PICC line due to being a recurrent IV drug user.
[2017-01-13] MEDS ORDERED: CEFTRIAXONE 2 GM/D5W RTU 2 GM/50 ML RTUPB IV ONE (19:00)
[2017-01-13] MEDS ORDERED: ONDANSETRON HCL INJ/PF 4 MG/2 ML SDV IV PRN (21:32)
[2017-01-13] MEDS ORDERED: MAG HYDROX/AL HYDROX/SIMETH SUSP 30 ML UDCUP PO PRN (21:33)
[2017-01-13] MEDS ORDERED: IBUPROFEN 600 MG TABLET PO PRN (21:33)
[2017-01-14] MEDS: BUPROPION HCL 100 MG TABLET PO SCH ×3 (04:50→22:24)
[2017-01-14] MEDS: ZOLPIDEM TARTRATE 5 MG TABLET PO PRN (04:50)
[2017-01-14] MEDS: OMEGA-3 ACID ETHYL ESTERS 1 GM CAPSULE PO SCH (12:10)
[2017-01-14] MEDS: FERROUS SULFATE 325 MG TABLET PO SCH (12:10)
[2017-01-14] MEDS: FOLIC ACID 1 MG TABLET PO SCH (12:10)
[2017-01-14] MEDS: NORMAL SALINE 10 ML SDV (SCHEDULED) IV SCH ×2 (12:11→22:24)
[2017-01-14] MEDS: KETOCONAZOLE 2% SHAMPOO 120 ML BOTTLE TP SCH (12:12)
[2017-01-14] MEDS: CEFTRIAXONE 2 GM/D5W RTU 2 GM/50 ML RTUPB IV SCH (14:24)
--- NOTE | 2017-01-14 14:38 | PDOC PROGRESS REPORT ---
Subjective Progress Note for:: 01/14/17 Subjective:: The patient states that he did not sleep well last night. He has developed some sinus congestion and a sore throat. He denies fever chills. He has had no chest pain, shortness of breath or heart palpitations. No nausea, vomiting or diarrhea. He is having normal bowel movements. No abdominal pain. No voiding complaints. Reason For Visit: FEVER,IVDA Physical Exam Vital Signs: Temp Pulse Resp BP Pulse Ox 98.0 F 88 18 98/64 L 99 01/14/17 11:44 01/14/17 11:44 01/14/17 11:44 01/14/17 11:44 01/14/17 11:44 Intake & Output 01/13/17 01/14/17 01/15/17 06:59 06:59 06:59 Intake Total 2993 2339 Balance 2993 2339 Weight 75.5 kg 74.4 kg General appearance: PRESENT: no acute distress, well-developed, well-nourished Head exam: PRESENT: atraumatic, normocephalic Eye exam: PRESENT: conjunctiva pink, EOMI, PERRLA. ABSENT: scleral icterus Ear exam: PRESENT: normal external ear exam Mouth exam: PRESENT: moist, tongue midline Respiratory exam: PRESENT: clear to auscultation sera. ABSENT: rales, rhonchi, wheezes Cardiovascular exam: PRESENT: RRR, systolic murmur. ABSENT: rubs Pulses: PRESENT: normal dorsalis pedis pul GI/Abdominal exam: PRESENT: normal bowel sounds, soft. ABSENT: distended, guarding, mass, organolmegaly, rebound, tenderness Extremities exam: PRESENT: full ROM. ABSENT: calf tenderness, clubbing, pedal edema Neurological exam: PRESENT: alert, awake, oriented to person, oriented to place , oriented to time, oriented to situation, CN II-XII grossly intact. ABSENT: motor sensory deficit Psychiatric exam: PRESENT: appropriate affect, normal mood. ABSENT: homicidal ideation, suicidal ideation Skin exam: PRESENT: dry, intact, warm. ABSENT: cyanosis, rash Results Laboratory Results: 01/12/17 06:10 01/12/17 06:10 Impressions: Chest X-Ray 12/13/16 23:37 IMPRESSION: NO ACUTE RADIOGRAPHIC FINDING IN THE CHEST. NO SIGNIFICANT CHANGE FROM PRIOR STUDY. Guidance Fluoroscopy 12/17/16 00:00 IMPRESSION: SUCCESSFUL PLACEMENT OF A 5 FR DUAL LUMEN 35 CM PICC IN THE RIGHT BASILIC VEIN. THERE IS A FOCAL STENOSIS AT THE TRANSITION BETWEEN THE RIGHT BASILIC VEIN AND AXILLARY VEIN. PATIENT HAS HAD 3 PRIOR PICC CATHETERS IN THIS ARM. FOR FUTURE CATHETER PLACEMENT, CONSIDER THE LEFT ARM OR USING THE RIGHT CEPHALIC VEIN. Interventional Vascular Procedure 12/17/16 00:00 IMPRESSION: SUCCESSFUL PLACEMENT OF A 5 FR DUAL LUMEN 35 CM PICC IN THE RIGHT BASILIC VEIN. THERE IS A FOCAL STENOSIS AT THE TRANSITION BETWEEN THE RIGHT BASILIC VEIN AND AXILLARY VEIN. PATIENT HAS HAD 3 PRIOR PICC CATHETERS IN THIS ARM. FOR FUTURE CATHETER PLACEMENT, CONSIDER THE LEFT ARM OR USING THE RIGHT CEPHALIC VEIN. PICC Line Insertion 12/17/16 00:00 IMPRESSION: SUCCESSFUL PLACEMENT OF A 5 FR DUAL LUMEN 35 CM PICC IN THE RIGHT BASILIC VEIN. THERE IS A FOCAL STENOSIS AT THE TRANSITION BETWEEN THE RIGHT BASILIC VEIN AND AXILLARY VEIN. PATIENT HAS HAD 3 PRIOR PICC CATHETERS IN THIS ARM. FOR FUTURE CATHETER PLACEMENT, CONSIDER THE LEFT ARM OR USING THE RIGHT CEPHALIC VEIN. Assessment & Plan - Diagnosis (1) Endocarditis Qualifiers: Endocarditis type: infective Infective endocarditis organism: bacterial Chronicity: unspecified Qualified Code(s): I33.0 - Acute and subacute infective endocarditis Is this a current diagnosis for this admission?: Yes Plan: He will continue 2 g of Rocephin through January 27, 2017. (2) IV drug abuse Is this a current diagnosis for this admission?: Yes Plan: I have discussed with the patient not using going forward. He is aware that he cannot have another heart valve and that he will likely if he gets this again. (3) History of aortic valve replacement Plan: The patient received a porcine valve. He is not a candidate for further valve replacement. He has evidence of mitral and aortic valve dysfunction. (4) Chronic systolic (congestive) heart failure Plan: Currently euvolemic (5) Thrombocytopenia Is this a current diagnosis for this admission?: Yes - Time Time Spent with patient: 25-34 minutes - Inpatient Certification Medical Necessity: Need for IV Antibiotics, Other - Inpatient hospitalization remains necessary for the patient complete his course of IV antibiotics. He is an IV drug user and it is not felt safe to send him home with a PICC line.
[2017-01-15] MEDS: ZOLPIDEM TARTRATE 5 MG TABLET PO PRN (01:03)
[2017-01-15] MEDS: BUPROPION HCL 100 MG TABLET PO SCH ×3 (05:53→21:41)
[2017-01-15] MEDS: OMEGA-3 ACID ETHYL ESTERS 1 GM CAPSULE PO SCH (08:51)
[2017-01-15] MEDS: FOLIC ACID 1 MG TABLET PO SCH (10:48)
[2017-01-15] MEDS: FERROUS SULFATE 325 MG TABLET PO SCH (10:48)
[2017-01-15] MEDS: NORMAL SALINE 10 ML SDV (SCHEDULED) IV SCH ×2 (10:49→21:42)
[2017-01-15] MEDS: KETOCONAZOLE 2% SHAMPOO 120 ML BOTTLE TP SCH (10:49)
[2017-01-15] MEDS: CEFTRIAXONE 2 GM/D5W RTU 2 GM/50 ML RTUPB IV SCH (13:57)
[2017-01-15 15:08] LABS: ABSOLUTE EOSINOPHILS # (AUTO) 0.1 10^3/uL (0.0-0.6); ABSOLUTE LYMPHOCYTES (AUTO) 1.2 10^3/uL (0.5-4.7); ABSOLUTE MONOCYTES (AUTO) 0.6 10^3/uL (0.1-1.4); BASOPHILS % (AUTO) 0.7 % (0-2); EOSINOPHILS % (AUTO) 2.3 % (0-6); HEMATOCRIT 37.5 % (37.9-51.0); HEMOGLOBIN 12.6 g/dL (13.5-17.0); HGB HCT DIFFERENCE 0.3; LYMPHOCYTES % (AUTO) 19.9 % (13-45); MEAN CORPUSCULAR HEMOGLOBIN 26.5 pg (27.0-33.4); MEAN CORPUSCULAR HGB CONC 33.8 g/dL (32.0-36.0); MEAN CORPUSCULAR VOLUME 79 fl (80-97); MONOCYTES % (AUTO) 10.5 % (3-13); RED BLOOD COUNT 4.77 10^6/uL (4.35-5.55); RED CELL DISTRIBUTION WIDTH 16.2 % (11.5-14.0); SEGMENTED NEUTROPHILS % (AUTO) 66.6 % (42-78)
[2017-01-15 15:20] LABS: ANION GAP 11 (5-19); BLOOD UREA NITROGEN 16 mg/dL (7-20); CARBON DIOXIDE 28 mmol/L (22-30); CHLORIDE 102 mmol/L (98-107); GLUCOSE 96 mg/dL (75-110)
--- NOTE | 2017-01-15 16:19 | PDOC PROGRESS REPORT ---
Subjective Progress Note for:: 01/15/17 Subjective:: The patient is a pleasant 31-year-old gentleman who unfortunately has a history of IV drug abuse. He has already had one valve replacement. He unfortunately continued to use IV drugs. He states he only used them one time but he has developed endocarditis again. He is not a candidate for another valve replacement. He is currently in the hospital completing a course of 6 weeks of IV antibiotics. Over the past 2 days the patient has felt like he had a little bit of a sore throat and an upper respiratory illness. Today when I see him he states that he is finally feeling better. He denies fever chills. He states his sore throat is improving. No cough or congestion. No chest pain or heart palpitations. No nausea vomiting or diarrhea. No dysuria, frequency or hematuria. Reason For Visit: FEVER,IVDA Physical Exam Vital Signs: Temp Pulse Resp BP Pulse Ox 98.0 F 93 18 107/63 98 01/15/17 11:49 01/15/17 11:49 01/15/17 11:49 01/15/17 11:49 01/15/17 11:49 Intake & Output 01/14/17 01/15/17 01/16/17 06:59 06:59 06:59 Intake Total 2339 2075 Balance 2339 2075 Weight 74.4 kg 75.2 kg General appearance: PRESENT: no acute distress, well-developed, well-nourished Head exam: PRESENT: atraumatic, normocephalic Eye exam: PRESENT: conjunctiva pink, EOMI, PERRLA. ABSENT: scleral icterus Mouth exam: PRESENT: moist, tongue midline Neck exam: ABSENT: carotid bruit, JVD, lymphadenopathy, thyromegaly Respiratory exam: PRESENT: clear to auscultation sera. ABSENT: rales, rhonchi, wheezes Cardiovascular exam: PRESENT: diastolic murmur, RRR, +S1, +S2, systolic murmur GI/Abdominal exam: PRESENT: normal bowel sounds, soft. ABSENT: distended, guarding, mass, organolmegaly, rebound, tenderness Rectal exam: PRESENT: deferred Extremities exam: PRESENT: full ROM. ABSENT: calf tenderness, clubbing, pedal edema Neurological exam: PRESENT: alert, awake, oriented to person, oriented to place , oriented to time, oriented to situation, CN II-XII grossly intact. ABSENT: motor sensory deficit Psychiatric exam: PRESENT: appropriate affect, normal mood. ABSENT: homicidal ideation, suicidal ideation Skin exam: PRESENT: dry, intact, warm, other - Multiple tattoos. ABSENT: cyanosis, rash Results Laboratory Results: 01/15/17 14:35 01/15/17 14:35 01/15/17 01/15/17 14:35 14:35 WBC 6.0 RBC 4.77 Hgb 12.6 L Hct 37.5 L MCV 79 L MCH 26.5 L MCHC 33.8 RDW 16.2 H Plt Count 156 Seg Neutrophils % 66.6 Lymphocytes % 19.9 Monocytes % 10.5 Eosinophils % 2.3 Basophils % 0.7 Absolute Neutrophils 4.0 Absolute Lymphocytes 1.2 Absolute Monocytes 0.6 Absolute Eosinophils 0.1 Absolute Basophils 0.0 Sodium 141.0 Potassium 4.0 Chloride 102 Carbon Dioxide 28 Anion Gap 11 BUN 16 Creatinine 0.80 Est GFR ( Amer) > 60 Est GFR (Non-Af Amer) > 60 Glucose 96 Calcium 9.0 Impressions: Chest X-Ray 12/13/16 23:37 IMPRESSION: NO ACUTE RADIOGRAPHIC FINDING IN THE CHEST. NO SIGNIFICANT CHANGE FROM PRIOR STUDY. Guidance Fluoroscopy 12/17/16 00:00 IMPRESSION: SUCCESSFUL PLACEMENT OF A 5 FR DUAL LUMEN 35 CM PICC IN THE RIGHT BASILIC VEIN. THERE IS A FOCAL STENOSIS AT THE TRANSITION BETWEEN THE RIGHT BASILIC VEIN AND AXILLARY VEIN. PATIENT HAS HAD 3 PRIOR PICC CATHETERS IN THIS ARM. FOR FUTURE CATHETER PLACEMENT, CONSIDER THE LEFT ARM OR USING THE RIGHT CEPHALIC VEIN. Interventional Vascular Procedure 12/17/16 00:00 IMPRESSION: SUCCESSFUL PLACEMENT OF A 5 FR DUAL LUMEN 35 CM PICC IN THE RIGHT BASILIC VEIN. THERE IS A FOCAL STENOSIS AT THE TRANSITION BETWEEN THE RIGHT BASILIC VEIN AND AXILLARY VEIN. PATIENT HAS HAD 3 PRIOR PICC CATHETERS IN THIS ARM. FOR FUTURE CATHETER PLACEMENT, CONSIDER THE LEFT ARM OR USING THE RIGHT CEPHALIC VEIN. PICC Line Insertion 12/17/16 00:00 IMPRESSION: SUCCESSFUL PLACEMENT OF A 5 FR DUAL LUMEN 35 CM PICC IN THE RIGHT BASILIC VEIN. THERE IS A FOCAL STENOSIS AT THE TRANSITION BETWEEN THE RIGHT BASILIC VEIN AND AXILLARY VEIN. PATIENT HAS HAD 3 PRIOR PICC CATHETERS IN THIS ARM. FOR FUTURE CATHETER PLACEMENT, CONSIDER THE LEFT ARM OR USING THE RIGHT CEPHALIC VEIN. Assessment & Plan - Diagnosis (1) Endocarditis Qualifiers: Endocarditis type: infective Infective endocarditis organism: bacterial Chronicity: unspecified Qualified Code(s): I33.0 - Acute and subacute infective endocarditis Is this a current diagnosis for this admission?: Yes Plan: The patient completes his IV antibiotic therapy on 01/27/2017. He is considering rehabilitation at the time of discharge. (2) IV drug abuse Is this a current diagnosis for this admission?: Yes Plan: I have discussed with the patient not using going forward. He is aware that he cannot have another heart valve and that he will likely if he causes any further damage to his heart valves.. (3) History of aortic valve replacement Plan: The patient received a porcine valve. He is not a candidate for further valve replacement. He has evidence of mitral and aortic valve dysfunction. (4) Chronic systolic (congestive) heart failure Is this a current diagnosis for this admission?: Yes Plan: Currently euvolemic. The patient had an the patient had a transthoracic echocardiogram during this hospitalization. The left ventricle is severely dilated. His left ventricular ejection fraction is 30%. He has severe global hypokinesis of the left ventricle. He has moderate to severe mitral regurgitation. He has a bioprosthetic aortic valve with moderate aortic stenosis. He has mild to moderate tricuspid regurgitation and mild pulmonary hypertension.. (5) Valvular heart disease Is this a current diagnosis for this admission?: Yes Plan: He has evidence of moderate to severe mitral regurgitation and moderate aortic stenosis. He does understand if he does further damage to his heart that he will likely . (6) Thrombocytopenia Is this a current diagnosis for this admission?: Yes Plan: Resolved. Likely secondary to acute illness (7) Elevated liver function tests Is this a current diagnosis for this admission?: Yes Plan: Of undetermined significance. Further workup can be performed as an outpatient. - Time Time Spent with patient: 15-24 minutes - Inpatient Certification Medical Necessity: Need for IV Antibiotics, Other - Inpatient hospitalization remains necessary for the patient to complete his IV antibiotics. He is an IV drug user who has already had a valve replacement and continued to use IV drugs. It is not felt safe to send him home with a PICC line. He will complete his IV antibiotics here in the hospital on 01/27/2017.
[2017-01-15 18:31] LABS: ALANINE AMINOTRANSFERASE 103 U/L (21-72); ALBUMIN 3.7 g/dL (3.5-5.0); ALKALINE PHOSPHATASE 83 U/L (38-126); ASPARTATE AMINO TRANSFERASE 53 U/L (17-59); BILIRUBIN,DIRECT 0.4 mg/dL (0.0-0.4); BILIRUBIN,TOTAL 0.4 mg/dL (0.2-1.3); TOTAL PROTEIN 6.6 g/dL (6.3-8.2)
[2017-01-16] MEDS: BUPROPION HCL 100 MG TABLET PO SCH ×3 (05:49→22:20)
[2017-01-16] MEDS: OMEGA-3 ACID ETHYL ESTERS 1 GM CAPSULE PO SCH (08:16)
[2017-01-16] MEDS: FOLIC ACID 1 MG TABLET PO SCH (11:30)
[2017-01-16] MEDS: FERROUS SULFATE 325 MG TABLET PO SCH (11:31)
[2017-01-16] MEDS: NORMAL SALINE 10 ML SDV (SCHEDULED) IV SCH (11:31)
[2017-01-16] MEDS: KETOCONAZOLE 2% SHAMPOO 120 ML BOTTLE TP SCH (11:32)
[2017-01-16] MEDS: CEFTRIAXONE 2 GM/D5W RTU 2 GM/50 ML RTUPB IV SCH (12:40)
--- NOTE | 2017-01-16 13:47 | PDOC PROGRESS REPORT ---
Subjective Progress Note for:: 01/16/17 Subjective:: Patient is a 31-year-old male with history of IV drug abuse. Currently, he is admitted with infective endocarditis. Cultures are growing Streptococcus mitis. Antibiotics were started on 12/14/2016. Unfortunately, the patient's transesophageal echocardiogram (done at [facility]) did demonstrate another vegetation. CT surgery is reluctant to perform a third valve replacement surgery on this patient. In addition, this should not be done until the patient 's teeth are treated/resected. Reason For Visit: FEVER,IVDA Physical Exam Vital Signs: Temp Pulse Resp BP Pulse Ox 98.7 F 86 16 106/70 99 01/16/17 11:21 01/16/17 11:21 01/16/17 11:21 01/16/17 11:21 01/16/17 11:21 Intake & Output 01/15/17 01/16/17 01/17/17 06:59 06:59 06:59 Intake Total 2075 744 Balance 2075 744 Weight 75.2 kg Additional comments: The patient is lying flat in bed. He is not in any distress. His cognition and mentation are appropriate. His lungs are clear to auscultation bilaterally. His cardiac exam demonstrates a regular rate and rhythm. He does have a 2/6 systolic ejection murmur heard loudest at the left upper sternal border. The abdomen is soft and flat. Bowel sounds are noted in all 4 quadrants. The lower extremities are warm to touch without any significant pitting edema. Results Laboratory Results: 01/15/17 14:35 01/15/17 14:35 01/15/17 01/15/17 01/15/17 14:35 14:35 14:35 WBC 6.0 RBC 4.77 Hgb 12.6 L Hct 37.5 L MCV 79 L MCH 26.5 L MCHC 33.8 RDW 16.2 H Plt Count 156 Seg Neutrophils % 66.6 Lymphocytes % 19.9 Monocytes % 10.5 Eosinophils % 2.3 Basophils % 0.7 Absolute Neutrophils 4.0 Absolute Lymphocytes 1.2 Absolute Monocytes 0.6 Absolute Eosinophils 0.1 Absolute Basophils 0.0 Sodium 141.0 Potassium 4.0 Chloride 102 Carbon Dioxide 28 Anion Gap 11 BUN 16 Creatinine 0.80 Est GFR ( Amer) > 60 Est GFR (Non-Af Amer) > 60 Glucose 96 Calcium 9.0 Total Bilirubin 0.4 AST 53 ALT 103 H Alkaline Phosphatase 83 Total Protein 6.6 Albumin 3.7 Impressions: Chest X-Ray 12/13/16 23:37 IMPRESSION: NO ACUTE RADIOGRAPHIC FINDING IN THE CHEST. NO SIGNIFICANT CHANGE FROM PRIOR STUDY. Guidance Fluoroscopy 12/17/16 00:00 IMPRESSION: SUCCESSFUL PLACEMENT OF A 5 FR DUAL LUMEN 35 CM PICC IN THE RIGHT BASILIC VEIN. THERE IS A FOCAL STENOSIS AT THE TRANSITION BETWEEN THE RIGHT BASILIC VEIN AND AXILLARY VEIN. PATIENT HAS HAD 3 PRIOR PICC CATHETERS IN THIS ARM. FOR FUTURE CATHETER PLACEMENT, CONSIDER THE LEFT ARM OR USING THE RIGHT CEPHALIC VEIN. Interventional Vascular Procedure 12/17/16 00:00 IMPRESSION: SUCCESSFUL PLACEMENT OF A 5 FR DUAL LUMEN 35 CM PICC IN THE RIGHT BASILIC VEIN. THERE IS A FOCAL STENOSIS AT THE TRANSITION BETWEEN THE RIGHT BASILIC VEIN AND AXILLARY VEIN. PATIENT HAS HAD 3 PRIOR PICC CATHETERS IN THIS ARM. FOR FUTURE CATHETER PLACEMENT, CONSIDER THE LEFT ARM OR USING THE RIGHT CEPHALIC VEIN. PICC Line Insertion 12/17/16 00:00 IMPRESSION: SUCCESSFUL PLACEMENT OF A 5 FR DUAL LUMEN 35 CM PICC IN THE RIGHT BASILIC VEIN. THERE IS A FOCAL STENOSIS AT THE TRANSITION BETWEEN THE RIGHT BASILIC VEIN AND AXILLARY VEIN. PATIENT HAS HAD 3 PRIOR PICC CATHETERS IN THIS ARM. FOR FUTURE CATHETER PLACEMENT, CONSIDER THE LEFT ARM OR USING THE RIGHT CEPHALIC VEIN. Assessment & Plan - Diagnosis (1) Depression Qualifiers: Depression Type: unspecified Qualified Code(s): F32.9 - Major depressive disorder, single episode, unspecified Is this a current diagnosis for this admission?: Yes (2) Hypokalemia Is this a current diagnosis for this admission?: Yes (3) IV drug abuse Is this a current diagnosis for this admission?: Yes (4) Polysubstance (including opioids) dependence with physiol dependence Is this a current diagnosis for this admission?: Yes (5) Streptococcal septicemia Is this a current diagnosis for this admission?: Yes (6) Cardiomyopathy Is this a current diagnosis for this admission?: Yes (7) Mitral regurgitation Qualifiers: Cardiac valve disease etiology: nonrheumatic Qualified Code(s): I34.0 - Nonrheumatic mitral (valve) insufficiency Is this a current diagnosis for this admission?: Yes (8) Elevated liver function tests Is this a current diagnosis for this admission?: Yes - Time Time Spent with patient: Less than 15 minutes - Inpatient Certification Medical Necessity: Need for IV Antibiotics - Plan Summary Plan Summary: The patient's medical problems above are stable. He does have an elevated ALT. This is an isolated elevation of the liver function tests. The patient was informed of this and this will need to be followed after discharge. The patient remains hospitalized to complete IV antibiotics for infective endocarditis.
[2017-01-17] MEDS: ZOLPIDEM TARTRATE 5 MG TABLET PO PRN (00:44)
[2017-01-17] MEDS: NORMAL SALINE 10 ML SDV (AFTER EACH USE) IV PRN ×2 (00:44→21:55)
[2017-01-17] MEDS: BUPROPION HCL 100 MG TABLET PO SCH ×3 (08:36→21:55)
[2017-01-17] MEDS: OMEGA-3 ACID ETHYL ESTERS 1 GM CAPSULE PO SCH (08:36)
[2017-01-17] MEDS: KETOCONAZOLE 2% SHAMPOO 120 ML BOTTLE TP SCH (10:04)
[2017-01-17] MEDS: NORMAL SALINE 10 ML SDV (SCHEDULED) IV SCH ×2 (10:05→21:55)
[2017-01-17] MEDS: FOLIC ACID 1 MG TABLET PO SCH (10:05)
[2017-01-17] MEDS: FERROUS SULFATE 325 MG TABLET PO SCH (10:05)
--- NOTE | 2017-01-17 13:23 | Progress Note ---
Provider Note Provider Note: She has slightly elevated ALT which will need to be followed. I would recommend checking labs no more frequently than once a week at this point.
--- NOTE | 2017-01-17 13:23 | PDOC PROGRESS REPORT ---
Subjective Progress Note for:: 01/17/17 Subjective:: Patient is a 31-year-old male with history of IV drug abuse. Currently, he is admitted with infective endocarditis. Cultures are growing Streptococcus mitis. Antibiotics were started on 12/14/2016. Unfortunately, the patient's transesophageal echocardiogram (done at [facility]) did demonstrate another vegetation. CT surgery is reluctant to perform a third valve replacement surgery on this patient. In addition, this should not be done until the patient 's teeth are treated/resected. The plan is for the patient to remain in the hospital until he completes a 6 week course of antibiotic therapy. This will take the patient out to approximately January 26, 2017. Reason For Visit: FEVER,IVDA Physical Exam Vital Signs: Temp Pulse Resp BP Pulse Ox 98.4 F 89 17 98/63 L 99 01/17/17 01:21 01/17/17 01:21 01/17/17 01:21 01/17/17 01:21 01/17/17 01:21 Intake & Output 01/16/17 01/17/17 01/18/17 06:59 06:59 06:59 Intake Total 744 2810 Balance 744 2810 Weight 75.2 kg Additional comments: The patient is sitting up in bed. He is not in any distress. His exam remains normal. He has had some skin findings since admission and they are stable. His lungs are clear bilaterally and his cardiac exam is unchanged. He does have a 2 out of 6 systolic ejection murmur at the left upper sternal border. Abdomen is benign. Results Laboratory Results: 01/15/17 14:35 01/15/17 14:35 Impressions: Chest X-Ray 12/13/16 23:37 IMPRESSION: NO ACUTE RADIOGRAPHIC FINDING IN THE CHEST. NO SIGNIFICANT CHANGE FROM PRIOR STUDY. Guidance Fluoroscopy 12/17/16 00:00 IMPRESSION: SUCCESSFUL PLACEMENT OF A 5 FR DUAL LUMEN 35 CM PICC IN THE RIGHT BASILIC VEIN. THERE IS A FOCAL STENOSIS AT THE TRANSITION BETWEEN THE RIGHT BASILIC VEIN AND AXILLARY VEIN. PATIENT HAS HAD 3 PRIOR PICC CATHETERS IN THIS ARM. FOR FUTURE CATHETER PLACEMENT, CONSIDER THE LEFT ARM OR USING THE RIGHT CEPHALIC VEIN. Interventional Vascular Procedure 12/17/16 00:00 IMPRESSION: SUCCESSFUL PLACEMENT OF A 5 FR DUAL LUMEN 35 CM PICC IN THE RIGHT BASILIC VEIN. THERE IS A FOCAL STENOSIS AT THE TRANSITION BETWEEN THE RIGHT BASILIC VEIN AND AXILLARY VEIN. PATIENT HAS HAD 3 PRIOR PICC CATHETERS IN THIS ARM. FOR FUTURE CATHETER PLACEMENT, CONSIDER THE LEFT ARM OR USING THE RIGHT CEPHALIC VEIN. PICC Line Insertion 12/17/16 00:00 IMPRESSION: SUCCESSFUL PLACEMENT OF A 5 FR DUAL LUMEN 35 CM PICC IN THE RIGHT BASILIC VEIN. THERE IS A FOCAL STENOSIS AT THE TRANSITION BETWEEN THE RIGHT BASILIC VEIN AND AXILLARY VEIN. PATIENT HAS HAD 3 PRIOR PICC CATHETERS IN THIS ARM. FOR FUTURE CATHETER PLACEMENT, CONSIDER THE LEFT ARM OR USING THE RIGHT CEPHALIC VEIN. Assessment & Plan - Diagnosis (1) Depression Qualifiers: Depression Type: unspecified Qualified Code(s): F32.9 - Major depressive disorder, single episode, unspecified Is this a current diagnosis for this admission?: Yes (2) Hypokalemia Is this a current diagnosis for this admission?: Yes (3) IV drug abuse Is this a current diagnosis for this admission?: Yes (4) Polysubstance (including opioids) dependence with physiol dependence Is this a current diagnosis for this admission?: Yes (5) Streptococcal septicemia Is this a current diagnosis for this admission?: Yes (6) Cardiomyopathy Is this a current diagnosis for this admission?: Yes (7) Mitral regurgitation Qualifiers: Cardiac valve disease etiology: nonrheumatic Qualified Code(s): I34.0 - Nonrheumatic mitral (valve) insufficiency Is this a current diagnosis for this admission?: Yes (8) Elevated liver function tests Is this a current diagnosis for this admission?: Yes - Time Time Spent with patient: Less than 15 minutes - Inpatient Certification Medical Necessity: Need for IV Antibiotics - Plan Summary Plan Summary: To new IV antibiotics for infective endocarditis.
[2017-01-17] MEDS: CEFTRIAXONE 2 GM/D5W RTU 2 GM/50 ML RTUPB IV SCH (13:31)
[2017-01-18] MEDS: ZOLPIDEM TARTRATE 5 MG TABLET PO PRN (00:52)
[2017-01-18] MEDS: BUPROPION HCL 100 MG TABLET PO SCH ×3 (05:27→21:22)
[2017-01-18] MEDS: OMEGA-3 ACID ETHYL ESTERS 1 GM CAPSULE PO SCH (09:21)
[2017-01-18] MEDS: FOLIC ACID 1 MG TABLET PO SCH (09:21)
[2017-01-18] MEDS: FERROUS SULFATE 325 MG TABLET PO SCH (09:22)
[2017-01-18] MEDS: NORMAL SALINE 10 ML SDV (SCHEDULED) IV SCH ×2 (09:22→21:23)
[2017-01-18] MEDS: KETOCONAZOLE 2% SHAMPOO 120 ML BOTTLE TP SCH (09:22)
[2017-01-18] MEDS: CEFTRIAXONE 2 GM/D5W RTU 2 GM/50 ML RTUPB IV SCH (13:22)
--- NOTE | 2017-01-18 15:20 | PDOC PROGRESS REPORT ---
Subjective Progress Note for:: 01/18/17 Subjective:: Patient is a 31-year-old male with history of IV drug abuse. Currently, he is admitted with infective endocarditis. Cultures are growing Streptococcus mitis. Antibiotics were started on 12/14/2016. Unfortunately, the patient's transesophageal echocardiogram (done at [facility]) did demonstrate another vegetation. CT surgery is reluctant to perform a third valve replacement surgery on this patient. In addition, this should not be done until the patient 's teeth are treated/resected. The plan is for the patient to remain in the hospital until he completes a 6 week course of antibiotic therapy. This will take the patient out to approximately January 26, 2017. Patient has an isolated elevation of ALT. This will need to be followed with labs prior to discharge. Reason For Visit: FEVER,IVDA Physical Exam Vital Signs: Temp Pulse Resp BP Pulse Ox 98.6 F 86 18 97/55 L 98 01/18/17 12:00 01/18/17 12:00 01/18/17 12:00 01/18/17 12:00 01/18/17 12:00 Intake & Output 01/17/17 01/18/17 01/19/17 06:59 06:59 06:59 Intake Total 2810 1300 Output Total 600 Balance 2810 700 Weight 75.2 kg 75.2 kg Results Laboratory Results: 01/15/17 14:35 01/15/17 14:35 Impressions: Chest X-Ray 12/13/16 23:37 IMPRESSION: NO ACUTE RADIOGRAPHIC FINDING IN THE CHEST. NO SIGNIFICANT CHANGE FROM PRIOR STUDY. Guidance Fluoroscopy 12/17/16 00:00 IMPRESSION: SUCCESSFUL PLACEMENT OF A 5 FR DUAL LUMEN 35 CM PICC IN THE RIGHT BASILIC VEIN. THERE IS A FOCAL STENOSIS AT THE TRANSITION BETWEEN THE RIGHT BASILIC VEIN AND AXILLARY VEIN. PATIENT HAS HAD 3 PRIOR PICC CATHETERS IN THIS ARM. FOR FUTURE CATHETER PLACEMENT, CONSIDER THE LEFT ARM OR USING THE RIGHT CEPHALIC VEIN. Interventional Vascular Procedure 12/17/16 00:00 IMPRESSION: SUCCESSFUL PLACEMENT OF A 5 FR DUAL LUMEN 35 CM PICC IN THE RIGHT BASILIC VEIN. THERE IS A FOCAL STENOSIS AT THE TRANSITION BETWEEN THE RIGHT BASILIC VEIN AND AXILLARY VEIN. PATIENT HAS HAD 3 PRIOR PICC CATHETERS IN THIS ARM. FOR FUTURE CATHETER PLACEMENT, CONSIDER THE LEFT ARM OR USING THE RIGHT CEPHALIC VEIN. PICC Line Insertion 12/17/16 00:00 IMPRESSION: SUCCESSFUL PLACEMENT OF A 5 FR DUAL LUMEN 35 CM PICC IN THE RIGHT BASILIC VEIN. THERE IS A FOCAL STENOSIS AT THE TRANSITION BETWEEN THE RIGHT BASILIC VEIN AND AXILLARY VEIN. PATIENT HAS HAD 3 PRIOR PICC CATHETERS IN THIS ARM. FOR FUTURE CATHETER PLACEMENT, CONSIDER THE LEFT ARM OR USING THE RIGHT CEPHALIC VEIN. Assessment & Plan - Diagnosis (1) Depression Qualifiers: Depression Type: unspecified Qualified Code(s): F32.9 - Major depressive disorder, single episode, unspecified Is this a current diagnosis for this admission?: Yes (2) Hypokalemia Is this a current diagnosis for this admission?: Yes (3) IV drug abuse Is this a current diagnosis for this admission?: Yes (4) Polysubstance (including opioids) dependence with physiol dependence Is this a current diagnosis for this admission?: Yes (5) Streptococcal septicemia Is this a current diagnosis for this admission?: Yes (6) Cardiomyopathy Is this a current diagnosis for this admission?: Yes (7) Mitral regurgitation Qualifiers: Cardiac valve disease etiology: nonrheumatic Qualified Code(s): I34.0 - Nonrheumatic mitral (valve) insufficiency Is this a current diagnosis for this admission?: Yes (8) Elevated liver function tests Is this a current diagnosis for this admission?: Yes - Time Time Spent with patient: Less than 15 minutes - Inpatient Certification Medical Necessity: Need for IV Antibiotics - Plan Summary Plan Summary: The patient will remain in the hospital through January 26, 2017 for a 6 week course of antibiotics for infective endocarditis. Please note that upon discharge she will need to get follow-up for his dental caries. He has many teeth that need to be resected so that he does not keep reinfecting his valve. Also, he has had an elevated increase in ALT and repeat tests and liver function tests will need to be done prior to discharge.
[2017-01-19] MEDS: ZOLPIDEM TARTRATE 5 MG TABLET PO PRN (00:46)
[2017-01-19] MEDS: BUPROPION HCL 100 MG TABLET PO SCH ×3 (05:30→21:18)
[2017-01-19] MEDS: OMEGA-3 ACID ETHYL ESTERS 1 GM CAPSULE PO SCH (09:46)
[2017-01-19] MEDS: FOLIC ACID 1 MG TABLET PO SCH (09:46)
[2017-01-19] MEDS: FERROUS SULFATE 325 MG TABLET PO SCH (09:46)
[2017-01-19] MEDS: NORMAL SALINE 10 ML SDV (SCHEDULED) IV SCH ×2 (09:47→21:18)
[2017-01-19] MEDS: KETOCONAZOLE 2% SHAMPOO 120 ML BOTTLE TP SCH (09:47)
[2017-01-19] MEDS: CEFTRIAXONE 2 GM/D5W RTU 2 GM/50 ML RTUPB IV SCH (14:00)
--- NOTE | 2017-01-19 17:12 | PDOC PROGRESS REPORT ---
Subjective Progress Note for:: 01/19/17 Subjective:: The patient is a 31-year-old gentleman with a history of IV drug abuse who has had 2 prior valve replacements due to infective endocarditis. He was admitted again with bacteremia and infective endocarditis and is currently on Rocephin. Last day will be on January 26. He currently has no complaints. Reason For Visit: FEVER,IVDA Physical Exam Vital Signs: Temp Pulse Resp BP Pulse Ox 98.2 F 84 16 100/59 L 97 01/19/17 15:38 01/19/17 15:38 01/19/17 15:38 01/19/17 15:38 01/19/17 15:38 Intake & Output 01/18/17 01/19/17 01/20/17 06:59 06:59 06:59 Intake Total 1300 3160 1440 Output Total 600 600 Balance 700 2560 1440 Weight 75.2 kg 75.2 kg Additional comments: General: Thin, gentleman, sitting in bed not in acute distress HEENT: Pupils reactive to light moist pink oral fragile mucosa normal external ears and nose Neck: Supple no carotid bruits heard no masses palpable Lungs: Clear to auscultation bilaterally normal respiratory effort Cardiac: S1-S2 regular no peripheral edema no cyanosis no calf tenderness Abdomen: Soft, no focal tenderness normal bowel sounds Skin: Warm and dry Results Laboratory Results: 01/15/17 14:35 01/15/17 14:35 Impressions: Chest X-Ray 12/13/16 23:37 IMPRESSION: NO ACUTE RADIOGRAPHIC FINDING IN THE CHEST. NO SIGNIFICANT CHANGE FROM PRIOR STUDY. Guidance Fluoroscopy 12/17/16 00:00 IMPRESSION: SUCCESSFUL PLACEMENT OF A 5 FR DUAL LUMEN 35 CM PICC IN THE RIGHT BASILIC VEIN. THERE IS A FOCAL STENOSIS AT THE TRANSITION BETWEEN THE RIGHT BASILIC VEIN AND AXILLARY VEIN. PATIENT HAS HAD 3 PRIOR PICC CATHETERS IN THIS ARM. FOR FUTURE CATHETER PLACEMENT, CONSIDER THE LEFT ARM OR USING THE RIGHT CEPHALIC VEIN. Interventional Vascular Procedure 12/17/16 00:00 IMPRESSION: SUCCESSFUL PLACEMENT OF A 5 FR DUAL LUMEN 35 CM PICC IN THE RIGHT BASILIC VEIN. THERE IS A FOCAL STENOSIS AT THE TRANSITION BETWEEN THE RIGHT BASILIC VEIN AND AXILLARY VEIN. PATIENT HAS HAD 3 PRIOR PICC CATHETERS IN THIS ARM. FOR FUTURE CATHETER PLACEMENT, CONSIDER THE LEFT ARM OR USING THE RIGHT CEPHALIC VEIN. PICC Line Insertion 12/17/16 00:00 IMPRESSION: SUCCESSFUL PLACEMENT OF A 5 FR DUAL LUMEN 35 CM PICC IN THE RIGHT BASILIC VEIN. THERE IS A FOCAL STENOSIS AT THE TRANSITION BETWEEN THE RIGHT BASILIC VEIN AND AXILLARY VEIN. PATIENT HAS HAD 3 PRIOR PICC CATHETERS IN THIS ARM. FOR FUTURE CATHETER PLACEMENT, CONSIDER THE LEFT ARM OR USING THE RIGHT CEPHALIC VEIN. Assessment & Plan - Diagnosis (1) IV drug abuse Is this a current diagnosis for this admission?: Yes (2) Polysubstance (including opioids) dependence with physiol dependence Is this a current diagnosis for this admission?: Yes (3) Streptococcal septicemia Is this a current diagnosis for this admission?: Yes Plan: Continue Rocephin. Last use January 26. (4) Valvular heart disease Is this a current diagnosis for this admission?: Yes (5) Endocarditis Qualifiers: Endocarditis type: infective Infective endocarditis organism: bacterial Chronicity: unspecified Qualified Code(s): I33.0 - Acute and subacute infective endocarditis Is this a current diagnosis for this admission?: Yes Plan: Continue Rocephin. Last date is January 26 (6) History of aortic valve replacement with bioprosthetic valve Is this a current diagnosis for this admission?: No - Time Time Spent with patient: Less than 15 minutes
[2017-01-20] MEDS: ZOLPIDEM TARTRATE 5 MG TABLET PO PRN ×2 (00:27→23:51)
[2017-01-20] MEDS: BUPROPION HCL 100 MG TABLET PO SCH ×3 (05:33→21:14)
[2017-01-20] MEDS: OMEGA-3 ACID ETHYL ESTERS 1 GM CAPSULE PO SCH (09:39)
[2017-01-20] MEDS: FOLIC ACID 1 MG TABLET PO SCH (09:39)
[2017-01-20] MEDS: FERROUS SULFATE 325 MG TABLET PO SCH (09:39)
[2017-01-20] MEDS: NORMAL SALINE 10 ML SDV (SCHEDULED) IV SCH ×2 (09:39→21:14)
[2017-01-20] MEDS: LACTOBACILLUS ACIDOPHILUS 250 MG TAB PO SCH (09:39)
[2017-01-20] MEDS: KETOCONAZOLE 2% SHAMPOO 120 ML BOTTLE TP SCH (09:40)
[2017-01-20] MEDS: CEFTRIAXONE 2 GM/D5W RTU 2 GM/50 ML RTUPB IV SCH (12:48)
--- NOTE | 2017-01-20 19:07 | PDOC PROGRESS REPORT ---
Subjective Progress Note for:: 01/20/17 Subjective:: The patient is a 31-year-old gentleman with a history of IV drug abuse who has had 2 prior valve replacements due to infective endocarditis. He was admitted again with bacteremia and infective endocarditis and is currently on Rocephin. Last day is January 26. He currently has no complaints. Reason For Visit: FEVER,IVDA Physical Exam Vital Signs: Temp Pulse Resp BP Pulse Ox 97.4 F 91 14 102/61 99 01/20/17 13:24 01/20/17 13:24 01/20/17 13:24 01/20/17 13:24 01/20/17 13:24 Intake & Output 01/19/17 01/20/17 01/21/17 06:59 06:59 06:59 Intake Total 3160 3361 1466 Output Total 600 Balance 2560 3361 1466 Weight 75.2 kg 76.1 kg Additional comments: Young male lying in bed not in acute distress Lungs: Clear to auscultation bilaterally Cardiac: S1-S2 regular no peripheral edema Abdomen: Soft, no focal tenderness Results Laboratory Results: 01/15/17 14:35 01/15/17 14:35 Impressions: Chest X-Ray 12/13/16 23:37 IMPRESSION: NO ACUTE RADIOGRAPHIC FINDING IN THE CHEST. NO SIGNIFICANT CHANGE FROM PRIOR STUDY. Guidance Fluoroscopy 12/17/16 00:00 IMPRESSION: SUCCESSFUL PLACEMENT OF A 5 FR DUAL LUMEN 35 CM PICC IN THE RIGHT BASILIC VEIN. THERE IS A FOCAL STENOSIS AT THE TRANSITION BETWEEN THE RIGHT BASILIC VEIN AND AXILLARY VEIN. PATIENT HAS HAD 3 PRIOR PICC CATHETERS IN THIS ARM. FOR FUTURE CATHETER PLACEMENT, CONSIDER THE LEFT ARM OR USING THE RIGHT CEPHALIC VEIN. Interventional Vascular Procedure 12/17/16 00:00 IMPRESSION: SUCCESSFUL PLACEMENT OF A 5 FR DUAL LUMEN 35 CM PICC IN THE RIGHT BASILIC VEIN. THERE IS A FOCAL STENOSIS AT THE TRANSITION BETWEEN THE RIGHT BASILIC VEIN AND AXILLARY VEIN. PATIENT HAS HAD 3 PRIOR PICC CATHETERS IN THIS ARM. FOR FUTURE CATHETER PLACEMENT, CONSIDER THE LEFT ARM OR USING THE RIGHT CEPHALIC VEIN. PICC Line Insertion 12/17/16 00:00 IMPRESSION: SUCCESSFUL PLACEMENT OF A 5 FR DUAL LUMEN 35 CM PICC IN THE RIGHT BASILIC VEIN. THERE IS A FOCAL STENOSIS AT THE TRANSITION BETWEEN THE RIGHT BASILIC VEIN AND AXILLARY VEIN. PATIENT HAS HAD 3 PRIOR PICC CATHETERS IN THIS ARM. FOR FUTURE CATHETER PLACEMENT, CONSIDER THE LEFT ARM OR USING THE RIGHT CEPHALIC VEIN. Assessment & Plan - Diagnosis (1) IV drug abuse Is this a current diagnosis for this admission?: Yes (2) Polysubstance (including opioids) dependence with physiol dependence Is this a current diagnosis for this admission?: Yes (3) Streptococcal septicemia Is this a current diagnosis for this admission?: Yes Plan: Continue Rocephin. Last dose will be on January 26. (4) Valvular heart disease Is this a current diagnosis for this admission?: Yes (5) Endocarditis Qualifiers: Endocarditis type: infective Infective endocarditis organism: bacterial Chronicity: unspecified Qualified Code(s): I33.0 - Acute and subacute infective endocarditis Is this a current diagnosis for this admission?: Yes (6) History of aortic valve replacement with bioprosthetic valve Is this a current diagnosis for this admission?: No - Time Time Spent with patient: Less than 15 minutes
[2017-01-21] MEDS: BUPROPION HCL 100 MG TABLET PO SCH ×3 (05:05→23:02)
[2017-01-21] MEDS: OMEGA-3 ACID ETHYL ESTERS 1 GM CAPSULE PO SCH (09:09)
[2017-01-21] MEDS: KETOCONAZOLE 2% SHAMPOO 120 ML BOTTLE TP SCH (09:09)
[2017-01-21] MEDS: FERROUS SULFATE 325 MG TABLET PO SCH (09:09)
[2017-01-21] MEDS: LACTOBACILLUS ACIDOPHILUS 250 MG TAB PO SCH (09:09)
[2017-01-21] MEDS: FOLIC ACID 1 MG TABLET PO SCH (09:09)
[2017-01-21] MEDS: NORMAL SALINE 10 ML SDV (SCHEDULED) IV SCH ×2 (09:09→23:02)
[2017-01-21] MEDS: CEFTRIAXONE 2 GM/D5W RTU 2 GM/50 ML RTUPB IV SCH (13:57)
--- NOTE | 2017-01-21 15:54 | PDOC PROGRESS REPORT ---
Subjective Progress Note for:: 01/21/17 Subjective:: 31-year-old male with a history of IV drug of abuse who had an aortic valve replacement back in 2012. He continued to use IV drugs and developed aortic valve endocarditis and had another bioprosthetic aortic valve replacement in March of this year. He presented to this hospital on December 14 with a two-week history of fever and chest pain. He has had continued IV cocaine and amphetamine abuse. Thoracic echocardiogram done on December 14 showed no gross vegetations. Left ventricular ejection fraction was 30% with severe global hypokinesis of the left ventricle moderate to severe amount of mitral regurgitation, bioprosthetic aortic valve and moderate dilatation of the left atrium. December 21 he was transferred to [facility] for a trans-esophageal echocardiogram. Blood cultures were positive for Strep mitis. CHRISTA done at [facility] not was noted to have mitral valve vegetations. No surgical intervention was recommended and he was sent back to this hospital to complete treatment with a 6 week course of antibiotics. Reason For Visit: FEVER,IVDA No complaints at present. Physical Exam Vital Signs: Temp Pulse Resp BP Pulse Ox 98.3 F 86 16 104/66 99 01/21/17 12:10 01/21/17 12:10 01/21/17 12:10 01/21/17 12:10 01/21/17 12:10 Intake & Output 01/20/17 01/21/17 01/22/17 06:59 06:59 06:59 Intake Total 3361 2446 Output Total 600 Balance 3361 1846 Weight 76.1 kg 76.3 kg Additional comments: Young male lying in bed not in acute distress Lungs: Clear to auscultation bilaterally normal respiratory effort Cardiac: S1-S2 regular systolic murmur heard in the precordial area Abdomen: Soft, no focal tenderness, normal bowel sounds Skin: Warm and dry Results Laboratory Results: 01/15/17 14:35 01/15/17 14:35 Impressions: Chest X-Ray 12/13/16 23:37 IMPRESSION: NO ACUTE RADIOGRAPHIC FINDING IN THE CHEST. NO SIGNIFICANT CHANGE FROM PRIOR STUDY. Guidance Fluoroscopy 12/17/16 00:00 IMPRESSION: SUCCESSFUL PLACEMENT OF A 5 FR DUAL LUMEN 35 CM PICC IN THE RIGHT BASILIC VEIN. THERE IS A FOCAL STENOSIS AT THE TRANSITION BETWEEN THE RIGHT BASILIC VEIN AND AXILLARY VEIN. PATIENT HAS HAD 3 PRIOR PICC CATHETERS IN THIS ARM. FOR FUTURE CATHETER PLACEMENT, CONSIDER THE LEFT ARM OR USING THE RIGHT CEPHALIC VEIN. Interventional Vascular Procedure 12/17/16 00:00 IMPRESSION: SUCCESSFUL PLACEMENT OF A 5 FR DUAL LUMEN 35 CM PICC IN THE RIGHT BASILIC VEIN. THERE IS A FOCAL STENOSIS AT THE TRANSITION BETWEEN THE RIGHT BASILIC VEIN AND AXILLARY VEIN. PATIENT HAS HAD 3 PRIOR PICC CATHETERS IN THIS ARM. FOR FUTURE CATHETER PLACEMENT, CONSIDER THE LEFT ARM OR USING THE RIGHT CEPHALIC VEIN. PICC Line Insertion 12/17/16 00:00 IMPRESSION: SUCCESSFUL PLACEMENT OF A 5 FR DUAL LUMEN 35 CM PICC IN THE RIGHT BASILIC VEIN. THERE IS A FOCAL STENOSIS AT THE TRANSITION BETWEEN THE RIGHT BASILIC VEIN AND AXILLARY VEIN. PATIENT HAS HAD 3 PRIOR PICC CATHETERS IN THIS ARM. FOR FUTURE CATHETER PLACEMENT, CONSIDER THE LEFT ARM OR USING THE RIGHT CEPHALIC VEIN. Assessment & Plan - Diagnosis (1) Valvular heart disease Is this a current diagnosis for this admission?: Yes (2) Polysubstance (including opioids) dependence with physiol dependence Is this a current diagnosis for this admission?: Yes (3) Streptococcal septicemia Is this a current diagnosis for this admission?: Yes (4) IV drug abuse Is this a current diagnosis for this admission?: Yes (5) Endocarditis of mitral valve Is this a current diagnosis for this admission?: Yes (6) Endocarditis Qualifiers: Endocarditis type: infective Infective endocarditis organism: bacterial Chronicity: unspecified Qualified Code(s): I33.0 - Acute and subacute infective endocarditis Is this a current diagnosis for this admission?: Yes (7) History of aortic valve replacement with bioprosthetic valve Is this a current diagnosis for this admission?: No - Time Time Spent with patient: 15-24 minutes
[2017-01-22] MEDS: ZOLPIDEM TARTRATE 5 MG TABLET PO PRN (01:13)
[2017-01-22] MEDS: BUPROPION HCL 100 MG TABLET PO SCH ×3 (05:21→21:40)
[2017-01-22 06:41] LABS: ABSOLUTE EOSINOPHILS # (AUTO) 0.1 10^3/uL (0.0-0.6); ABSOLUTE LYMPHOCYTES (AUTO) 1.3 10^3/uL (0.5-4.7); ABSOLUTE MONOCYTES (AUTO) 0.7 10^3/uL (0.1-1.4); ABSOLUTE NEUT (AUTO) 3.7 10^3/uL (1.7-8.2); BASOPHILS % (AUTO) 0.5 % (0-2); EOSINOPHILS % (AUTO) 1.6 % (0-6); HEMATOCRIT 38.3 % (37.9-51.0); HEMOGLOBIN 12.9 g/dL (13.5-17.0); HGB HCT DIFFERENCE 0.4; MEAN CORPUSCULAR HEMOGLOBIN 26.7 pg (27.0-33.4); MEAN CORPUSCULAR HGB CONC 33.8 g/dL (32.0-36.0); MEAN CORPUSCULAR VOLUME 79 fl (80-97); MONOCYTES % (AUTO) 12.1 % (3-13); RED BLOOD COUNT 4.84 10^6/uL (4.35-5.55); SEGMENTED NEUTROPHILS % (AUTO) 63.8 % (42-78); WHITE BLOOD COUNT 5.8 10^3/uL (4.0-10.5)
[2017-01-22 07:05] LABS: ALANINE AMINOTRANSFERASE 161 U/L (21-72); ALBUMIN 3.8 g/dL (3.5-5.0); ALKALINE PHOSPHATASE 95 U/L (38-126); ANION GAP 7 (5-19); ASPARTATE AMINO TRANSFERASE 99 U/L (17-59); BILIRUBIN,DIRECT 0.2 mg/dL (0.0-0.4); BILIRUBIN,TOTAL 0.5 mg/dL (0.2-1.3); BLOOD UREA NITROGEN 13 mg/dL (7-20); CALCIUM 9.4 mg/dL (8.4-10.2); CARBON DIOXIDE 31 mmol/L (22-30); CHLORIDE 103 mmol/L (98-107); CREATININE RESULT 0.83 mg/dL (0.52-1.25); GLUCOSE 85 mg/dL (75-110); MAGNESIUM 1.9 mg/dL (1.6-2.3); PHOSPHORUS 4.9 mg/dL (2.5-4.5); POTASSIUM 3.8 mmol/L (3.6-5.0); SODIUM 140.8 mmol/L (137-145); TOTAL PROTEIN 6.5 g/dL (6.3-8.2)
[2017-01-22] MEDS: OMEGA-3 ACID ETHYL ESTERS 1 GM CAPSULE PO SCH (09:36)
[2017-01-22] MEDS: FERROUS SULFATE 325 MG TABLET PO SCH (09:36)
[2017-01-22] MEDS: FOLIC ACID 1 MG TABLET PO SCH (09:36)
[2017-01-22] MEDS: LACTOBACILLUS ACIDOPHILUS 250 MG TAB PO SCH (09:36)
[2017-01-22] MEDS: NORMAL SALINE 10 ML SDV (SCHEDULED) IV SCH ×2 (09:37→21:40)
[2017-01-22] MEDS: KETOCONAZOLE 2% SHAMPOO 120 ML BOTTLE TP SCH (09:40)
[2017-01-22] MEDS: CEFTRIAXONE 2 GM/D5W RTU 2 GM/50 ML RTUPB IV SCH (12:36)
[2017-01-22] MEDS: NORMAL SALINE 10 ML SDV (AFTER EACH USE) IV PRN (13:31)
--- NOTE | 2017-01-22 16:23 | PDOC PROGRESS REPORT ---
Subjective Progress Note for:: 01/22/17 Subjective:: 31-year-old male with a history of IV drug of abuse who had an aortic valve replacement back in 2012. He continued to use IV drugs and developed aortic valve endocarditis and had another bioprosthetic aortic valve replacement in March of this year. He presented to this hospital on December 14 with a two-week history of fever and chest pain. He has had continued IV cocaine and amphetamine abuse. Thoracic echocardiogram done on December 14 showed no gross vegetations. Left ventricular ejection fraction was 30% with severe global hypokinesis of the left ventricle moderate to severe amount of mitral regurgitation, bioprosthetic aortic valve and moderate dilatation of the left atrium. December 21 he was transferred to [facility] for a trans-esophageal echocardiogram. Blood cultures were positive for Strep mitis. CHRISTA done at [facility] was noted to have mitral valve vegetations. No surgical intervention was recommended and he was sent back to this hospital to complete treatment with a 6 week course of antibiotics. No complaints at present. Appetite is good. Denies diarrhea or nausea. Denies shortness of breath or cough. Reason For Visit: FEVER,IVDA Physical Exam Vital Signs: Temp Pulse Resp BP Pulse Ox 97.7 F 87 12 96/48 L 99 01/22/17 12:00 01/22/17 12:00 01/22/17 12:00 01/22/17 12:00 01/22/17 12:00 Intake & Output 01/21/17 01/22/17 01/23/17 06:59 06:59 06:59 Intake Total 2446 2140 570 Output Total 600 Balance 1846 2140 570 Weight 76.3 kg 75.7 kg Additional comments: Thin young male lying comfortably in bed not in acute distress Lungs: Clear to auscultation bilaterally normal respiratory effort Cardiac: S1-S2 regular no peripheral edema no cyanosis Abdomen: Soft, no focal tenderness normal bowel sounds Results Laboratory Results: 01/22/17 06:17 01/22/17 06:17 01/22/17 01/22/17 06:17 06:17 WBC 5.8 RBC 4.84 Hgb 12.9 L Hct 38.3 MCV 79 L MCH 26.7 L MCHC 33.8 RDW 17.0 H Plt Count 128 L Seg Neutrophils % 63.8 Lymphocytes % 22.0 Monocytes % 12.1 Eosinophils % 1.6 Basophils % 0.5 Absolute Neutrophils 3.7 Absolute Lymphocytes 1.3 Absolute Monocytes 0.7 Absolute Eosinophils 0.1 Absolute Basophils 0.0 Sodium 140.8 Potassium 3.8 Chloride 103 Carbon Dioxide 31 H Anion Gap 7 BUN 13 Creatinine 0.83 Est GFR ( Amer) > 60 Est GFR (Non-Af Amer) > 60 Glucose 85 Calcium 9.4 Phosphorus 4.9 H Magnesium 1.9 Total Bilirubin 0.5 AST 99 H ALT 161 H Alkaline Phosphatase 95 Total Protein 6.5 Albumin 3.8 Impressions: Chest X-Ray 12/13/16 23:37 IMPRESSION: NO ACUTE RADIOGRAPHIC FINDING IN THE CHEST. NO SIGNIFICANT CHANGE FROM PRIOR STUDY. Guidance Fluoroscopy 12/17/16 00:00 IMPRESSION: SUCCESSFUL PLACEMENT OF A 5 FR DUAL LUMEN 35 CM PICC IN THE RIGHT BASILIC VEIN. THERE IS A FOCAL STENOSIS AT THE TRANSITION BETWEEN THE RIGHT BASILIC VEIN AND AXILLARY VEIN. PATIENT HAS HAD 3 PRIOR PICC CATHETERS IN THIS ARM. FOR FUTURE CATHETER PLACEMENT, CONSIDER THE LEFT ARM OR USING THE RIGHT CEPHALIC VEIN. Interventional Vascular Procedure 12/17/16 00:00 IMPRESSION: SUCCESSFUL PLACEMENT OF A 5 FR DUAL LUMEN 35 CM PICC IN THE RIGHT BASILIC VEIN. THERE IS A FOCAL STENOSIS AT THE TRANSITION BETWEEN THE RIGHT BASILIC VEIN AND AXILLARY VEIN. PATIENT HAS HAD 3 PRIOR PICC CATHETERS IN THIS ARM. FOR FUTURE CATHETER PLACEMENT, CONSIDER THE LEFT ARM OR USING THE RIGHT CEPHALIC VEIN. PICC Line Insertion 12/17/16 00:00 IMPRESSION: SUCCESSFUL PLACEMENT OF A 5 FR DUAL LUMEN 35 CM PICC IN THE RIGHT BASILIC VEIN. THERE IS A FOCAL STENOSIS AT THE TRANSITION BETWEEN THE RIGHT BASILIC VEIN AND AXILLARY VEIN. PATIENT HAS HAD 3 PRIOR PICC CATHETERS IN THIS ARM. FOR FUTURE CATHETER PLACEMENT, CONSIDER THE LEFT ARM OR USING THE RIGHT CEPHALIC VEIN. Assessment & Plan - Diagnosis (1) Valvular heart disease Is this a current diagnosis for this admission?: Yes (2) Polysubstance (including opioids) dependence with physiol dependence Is this a current diagnosis for this admission?: Yes (3) Streptococcal septicemia Is this a current diagnosis for this admission?: Yes (4) IV drug abuse Is this a current diagnosis for this admission?: Yes (5) Endocarditis of mitral valve Is this a current diagnosis for this admission?: Yes (6) Endocarditis Qualifiers: Endocarditis type: infective Infective endocarditis organism: bacterial Chronicity: unspecified Qualified Code(s): I33.0 - Acute and subacute infective endocarditis Is this a current diagnosis for this admission?: Yes (7) History of aortic valve replacement with bioprosthetic valve Is this a current diagnosis for this admission?: No - Time Time Spent with patient: Less than 15 minutes - Plan Summary Plan Summary: Continue antibiotics last is January 26. He will need extraction of his infected tooth and dental follow-up as an outpatient. He should refrain from using illicit IV drugs.
[2017-01-23] MEDS: ZOLPIDEM TARTRATE 5 MG TABLET PO PRN (01:19)
[2017-01-23] MEDS: BUPROPION HCL 100 MG TABLET PO SCH ×3 (05:47→21:21)
[2017-01-23] MEDS: OMEGA-3 ACID ETHYL ESTERS 1 GM CAPSULE PO SCH (07:33)
[2017-01-23] MEDS: FOLIC ACID 1 MG TABLET PO SCH (10:05)
[2017-01-23] MEDS: KETOCONAZOLE 2% SHAMPOO 120 ML BOTTLE TP SCH (10:05)
[2017-01-23] MEDS: FERROUS SULFATE 325 MG TABLET PO SCH (10:05)
[2017-01-23] MEDS: NORMAL SALINE 10 ML SDV (SCHEDULED) IV SCH ×2 (10:05→21:21)
[2017-01-23] MEDS: LACTOBACILLUS ACIDOPHILUS 250 MG TAB PO SCH (10:05)
[2017-01-23] MEDS: CEFTRIAXONE 2 GM/D5W RTU 2 GM/50 ML RTUPB IV SCH (12:26)
--- NOTE | 2017-01-23 13:14 | PDOC PROGRESS REPORT ---
Subjective Progress Note for:: 01/23/17 Subjective:: 31-year-old male with a history of IV drug of abuse who had an aortic valve replacement back in 2012. He continued to use IV drugs and developed aortic valve endocarditis and had another bioprosthetic aortic valve replacement in March of this year. He presented to this hospital on December 14 with a two-week history of fever and chest pain. He has had continued IV cocaine and amphetamine abuse. Thoracic echocardiogram done on December 14 showed no gross vegetations. Left ventricular ejection fraction was 30% with severe global hypokinesis of the left ventricle moderate to severe amount of mitral regurgitation, bioprosthetic aortic valve and moderate dilatation of the left atrium. December 21 he was transferred to [facility] for a trans-esophageal echocardiogram. Blood cultures were positive for Strep mitis. CHRISTA done at [facility] was noted to have mitral valve vegetations. No surgical intervention was recommended and he was sent back to this hospital to complete treatment with a 6 week course of antibiotics. Complete his antibiotics on January 27. January 26 is the last day. No complaints at present. Reason For Visit: FEVER,IVDA Physical Exam Vital Signs: Temp Pulse Resp BP Pulse Ox 98.3 F 98 16 99/56 L 98 01/23/17 12:19 01/23/17 12:19 01/23/17 12:19 01/23/17 12:19 01/23/17 12:19 Intake & Output 01/22/17 01/23/17 01/24/17 06:59 06:59 06:59 Intake Total 2140 2130 Balance 2140 2130 Weight 75.7 kg Additional comments: Thin young male lying in bed not in acute distress Lungs: Clear to auscultation bilaterally normal respiratory effort Cardiac: S1-S2 regular no peripheral edema Abdomen: Soft no focal tenderness Results Laboratory Results: 01/22/17 06:17 01/22/17 06:17 Impressions: Chest X-Ray 12/13/16 23:37 IMPRESSION: NO ACUTE RADIOGRAPHIC FINDING IN THE CHEST. NO SIGNIFICANT CHANGE FROM PRIOR STUDY. Guidance Fluoroscopy 12/17/16 00:00 IMPRESSION: SUCCESSFUL PLACEMENT OF A 5 FR DUAL LUMEN 35 CM PICC IN THE RIGHT BASILIC VEIN. THERE IS A FOCAL STENOSIS AT THE TRANSITION BETWEEN THE RIGHT BASILIC VEIN AND AXILLARY VEIN. PATIENT HAS HAD 3 PRIOR PICC CATHETERS IN THIS ARM. FOR FUTURE CATHETER PLACEMENT, CONSIDER THE LEFT ARM OR USING THE RIGHT CEPHALIC VEIN. Interventional Vascular Procedure 12/17/16 00:00 IMPRESSION: SUCCESSFUL PLACEMENT OF A 5 FR DUAL LUMEN 35 CM PICC IN THE RIGHT BASILIC VEIN. THERE IS A FOCAL STENOSIS AT THE TRANSITION BETWEEN THE RIGHT BASILIC VEIN AND AXILLARY VEIN. PATIENT HAS HAD 3 PRIOR PICC CATHETERS IN THIS ARM. FOR FUTURE CATHETER PLACEMENT, CONSIDER THE LEFT ARM OR USING THE RIGHT CEPHALIC VEIN. PICC Line Insertion 12/17/16 00:00 IMPRESSION: SUCCESSFUL PLACEMENT OF A 5 FR DUAL LUMEN 35 CM PICC IN THE RIGHT BASILIC VEIN. THERE IS A FOCAL STENOSIS AT THE TRANSITION BETWEEN THE RIGHT BASILIC VEIN AND AXILLARY VEIN. PATIENT HAS HAD 3 PRIOR PICC CATHETERS IN THIS ARM. FOR FUTURE CATHETER PLACEMENT, CONSIDER THE LEFT ARM OR USING THE RIGHT CEPHALIC VEIN. Assessment & Plan - Diagnosis (1) Valvular heart disease Is this a current diagnosis for this admission?: Yes (2) Polysubstance (including opioids) dependence with physiol dependence Is this a current diagnosis for this admission?: Yes (3) Streptococcal septicemia Is this a current diagnosis for this admission?: Yes (4) IV drug abuse Is this a current diagnosis for this admission?: Yes (5) Endocarditis of mitral valve Is this a current diagnosis for this admission?: Yes Plan: Continue antibiotics. (6) History of aortic valve replacement with bioprosthetic valve Is this a current diagnosis for this admission?: No - Time Time Spent with patient: Less than 15 minutes
[2017-01-24] MEDS: ZOLPIDEM TARTRATE 5 MG TABLET PO PRN (00:53)
[2017-01-24] MEDS: BUPROPION HCL 100 MG TABLET PO SCH ×3 (05:28→22:00)
[2017-01-24] MEDS: OMEGA-3 ACID ETHYL ESTERS 1 GM CAPSULE PO SCH (09:07)
[2017-01-24] MEDS: KETOCONAZOLE 2% SHAMPOO 120 ML BOTTLE TP SCH (09:07)
[2017-01-24] MEDS: NORMAL SALINE 10 ML SDV (SCHEDULED) IV SCH ×2 (09:08→22:00)
[2017-01-24] MEDS: FERROUS SULFATE 325 MG TABLET PO SCH (09:08)
[2017-01-24] MEDS: LACTOBACILLUS ACIDOPHILUS 250 MG TAB PO SCH (09:08)
[2017-01-24] MEDS: FOLIC ACID 1 MG TABLET PO SCH (09:08)
--- NOTE | 2017-01-24 13:06 | PDOC PROGRESS REPORT ---
Subjective Progress Note for:: 01/24/17 Subjective:: 31-year-old male with a history of IV drug of abuse who had an aortic valve replacement back in 2012. He continued to use IV drugs and developed aortic valve endocarditis and had another bioprosthetic aortic valve replacement in March of this year. He presented to this hospital on December 14 with a two-week history of fever and chest pain. He has had continued IV cocaine and amphetamine abuse. Thoracic echocardiogram done on December 14 showed no gross vegetations. Left ventricular ejection fraction was 30% with severe global hypokinesis of the left ventricle moderate to severe amount of mitral regurgitation, bioprosthetic aortic valve and moderate dilatation of the left atrium. December 21 he was transferred to [facility] for a trans-esophageal echocardiogram. Blood cultures were positive for Strep mitis. CHRISTA done at [facility] was noted to have mitral valve vegetations. No surgical intervention was recommended and he was sent back to this hospital to complete treatment with a 6 week course of antibiotics. Complete his antibiotics on January 27. January 26 is the last day. No complaints at present. Reason For Visit: FEVER,IVDA Physical Exam Vital Signs: Temp Pulse Resp BP Pulse Ox 97.8 F 94 16 105/64 97 01/24/17 11:29 01/24/17 11:29 01/24/17 11:29 01/24/17 11:29 01/24/17 11:29 Intake & Output 01/23/17 01/24/17 01/25/17 06:59 06:59 06:59 Intake Total 2130 2360 Balance 2130 2360 Weight 77.1 kg Results Laboratory Results: 01/22/17 06:17 01/22/17 06:17 Impressions: Chest X-Ray 12/13/16 23:37 IMPRESSION: NO ACUTE RADIOGRAPHIC FINDING IN THE CHEST. NO SIGNIFICANT CHANGE FROM PRIOR STUDY. Guidance Fluoroscopy 12/17/16 00:00 IMPRESSION: SUCCESSFUL PLACEMENT OF A 5 FR DUAL LUMEN 35 CM PICC IN THE RIGHT BASILIC VEIN. THERE IS A FOCAL STENOSIS AT THE TRANSITION BETWEEN THE RIGHT BASILIC VEIN AND AXILLARY VEIN. PATIENT HAS HAD 3 PRIOR PICC CATHETERS IN THIS ARM. FOR FUTURE CATHETER PLACEMENT, CONSIDER THE LEFT ARM OR USING THE RIGHT CEPHALIC VEIN. Interventional Vascular Procedure 12/17/16 00:00 IMPRESSION: SUCCESSFUL PLACEMENT OF A 5 FR DUAL LUMEN 35 CM PICC IN THE RIGHT BASILIC VEIN. THERE IS A FOCAL STENOSIS AT THE TRANSITION BETWEEN THE RIGHT BASILIC VEIN AND AXILLARY VEIN. PATIENT HAS HAD 3 PRIOR PICC CATHETERS IN THIS ARM. FOR FUTURE CATHETER PLACEMENT, CONSIDER THE LEFT ARM OR USING THE RIGHT CEPHALIC VEIN. PICC Line Insertion 12/17/16 00:00 IMPRESSION: SUCCESSFUL PLACEMENT OF A 5 FR DUAL LUMEN 35 CM PICC IN THE RIGHT BASILIC VEIN. THERE IS A FOCAL STENOSIS AT THE TRANSITION BETWEEN THE RIGHT BASILIC VEIN AND AXILLARY VEIN. PATIENT HAS HAD 3 PRIOR PICC CATHETERS IN THIS ARM. FOR FUTURE CATHETER PLACEMENT, CONSIDER THE LEFT ARM OR USING THE RIGHT CEPHALIC VEIN. Assessment & Plan - Diagnosis (1) Valvular heart disease Is this a current diagnosis for this admission?: Yes (2) Polysubstance (including opioids) dependence with physiol dependence Is this a current diagnosis for this admission?: Yes (3) Streptococcal septicemia Is this a current diagnosis for this admission?: Yes (4) IV drug abuse Is this a current diagnosis for this admission?: Yes (5) Endocarditis of mitral valve Is this a current diagnosis for this admission?: Yes (6) History of aortic valve replacement with bioprosthetic valve Is this a current diagnosis for this admission?: No - Time Time Spent with patient: Less than 15 minutes - Plan Summary Plan Summary: Awaiting completion of treatment for mitral valve endocarditis.
[2017-01-24] MEDS: CEFTRIAXONE 2 GM/D5W RTU 2 GM/50 ML RTUPB IV SCH (13:43)
[2017-01-25] MEDS: ZOLPIDEM TARTRATE 5 MG TABLET PO PRN (01:07)
[2017-01-25] MEDS: BUPROPION HCL 100 MG TABLET PO SCH ×3 (05:46→21:39)
[2017-01-25] MEDS: KETOCONAZOLE 2% SHAMPOO 120 ML BOTTLE TP SCH (09:22)
[2017-01-25] MEDS: FERROUS SULFATE 325 MG TABLET PO SCH (09:23)
[2017-01-25] MEDS: LACTOBACILLUS ACIDOPHILUS 250 MG TAB PO SCH (09:23)
[2017-01-25] MEDS: FOLIC ACID 1 MG TABLET PO SCH (09:23)
[2017-01-25] MEDS: NORMAL SALINE 10 ML SDV (SCHEDULED) IV SCH ×2 (09:23→21:39)
[2017-01-25] MEDS: OMEGA-3 ACID ETHYL ESTERS 1 GM CAPSULE PO SCH (09:23)
[2017-01-25] MEDS: CEFTRIAXONE 2 GM/D5W RTU 2 GM/50 ML RTUPB IV SCH (13:41)
--- NOTE | 2017-01-25 19:24 | PDOC PROGRESS REPORT ---
Subjective Progress Note for:: 01/25/17 Subjective:: 31-year-old male with a history of IV drug of abuse who had an aortic valve replacement back in 2012. He continued to use IV drugs and developed aortic valve endocarditis and had another bioprosthetic aortic valve replacement in March of this year. He presented to this hospital on December 14 with a two-week history of fever and chest pain. He has had continued IV cocaine and amphetamine abuse. Thoracic echocardiogram done on December 14 showed no gross vegetations. Left ventricular ejection fraction was 30% with severe global hypokinesis of the left ventricle moderate to severe amount of mitral regurgitation, bioprosthetic aortic valve and moderate dilatation of the left atrium. December 21 he was transferred to [facility] for a trans-esophageal echocardiogram. Blood cultures were positive for Strep mitis. CHRISTA done at [facility] was noted to have mitral valve vegetations. No surgical intervention was recommended and he was sent back to this hospital to complete treatment with a 6 week course of antibiotics. January 26 is the last day. No complaints at present. Reason For Visit: FEVER,IVDA Physical Exam Vital Signs: Temp Pulse Resp BP Pulse Ox 98.5 F 83 16 108/74 98 01/25/17 15:40 01/25/17 15:40 01/25/17 15:40 01/25/17 15:40 01/25/17 15:40 Intake & Output 01/24/17 01/25/17 01/26/17 06:59 06:59 06:59 Intake Total 2360 2020 986 Balance 2360 2020 986 Weight 77.1 kg 77.1 kg Additional comments: Thin young male lying in bed not in acute distress Lungs: Clear to auscultation bilaterally normal respiratory effort Cardiac: S1-S2 regular no peripheral edema no cyanosis Results Laboratory Results: 01/22/17 06:17 01/22/17 06:17 Impressions: Chest X-Ray 12/13/16 23:37 IMPRESSION: NO ACUTE RADIOGRAPHIC FINDING IN THE CHEST. NO SIGNIFICANT CHANGE FROM PRIOR STUDY. Guidance Fluoroscopy 12/17/16 00:00 IMPRESSION: SUCCESSFUL PLACEMENT OF A 5 FR DUAL LUMEN 35 CM PICC IN THE RIGHT BASILIC VEIN. THERE IS A FOCAL STENOSIS AT THE TRANSITION BETWEEN THE RIGHT BASILIC VEIN AND AXILLARY VEIN. PATIENT HAS HAD 3 PRIOR PICC CATHETERS IN THIS ARM. FOR FUTURE CATHETER PLACEMENT, CONSIDER THE LEFT ARM OR USING THE RIGHT CEPHALIC VEIN. Interventional Vascular Procedure 12/17/16 00:00 IMPRESSION: SUCCESSFUL PLACEMENT OF A 5 FR DUAL LUMEN 35 CM PICC IN THE RIGHT BASILIC VEIN. THERE IS A FOCAL STENOSIS AT THE TRANSITION BETWEEN THE RIGHT BASILIC VEIN AND AXILLARY VEIN. PATIENT HAS HAD 3 PRIOR PICC CATHETERS IN THIS ARM. FOR FUTURE CATHETER PLACEMENT, CONSIDER THE LEFT ARM OR USING THE RIGHT CEPHALIC VEIN. PICC Line Insertion 12/17/16 00:00 IMPRESSION: SUCCESSFUL PLACEMENT OF A 5 FR DUAL LUMEN 35 CM PICC IN THE RIGHT BASILIC VEIN. THERE IS A FOCAL STENOSIS AT THE TRANSITION BETWEEN THE RIGHT BASILIC VEIN AND AXILLARY VEIN. PATIENT HAS HAD 3 PRIOR PICC CATHETERS IN THIS ARM. FOR FUTURE CATHETER PLACEMENT, CONSIDER THE LEFT ARM OR USING THE RIGHT CEPHALIC VEIN. Assessment & Plan - Diagnosis (1) Valvular heart disease Is this a current diagnosis for this admission?: Yes (2) Polysubstance (including opioids) dependence with physiol dependence Is this a current diagnosis for this admission?: Yes (3) Streptococcal septicemia Is this a current diagnosis for this admission?: Yes (4) IV drug abuse Is this a current diagnosis for this admission?: Yes (5) Endocarditis of mitral valve Is this a current diagnosis for this admission?: Yes (6) History of aortic valve replacement with bioprosthetic valve Is this a current diagnosis for this admission?: No - Time Time Spent with patient: Less than 15 minutes - Plan Summary Plan Summary: Complete 6 weeks of antibiotics for mitral valve endocarditis. He will need to see a dentist for removal of his infected teeth to prevent further episodes of endocarditis in the future. He was advised to refrain from abusing IV drugs.
[2017-01-25] MEDS: NORMAL SALINE 10 ML SDV (AFTER EACH USE) IV PRN (21:39)
[2017-01-26] MEDS: ZOLPIDEM TARTRATE 5 MG TABLET PO PRN (00:29)
[2017-01-26] MEDS: BUPROPION HCL 100 MG TABLET PO SCH ×2 (05:18→14:00)
[2017-01-26] MEDS: LACTOBACILLUS ACIDOPHILUS 250 MG TAB PO SCH (09:31)
[2017-01-26] MEDS: FOLIC ACID 1 MG TABLET PO SCH (09:31)
[2017-01-26] MEDS: FERROUS SULFATE 325 MG TABLET PO SCH (09:31)
[2017-01-26] MEDS: OMEGA-3 ACID ETHYL ESTERS 1 GM CAPSULE PO SCH (09:31)
[2017-01-26] MEDS: KETOCONAZOLE 2% SHAMPOO 120 ML BOTTLE TP SCH (09:31)
[2017-01-26] MEDS: NORMAL SALINE 10 ML SDV (SCHEDULED) IV SCH (09:32)
[2017-01-26] MEDS: CEFTRIAXONE 2 GM/D5W RTU 2 GM/50 ML RTUPB IV SCH (14:00)
--- NOTE | 2017-01-26 15:09 | PDOC DISCHARGE SUMMARY ---
General - Admit/Disc Date/PCP Admission Date/Primary Care Provider: 12/14/16 02:56 Discharge Date: 01/26/17 - Discharge Diagnosis (1) Endocarditis of mitral valve Is this a current diagnosis for this admission?: Yes Summary: Patient had a transesophageal echocardiogram that showed mitral valve vegetations done at [facility]. He has completed a 6 week course of IV Rocephin. (2) Cardiomyopathy Is this a current diagnosis for this admission?: Yes (3) Chronic systolic (congestive) heart failure Is this a current diagnosis for this admission?: Yes (4) Depression Is this a current diagnosis for this admission?: Yes (5) IV drug abuse Is this a current diagnosis for this admission?: Yes - Additional Information Resuscitation Status: Full Code Discharge Diet: Regular Discharge Activity: Activity As Tolerated Prescriptions: Bupropion HCl [Wellbutrin 100 mg Tablet] 100 mg PO Q8 #90 tablet [place]-3 Acid Ethyl Esters [Lovaza 1 gm Capsule] 1 gm PO WBRKFST #30 capsule Home Medications: Metoprolol Tartrate [Lopressor 25 mg Tablet] 12.5 mg PO Q12 12/14/16 Bupropion HCl [Wellbutrin 100 mg Tablet] 100 mg PO Q8 #90 tablet 01/26/17 Ferrous Sulfate [Feosol 325 mg Tablet] 325 mg PO DAILY tablet 01/26/17 Flu Vacc [id number] 36Mos Up/Pf [Fluzone Adlt Quad 1513-1084 Vac 0.5 ml Syr] 0.5 ml IM .DISCHARGE PRN disp.syrin 01/26/17 Ibuprofen [Motrin 600 mg Tablet] 600 mg PO Q8HP PRN tablet 01/26/17 [place]-3 Acid Ethyl Esters [Lovaza 1 gm Capsule] 1 gm PO WBRKFST #30 capsule History of Present Illness History of Present Illness: VINICIO BLEDSOE is a 31 year old male who has a history of IV drug abuse who presented with a fever. The patient has had mitral valve replacement 2 previous times because of endocarditis. Patient was admitted for IV antibiotics and evaluation for possible recurrent endocarditis. Hospital Course Hospital Course: 31-year-old male with a history of endocarditis previously and has had mitral valve replacement 2 separate times who presented with fever. He had an echocardiogram done that did not show an obvious vegetation but given the high suspicion for endocarditis he was transferred to [place] and underwent a transesophageal echocardiogram. Patient did have a mitral valve vegetation. It was recommended that he complete 6 weeks of IV antibiotics. A PICC line was placed and he has now completed 6 weeks of IV antibiotics. It was not felt that he was safe to go home with a PICC line given his history of IV drug abuse. The patient is noted to have poor dentition and is recommended that he have this bad teeth removed as an outpatient. He will follow-up with his primary care doctor for referral for dentist to have his decayed teeth removed. The patient is encouraged to stay away from IV drugs. Physical Exam Vital Signs: Temp Pulse Resp BP Pulse Ox 98.1 F 87 16 102/60 99 01/26/17 11:33 01/26/17 11:33 01/26/17 11:33 01/26/17 11:33 01/26/17 11:33 Intake & Output 01/25/17 01/26/17 01/27/17 06:59 06:59 06:59 Intake Total 2019 2276 420 Balance 20196 420 Weight 77.1 kg General appearance: PRESENT: no acute distress Eye exam: PRESENT: conjunctiva pink. ABSENT: scleral icterus Mouth exam: PRESENT: moist, tongue midline Respiratory exam: PRESENT: clear to auscultation sera. ABSENT: rales, rhonchi, wheezes Cardiovascular exam: PRESENT: RRR, systolic murmur - 3/6 systolic murmur.. ABSENT: diastolic murmur, rubs GI/Abdominal exam: PRESENT: normal bowel sounds, soft. ABSENT: distended, guarding, mass, organolmegaly, rebound, tenderness Extremities exam: ABSENT: calf tenderness, clubbing, pedal edema Neurological exam: PRESENT: alert, awake, oriented to person, oriented to place , oriented to time, oriented to situation, CN II-XII grossly intact. ABSENT: motor sensory deficit Psychiatric exam: PRESENT: appropriate affect Skin exam: PRESENT: dry, intact, warm. ABSENT: cyanosis, rash Results Laboratory Results: 01/22/17 06:17 01/22/17 06:17 Impressions: Chest X-Ray 12/13/16 23:37 IMPRESSION: NO ACUTE RADIOGRAPHIC FINDING IN THE CHEST. NO SIGNIFICANT CHANGE FROM PRIOR STUDY. Guidance Fluoroscopy 12/17/16 00:00 IMPRESSION: SUCCESSFUL PLACEMENT OF A 5 FR DUAL LUMEN 35 CM PICC IN THE RIGHT BASILIC VEIN. THERE IS A FOCAL STENOSIS AT THE TRANSITION BETWEEN THE RIGHT BASILIC VEIN AND AXILLARY VEIN. PATIENT HAS HAD 3 PRIOR PICC CATHETERS IN THIS ARM. FOR FUTURE CATHETER PLACEMENT, CONSIDER THE LEFT ARM OR USING THE RIGHT CEPHALIC VEIN. Interventional Vascular Procedure 12/17/16 00:00 IMPRESSION: SUCCESSFUL PLACEMENT OF A 5 FR DUAL LUMEN 35 CM PICC IN THE RIGHT BASILIC VEIN. THERE IS A FOCAL STENOSIS AT THE TRANSITION BETWEEN THE RIGHT BASILIC VEIN AND AXILLARY VEIN. PATIENT HAS HAD 3 PRIOR PICC CATHETERS IN THIS ARM. FOR FUTURE CATHETER PLACEMENT, CONSIDER THE LEFT ARM OR USING THE RIGHT CEPHALIC VEIN. PICC Line Insertion 12/17/16 00:00 IMPRESSION: SUCCESSFUL PLACEMENT OF A 5 FR DUAL LUMEN 35 CM PICC IN THE RIGHT BASILIC VEIN. THERE IS A FOCAL STENOSIS AT THE TRANSITION BETWEEN THE RIGHT BASILIC VEIN AND AXILLARY VEIN. PATIENT HAS HAD 3 PRIOR PICC CATHETERS IN THIS ARM. FOR FUTURE CATHETER PLACEMENT, CONSIDER THE LEFT ARM OR USING THE RIGHT CEPHALIC VEIN. Qualifiers PATEINT BEING DISCHARGED WITH ANY OF THE FOLLOWING DIAGNOSIS?: No Plan Discharge Plan: Patient will follow up with primary care in 1-2 weeks. Time Spent: Less than 30 Minutes
[2017-01-26 18:40] VITALS: BP 102/66
== END 2017-01-26 20:00 | disposition home or self-care (01) | DRG 288 ==
LOC: ER 23:19 → UNDOADMOB 12-14 02:06 → OBSVTOIN 12-14 02:06 → INTOOBSV 12-14 02:06 → EH 12-14 02:06 → OBSVTOIN 12-14 02:56 → 3S 12-14 03:40 → 5 12-16 18:35
PROVIDERS: ADMIT Family Medicine; ATTEND Family Medicine
PROC: 02HV33Z Insertion of Infusion Device into Superior Vena Cava, Percutaneous Approach (ICD-10-PCS; principal; 2016-12-17)
PROC: B518ZZA Fluoroscopy of Superior Vena Cava, Guidance (ICD-10-PCS; 2016-12-17)
PROC: B548ZZA Ultrasonography of Superior Vena Cava, Guidance (ICD-10-PCS; 2016-12-17)
PROC: 3E0234Z Introduction of Serum, Toxoid and Vaccine into Muscle, Percutaneous Approach (ICD-10-PCS; 2017-01-26)
DX: I33.0 Acute and subacute infective endocarditis (principal); A40.8 Other streptococcal sepsis; I50.22 Chronic systolic (congestive) heart failure; E87.1 Hypo-osmolality and hyponatremia; F14.20 Cocaine dependence, uncomplicated; F11.20 Opioid dependence, uncomplicated; F15.20 Other stimulant dependence, uncomplicated; I42.9 Cardiomyopathy, unspecified; I34.0 Nonrheumatic mitral (valve) insufficiency; B95.4 Other streptococcus as the cause of diseases classified elsewhere; E11.9 Type 2 diabetes mellitus without complications; I11.0 Hypertensive heart disease with heart failure; E87.6 Hypokalemia; K02.9 Dental caries, unspecified; F12.20 Cannabis dependence, uncomplicated; F31.9 Bipolar disorder, unspecified; F20.9 Schizophrenia, unspecified; L21.8 Other seborrheic dermatitis; D69.6 Thrombocytopenia, unspecified; F17.210 Nicotine dependence, cigarettes, uncomplicated; Z95.810 Presence of automatic (implantable) cardiac defibrillator; Z95.2 Presence of prosthetic heart valve; Z23 Encounter for immunization
CPT/HCPCS: 36415; 36569; 71010; 76937; 77001; 80048; 80053; 80076; 80202; 80307; 81001; 82550; 82565; 82803; 82962; 83605; 83735; 84100; 85025; 85610; 86701; 87040; 87077; 87086; 87186; 87804; 90686; 93005; 93010; 93306; 96365; 96368; 99285; C1769; C1887; J0696; J1642; J3370; J3490; J7030; J7060

== ENCOUNTER 2017-04-21 19:27 | Emergency (ER) | payer SELFPAY ==
[2017-04-21] MEDS ORDERED: FENTANYL CITRATE INJ/PF 100 MCG/2 ML AMPUL IM ONE (19:47)
--- NOTE | 2017-04-21 19:49 | ER Document Report ---
ED General - General Chief Complaint: Groin Pain Stated Complaint: GROIN PAIN Time Seen by Provider: 04/21/17 19:39 Mode of Arrival: Medic Information source: Patient Notes: 31-year-old male with a history of prior CVA, mitral valve replacement presents with complaint of left testicular pain that started 1 day prior to arrival. Patient states that he began feeling left leg pain 5 days prior to arrival and yesterday began feeling an aching pain in his left testicle that has gradually worsened.He denies any injury or prior similar symptoms. He denies any penile discharge or dysuria. He is not currently sexually active. TRAVEL OUTSIDE OF THE [place] IN LAST 30 DAYS: No - HPI Onset: Yesterday Onset/Duration: Gradual Quality of pain: Throbbing Severity: Moderate Pain Level: 3 Associated symptoms: denies: Fever Exacerbated by: Movement Relieved by: Denies Similar symptoms previously: No Recently seen / treated by doctor: No - Related Data Allergies/Adverse Reactions: No Known Allergies Allergy (Unverified 12/14/16 04:54) Past Medical History - Social History Smoking Status: Current Every Day Smoker Cigarette use (# per day): Yes - 4 Chew tobacco use (# tins/day): No Smoking Education Provided: Yes Frequency of alcohol use: None Drug Abuse: Marijuana Lives with: Family Family History: CAD, Other - Father: congestive heart failure, when the patient was 16. He's been estranged from his family since then. - Past Medical History Cardiac Medical History: Reports: Hx Congestive Heart Failure, Hx Hypertension, Hx Heart Murmur Pulmonary Medical History: Denies: Hx Tuberculosis Neurological Medical History: Reports: Hx Cerebrovascular Accident Endocrine Medical History: Reports: Hx Diabetes Mellitus Type 2 Renal/ Medical History: Denies: Hx Peritoneal Dialysis GI Medical History: Denies: Hx Hepatitis Psychiatric Medical History: Reports: Hx Bipolar Disorder, Hx Schizophrenia Infectious Medical History: Denies: Hx Hepatitis Past Surgical History: Reports: Hx Cardiac Surgery, Hx Internal Defibrillator, Hx Tonsillectomy, Hx Valve Replacement - Aortic valve replacement in 2013 at [facility] - Immunizations Immunizations up to date: Yes Hx Diphtheria, Pertussis, Tetanus Vaccination: No Review of Systems - Review of Systems Constitutional: denies: Chills, Fever Cardiovascular: denies: Chest pain, Palpitations Respiratory: No symptoms reported Gastrointestinal: Nausea. denies: Abdominal pain, Diarrhea, Constipation Genitourinary: denies: Burning, Dysuria, Discharge Male Genitourinary: Testicular pain Physical Exam - Vital signs Vitals: Temp Pulse Resp BP Pulse Ox 99.0 F 86 14 135/85 H 94 04/21/17 20:42 04/21/17 20:42 04/21/17 20:42 04/21/17 20:42 04/21/17 20:42 Interpretation: Normal. No: Tachycardic, Febrile - General General appearance: Appears well, Alert - Respiratory Respiratory status: No respiratory distress Chest status: Nontender Breath sounds: Normal Chest palpation: Normal - Abdominal Inspection: Normal Distension: No distension Bowel sounds: Normal Tenderness: Nontender Organomegaly: No organomegaly - Genitourinary Tenderness: Testicle tender Cremasteric reflex: Normal Scrotum: Swelling. No: Hot to touch - Back Back: Normal, Nontender. No: CVA tenderness Course - Re-evaluation Re-evalutation: 04/21/17 22:12 Patient reevaluated and reports that he is now pain-free. Ultrasound of the testicle did not show evidence of torsion. 04/21/17 23:00 31-year-old male presents with complaint of left testicular pain that started 1 day prior to arrival. Upon arrival vitals were reviewed and within normal limits. Patient does not appear toxic or dehydrated but he does appear to be uncomfortable.Exam is significant for tenderness to the left testicle with associated mild swelling. There is no evidence of inguinal hernia. Cremasteric reflexes were intact bilaterally. Ultrasound of the testicle was obtained and negative for evidence of torsion it did show a left sided varicocele. No evidence of urinary tract infection on urinalysis. Gonorrhea and Chlamydia are pending. Patient received fentanyl for pain during his ED course. He reports relief of pain on reevaluation. Patient was discharged home with recommendations to follow up with his primary care physician if pain returns. Laboratory 04/21/17 21:11 Urine Color YELLOW Urine Appearance CLEAR Urine pH 6.0 Ur Specific [place] 1.028 Urine Protein NEGATIVE Urine Glucose (UA) NEGATIVE Urine Ketones NEGATIVE Urine Blood NEGATIVE Urine Nitrite NEGATIVE Urine Bilirubin NEGATIVE Urine Urobilinogen 4.0 H Ur Leukocyte Esterase NEGATIVE Urine WBC (Auto) 1 Urine RBC (Auto) 1 Urine Mucus (Auto) RARE Urine Ascorbic Acid NEGATIVE Scrotum Ultrasound 04/21/17 19:39 IMPRESSION: RIGHT SIDE EPIDIDYMAL CYST OR SPERMATOCELE. LEFT-SIDED VARICOCELE. OTHERWISE UNREMARKABLE SCROTAL ULTRASOUND. NO EVIDENCE OF TESTICULAR MASS OR TORSION. - Vital Signs Vital signs: Temp Pulse Resp BP Pulse Ox 99.0 F 86 14 135/85 H 94 04/21/17 20:42 04/21/17 20:42 04/21/17 20:42 04/21/17 20:42 04/21/17 20:42 - Laboratory Laboratory results interpreted by me: 04/21/17 21:11 Urine Urobilinogen 4.0 H Discharge - Discharge Clinical Impression: Strain of groin Condition: Good Disposition: HOME, SELF-CARE Instructions: Muscle Strain ([facility]) Prescriptions: Hydrocodone/Acetaminophen [Novice 5-325 mg Tablet] 1 tab PO Q6H #8 tablet Ibuprofen [Motrin 600 Mg Tablet] 600 mg PO TID #15 tablet
--- NOTE | 2017-04-21 21:17 | RADIOLOGY REPORT (SQ) ---
EXAM DESCRIPTION: U/S SCROTUM W/DOPPLER COMPLETED DATE/TIME: 04/21/2017 9:01 pm REASON FOR STUDY: testicle pain COMPARISON: None. TECHNIQUE: Static and realtime kelsey scale imaging of the scrotum and testes. Selected color Doppler and spectral images recorded to document blood flow. LIMITATIONS: None. FINDINGS: RIGHT: TESTICLE: Normal size. Normal echotexture. Normal blood flow. No mass. EPIDIDYMIS: 1 cm epididymal cyst or spermatocele. HYDROCELE OR VARICOCELE: No. HERNIA OR EXTRA-TESTICULAR MASS: No. OTHER: No other significant finding. LEFT: TESTICLE: Normal size. Normal echotexture. Normal blood flow. No mass. EPIDIDYMIS: Normal. HYDROCELE OR VARICOCELE: Varicocele. No hydrocele. HERNIA OR EXTRA-TESTICULAR MASS: No. OTHER: No other significant finding. IMPRESSION: RIGHT SIDE EPIDIDYMAL CYST OR SPERMATOCELE. LEFT-SIDED VARICOCELE. OTHERWISE UNREMARKA BLE SCROTAL ULTRASOUND. NO EVIDENCE OF TESTICULAR MASS OR TORSION. TECHNICAL DOCUMENTATION: JOB ID: [id number] [employer]- All Rights Reserved Reading location - IP/workstation name: [email or web address]
[2017-04-21 21:54] LABS: APPEARANCE,URINE CLEAR; BILIRUBIN,URINE NEGATIVE (NEGATIVE); COLOR,URINE YELLOW; GLUCOSE, URINE NEGATIVE (NEGATIVE); KETONES,URINE NEGATIVE (NEGATIVE); LEUKOCYTE ESTERASE,URINE NEGATIVE (NEGATIVE); NITRITE,URINE NEGATIVE (NEGATIVE); PROTEIN,URINE NEGATIVE (NEGATIVE); URINE SPECIFIC GRAVITY 1.028
[2017-04-21 23:01] VITALS: BP 126/67
[2017-04-21 23:16] LABS: CHLAM PCR NOT DETECTED (NOT DETECT); GON PCR NOT DETECTED (NOT DETECT)
== END 2017-04-21 22:58 | disposition home or self-care (01) ==
LOC: ER 19:27
DX: S39.011A Strain of muscle, fascia and tendon of abdomen, initial encounter (principal); R10.30 Lower abdominal pain, unspecified; N50.812 Left testicular pain; I50.9 Heart failure, unspecified; I10 Essential (primary) hypertension; E11.9 Type 2 diabetes mellitus without complications; X58.XXXA Exposure to other specified factors, initial encounter; F17.210 Nicotine dependence, cigarettes, uncomplicated; Z86.73 Personal history of transient ischemic attack (TIA), and cerebral infarction without residual deficits; Z95.2 Presence of prosthetic heart valve
CPT/HCPCS: 99406; 99284; 96374; 81001; 87491; 87591; 76870; 93976; J3010

== ENCOUNTER 2017-06-29 23:47 | Emergency (ER) | payer SELFPAY ==
--- NOTE | 2017-06-30 00:09 | ER Document Report ---
ED Respiratory Problem - General Chief Complaint: Breathing Difficulty Stated Complaint: DIFFICULTY BREATHING Time Seen by Provider: 06/29/17 23:59 Notes: Patient is a 31-year-old male who comes emergency department by EMS for chief complaint of shortness of breath, cough, wheezing. He states he has been sick for about 4 days, states he was running fevers but these resolved a couple of days ago, states she was seen at [place] and diagnosed with pneumonia, placed on azithromycin, has taken 2 days of azithromycin. He states he was given 2 albuterol treatments by EMS and he actually feels a lot better now. He continues to smoke. Past medical history of IV drug abuse, mechanical heart valve. TRAVEL OUTSIDE OF THE [place] IN LAST 30 DAYS: No - Related Data Allergies/Adverse Reactions: No Known Allergies Allergy (Unverified 12/14/16 04:54) Past Medical History - General Information source: Patient - Social History Smoking Status: Current Every Day Smoker Frequency of alcohol use: Occasional Drug Abuse: Heroin Lives with: Spouse/Significant other Family History: CAD, Other - Father: congestive heart failure, when the patient was 16. He's been estranged from his family since then. - Past Medical History Cardiac Medical History: Reports: Hx Congestive Heart Failure, Hx Hypertension, Hx Heart Murmur Pulmonary Medical History: Denies: Hx Tuberculosis Neurological Medical History: Reports: Hx Cerebrovascular Accident Endocrine Medical History: Reports: Hx Diabetes Mellitus Type 2 Renal/ Medical History: Denies: Hx Peritoneal Dialysis GI Medical History: Denies: Hx Hepatitis Psychiatric Medical History: Reports: Hx Bipolar Disorder, Hx Schizophrenia Infectious Medical History: Denies: Hx Hepatitis Past Surgical History: Reports: Hx Cardiac Surgery, Hx Internal Defibrillator, Hx Tonsillectomy, Hx Valve Replacement - Aortic valve replacement in 2013 at [facility] - Immunizations Immunizations up to date: Yes Hx Diphtheria, Pertussis, Tetanus Vaccination: No Review of Systems - Review of Systems Constitutional: See HPI EENT: No symptoms reported Cardiovascular: No symptoms reported Respiratory: See HPI Gastrointestinal: No symptoms reported Genitourinary: No symptoms reported Male Genitourinary: No symptoms reported Musculoskeletal: No symptoms reported Skin: No symptoms reported Hematologic/Lymphatic: No symptoms reported Neurological/Psychological: No symptoms reported Physical Exam - Vital signs Vitals: Temp Pulse Resp BP Pulse Ox 98.0 F 98 22 H 119/78 96 06/29/17 23:57 06/29/17 23:57 06/29/17 23:57 06/29/17 23:57 06/29/17 23:57 Interpretation: Normal - General General appearance: Other - mildly ill in appearance, but still alert and oriented - HEENT Head: Normocephalic, Atraumatic Eyes: Normal Conjunctiva: Normal Extraocular movements intact: Yes Eyelashes: Normal Pupils: PERRL Sinus: Normal Nasal: Normal Mouth/Lips: Normal Mucous membranes: Normal Pharynx: Normal Neck: Normal - Respiratory Respiratory status: No respiratory distress Chest status: Nontender Breath sounds: Nonproductive cough. No: Decreased air movement, Wheezing Chest palpation: Normal - Cardiovascular Rhythm: Regular. No: Tachycardia Heart sounds: Normal auscultation, S1 appreciated, S2 appreciated Murmur: No - Abdominal Inspection: Normal Distension: No distension Bowel sounds: Normal Tenderness: Nontender. No: Tender, Guarding - Back Back: Normal, Nontender. No: Tender - Extremities General upper extremity: Normal inspection, Nontender, Normal strength, Normal temperature General lower extremity: Normal inspection, Nontender, Normal strength, Normal temperature - Neurological Neuro grossly intact: Yes Cognition: Normal Orientation: AAOx4 [place] Coma Scale Eye Opening: Spontaneous Сергей Coma Scale Verbal: Oriented [place] Coma Scale Motor: Obeys Commands Сергей Coma Scale Total: 15 Speech: Normal Motor strength normal: LUE, RUE, LLE, RLE Sensory: Normal - Skin Skin Temperature: Warm Skin Moisture: Dry Skin Color: Normal Course - Re-evaluation Re-evalutation: Patient intermittently mildly tachycardic, lungs sound clear on exam, no respiratory distress, no hypoxia. CBC unremarkable, chemistry generally unremarkable. Chest x-ray showing questionable multifocal pneumonia versus pulmonary edema. Because of history of IV drug abuse, tachycardia, reported recent fever, and patient being mildly ill-appearing on exam patient was discussed with Dr. Jameson and decision was made to perform CTA to rule out septic pulmonary emboli and clarify diagnosis. Patient states agreement with this plan. He was given initial dose of doxycycline. CTA showing multifocal pneumonia versus edema, BNP and troponin obtained, BNP significantly elevated at 9000. Troponin 0.6. Given cefepime, lasix. Discussed with patient. He still remains mildly tachycardic, clear lungs, no respiratory distress, no hypoxia. Discussed with Dr. Robertson, he declines admission and recommends he be at a tertiary center where they have infectious disease. 06/30/17 04:[address] Benjamin, hospitalist at [facility], patient left AMA from [facility] within the past 48 hours. Patient accepted for transfer. 06/30/17 07:10 Introduced to Juanita Natarajan at bedside, no current complaints, has a room, pending transport. - Vital Signs Vital signs: Temp Pulse Resp BP Pulse Ox 98.1 F 98 22 H 100/71 94 06/30/17 06:00 06/29/17 23:57 06/30/17 06:00 06/30/17 06:00 06/30/17 06:00 - Laboratory Result Diagrams: 06/29/17 23:05 06/29/17 23:05 Laboratory results interpreted by me: 06/29/17 06/29/17 06/29/17 23:05 23:05 23:05 Hgb 12.1 L Hct 35.7 L MCV 78 L MCH 26.2 L RDW 16.8 H BUN 25 H AST 93 H ALT 113 H NT-Pro-B Natriuret Pep 9010 H Total Protein 5.7 L Albumin 3.1 L Critical Care Note - Critical Care Note Total time excluding time spent on procedures (mins): 35 - tachycardia, multifocal pneumonia, heart failure Comments: Critical care time spent obtaining history from patient, discussions with consultants, development of treatment plan with patient, evaluation of patient' s response to treatment, examination of patient, ordering and performing treatments and interventions, ordering and review of laboratory studies, re- evaluation of patient's condition, ordering and review of radiographic studies and review of old charts Discharge - Discharge Clinical Impression: Multifocal pneumonia, Shortness of breath Heart failure Qualifiers: Heart failure type: unspecified Heart failure chronicity: acute Qualified Code( s): I50.9 - Heart failure, unspecified Condition: Stable Disposition: [facility]
[2017-06-30 00:22] LABS: ABSOLUTE EOSINOPHILS # (AUTO) 0.2 10^3/uL (0.0-0.6); ABSOLUTE LYMPHOCYTES (AUTO) 1.6 10^3/uL (0.5-4.7); ABSOLUTE MONOCYTES (AUTO) 0.8 10^3/uL (0.1-1.4); ABSOLUTE NEUT (AUTO) 6.4 10^3/uL (1.7-8.2); BASOPHILS % (AUTO) 0.4 % (0-2); EOSINOPHILS % (AUTO) 1.8 % (0-6); HEMATOCRIT 35.7 % (37.9-51.0); HEMOGLOBIN 12.1 g/dL (13.5-17.0); MEAN CORPUSCULAR HEMOGLOBIN 26.2 pg (27.0-33.4); MEAN CORPUSCULAR HGB CONC 33.8 g/dL (32.0-36.0); MEAN CORPUSCULAR VOLUME 78 fl (80-97); MONOCYTES % (AUTO) 9.3 % (3-13); PLATELET COUNT 211 10^3/uL (150-450); RED CELL DISTRIBUTION WIDTH 16.8 % (11.5-14.0); SEGMENTED NEUTROPHILS % (AUTO) 70.5 % (42-78); TOTAL CELLS COUNTED % (AUTO) 100 %
[2017-06-30 00:32] LABS: ALANINE AMINOTRANSFERASE 113 U/L (21-72); ALBUMIN 3.1 g/dL (3.5-5.0); ALKALINE PHOSPHATASE 68 U/L (38-126); ANION GAP 9 (5-19); ASPARTATE AMINO TRANSFERASE 93 U/L (17-59); BILIRUBIN,DIRECT 0.4 mg/dL (0.0-0.4); BILIRUBIN,TOTAL 0.7 mg/dL (0.2-1.3); BLOOD UREA NITROGEN 25 mg/dL (7-20); CALCIUM 8.9 mg/dL (8.4-10.2); CARBON DIOXIDE 26 mmol/L (22-30); CHLORIDE 106 mmol/L (98-107); GLUCOSE 88 mg/dL (75-110); POTASSIUM 4.3 mmol/L (3.6-5.0); TOTAL PROTEIN 5.7 g/dL (6.3-8.2)
[2017-06-30] MEDS ORDERED: NORMAL SALINE 1000 ML 1,000 ML IV ONE (00:47)
--- NOTE | 2017-06-30 01:19 | RADIOLOGY REPORT (SQ) ---
EXAM DESCRIPTION: XR CHEST 2 VIEWS CLINICAL HISTORY: 31 years Male, shortness of breath COMPARISON: 11.6.17 FINDINGS: Mild mixed interstitial and airspace opacity, normal cardiac silhouette, left lateral lower thoracic stimulator device with lead, sternotomy. IMPRESSION: Mild mixed interstitial and airpace opacities. Differential diagnosis includes pulmonary edema and multifocal pneumonia.
--- NOTE | 2017-06-30 02:34 | RADIOLOGY REPORT (SQ) ---
EXAM DESCRIPTION: CT CHEST ANGIOGRAPHY WITHOUT THEN WITH IV CONTRAST CLINICAL HISTORY: 31 years Male, ? septic emboli, evaluate shortness of breath Comparison: CR, same day. Technique: IV contrast. Coronal and sagittal reformat. 3d reconstruction. This exam was performed according to our departmental dose-optimization program, which includes automated exposure control, adjustment of the mA and/or kV according to patient size and/or use of iterative reconstruction technique.[facility]: Dose Right [facility]: CareDose [facility]: Dose Right [facility]: Teradose 4D [facility]: [employer] LIMITATIONS: None. Findings: Moderate-large bilateral pleural effusions, right more than left. Moderate mixed interstitial and airspace opacity. No pulmonary embolus. No right ventricular strain. Sternotomy. Aortic valve prosthesis. Electronic device at the left lateral lower thorax with anterior subcutaneous bleed. Mild bilateral gynecomastia. Inferior neck, axillae, mediastinum, airway, lymphatics, vasculature, upper abdomen, and musculoskeleton appear unremarkable. Impression: Moderate mixed interstitial and airpace opacities. Moderate bilateral pleural effusions. Differential diagnosis includes pulmonary edema and multifocal pneumonia.
[2017-06-30] MEDS ORDERED: DOXYCYCLINE HYCLATE INJ 100 MG VIAL IV ONE (02:38)
[2017-06-30 03:30] LABS: TROPONIN I 0.633 ng/mL
[2017-06-30] MEDS ORDERED: FUROSEMIDE INJ/PF 20 MG/2 ML SDV IV ONE (03:51)
[2017-06-30] MEDS ORDERED: LORAZEPAM INJ 2 MG/1 ML VIAL IV ONE (04:10)
[2017-06-30] MEDS ORDERED: CEFEPIME 2 GM/D5W RTU 2 GM/50 ML RTUPB IV ONE (04:28)
--- NOTE | 2017-06-30 07:17 | EKG REPORT ---
SEVERITY:- ABNORMAL ECG - SINUS TACHYCARDIA PROBABLE LEFT ATRIAL ABNORMALITY LVH WITH SECONDARY REPOLARIZATION ABNORMALITY BORDERLINE PROLONGED QT INTERVAL : Confirmed by: Nicko Shahid MD 30-Jun-2017 07:16:38
[2017-06-30 12:24] VITALS: BP 98/80
== END 2017-06-30 12:24 | disposition short-term general hospital (02) ==
LOC: ER 23:47
DX: J18.8 Other pneumonia, unspecified organism (principal); R06.00 Dyspnea, unspecified; R06.02 Shortness of breath; F17.200 Nicotine dependence, unspecified, uncomplicated; I50.9 Heart failure, unspecified; I11.0 Hypertensive heart disease with heart failure; E11.9 Type 2 diabetes mellitus without complications; Z86.73 Personal history of transient ischemic attack (TIA), and cerebral infarction without residual deficits; Z95.2 Presence of prosthetic heart valve
CPT/HCPCS: 93005; 36415; 87040; 85025; 87077; 80053; 84484; 83880; 71046; 71275; 93010; J3490; J1940; J2060; J7030; J0692

== ENCOUNTER 2017-07-17 04:54 | Emergency (ER) | payer SELFPAY ==
[2017-07-17] MEDS ORDERED: FUROSEMIDE INJ/PF 40 MG/4 ML SDV IV ONE (05:15)
--- NOTE | 2017-07-17 05:24 | ER Document Report ---
ED Medical Screen (RME) - General Stated Complaint: SWELLING Mode of Arrival: Medic Information source: Patient, [facility] Records Notes: 31-year-old male with congestive heart failure, hypertension, diabetes, aortic valve replacement, remote heroin abuse presents via EMS with complaint of shortness of breath, leg swelling and inability to urinate that started 1 day prior to arrival. Patient is currently taking Lasix but reports he has not urinated for greater than 12 hours. He denies any current drug use. Patient hospitalized one month prior to arrival for pneumonia. Denies any fever, chills , chest pain. I have greeted and performed a rapid initial assessment of this patient. A comprehensive ED assessment and evaluation of the patient including analysis of labs and imaging ( if obtained) and completion of medical decision making will be conducted by an additional ED provider. PHYSICAL EXAMINATION: GENERAL: Ill-appearing HEAD: Atraumatic, normocephalic. EYES: Pupils equal round extraocular movements intact, conjunctiva are normal. ENT: Nares patent NECK: Normal range of motion LUNGS: CTAB, tachypneic. Musculoskeletal: 2+ pitting edema NEUROLOGICAL: Normal speech. PSYCH: Normal mood, normal affect. SKIN: Jaundiced, multiple surgical scar is clean dry and intact. Bedside ultrasound of the heart was performed and showed no pericardial effusion , evidence of tamponade, valve vegetation. Lungs scanned and significant for multiple B-lines which could suggest interstitial edema. 40 mg of IV Lasix ordered, BiPAP initiated. TRAVEL OUTSIDE OF THE [place] IN LAST 30 DAYS: No - Related Data Allergies/Adverse Reactions: No Known Allergies Allergy (Unverified 12/14/16 04:54) Past Medical History - Past Medical History Cardiac Medical History: Reports: Hx Congestive Heart Failure, Hx Hypertension, Hx Heart Murmur Pulmonary Medical History: Denies: Hx Tuberculosis Neurological Medical History: Reports: Hx Cerebrovascular Accident Endocrine Medical History: Reports: Hx Diabetes Mellitus Type 2 Renal/ Medical History: Denies: Hx Peritoneal Dialysis GI Medical History: Denies: Hx Hepatitis Psychiatric Medical History: Reports: Hx Bipolar Disorder, Hx Schizophrenia Infectious Medical History: Denies: Hx Hepatitis Past Surgical History: Reports: Hx Cardiac Surgery, Hx Internal Defibrillator, Hx Tonsillectomy, Hx Valve Replacement - Aortic valve replacement in 2013 at [facility] - Immunizations Immunizations up to date: Yes Hx Diphtheria, Pertussis, Tetanus Vaccination: No History of Influenza Vaccine for 11/2016 - 04/2017 Season: No
[2017-07-17] MEDS ORDERED: KETAMINE HCL INJ 500 MG/10 ML VIAL IV ONE (05:35)
[2017-07-17 05:53] LABS: ABSOLUTE BASOPHILS # (AUTO) 0.1 10^3/uL (0.0-0.2); ABSOLUTE EOSINOPHILS # (AUTO) 0.1 10^3/uL (0.0-0.6); ABSOLUTE LYMPHOCYTES (AUTO) 3.2 10^3/uL (0.5-4.7); ABSOLUTE NEUT (AUTO) 7.1 10^3/uL (1.7-8.2); BASOPHILS % (AUTO) 0.6 % (0-2); EOSINOPHILS % (AUTO) 0.9 % (0-6); HEMATOCRIT 38.4 % (37.9-51.0); HEMOGLOBIN 12.4 g/dL (13.5-17.0); LYMPHOCYTES % (AUTO) 25.7 % (13-45); MEAN CORPUSCULAR HEMOGLOBIN 24.8 pg (27.0-33.4); MEAN CORPUSCULAR HGB CONC 32.3 g/dL (32.0-36.0); MEAN CORPUSCULAR VOLUME 77 fl (80-97); MONOCYTES % (AUTO) 16.3 % (3-13); PLATELET COUNT 249 10^3/uL (150-450); RED BLOOD COUNT 5.01 10^6/uL (4.35-5.55); RED CELL DISTRIBUTION WIDTH 15.8 % (11.5-14.0); SEGMENTED NEUTROPHILS % (AUTO) 56.5 % (42-78); TOTAL CELLS COUNTED % (AUTO) 100 %; WHITE BLOOD COUNT 12.5 10^3/uL (4.0-10.5)
[2017-07-17 05:59] LABS: INTERNATIONAL RATION (INR) 1.87; PROTHROMBIN TIME 22.4 SEC (11.4-15.4)
[2017-07-17 06:15] LABS: ALBUMIN 3.2 g/dL (3.5-5.0); ALKALINE PHOSPHATASE 94 U/L (38-126); ANION GAP 11 (5-19); BILIRUBIN,DIRECT 0.9 mg/dL (0.0-0.4); BILIRUBIN,TOTAL 1.6 mg/dL (0.2-1.3); BLOOD UREA NITROGEN 53 mg/dL (7-20); CALCIUM 8.5 mg/dL (8.4-10.2); CARBON DIOXIDE 24 mmol/L (22-30); CHLORIDE 99 mmol/L (98-107); CREATINE KINASE 91 U/L (55-170); GLUCOSE 99 mg/dL (75-110); POTASSIUM 4.7 mmol/L (3.6-5.0); SODIUM 134.1 mmol/L (137-145); TOTAL PROTEIN 5.9 g/dL (6.3-8.2)
--- NOTE | 2017-07-17 06:15 | ER Document Report ---
ED General - General Chief Complaint: Swelling of Lower Extremity Stated Complaint: SWELLING Time Seen by Provider: 07/17/17 05:30 Mode of Arrival: Medic Information source: Patient, Emergency Med Personnel, [facility] Records Notes: 31 yr old male with hx of chf, heroine abuse, endocarditis recent admission for multifocal pneumonia presents with complaints of not urinating for 12 hours, pt is on lasix notes lower extremity edema. pt given ketamine and placed on bipap upon arrival to the ED TRAVEL OUTSIDE OF THE [place] IN LAST 30 DAYS: No - HPI Onset: Yesterday Onset/Duration: Persistent Quality of pain: No pain Severity: Severe Pain Level: Denies Associated symptoms: Other Exacerbated by: Denies Relieved by: Denies Similar symptoms previously: Yes Recently seen / treated by doctor: Yes - Related Data Allergies/Adverse Reactions: No Known Allergies Allergy (Verified 07/17/17 05:38) Past Medical History - General Information source: Patient, [facility] Records - Social History Smoking Status: Unknown if Ever Smoked Cigarette use (# per day): No Chew tobacco use (# tins/day): No Smoking Education Provided: No Frequency of alcohol use: None Drug Abuse: None, Heroin - previous Family History: CAD, Other - Father: congestive heart failure, when the patient was 16. He's been estranged from his family since then. Patient has suicidal ideation: No Patient has homicidal ideation: No - Past Medical History Cardiac Medical History: Reports: Hx Congestive Heart Failure, Hx Heart Attack, Hx Hypertension, Hx Heart Murmur Pulmonary Medical History: Denies: Hx Tuberculosis Neurological Medical History: Reports: Hx Cerebrovascular Accident Endocrine Medical History: Reports: Hx Diabetes Mellitus Type 2 Renal/ Medical History: Denies: Hx Peritoneal Dialysis GI Medical History: Denies: Hx Hepatitis Psychiatric Medical History: Reports: Hx Bipolar Disorder, Hx Schizophrenia Infectious Medical History: Denies: Hx Hepatitis Past Surgical History: Reports: Hx Cardiac Surgery, Hx Internal Defibrillator, Hx Tonsillectomy, Hx Valve Replacement - Aortic valve replacement in 2013 at [facility] - Immunizations Immunizations up to date: Yes Hx Diphtheria, Pertussis, Tetanus Vaccination: No Review of Systems - Review of Systems Notes: REVIEW OF SYSTEMS: CONSTITUTIONAL : Denies fever, chills, or sweats. Denies recent illness. EENT: Denies eye, ear, throat, or mouth pain or symptoms. Denies nasal or sinus congestion or discharge. Denies throat, tongue, or mouth swelling or difficulty swallowing. CARDIOVASCULAR: admits to peripheral edema RESPIRATORY: Denies cough, cold, or chest congestion. Denies shortness of breath, difficulty breathing, or wheezing. GASTROINTESTINAL: Denies abdominal pain or distention. Denies nausea, vomiting , or diarrhea. Denies blood in vomitus, stools, or per rectum. Denies black, tarry stools. Denies constipation. GENITOURINARY: admits to difficulty urinating MUSCULOSKELETAL: Denies back or neck pain or stiffness. Denies joint pain or swelling. SKIN: Denies rash, lesions or sores. HEMATOLOGIC : Denies easy bruising or bleeding. LYMPHATIC: Denies swollen, enlarged glands. NEUROLOGICAL: Denies confusion or altered mental status. Denies passing out or loss of consciousness. Denies dizziness or lightheadedness. Denies headache. Denies weakness or paralysis or loss of use of either side. Denies problems with gait or speech. Denies sensory loss, numbness, or tingling. Denies seizures. PSYCHIATRIC: Denies anxiety or stress. Denies depression, suicidal ideation, or homicidal ideation. ALL OTHER SYSTEMS REVIEWED AND NEGATIVE. Dictation was performed using [employer] voice recognition software PHYSICAL EXAMINATION: GENERAL: ill appearing male, jaundiced appearance HEAD: Atraumatic, normocephalic. EYES: Pupils equal round and reactive to light, extraocular movements intact, sclera anicteric, conjunctiva are normal. ENT: Nares patent, oropharynx clear without exudates. Moist mucous membranes. NECK: Normal range of motion, supple without lymphadenopathy LUNGS: Breath sounds clear to auscultation bilaterally and equal. No wheezes rales or rhonchi. on bipap HEART: Regular rate and rhythm without murmurs ABDOMEN: Soft, nontender, nondistended abdomen. No guarding, no rebound. No masses appreciated. Musculoskeletal: +2 pitting edema of the bilateral lower extremities NEUROLOGICAL: drowsy from ketamine, was noted to be alert oriented on arrival PSYCH: Normal mood, normal affect. SKIN:jaundiced with petechia on bilateral lower extremities Physical Exam - Vital signs Vitals: BP Pulse Ox 99/84 L 98 07/17/17 05:04 07/17/17 05:04 Course - Re-evaluation Re-evalutation: 07/17/17 06:22 Patient's presentation most consistent with CHF exacerbation, patient himself looks quite ill have poor prognosis for this patient 07/17/17 06:39 [facility] paged, pt is in acute liver failure, elevated troponin 07/17/17 06:45 Patient had taken off his BiPAP, I walked into the room he is satting 84% on room air, BiPAP was immediately placed back on him, he continues to be drowsy, had vomited extensively , concern is for airway protection we are preparing for intubation 07/17/17 07:09 Patient intubated with no difficulty 07/17/17 07:22 Dr Franks accepted patient to the MICU , requests isaac 07/17/17 07:47 Spoke with mother Bharti Patrick 07/17/17 08:01 Patient well sedated O2 sats 100% 07/17/17 09:41 pt taken off precedex, started on propofol since sedation was not working as well transport is here for the patient - Vital Signs Vital signs: Temp Pulse Resp BP Pulse Ox 97.5 F 18 100/85 99 07/17/17 05:06 07/17/17 09:18 07/17/17 09:18 07/17/17 09:18 - Laboratory Result Diagrams: 07/17/17 05:25 07/17/17 05:25 Laboratory results interpreted by me: 07/17/17 07/17/17 07/17/17 05:25 05:25 05:25 WBC 12.5 H Hgb 12.4 L MCV 77 L MCH 24.8 L RDW 15.8 H Monocytes % 16.3 H Absolute Monocytes 2.0 H PT Sodium 134.1 L BUN 53 H Creatinine 1.81 H Est GFR ( Amer) 54 L Est GFR (Non-Af Amer) 44 L Total Bilirubin 1.6 H Direct Bilirubin 0.9 H AST 2007 H ALT 2278 H Ammonia NT-Pro-B Natriuret Pep 66109 H Total Protein 5.9 L Albumin 3.2 L Urine Urobilinogen 07/17/1718 07/17/17 05:25 06:40 08:05 WBC Hgb MCV MCH RDW Monocytes % Absolute Monocytes PT 22.4 H Sodium BUN Creatinine Est GFR ( Amer) Est GFR (Non-Af Amer) Total Bilirubin Direct Bilirubin AST ALT Ammonia < 8.7 L NT-Pro-B Natriuret Pep Total Protein Albumin Urine Urobilinogen 2.0 H - Diagnostic Test Radiology reviewed: Image reviewed, Reports reviewed - chest xray 1 view consistnat with RLL effusion - EKG Interpretation by Me EKG shows normal: Sinus rhythm, Haskell, Intervals, QRS Complexes Rate: Tachycardia Voltage: Consistant with LVH Procedures - Intubation Orotracheal Time of Intubation: 07:05 Airway evaluation: Normal anatomy, Copious secretions Mallampati Classification: Class 3 Medications: Etomidate, Succinylcholine Intubation method: Orotracheal Blade type: Miguelangel Blade size: 4 ETT size: 8.0 ETT secured at: Teeth ETT secured at (cm): 22 Breath Sounds after Intubation: Equal End tidal CO2 confirmed: Yes Critical Care Note - Critical Care Note Total time excluding time spent on procedures (mins): 75 Comments: 75 minutes of critical care time spent in direct contact evaluating and reevaluating the patient, treating symptoms, reviewing labs and studies and speaking with family and consultants excluding any procedures Discharge - Discharge Clinical Impression: IV drug abuse, Systolic CHF, chronic, Cholangitis, History of aortic valve replacement Acute liver failure Qualifiers: Hepatic coma status: with hepatic coma Qualified Code(s): K72.01 - Acute and subacute hepatic failure with coma Acute kidney failure Qualifiers: Acute renal failure type: unspecified Qualified Code(s): N17.9 - Acute kidney failure, unspecified Condition: Critical Disposition: [facility] Referrals: LOCALMD,NO [Primary Care Provider] - Follow up as needed
[2017-07-17] MEDS ORDERED: METOCLOPRAMIDE HCL INJ/PF 10 MG/2 ML SDV IV ONE (06:16)
[2017-07-17 06:26] LABS: CREATINE KINASE MB 3.58 ng/mL (<4.55)
[2017-07-17 06:33] LABS: ALANINE AMINOTRANSFERASE 2278 U/L (21-72); ASPARTATE AMINO TRANSFERASE 2007 U/L (17-59)
[2017-07-17 06:35] LABS: TROPONIN I 0.172 ng/mL
[2017-07-17] MEDS ORDERED: ETOMIDATE INJ/PF 20 MG/10 ML SDV IV ONE ×2 (06:45→07:10)
--- NOTE | 2017-07-17 06:48 | RADIOLOGY REPORT (SQ) ---
EXAM DESCRIPTION: XR CHEST 1 VIEW COMPLETED DATE/TME: 07/17/2017 05:17 CLINICAL HISTORY: 31 years Male, sob COMPARISON: 3 days prior. NUMBER OF VIEWS/TECHNIQUE: 1/AP FINDINGS: Moderate hazy opacity deciliter fusion of bilateral lung bases, mildly enlarged cardiac silhouette, sternotomy, external stimulation device at the lateral left lower thorax to the left paramedial mediastinal lead. No pneumothorax. No acute bone defect. IMPRESSION: New bibasilar opacity-effusion.
[2017-07-17] MEDS ORDERED: SUCCINYLCHOLINE CHLORIDE INJ 200 MG/10 ML VIAL IV ONE (07:10)
[2017-07-17] MEDS ORDERED: PROPOFOL INJ 200 MG/20 ML VIAL IV ONE ×2 (07:18→07:32)
[2017-07-17] MEDS ORDERED: PROPOFOL 1,000 MG/100 ML INFUS..BTL IV ONE ×2 (07:19→09:25)
[2017-07-17] MEDS ORDERED: PIPERACILLIN/TAZOBACTAM 3.375 GM VIAL IV ONE (07:21)
[2017-07-17] MEDS ORDERED: DEXMEDETOMIDINE 400 MCG/NS 100 ML BOT IV PRN (07:25)
[2017-07-17 07:39] LABS: APPEARANCE,URINE SLIGHTLY-CLOUDY; BILIRUBIN,URINE NEGATIVE (NEGATIVE); COLOR,URINE YELLOW; GLUCOSE, URINE NEGATIVE (NEGATIVE); KETONES,URINE NEGATIVE (NEGATIVE); LEUKOCYTE ESTERASE,URINE NEGATIVE (NEGATIVE); NITRITE,URINE NEGATIVE (NEGATIVE); PROTEIN,URINE NEGATIVE (NEGATIVE); URINE SPECIFIC GRAVITY 1.012
[2017-07-17] MEDS ORDERED: ONDANSETRON 4 MG TAB.RAPDIS PO ONE (07:43)
--- NOTE | 2017-07-17 08:19 | RADIOLOGY REPORT (SQ) ---
EXAM DESCRIPTION: CHEST SINGLE VIEW COMPLETED DATE/TIME: 07/17/2017 7:33 am REASON FOR STUDY: post intubation COMPARISON: 09/16/2012. FINDINGS: Single view AP portable upright chest film at approximately 0720 hours. Endotracheal tube in good position. Nasogastric tube down, tip hard to see. This appears to course into the stomach. External monitor leads in artifacts. Haziness throughout the lung edwards with bilateral effusions and diminished basilar aeration. Patchy perihilar opacity. No pneumothorax. IMPRESSION: 1. Appropriate endotracheal tube. 2. Pulmonary edema. TECHNICAL DOCUMENTATION: JOB ID: [id number] Reading location - IP/workstation name: [email or web address]
--- NOTE | 2017-07-17 08:19 | RADIOLOGY REPORT (SQ) ---
EXAM DESCRIPTION: KUB/ABDOMEN (SINGLE VIEW) COMPLETED DATE/TIME: 07/17/2017 7:33 am REASON FOR STUDY: post og tube placement COMPARISON: None. FINDINGS: Single-view of the lower chest and upper abdomen, AP portable supine. A nasogastric tube is appropriately positioned, tip in the stomach. Visualized bowel gas pattern unremarkable. IMPRESSION: Appropriate nasogastric tube. TECHNICAL DOCUMENTATION: JOB ID: [id number] Reading location - IP/workstation name: [email or web address]
[2017-07-17 09:57] VITALS: BP 98/79
[2017-07-17] MEDS ORDERED: SUCCINYLCHOLINE CHLORIDE INJ 200 MG/10 ML VIAL ONE (10:34)
--- NOTE | 2017-07-17 16:20 | EKG REPORT ---
SEVERITY:- ABNORMAL ECG - SINUS TACHYCARDIA LEFT ATRIAL ABNORMALITY LOW VOLTAGE IN FRONTAL LEADS LVH WITH SECONDARY REPOLARIZATION ABNORMALITY : Confirmed by: Rose Arreguin MD 17-Jul-2017 16:19:39
== END 2017-07-17 10:00 | disposition short-term general hospital (02) ==
LOC: ER 04:54
DX: K72.01 Acute and subacute hepatic failure with coma (principal); I11.0 Hypertensive heart disease with heart failure; I50.22 Chronic systolic (congestive) heart failure; N17.9 Acute kidney failure, unspecified; K83.0 Cholangitis; F19.10 Other psychoactive substance abuse, uncomplicated; R11.10 Vomiting, unspecified; R00.0 Tachycardia, unspecified; R23.3 Spontaneous ecchymoses; R74.8 Abnormal levels of other serum enzymes; I25.2 Old myocardial infarction; E11.9 Type 2 diabetes mellitus without complications; Z95.2 Presence of prosthetic heart valve; Z95.810 Presence of automatic (implantable) cardiac defibrillator; Z79.899 Other long term (current) drug therapy; Z82.49 Family history of ischemic heart disease and other diseases of the circulatory system
CPT/HCPCS: 93005; 99291; 99292; 51702; 96375; 96365; 36415; 82553; 82140; 82550; 85025; 85610; 85730; 80053; 81001; 84484; 83880; 71045; 74018; 94660 ×2; 93010; 31500; J1940; J3490 ×2; J2765; J0330; J2543